=== PATIENT | female | born 1960 | race Caucasian/White ===

== ENCOUNTER 2017-09-14 12:36 | Inpatient (IN) | payer MEDICARE, OTHER ==
[~2017-09-14] VITALS: Ht 160 cm; Wt 112.1 kg
[~2017-09-14 12:36] MED LIST: AMBIEN10 MG PO; ATORVASTATIN CA40 MG PO; CALCIUM 600 +1 EAC8 PO; CELEXA20 MG PO; CLONIDINE HCL0.1 MG PO; DILTIAZEM 24HR120 MG PO; FENOFIBRATE160 MG PO; GABAPENTIN400 MG PO; LASIX40 MG PO; LEVAQUIN500 MG PO; LEVEMIR100 UNIT/1 SC; LISINOPRIL40 MG PO; METFORMIN HCL500 MG PO; OMEPRAZOLE40 MG PO; PLAVIX75 MG PO; PREDNISONE5 G1 PO; ROPINIROLE HCL1 MG PO; TRAVATAN 0.0042.5 ML OU; XARELTO10 MG PO
[2017-09-14] MEDS ORDERED: ALBUTEROL/IPRATROPIUM 3 ML NEB ONE (14:07)
[2017-09-14] MEDS ORDERED: METHYLPREDNISOLONE SOD SUCC 125 MG/2ML VIAL IV ONE (14:15)
[2017-09-14] MEDS ORDERED: PROPOFOL IV EMULSION 10MG/ML 100 ML ONE (14:36)
[2017-09-14 14:37] LABS: BASOPHILS % 0.3 % (0.0-1.0); EOSINOPHILS # (AUTO) 0.1 (0.0-0.4); EOSINOPHILS % 0.9 % (0.0-6.0); HEMATOCRIT 38.1 % (34.2-44.1); HEMOGLOBIN 11.6 g/dL (12.0-16.0); LYMPHOCYTES # (AUTO) 2.2 (1.0-3.2); LYMPHOCYTES % 18.6 % (18.0-39.1); MEAN CORPUSCULAR HEMOGLOBIN 26.8 pg (28-32); MEAN CORPUSCULAR HGB CONC 30.4 g/dL (31-35); NEUTROPHILS # (AUTO) 8.5 (2.1-6.9); NEUTROPHILS % 70.6 % (38.7-80.0); PLATELET COUNT 254 x10e3/uL (140-360); RED BLOOD COUNT 4.33 x10e6/uL (3.6-5.1); RED CELL DISTRIBUTION WIDTH 16.9 % (11.7-14.4)
[2017-09-14] MEDS ORDERED: FUROSEMIDE INJ 10 MG/ML 4 ML VIAL IV ONE (14:45)
[2017-09-14] MEDS ORDERED: SODIUM CHLORIDE 0.9% 1000ML 1,000 ML ONE (14:53)
[2017-09-14] MEDS ORDERED: NOREPINEPHRINE BITARTRATE/ NS 250 ML ONE (15:07)
[2017-09-14 15:29] LABS: BILIRUBIN,URINE NEGATIVE (NEGATIVE); KETONES,URINE NEGATIVE (NEGATIVE); LEUKOCYTE ESTERASE ,URINE NEGATIVE (NEGATIVE); NITRITE,URINE NEGATIVE (NEGATIVE); URINE UROBILINOGEN 0.2 mg/dL (0.2 - 1)
[2017-09-14 15:31] LABS: PROTEIN,URINE DIPSTICK 2+ (NEGATIVE)
[2017-09-14 15:32] LABS: INR 0.85
[2017-09-14 15:32] LABS: CLARITY,URINE SL CLOUDY (CLEAR); COLOR,URINE YELLOW (YELLOW)
[2017-09-14 15:33] LABS: PARTIAL THROMBOPLASTIN TIME 25.1 seconds (23.8-35.5)
[2017-09-14 15:36] LABS: ABG PH 7.15 (7.31-7.41)
[2017-09-14 15:37] LABS: B-TYPE NATRIURETIC PEPTIDE2 38.8 pg/mL (0-100)
[2017-09-14 15:37] LABS: ABG HCO3 41 mmol/L (23-28); ABG PCO2 120 mmHg (41-51); ABG PO2 95 mmHg (80-105)
--- NOTE | 2017-09-14 15:37 | Diagnostic Imaging Report ---
PROCEDURE: A single AP view of the chest. COMPARISON: 11/10/16 INDICATIONS: INTUBATION FINDINGS: Lines/tubes: Endotracheal tube in place with tip approximately 1.7 cm above lesli. Lungs: Limited by low lung volumes and body habitus. Central peribronchovascular thickening/cuffing. Left lower lung field hazy opacification. Pleura: There is no visible pneumothorax. Possible small left pleural effusion. Heart and mediastinum: The heart and the mediastinum are unremarkable. Bones: No acute bony abnormality. IMPRESSION: Limited as above. Status post intubation with endotracheal tip approximately 1.7 cm above lesli. Central peribronchovascular thickening/cuffing. Underlying infiltrates cannot be excluded. Left lower lung field hazy opacification, representing atelectasis and/or effusion. Dictated by: Pablo Ash M.D. on 09/14/2017 at 15:45 Electronically approved by: Pablo Ash M.D. on 09/14/2017 at 15:45
[2017-09-14 15:39] LABS: ALANINE AMINOTRANSFERASE 36 IU/L (0-55); ALBUMIN/GLOBULIN RATIO 0.8 (0.8-2.0); ALKALINE PHOSPHATASE 95 IU/L (40-150); ANION GAP 12.1 mmol/L (8-16); BLOOD UREA NITROGEN 17 mg/dL (7-26); BUN/CREATININE RATIO 18 (6-25); CARBON DIOXIDE 36 mmol/L (22-29); CHLORIDE 97 mmol/L (98-107); CREATINE KINASE 152 IU/L (29-168); CREATININE, SERUM 0.97 mg/dL (0.57-1.11); EST GLOMERULAR FILTRATION RATE 59 ML/MIN (60-); GLUCOSE 164 mg/dL (74-118); LIPASE 17 U/L (8-78); POTASSIUM 5.1 mmol/L (3.5-5.1); SODIUM 140 mmol/L (136-145)
[2017-09-14 15:47] LABS: TROPONIN I 0.013 ng/mL (0-0.300)
[2017-09-14 16:09] LABS: WBC,URINE (MAN) 0-5 /HPF (0-5)
[2017-09-14 16:10] LABS: EPITHELIAL CELLS,URINE FEW /LPF
--- NOTE | 2017-09-14 16:41 | Diagnostic Imaging Report ---
PROCEDURE: A single AP view of the chest. COMPARISON: Same day at 1516 hrs. INDICATIONS: CENTRAL LINE PLACEMENT FINDINGS: Lines/tubes: Stable endotracheal tube. New right internal jugular central line in place with tip overlying the inferior SVC. Lungs: Limited by low lung volumes and body habitus. Unchanged central peribronchovascular thickening/cuffing. Pleura: There is no pneumothorax. Small left pleural effusion. Heart and mediastinum: The heart and the mediastinum are unremarkable. Bones: No acute bony abnormality. IMPRESSION: Right internal jugular central line placement with tip overlying the inferior SVC. No evidence of pneumothorax. Pulmonary status is unchanged. Dictated by: Pablo Ash M.D. on 09/14/2017 at 16:49 Electronically approved by: Pablo Ash M.D. on 09/14/2017 at 16:49
[2017-09-14 17:19] LABS: ABG PH 7.36 (7.31-7.41)
[2017-09-14 17:20] LABS: ABG HCO3 37 mmol/L (23-28); ABG PCO2 65 mmHg (41-51); ABG PO2 107 mmHg (80-105)
[2017-09-14] MEDS ORDERED: SUCCINYLCHOLINE 200 MG/10 ML SYR ONE (17:39)
[2017-09-14] MEDS ORDERED: VECURONIUM BROMIDE FOR INJ 20 MG VIAL ONE (17:39)
[2017-09-14] MEDS ORDERED: ETOMIDATE 2 MG/ML 10 ML INJ IV ONE (17:39)
[2017-09-14] MEDS ORDERED: MIDAZOLAM HCL 2 MG/2 ML VIAL ONE (17:39)
[2017-09-14] MEDS ORDERED: WATER STERILE 10 ML VIAL ONE (17:39)
[2017-09-14] MEDS: MIDAZOLAM HCL 25 MG in SODIUM CHLORIDE 0.9% 50ML 45 ML IV PRN (18:23)
[2017-09-14] MEDS ORDERED: LEVOFLOXACIN 750MG/DEXTROSE PREMIX BAG 150ML IV SCH (19:00)
[2017-09-14] MEDS ORDERED: METHYLPREDNISOLONE SOD SUCC 125 MG/2ML VIAL ONE (19:23)
[2017-09-14] MEDS ORDERED: FUROSEMIDE INJ 10 MG/ML 2 ML VIAL ONE (19:23)
[2017-09-14] MEDS: SODIUM CHLORIDE 0.9% 1000ML 1,000 ML IV SCH (19:32)
[2017-09-14] MEDS: LEVOFLOXACIN 750MG/D5W 150ML 150 ML IV SCH (19:47)
[2017-09-14 23:35] VITALS: BP 140/100
[2017-09-15] VITALS (54 sets, daily range): BP systolic 86–159; BP diastolic 51–94
[2017-09-15] MEDS: FENTANYL CITRATE INJ 2,000 MCG in SODIUM CHLORIDE 0.9% 250ML 210 ML IV PRN ×5 (00:50→16:30)
[2017-09-15] MEDS: MIDAZOLAM HCL 25 MG in SODIUM CHLORIDE 0.9% 50ML 45 ML IV PRN ×4 (01:00→21:44)
[2017-09-15 05:59] LABS: BASOPHILS % 0.2 % (0.0-1.0); HEMATOCRIT 34.9 % (34.2-44.1); HEMOGLOBIN 10.6 g/dL (12.0-16.0); LYMPHOCYTES # (AUTO) 0.8 (1.0-3.2); LYMPHOCYTES % 7.5 % (18.0-39.1); MEAN CORPUSCULAR HEMOGLOBIN 26.4 pg (28-32); MEAN CORPUSCULAR HGB CONC 30.4 g/dL (31-35); MONOCYTES # (AUTO) 0.2 (0.2-0.8); MONOCYTES % 1.6 % (4.4-11.3); NEUTROPHILS # (AUTO) 8.9 (2.1-6.9); NEUTROPHILS % 88.9 % (38.7-80.0); PLATELET COUNT 288 x10e3/uL (140-360); RED BLOOD COUNT 4.01 x10e6/uL (3.6-5.1); RED CELL DISTRIBUTION WIDTH 16.4 % (11.7-14.4)
[2017-09-15 06:18] LABS: ANION GAP 12.3 mmol/L (8-16); CALCIUM 8.5 mg/dL (8.4-10.2); CREATININE, SERUM 0.97 mg/dL (0.57-1.11); POTASSIUM 4.3 mmol/L (3.5-5.1)
[2017-09-15] MEDS: SODIUM CHLORIDE 0.9% 1000ML 1,000 ML IV SCH (07:00)
--- NOTE | 2017-09-15 07:19 | Diagnostic Imaging Report ---
Examination: Single AP view of the chest. COMPARISON: 09/14/2017 INDICATION: Shortness of breath DISCUSSION: See impression IMPRESSION: 1. Endotracheal tube and right internal jugular central venous catheter are unchanged in position. 2. Unchanged bibasilar airspace opacities which may reflect atelectasis or aspiration. Trace left pleural effusion. 3. Stable cardiomediastinal contour with pulmonary venous congestion. Signed by: Dr. Keegan Shook M.D. on 09/15/2017 7:15 AM
[2017-09-15] MEDS ORDERED: ALBUTEROL/IPRATROPIUM 3 ML NEB ONE (10:33)
[2017-09-15] MEDS: ALBUTEROL/IPRATROPIUM 3 ML NEB NEB SCH ×4 (10:38→19:00)
--- NOTE | 2017-09-15 10:49 | History and Physical ---
She is a 57-year-old female patient who presented to the emergency room with complaint of dyspnea for 2 to 3 days. HISTORY OF PRESENT ILLNESS: The patient is a 57-year-old female patient with history of COPD with severe symptoms, morbid obesity, diastolic CHF, hypertension, diabetes mellitus, coronary artery disease and atrial fibrillation. She presented to the emergency room with worsening shortness of breath, cough, fever, dyspnea, chest pain and leg swelling for 2 to 3 days. The patient was having severe symptoms in the emergency room, requiring intubation. PAST MEDICAL HISTORY: Hypertensive heart disease, diabetes mellitus with vascular disease, CHF diastolic, COPD, coronary artery disease, hyperlipidemia. PAST SURGICAL HISTORY: Cholecystectomy, tonsillectomy, tracheostomy, and cardiac stent. SOCIAL HISTORY: Denies smoking. Denies using alcohol. FAMILY HISTORY: Diabetes mellitus and hypertension. REVIEW OF SYSTEMS: Cough, shortness of breath, wheezing, chest tightness, weakness. PHYSICAL EXAMINATION GENERAL: She is an elderly, female patient lying in bed, orally intubated. VITAL SIGNS: Temperature 99, pulse rate 90, blood pressure 115/80, respirations 18. HEENT: Normocephalic, atraumatic. Orally intubated and thick scar present. LUNGS: Bilateral diminished air entry with rhonchi present. HEART: S1 and S2 regular. ABDOMEN: Soft. Bowel sounds are present. NEUROLOGIC: Nonfocal. No neurologic deficit. On arrival ABG, the patient was acidotic with pH 7.14, pCO2 119, pO2 95. ADMISSION IMPRESSION AND DIAGNOSES 1. Acute respiratory failure. 2. Pneumonia. 3. Chronic obstructive pulmonary disease with exacerbation. 4. Diastolic congestive heart failure. 5. History of atrial fibrillation, hypertension, and diabetes mellitus. PLAN: The patient will be admitted with the above diagnoses. The patient will be treated with IV antibiotic, IV Levaquin. Pulmonary consultation was done with Dr. Brown. The patient is also being given analgesics. ICU monitoring will be done. Job#: [id number]
[2017-09-15] MEDS: FUROSEMIDE INJ 10 MG/ML 4 ML VIAL IV SCH (13:20)
[2017-09-15] MEDS: METHYLPREDNISOLONE SOD SUCC 40 MG/ML VIAL IV SCH ×2 (13:20→21:37)
--- NOTE | 2017-09-15 14:08 | Consultation ---
DATE OF CONSULTATION: PULMONARY CONSULTATION REASON FOR CONSULTATION: Shortness of breath, respiratory failure, intubation. HISTORY OF PRESENT ILLNESS: Ms. Cole is a 57-year-old female known to me from previous admission, presented to the emergency room with the complaints of shortness of breath going on for 3 days. 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 She uses CPAP and there is a question about noncompliance with CPAP as well. She has 27-oprg-oefo smoking history, still smokes. I saw her in November of 2016 and she told me that the tracheostomy tube was removed 4 years ago and since then, she has a nonhealing tracheal stoma and tracheocutaneous fistula. She denies any chest pain, nausea, or vomiting. is at the bedside. In the emergency room when she came in, she had a pH of 7.15, pCO2 of 120, pO2 of 95, and saturation of 93%. She was intubated in the emergency room. Right now, she is awake and alert and follows command. She is on mechanical ventilator. REVIEW OF SYSTEMS: Unable to elicit detailed review of systems as the patient is intubated; however, she is denying any complaints of chest pain, nausea, or vomiting. PAST MEDICAL HISTORY 1. Morbid obesity. 2. Coronary artery disease. 3. Hypertension. 4. Peripheral arterial disease. 5. Diastolic heart failure. 6. Chronic tracheostomy, which was removed 5 years ago and has a tracheocutaneous fistula. 7. History of severe sleep apnea. She had a sleep study done in December of 2012, where it was read by Dr. Melton. The patient's AHI was 84 and she was prescribed CPAP. PAST SURGICAL HISTORY: Unknown except tracheostomy. FAMILY HISTORY AND SOCIAL HISTORY: She still smokes, lives with her , 09-xzwe-ndso smoking history. PHYSICAL EXAMINATION VITALS: Temperature 98.6, pulse of 90, blood pressure 114/79, respiratory rate of 18, O2 sat 97%, and she is on 50% FiO2 and tidal volume of 550 and PEEP of 5. HEENT: Head atraumatic, normocephalic. Pupils are reactive. She has a nonhealing tracheocutaneous fistula. She is intubated and morbidly obese. CHEST: Wheezing bilaterally. HEART: S1, S2 audible. ABDOMEN: Soft, nontender, and nondistended. EXTREMITIES: Bilateral pedal edema. NEUROLOGIC: She is awake and alert. No focal neurologic deficit. Following commands. LABORATORY DATA: White count of 9000, hemoglobin 10.6, and platelets 288. Chemistry; sodium 139, potassium 4.3, chloride 97, BUN 18, and creatinine 0.97. Blood gas on admission showed pH of 7.15, pCO2 of 120. Yesterday at around 04:00 p.m. has pCO2 of 65 and pH of 7.36. INR is 0.85. CHEST X-RAY: I have reviewed her chest x-ray films and it is showing possible left lower lobe infiltrate. ASSESSMENT AND PLAN: Ms. Cole is a 57-year-old female, morbidly obese, presented with oussa-mo-ztkuzao hypercapnic respiratory failure. CURRENT PROBLEMS 1. Goqof-mo-ewgwcvn hypercapnic respiratory failure. 2. Morbid obesity. 3. Possible left lower lobe pneumonia. 4. Chronic obstructive pulmonary disease exacerbation. 5. Hypertension. 6. Chronic tracheocutaneous fistula, nonhealing. 7. Morbid obesity. 8. Smoker. PLAN 1. Continue the patient on vent support vent settings reviewed, wean as tolerated. 2. Discontinue the IV fluids. 3. Continue fentanyl. 4. IV Levaquin as ordered. 5. Will change the Lasix to IV. 6. Nebulizer treatment, low-dose steroids. 7. Iv antibiotics CC time spent 40 min Job#: [id number] SAK MTDD
[2017-09-15] MEDS: GABAPENTIN 400 MG CAP PO SCH ×2 (14:15→20:00)
[2017-09-15] MEDS: METFORMIN HCL 500 MG TAB PO SCH (14:16)
[2017-09-15] MEDS ORDERED: DEXTROSE 50% SYRINGE 50 ML IV PRN (15:15)
[2017-09-15] MEDS: INSULIN REGULAR, HUMAN 100 UNIT/1 ML 3ML VIAL SQ SCH (18:14)
[2017-09-15] MEDS: ATORVASTATIN 40 MG TAB PO SCH (19:59)
[2017-09-15] MEDS: TRAVOPROST(OPTH) 2.5 ML BTL OP SCH (20:57)
[2017-09-15] MEDS ORDERED: CLONIDINE HCL 0.1 MG TAB PO SCH (21:00)
[2017-09-15] MEDS ORDERED: NON-FORMULARY MEDICATION (Fenofibrate 160 MG) PO SCH (21:00)
[2017-09-15] MEDS: LEVOFLOXACIN 750MG/D5W 150ML 150 ML IV SCH (21:07)
[2017-09-16] VITALS (71 sets, daily range): BP systolic 100–199; BP diastolic 39–147
[2017-09-16] MEDS: MIDAZOLAM HCL 25 MG in SODIUM CHLORIDE 0.9% 50ML 45 ML IV PRN (00:07)
[2017-09-16] MEDS: ALBUTEROL/IPRATROPIUM 3 ML NEB NEB SCH ×6 (03:15→22:55)
[2017-09-16 06:09] LABS: BASOPHILS % 0.2 % (0.0-1.0); HEMATOCRIT 32.8 % (34.2-44.1); HEMOGLOBIN 10.3 g/dL (12.0-16.0); LYMPHOCYTES # (AUTO) 0.8 (1.0-3.2); LYMPHOCYTES % 6.8 % (18.0-39.1); MEAN CORPUSCULAR HEMOGLOBIN 26.8 pg (28-32); MEAN CORPUSCULAR HGB CONC 31.4 g/dL (31-35); MEAN CORPUSCULAR VOLUME 85.2 fL (81-99); MONOCYTES # (AUTO) 0.9 (0.2-0.8); MONOCYTES % 7.9 % (4.4-11.3); NEUTROPHILS # (AUTO) 9.6 (2.1-6.9); NEUTROPHILS % 84.1 % (38.7-80.0); PLATELET COUNT 287 x10e3/uL (140-360); RED BLOOD COUNT 3.85 x10e6/uL (3.6-5.1); RED CELL DISTRIBUTION WIDTH 16.3 % (11.7-14.4)
[2017-09-16] MEDS: METHYLPREDNISOLONE SOD SUCC 40 MG/ML VIAL IV SCH ×3 (06:12→23:23)
[2017-09-16] MEDS: INSULIN REGULAR, HUMAN 100 UNIT/1 ML 3ML VIAL SQ SCH ×4 (06:42→18:00)
[2017-09-16 06:49] LABS: ALANINE AMINOTRANSFERASE 27 IU/L (0-55); ALBUMIN 2.7 g/dL (3.5-5.0); ALBUMIN/GLOBULIN RATIO 0.8 (0.8-2.0); ALKALINE PHOSPHATASE 73 IU/L (40-150); BLOOD UREA NITROGEN 25 mg/dL (7-26); BUN/CREATININE RATIO 25 (6-25); CALCIUM 8.7 mg/dL (8.4-10.2); CARBON DIOXIDE 34 mmol/L (22-29); CHLORIDE 97 mmol/L (98-107); CREATININE, SERUM 1.01 mg/dL (0.57-1.11); EST GLOMERULAR FILTRATION RATE 56 ML/MIN (60-); GLUCOSE 311 mg/dL (74-118); SODIUM 138 mmol/L (136-145)
[2017-09-16] MEDS: METFORMIN HCL 500 MG TAB PO SCH ×2 (08:00→17:00)
[2017-09-16] MEDS: ROPINIROLE HCL 1 MG TAB PO SCH (09:00)
[2017-09-16] MEDS: FUROSEMIDE INJ 10 MG/ML 4 ML VIAL IV SCH (09:00)
[2017-09-16] MEDS ORDERED: FUROSEMIDE 40 MG TAB PO SCH (09:00)
[2017-09-16] MEDS ORDERED: NON-FORMULARY MEDICATION (Lisinopril 40 MG) PO SCH (09:00)
[2017-09-16] MEDS ORDERED: FUROSEMIDE INJ 10 MG/ML 4 ML VIAL IV SCH (09:00)
[2017-09-16] MEDS: LISINOPRIL 20 MG TAB PO SCH (09:00)
[2017-09-16] MEDS: DILTIAZEM HCL 180 MG CAP CD PO SCH (09:00)
[2017-09-16] MEDS: CITALOPRAM HYDROBROMIDE 20 MG TAB PO SCH (09:00)
[2017-09-16] MEDS: GABAPENTIN 400 MG CAP PO SCH ×3 (09:00→21:00)
[2017-09-16] MEDS: CLOPIDOGREL BISULFATE 75 MG TAB PO SCH (09:00)
[2017-09-16] MEDS: FENOFIBRATE 145 MG TAB PO SCH (09:00)
[2017-09-16] MEDS: RIVAROXABAN 10 MG TABLET PO SCH (09:00)
[2017-09-16] MEDS ORDERED: VECURONIUM BROMIDE FOR INJ 20 MG VIAL ONE (11:56)
[2017-09-16] MEDS ORDERED: ROCURONIUM BROMIDE 1 ML ONE ×2 (11:57→11:58)
[2017-09-16 12:08] LABS: ABG HCO3 33 mmol/L (23-28); ABG PCO2 97 mmHg (41-51); ABG PH 7.14 (7.31-7.41); ABG PO2 103 mmHg (80-105)
[2017-09-16] MEDS ORDERED: BUMETANIDE INJ 0.25MG/ML 4ML VIAL ONE (12:11)
--- NOTE | 2017-09-16 12:17 | Diagnostic Imaging Report ---
PROCEDURE: A single AP view of the chest. COMPARISON: Patients [facility], , CHEST SINGLE (PORTABLE), 09/15/2017, 5:28. INDICATIONS: POST REINTUBATION FINDINGS: Impression IMPRESSION: 1. endotracheal tube has distal tip projecting approximately 3.2 cm above the lesli. Right IJ line is stable. 2. Hyperinflated lungs. Bibasilar atelectasis. 2. Central pulmonary venous congestion. Alex Wilson M.D. Dictated by: Alex Wilson M.D. on 09/16/2017 at 12:25 Electronically approved by: Alex Wilson M.D. on 09/16/2017 at 12:25
[2017-09-16] MEDS ORDERED: INSULIN REGULAR, HUMAN 100 UNIT/1 ML 3ML VIAL ONE (12:24)
[2017-09-16] MEDS ORDERED: ADENOSINE 6 MG/2 ML VIAL IV ONE (12:25)
[2017-09-16] MEDS ORDERED: METOPROLOL TARTRATE INJ 1 MG/ML VIAL IV ONE (13:15)
[2017-09-16] MEDS: AMIODARONE 900MG 500 ML IV SCH (13:15)
--- NOTE | 2017-09-16 13:46 | Diagnostic Imaging Report ---
PROCEDURE: CT scan of the chest WITH intravenous contrast, using PE protocol. TECHNIQUE: The chest was scanned utilizing a multidetector helical scanner from the lung apex through the level of the adrenal glands after the IV administration of 55 cc of Isovue 370, with special concentration of the pulmonary arteries. Coronal and sagittal multiplanar reformations were obtained. COMPARISON: None. INDICATIONS: Pulmonary embolism FINDINGS: Limited exam, as it was acquired during expiration and due to soft tissue attenuation from patient's body habitus. Lines/tubes: Endotracheal tube has its distal tip approximately 1.5 cm above the lesli. Lungs and Airways: No filling defects in the main, right or left pulmonary arteries or their segmental level to suggest pulmonary embolism. Bilateral lower lobe posteromedial consolidations with air bronchograms, left greater than right. Patchy consolidations, with air bronchograms is also seen in the left upper lobe (series 3, image 28). Focal groundglass opacity in the anterior right upper lobe (series 3 per image 31). No pulmonary masses. Major airways are clear, without endobronchial lesions Pleura: The pleural spaces are clear. No effusion, or pneumothorax. Heart and mediastinum: Thyroid is unremarkable. Mild cardiomegaly. Atherosclerotic calcification of the coronary arteries and thoracic aorta. Lymph nodes: No mediastinal, hilar, or axillary adenopathy. Abdomen: Limited contrast-enhanced views of the upper abdomen show no abnormality within the visualized spleen. Diffuse hepatic steatosis. Right adrenal gland is unremarkable. Bones: No acute bony abnormalities. IMPRESSION: 1. no CT evidence of pulmonary embolism. 2. Findings in bilateral lower lobes, likely represent aspiration in the setting of recent arrest. Multifocal pneumonia is a consideration in the appropriate clinical setting. 3. Findings in bilateral upper lobes may also reflect aspiration or additional foci of infection. 4. Diffuse hepatic steatosis. Alex Wilson M.D. Dictated by: Alex Wilson M.D. on 09/16/2017 at 13:55 Electronically approved by: Alex Wilson M.D. on 09/16/2017 at 13:55
[2017-09-16] MEDS ORDERED: IOPAMIDOL 370 MG/ML 200 ML INFUS..BTL INJ ONE (13:53)
[2017-09-16] MEDS ORDERED: SODIUM CHLORIDE 0.9% 50ML 50 ML ONE (13:53)
[2017-09-16] MEDS ORDERED: ETOMIDATE 40 MG/ 20ML VIAL IV ONE (13:58)
[2017-09-16] MEDS ORDERED: SUCCINYLCHOLINE CHLORIDE 20 MG/ML 10ML VIAL ONE (13:58)
[2017-09-16] MEDS ORDERED: PIPER-TAZ 3.375 GM 50 ML IV SCH (14:00)
[2017-09-16] MEDS ORDERED: AMIODARONE HCL INJ 150MG/3ML ONE (14:01)
--- NOTE | 2017-09-16 15:36 | Consultation ---
DATE OF CONSULTATION: REQUESTING PHYSICIANS: Dr. Rahel Aiken and Dr. Brown. REASON FOR CONSULTATION: Tachycardia. HISTORY OF PRESENT ILLNESS: Mr. Cole is a 57-year-old lady with past medical history as listed below. She presented with complaints of worsening shortness of breath, cough and fever. She was also experiencing leg edema. Patient was intubated and placed on the vent. Subsequently, the patient was extubated. She went on to have a CAT scan of her chest. During the CAT scan, the patient became tachycardic. Heart rate went up into the 160s. She was given amiodarone and started on an amiodarone drip for suspected AFib. The patient's heart rate slowed down to the 120s. She appears to be in sinus tach on the monitor. Strips of AFib are not available. Patient had to be reintubated. She is currently on a vent. No history can be obtained from the patient. Most of the history is obtained from the chart, the nurse and the family at the bedside. REVIEW OF SYSTEMS: Not obtainable from the patient. ALLERGIES: NO KNOWN DRUG ALLERGIES. MEDICATIONS: See list. PAST MEDICAL HISTORY 1. History of hypertension. 2. History of diabetes mellitus. 3. History of CHF diastolic. 4. History of COPD. 5. History of CAD and stent placement. 6. History of hyperlipidemia. PAST SURGICAL HISTORY 1. History of tracheostomy. 2. History of tonsillectomy. 3. History of cholecystectomy. 4. History of coronary stent placement. SOCIAL HISTORY: Does not smoke or drink. FAMILY HISTORY: Noncontributory. PHYSICAL EXAMINATION GENERAL: Obese lady, intubated on a vent. VITALS: Heart rate is in the 120s. Blood pressure 124/62. HEENT: Orotracheal tube in place. GENERAL: No JVD, bruits, thyromegaly, lymphadenopathy. CARDIOVASCULAR: The 1st and 2nd heart sounds heard. No murmurs, rubs or gallops appreciated. CHEST: Decreased air entry at the bases. No adventitious sounds appreciated. ABDOMEN: Soft, nontender. EXTREMITIES: 1+ edema. LABS: WBC is 11.3, hemoglobin is 10.3, hematocrit 32.8, platelets 287. Sodium is 138, potassium 4.0, chloride 97, bicarb 34, BUN 25, creatinine 1.0. AST 17, ALT 27, alkaline phos 73. IMPRESSION 1. Respiratory failure. 2. Sinus tachycardia/supraventricular tachycardia. 3. Hypertension. 4. History of coronary artery disease and stent placement. 5. History of congestive heart failure. 6. Chronic obstructive pulmonary disease. PLAN 1. Patient appears to be in sinus tach on the monitor. 2. She was started on IV amiodarone, will continue the same for now. 3. She was also given metoprolol. Will give her metoprolol p.r.n. When she gets an NG tube, will place her on oral metoprolol. 4. Get echocardiogram to assess LV function and valvular function. 5. CT chest is negative for pulmonary embolism. 6. CT shows multifocal pneumonia, continue with antibiotics. 7. Tachycardia is probably secondary to underlying condition. 8. Check thyroid function test. 9. Further cardiac workup depending on clinical course. 10. I discussed my impression and plan of management with the family. As always, I appreciate and thank you very much for your referrals. Job#: [id number]
[2017-09-16] MEDS: AZTREONAM (AZACTAM) 0.5 GM in SODIUM CHLORIDE 0.9% 50ML 50 ML IV SCH (16:00)
[2017-09-16 17:41] LABS: ABG HCO3 38 mmol/L (23-28); ABG PCO2 47 mmHg (41-51); ABG PO2 54 mmHg (80-105)
[2017-09-16] MEDS ORDERED: METOPROLOL TARTRATE 25 MG TAB PO SCH (18:00)
[2017-09-16] MEDS: METOPROLOL TARTRATE 25 MG TAB PO SCH (18:00)
[2017-09-16] MEDS ORDERED: SODIUM CHLORIDE 0.9% 250ML 250 ML ONE (18:20)
[2017-09-16] MEDS: ATORVASTATIN 40 MG TAB PO SCH (21:00)
[2017-09-16] MEDS: CLONIDINE HCL 0.1 MG TAB PO SCH (21:00)
[2017-09-16] MEDS ORDERED: MIDAZOLAM HCL 2 MG/2 ML VIAL IV STA (21:38)
[2017-09-16] MEDS: TRAVOPROST(OPTH) 2.5 ML BTL OP SCH (23:08)
[2017-09-17] VITALS (90 sets, daily range): BP systolic 91–153; BP diastolic 47–82
[2017-09-17] MEDS: MIDAZOLAM HCL 2 MG/2 ML VIAL IV PRN ×2 (00:50→07:49)
[2017-09-17] MEDS: AZTREONAM (AZACTAM) 0.5 GM in SODIUM CHLORIDE 0.9% 50ML 50 ML IV SCH ×3 (01:16→16:00)
[2017-09-17] MEDS: FENTANYL CITRATE INJ 2,000 MCG in SODIUM CHLORIDE 0.9% 250ML 210 ML IV PRN (01:19)
[2017-09-17] MEDS: INSULIN REGULAR, HUMAN 100 UNIT/1 ML 3ML VIAL SQ SCH ×5 (01:20→23:51)
[2017-09-17] MEDS: ALBUTEROL/IPRATROPIUM 3 ML NEB NEB SCH ×6 (02:45→22:52)
[2017-09-17] MEDS: METOPROLOL TARTRATE 25 MG TAB PO SCH ×4 (05:17→17:00)
[2017-09-17] MEDS: METHYLPREDNISOLONE SOD SUCC 40 MG/ML VIAL IV SCH ×3 (06:00→21:27)
[2017-09-17 06:03] LABS: BASOPHILS % 0.1 % (0.0-1.0); HEMATOCRIT 34.8 % (34.2-44.1); HEMOGLOBIN 10.7 g/dL (12.0-16.0); LYMPHOCYTES # (AUTO) 0.8 (1.0-3.2); LYMPHOCYTES % 5.5 % (18.0-39.1); MEAN CORPUSCULAR HEMOGLOBIN 26.8 pg (28-32); MEAN CORPUSCULAR HGB CONC 30.7 g/dL (31-35); MEAN CORPUSCULAR VOLUME 87.2 fL (81-99); MONOCYTES # (AUTO) 1.4 (0.2-0.8); MONOCYTES % 9.8 % (4.4-11.3); NEUTROPHILS # (AUTO) 12.1 (2.1-6.9); NEUTROPHILS % 83.8 % (38.7-80.0); PLATELET COUNT 294 x10e3/uL (140-360); RED BLOOD COUNT 3.99 x10e6/uL (3.6-5.1); RED CELL DISTRIBUTION WIDTH 16.9 % (11.7-14.4)
[2017-09-17 06:23] LABS: ANION GAP 14.9 mmol/L (8-16); CREATININE, SERUM 1.08 mg/dL (0.57-1.11); POTASSIUM 3.9 mmol/L (3.5-5.1)
[2017-09-17] MEDS: MIDAZOLAM HCL 25 MG in SODIUM CHLORIDE 0.9% 50ML 45 ML IV PRN (07:49)
[2017-09-17] MEDS: METFORMIN HCL 500 MG TAB PO SCH ×2 (08:00→17:00)
[2017-09-17] MEDS: CITALOPRAM HYDROBROMIDE 20 MG TAB PO SCH (09:00)
[2017-09-17] MEDS: FENOFIBRATE 145 MG TAB PO SCH (09:00)
[2017-09-17] MEDS: LISINOPRIL 20 MG TAB PO SCH (09:00)
[2017-09-17] MEDS: ROPINIROLE HCL 1 MG TAB PO SCH (09:00)
[2017-09-17] MEDS: DILTIAZEM HCL 180 MG CAP CD PO SCH (09:00)
[2017-09-17] MEDS: CLOPIDOGREL BISULFATE 75 MG TAB PO SCH (09:00)
[2017-09-17] MEDS: RIVAROXABAN 10 MG TABLET PO SCH (09:00)
[2017-09-17] MEDS: GABAPENTIN 400 MG CAP PO SCH ×3 (09:00→21:27)
[2017-09-17] MEDS ORDERED: PROPOFOL IV EMULSION 10MG/ML 100 ML IV PRN (10:00)
[2017-09-17] MEDS: FUROSEMIDE INJ 10 MG/ML 4 ML VIAL IV SCH ×2 (10:03→18:42)
[2017-09-17] MEDS: VANCOMYCIN 1GM/NS 250 ML 250 ML IV SCH ×2 (12:45→22:42)
[2017-09-17] MEDS: AMIODARONE 900MG 500 ML IV SCH (12:46)
[2017-09-17] MEDS: CLONIDINE HCL 0.1 MG TAB PO SCH (21:00)
[2017-09-17] MEDS: ATORVASTATIN 40 MG TAB PO SCH (21:27)
[2017-09-17] MEDS: TRAVOPROST(OPTH) 2.5 ML BTL OP SCH (21:42)
[2017-09-18] VITALS (99 sets, daily range): BP systolic 84–156; BP diastolic 32–132
[2017-09-18] MEDS: AZTREONAM (AZACTAM) 0.5 GM in SODIUM CHLORIDE 0.9% 50ML 50 ML IV SCH ×3 (00:20→16:00)
[2017-09-18] MEDS ORDERED: SODIUM CHLORIDE 0.9% 250ML 250 ML ONE ×2 (00:23→15:30)
[2017-09-18] MEDS: FENTANYL CITRATE INJ 2,000 MCG in SODIUM CHLORIDE 0.9% 250ML 210 ML IV PRN (00:31)
[2017-09-18] MEDS: ALBUTEROL/IPRATROPIUM 3 ML NEB NEB SCH ×4 (02:49→23:45)
[2017-09-18 05:36] LABS: BASOPHILS % 0.3 % (0.0-1.0); HEMATOCRIT 33.7 % (34.2-44.1); HEMOGLOBIN 10.3 g/dL (12.0-16.0); LYMPHOCYTES # (AUTO) 0.9 (1.0-3.2); LYMPHOCYTES % 7.7 % (18.0-39.1); MEAN CORPUSCULAR HEMOGLOBIN 26.8 pg (28-32); MEAN CORPUSCULAR HGB CONC 30.6 g/dL (31-35); MEAN CORPUSCULAR VOLUME 87.5 fL (81-99); MONOCYTES % 8.7 % (4.4-11.3); NEUTROPHILS # (AUTO) 9.8 (2.1-6.9); NEUTROPHILS % 82.5 % (38.7-80.0); PLATELET COUNT 291 x10e3/uL (140-360); RED BLOOD COUNT 3.85 x10e6/uL (3.6-5.1)
[2017-09-18] MEDS: METHYLPREDNISOLONE SOD SUCC 40 MG/ML VIAL IV SCH ×3 (05:40→21:01)
[2017-09-18] MEDS: INSULIN REGULAR, HUMAN 100 UNIT/1 ML 3ML VIAL SQ SCH ×3 (05:42→18:27)
[2017-09-18 06:08] LABS: ALBUMIN 2.3 g/dL (3.5-5.0); ALBUMIN/GLOBULIN RATIO 0.6 (0.8-2.0); ANION GAP 14.9 mmol/L (8-16); CALCIUM 9.1 mg/dL (8.4-10.2); CREATININE, SERUM 1.1 mg/dL (0.57-1.11); POTASSIUM 3.9 mmol/L (3.5-5.1)
[2017-09-18] MEDS: METFORMIN HCL 500 MG TAB PO SCH ×2 (08:00→17:00)
[2017-09-18] MEDS: CLOPIDOGREL BISULFATE 75 MG TAB PO SCH (09:00)
[2017-09-18] MEDS: LISINOPRIL 20 MG TAB PO SCH (09:00)
[2017-09-18] MEDS: METOPROLOL TARTRATE 25 MG TAB PO SCH ×2 (09:00→17:00)
[2017-09-18] MEDS: RIVAROXABAN 10 MG TABLET PO SCH (09:00)
[2017-09-18] MEDS: DILTIAZEM HCL 180 MG CAP CD PO SCH (09:00)
[2017-09-18] MEDS: ROPINIROLE HCL 1 MG TAB PO SCH (09:00)
[2017-09-18] MEDS: GABAPENTIN 400 MG CAP PO SCH ×3 (09:00→20:41)
[2017-09-18] MEDS: FENOFIBRATE 145 MG TAB PO SCH (09:00)
[2017-09-18] MEDS: CITALOPRAM HYDROBROMIDE 20 MG TAB PO SCH (09:00)
[2017-09-18] MEDS: FUROSEMIDE INJ 10 MG/ML 4 ML VIAL IV SCH ×2 (09:00→17:00)
[2017-09-18] MEDS ORDERED: DEXMEDETOMIDINE HCL 200 MCG in SODIUM CHLORIDE 0.9% 50ML 48 ML IV PRN (11:00)
[2017-09-18] MEDS ORDERED: HYDROMORPHONE 2MG/ML INJ IV PRN (11:15)
[2017-09-18] MEDS ORDERED: HYDROMORPHONE 1MG/1ML INJ IV PRN (11:15)
[2017-09-18] MEDS: VANCOMYCIN 1GM/NS 250 ML 250 ML IV SCH ×2 (11:30→23:34)
--- NOTE | 2017-09-18 12:10 | Diagnostic Imaging Report ---
PROCEDURE: A single AP view of the chest. COMPARISON: Patients [facility], DX, CHEST SINGLE (PORTABLE), 09/16/2017, 11:53. Patients [facility], CT, CT CHEST W, 09/16/2017, 12:28. INDICATIONS: RESPIRATORY FAILURE, INTUBATION FINDINGS: Lines/tubes: Endotracheal tube has distal tip projecting approximately 6 cm above the lesli at the level of the thoracic inlet. Interval placement of enteric tube which is seen below the left hemidiaphragm, however, the distal tip is not well-visualized. Stable right IJ line Lungs: Hypoinflated lungs with airspace opacity in the retrocardiac region, likely representing the previously visualized aspiration or pneumonia. Linear opacities in the right lower lung, consistent with subsegmental atelectasis or scarring. Pleura: Questionable left pleural effusion. Heart and mediastinum: Enlarged cardiac silhouette. Central pulmonary venous congestion. Bones: No acute bony abnormality. IMPRESSION: 1. enlarged cardiac silhouette and central pulmonary venous congestion. 2. Hypoinflated lungs with left retrocardiac opacity, likely representing the previously seen, aspiration or pneumonia. 3. Right lower lung linear subsegmental atelectasis or scarring. 4. Interval placement of enteric tube which is seen below left hemidiaphragm. Alex Wilson M.D. Dictated by: Alex Wilson M.D. on 09/18/2017 at 12:18 Electronically approved by: Alex Wilson M.D. on 09/18/2017 at 12:18
[2017-09-18] MEDS: ATORVASTATIN 40 MG TAB PO SCH (20:41)
[2017-09-18] MEDS: TRAVOPROST(OPTH) 2.5 ML BTL OP SCH (20:41)
[2017-09-18] MEDS: MIDAZOLAM HCL 2 MG/2 ML VIAL IV PRN (20:55)
[2017-09-18] MEDS: CLONIDINE HCL 0.1 MG TAB PO SCH (21:00)
[2017-09-19] VITALS (97 sets, daily range): BP systolic 88–146; BP diastolic 50–99
[2017-09-19] MEDS: AZTREONAM (AZACTAM) 0.5 GM in SODIUM CHLORIDE 0.9% 50ML 50 ML IV SCH ×3 (00:06→16:00)
[2017-09-19] MEDS: INSULIN REGULAR, HUMAN 100 UNIT/1 ML 3ML VIAL SQ SCH ×5 (01:15→23:11)
[2017-09-19] MEDS: ALBUTEROL/IPRATROPIUM 3 ML NEB NEB SCH ×6 (01:30→20:30)
--- NOTE | 2017-09-19 05:35 | Diagnostic Imaging Report ---
EXAM: CHEST SINGLE (PORTABLE), AP 1 view DATE: 09/19/2017 5:00 AM Time stamp on exam: 0427 hours INDICATION: Intubated COMPARISON: AP view of the chest September 18, 2017 FINDINGS: LINES/TUBES: Stable position of endotracheal tube, right internal jugular vein central line and nasal/orogastric tube. LUNGS: Slight improved aeration of the lung bases with persistent bibasilar atelectasis. PLEURA: No effusions or pneumothorax. HEART AND MEDIASTINUM: Stable appearance. BONES AND SOFT TISSUES: No acute findings. IMPRESSION: Slight improved aeration of the lung bases with persistent bibasilar atelectasis. Signed by: Dr. Nicole Zamora M.D. on 09/19/2017 5:31 AM
[2017-09-19] MEDS: METHYLPREDNISOLONE SOD SUCC 40 MG/ML VIAL IV SCH ×3 (05:37→21:00)
[2017-09-19 05:56] LABS: BASOPHILS % 0.1 % (0.0-1.0); EOSINOPHILS % 0.1 % (0.0-6.0); HEMATOCRIT 35.2 % (34.2-44.1); HEMOGLOBIN 10.7 g/dL (12.0-16.0); LYMPHOCYTES # (AUTO) 0.9 (1.0-3.2); LYMPHOCYTES % 11.6 % (18.0-39.1); MEAN CORPUSCULAR HGB CONC 30.4 g/dL (31-35); MEAN CORPUSCULAR VOLUME 85.6 fL (81-99); MONOCYTES # (AUTO) 0.9 (0.2-0.8); MONOCYTES % 11.1 % (4.4-11.3); NEUTROPHILS # (AUTO) 5.9 (2.1-6.9); NEUTROPHILS % 76.5 % (38.7-80.0); PLATELET COUNT 309 x10e3/uL (140-360); RED BLOOD COUNT 4.11 x10e6/uL (3.6-5.1); RED CELL DISTRIBUTION WIDTH 16.1 % (11.7-14.4)
[2017-09-19 06:19] LABS: ANION GAP 14.9 mmol/L (8-16); POTASSIUM 3.9 mmol/L (3.5-5.1)
[2017-09-19] MEDS: METFORMIN HCL 500 MG TAB PO SCH ×2 (08:00→17:00)
[2017-09-19] MEDS: DILTIAZEM HCL 180 MG CAP CD PO SCH (09:00)
[2017-09-19] MEDS: LISINOPRIL 20 MG TAB PO SCH (09:00)
[2017-09-19] MEDS: GABAPENTIN 400 MG CAP PO SCH ×3 (09:00→20:44)
[2017-09-19] MEDS: RIVAROXABAN 10 MG TABLET PO SCH (09:00)
[2017-09-19] MEDS: FUROSEMIDE INJ 10 MG/ML 4 ML VIAL IV SCH ×2 (09:00→17:41)
[2017-09-19] MEDS: METOPROLOL TARTRATE 25 MG TAB PO SCH ×2 (09:00→17:00)
[2017-09-19] MEDS: CITALOPRAM HYDROBROMIDE 20 MG TAB PO SCH (09:00)
[2017-09-19] MEDS: ROPINIROLE HCL 1 MG TAB PO SCH (09:00)
[2017-09-19] MEDS: FENOFIBRATE 145 MG TAB PO SCH (09:00)
[2017-09-19] MEDS: CLOPIDOGREL BISULFATE 75 MG TAB PO SCH (09:00)
[2017-09-19] MEDS: VANCOMYCIN 1GM/NS 250 ML 250 ML IV SCH ×2 (11:30→23:04)
[2017-09-19 18:21] LABS: ABG HCO3 45 mmol/L (23-28); ABG PCO2 58 mmHg (41-51); ABG PO2 64 mmHg (80-105)
[2017-09-19] MEDS: CLONIDINE HCL 0.1 MG TAB PO SCH (20:44)
[2017-09-19] MEDS: ATORVASTATIN 40 MG TAB PO SCH (20:44)
[2017-09-19] MEDS: MIDAZOLAM HCL 2 MG/2 ML VIAL IV PRN (21:00)
[2017-09-19] MEDS: TRAVOPROST(OPTH) 2.5 ML BTL OP SCH (21:00)
[2017-09-19] MEDS: DEXMEDETOMIDINE HCL 200 MCG in SODIUM CHLORIDE 0.9% 50ML 48 ML IV PRN (23:19)
[2017-09-20] VITALS (89 sets, daily range): BP systolic 102–170; BP diastolic 65–118
[2017-09-20] MEDS: AZTREONAM (AZACTAM) 0.5 GM in SODIUM CHLORIDE 0.9% 50ML 50 ML IV SCH ×4 (00:40→23:18)
[2017-09-20] MEDS: ALBUTEROL/IPRATROPIUM 3 ML NEB NEB SCH ×6 (05:00→23:50)
[2017-09-20] MEDS: METHYLPREDNISOLONE SOD SUCC 40 MG/ML VIAL IV SCH ×3 (05:16→21:40)
[2017-09-20] MEDS: INSULIN REGULAR, HUMAN 100 UNIT/1 ML 3ML VIAL SQ SCH ×4 (05:20→23:46)
[2017-09-20] MEDS: DEXMEDETOMIDINE HCL 200 MCG in SODIUM CHLORIDE 0.9% 50ML 48 ML IV PRN (06:01)
[2017-09-20 06:22] LABS: ALBUMIN 2.3 g/dL (3.5-5.0); ALBUMIN/GLOBULIN RATIO 0.5 (0.8-2.0); ANION GAP 13.5 mmol/L (8-16); CALCIUM 9.8 mg/dL (8.4-10.2); CREATININE, SERUM 0.98 mg/dL (0.57-1.11); POTASSIUM 3.5 mmol/L (3.5-5.1)
[2017-09-20 06:33] LABS: BASOPHILS % 0.1 % (0.0-1.0); HEMOGLOBIN 11.5 g/dL (12.0-16.0); LYMPHOCYTES # (AUTO) 0.8 (1.0-3.2); LYMPHOCYTES % 10.7 % (18.0-39.1); MEAN CORPUSCULAR HEMOGLOBIN 26.6 pg (28-32); MEAN CORPUSCULAR HGB CONC 31.1 g/dL (31-35); MEAN CORPUSCULAR VOLUME 85.6 fL (81-99); MONOCYTES # (AUTO) 1.2 (0.2-0.8); MONOCYTES % 15.6 % (4.4-11.3); NEUTROPHILS # (AUTO) 5.7 (2.1-6.9); NEUTROPHILS % 72.8 % (38.7-80.0); PLATELET COUNT 343 x10e3/uL (140-360); RED BLOOD COUNT 4.32 x10e6/uL (3.6-5.1); RED CELL DISTRIBUTION WIDTH 15.9 % (11.7-14.4)
[2017-09-20] MEDS: METFORMIN HCL 500 MG TAB PO SCH ×2 (08:00→17:00)
[2017-09-20] MEDS: FUROSEMIDE INJ 10 MG/ML 4 ML VIAL IV SCH ×2 (08:40→17:00)
[2017-09-20] MEDS: CITALOPRAM HYDROBROMIDE 20 MG TAB PO SCH (09:00)
[2017-09-20] MEDS: GABAPENTIN 400 MG CAP PO SCH ×3 (09:00→21:00)
[2017-09-20] MEDS: METOPROLOL TARTRATE 25 MG TAB PO SCH ×2 (09:00→17:00)
[2017-09-20] MEDS: FENOFIBRATE 145 MG TAB PO SCH (09:00)
[2017-09-20] MEDS: ROPINIROLE HCL 1 MG TAB PO SCH (09:00)
[2017-09-20] MEDS: CLOPIDOGREL BISULFATE 75 MG TAB PO SCH (09:00)
[2017-09-20] MEDS: DILTIAZEM HCL 180 MG CAP CD PO SCH (09:00)
[2017-09-20] MEDS: LISINOPRIL 20 MG TAB PO SCH (09:00)
[2017-09-20] MEDS: RIVAROXABAN 10 MG TABLET PO SCH (09:00)
[2017-09-20] MEDS ORDERED: SODIUM CHLORIDE 0.9% 250ML 250 ML ONE ×3 (09:01→21:28)
--- NOTE | 2017-09-20 09:32 | Diagnostic Imaging Report ---
EXAM: CHEST SINGLE (PORTABLE) DATE: 09/20/2017 7:56 AM INDICATION: Follow-up COMPARISON: 09/19/2017 FINDINGS: Body habitus, low lung volumes, rotation, and underpenetration significantly limit evaluation. NG tube no longer distinctly seen. Evaluation for ET tube not possible. Right IJ catheter grossly stable. Heart accentuated by low lung volumes. Basilar opacities, asymmetric to the left. IMPRESSION: Exam of limited diagnostic utility as above. Signed by: Dr. John Sauer MD on 09/20/2017 9:28 AM
[2017-09-20] MEDS ORDERED: POTASSIUM CHLORIDE 20 MEQ TAB CR PO ONE (11:00)
[2017-09-20] MEDS: PANTOPRAZOLE 40 MG 10ML VIAL IV SCH (11:15)
[2017-09-20] MEDS: VANCOMYCIN 1GM/NS 250 ML 250 ML IV SCH ×2 (11:30→23:07)
[2017-09-20 13:17] LABS: ABG PH 7.43 (7.31-7.41)
[2017-09-20 13:18] LABS: ABG HCO3 50 mmol/L (23-28); ABG PCO2 75 mmHg (41-51); ABG PO2 88 mmHg (80-105)
[2017-09-20] MEDS: CLONIDINE HCL 0.1 MG TAB PO SCH (21:00)
[2017-09-20] MEDS: ATORVASTATIN 40 MG TAB PO SCH (21:00)
[2017-09-20] MEDS: TRAVOPROST(OPTH) 2.5 ML BTL OP SCH (21:40)
[2017-09-21] VITALS (75 sets, daily range): BP systolic 75–178; BP diastolic 56–170
[2017-09-21] MEDS: BUSPIRONE HCL 5 MG TAB PO PRN ×2 (03:05→17:28)
[2017-09-21] MEDS: METOPROLOL TARTRATE INJ 1 MG/ML VIAL IV PRN (03:05)
[2017-09-21] MEDS: ALBUTEROL/IPRATROPIUM 3 ML NEB NEB SCH ×6 (03:35→23:10)
[2017-09-21] MEDS: INSULIN REGULAR, HUMAN 100 UNIT/1 ML 3ML VIAL SQ SCH ×4 (05:03→23:39)
[2017-09-21] MEDS: METHYLPREDNISOLONE SOD SUCC 40 MG/ML VIAL IV SCH ×3 (05:04→20:00)
--- NOTE | 2017-09-21 06:17 | Diagnostic Imaging Report ---
EXAM: CHEST SINGLE (PORTABLE), AP 1 view DATE: 09/21/2017 4:35 AM Time stamp on exam: 0448 hours INDICATION: Shortness of breath COMPARISON: AP view the chest dated 2017 FINDINGS: LINES/TUBES: Stable right internal jugular vein central line LUNGS: Low inspiration with bibasilar atelectasis PLEURA: No effusions or pneumothorax. HEART AND MEDIASTINUM: No interval change BONES AND SOFT TISSUES: No acute findings. IMPRESSION: No interval change Signed by: Dr. Nicole Zamora M.D. on 09/21/2017 6:11 AM
[2017-09-21 06:27] LABS: BASOPHILS % 0.1 % (0.0-1.0); EOSINOPHILS % 0.3 % (0.0-6.0); HEMATOCRIT 37.8 % (34.2-44.1); HEMOGLOBIN 11.3 g/dL (12.0-16.0); LYMPHOCYTES # (AUTO) 1.3 (1.0-3.2); LYMPHOCYTES % 13.7 % (18.0-39.1); MEAN CORPUSCULAR HGB CONC 29.9 g/dL (31-35); MEAN CORPUSCULAR VOLUME 86.9 fL (81-99); MONOCYTES # (AUTO) 1.7 (0.2-0.8); MONOCYTES % 17.4 % (4.4-11.3); NEUTROPHILS # (AUTO) 6.4 (2.1-6.9); NEUTROPHILS % 67.3 % (38.7-80.0); PLATELET COUNT 383 x10e3/uL (140-360); RED BLOOD COUNT 4.35 x10e6/uL (3.6-5.1)
[2017-09-21 06:55] LABS: ANION GAP 14.6 mmol/L (8-16); BLOOD UREA NITROGEN 32 mg/dL (7-26); BUN/CREATININE RATIO 37 (6-25); CALCIUM 9.2 mg/dL (8.4-10.2); CARBON DIOXIDE 38 mmol/L (22-29); CHLORIDE 94 mmol/L (98-107); CREATININE, SERUM 0.87 mg/dL (0.57-1.11); EST GLOMERULAR FILTRATION RATE > 60 ML/MIN (60-); GLUCOSE 244 mg/dL (74-118); POTASSIUM 3.6 mmol/L (3.5-5.1); SODIUM 143 mmol/L (136-145)
[2017-09-21] MEDS: METFORMIN HCL 500 MG TAB PO SCH ×2 (08:00→17:00)
[2017-09-21 08:20] LABS: EOSINOPHILS % (MANUAL) 1 % (0-7); LYMPHOCYTES % (MANUAL) 11 % (19-48); MONOCYTES % (MANUAL) 15 % (3.4-9.0); NEUTROPHILS % (MANUAL) 71 % (40-74)
[2017-09-21 08:21] LABS: ANISOCYTOSIS SLIGHT; PLATELET ESTIMATE ADEQUATE; PLATELET MORPHOLOGY COMMENT FEW LARGE; RBC MORPHOLOGY COMMENT NORMAL
[2017-09-21] MEDS: CITALOPRAM HYDROBROMIDE 20 MG TAB PO SCH (09:00)
[2017-09-21] MEDS: LISINOPRIL 20 MG TAB PO SCH (09:00)
[2017-09-21] MEDS: RIVAROXABAN 10 MG TABLET PO SCH (09:00)
[2017-09-21] MEDS: DILTIAZEM HCL 180 MG CAP CD PO SCH (09:00)
[2017-09-21] MEDS: METOPROLOL TARTRATE 25 MG TAB PO SCH ×2 (09:00→17:00)
[2017-09-21] MEDS: FENOFIBRATE 145 MG TAB PO SCH (09:00)
[2017-09-21] MEDS: ROPINIROLE HCL 1 MG TAB PO SCH (09:00)
[2017-09-21] MEDS: CLOPIDOGREL BISULFATE 75 MG TAB PO SCH (09:00)
[2017-09-21] MEDS: GABAPENTIN 400 MG CAP PO SCH ×3 (09:00→19:05)
[2017-09-21] MEDS: PANTOPRAZOLE 40 MG 10ML VIAL IV SCH (09:16)
[2017-09-21] MEDS: AZTREONAM (AZACTAM) 0.5 GM in SODIUM CHLORIDE 0.9% 50ML 50 ML IV SCH ×2 (09:16→16:00)
[2017-09-21] MEDS: FUROSEMIDE INJ 10 MG/ML 4 ML VIAL IV SCH ×2 (09:16→18:29)
[2017-09-21] MEDS ORDERED: LACTULOSE SYRUP 20 GM/30 ML UDC PO ONE (11:30)
--- NOTE | 2017-09-21 11:31 | Operative Report ---
DATE OF PROCEDURE: This is a patient of Dr. Rahel Aiken and Dr. Thomas. Patient is in respiratory failure. History of HIV AIDS, presumed Pneumocystis pneumonia. Patient requiring intubation and mechanical ventilator support on the . Given her deterioration despite empiric antibiotics, a decision was made to proceed with bronchoscopy. MAC anesthesia was provided by Dr. Fry. The patient was bronchoscoped with a 7.5-mm endotracheal tube. Normal movement of vocal cords. Mild tracheobronchitis. Moderate amount of white secretions were noted. Lavage was performed of the right upper lobe. This was well tolerated with moderate O2 desaturation at the end of the procedure. Washings were also obtained from the left upper lobe. The patient tolerated the procedure well and remains on ventilator support. Job#: [id number]
[2017-09-21] MEDS: VANCOMYCIN 1GM/NS 250 ML 250 ML IV SCH ×2 (12:25→22:31)
[2017-09-21] MEDS: CLONIDINE HCL 0.1 MG TAB PO SCH (19:05)
[2017-09-21] MEDS: ATORVASTATIN 40 MG TAB PO SCH (19:05)
[2017-09-21] MEDS: TRAVOPROST(OPTH) 2.5 ML BTL OP SCH (20:00)
[2017-09-22] VITALS (14 sets, daily range): BP systolic 97–167; BP diastolic 65–94
[2017-09-22] MEDS: AZTREONAM (AZACTAM) 0.5 GM in SODIUM CHLORIDE 0.9% 50ML 50 ML IV SCH ×3 (00:07→16:00)
[2017-09-22] MEDS: ALBUTEROL/IPRATROPIUM 3 ML NEB NEB SCH ×6 (00:30→20:30)
[2017-09-22] MEDS: INSULIN REGULAR, HUMAN 100 UNIT/1 ML 3ML VIAL SQ SCH ×3 (05:54→19:58)
[2017-09-22 06:01] LABS: BASOPHILS % 0.3 % (0.0-1.0); HEMATOCRIT 39.6 % (34.2-44.1); HEMOGLOBIN 11.8 g/dL (12.0-16.0); LYMPHOCYTES # (AUTO) 1.5 (1.0-3.2); LYMPHOCYTES % 13.3 % (18.0-39.1); MEAN CORPUSCULAR HEMOGLOBIN 25.9 pg (28-32); MEAN CORPUSCULAR HGB CONC 29.8 g/dL (31-35); MEAN CORPUSCULAR VOLUME 86.8 fL (81-99); MONOCYTES # (AUTO) 1.7 (0.2-0.8); MONOCYTES % 15.4 % (4.4-11.3); NEUTROPHILS # (AUTO) 7.8 (2.1-6.9); NEUTROPHILS % 69.2 % (38.7-80.0); PLATELET COUNT 426 x10e3/uL (140-360); RED BLOOD COUNT 4.56 x10e6/uL (3.6-5.1); RED CELL DISTRIBUTION WIDTH 15.9 % (11.7-14.4)
[2017-09-22 06:33] LABS: ALANINE AMINOTRANSFERASE 43 IU/L (0-55); ALBUMIN 2.6 g/dL (3.5-5.0); ALBUMIN/GLOBULIN RATIO 0.7 (0.8-2.0); ALKALINE PHOSPHATASE 93 IU/L (40-150); ANION GAP 13.4 mmol/L (8-16); BLOOD UREA NITROGEN 30 mg/dL (7-26); BUN/CREATININE RATIO 33 (6-25); CALCIUM 9.3 mg/dL (8.4-10.2); CARBON DIOXIDE 38 mmol/L (22-29); CHLORIDE 95 mmol/L (98-107); CREATININE, SERUM 0.92 mg/dL (0.57-1.11); EST GLOMERULAR FILTRATION RATE > 60 ML/MIN (60-); GLUCOSE 292 mg/dL (74-118); POTASSIUM 3.4 mmol/L (3.5-5.1); SODIUM 143 mmol/L (136-145)
[2017-09-22] MEDS: GABAPENTIN 400 MG CAP PO SCH ×3 (07:08→23:29)
[2017-09-22] MEDS: DILTIAZEM HCL 180 MG CAP CD PO SCH (07:08)
[2017-09-22] MEDS: METFORMIN HCL 500 MG TAB PO SCH ×2 (07:08→17:00)
[2017-09-22] MEDS: CITALOPRAM HYDROBROMIDE 20 MG TAB PO SCH (07:09)
[2017-09-22] MEDS: CLOPIDOGREL BISULFATE 75 MG TAB PO SCH (07:09)
[2017-09-22] MEDS: METOPROLOL TARTRATE 25 MG TAB PO SCH (07:09)
[2017-09-22] MEDS: ROPINIROLE HCL 1 MG TAB PO SCH (07:09)
[2017-09-22] MEDS: LISINOPRIL 20 MG TAB PO SCH (07:09)
[2017-09-22] MEDS: RIVAROXABAN 10 MG TABLET PO SCH (07:10)
[2017-09-22] MEDS: FENOFIBRATE 145 MG TAB PO SCH (07:10)
[2017-09-22] MEDS: METHYLPREDNISOLONE SOD SUCC 40 MG/ML VIAL IV SCH ×2 (09:00→23:29)
[2017-09-22 09:34] LABS: ANISOCYTOSIS SLIGHT; BAND NEUTROPHILS % (MANUAL) 1 %; LYMPHOCYTES % (MANUAL) 12 % (19-48); MONOCYTES % (MANUAL) 8 % (3.4-9.0); NEUTROPHILS % (MANUAL) 79 % (40-74); PLATELET ESTIMATE ADEQUATE; PLATELET MORPHOLOGY COMMENT FEW LARGE; RBC MORPHOLOGY COMMENT NORMAL
[2017-09-22] MEDS ORDERED: POTASSIUM CHLORIDE 20 MEQ TAB CR PO ONE (10:30)
[2017-09-22] MEDS: VANCOMYCIN 1GM/NS 250 ML 250 ML IV SCH ×2 (11:30→23:29)
[2017-09-22] MEDS: FUROSEMIDE INJ 10 MG/ML 4 ML VIAL IV SCH ×2 (14:36→19:58)
[2017-09-22] MEDS: PANTOPRAZOLE 40 MG 10ML VIAL IV SCH (14:36)
--- NOTE | 2017-09-22 16:51 | Diagnostic Imaging Report ---
EXAM: Modified barium swallow INDICATION: Aspiration COMPARISON: None FINDINGS: This examination was conducted in conjunction with speech pathologist. Patient was given, by mouth, liquids and solids of various consistencies. Examination showed premature spillage to the vallecula with all consistencies. There was premature spillage to the piriform sinus with thin liquids, nectar thick liquids and juice portion of mixed mechanical diet. Laryngeal penetration into the laryngeal vestibule was noted with thin and nectar thick liquids and juice portion of mixed mechanical soft. Penetration occurred with honey thick liquids after fatigue. Kelvin to gross silent aspiration of thin liquids during the swallow. Mild piriform sinus and pharyngeal wall residue following swallows of all consistencies. IMPRESSION: Moderate to severe pharyngeal dysphagia characterized by consistent premature spillage over the base of the tongue, aspiration of multiple consistencies during the swallow and consistent pharyngeal residue after the swallow. Please see speech pathology report for detailed description and recommendations.> Signed by: Dr. Alex Wilson M.D. on 09/22/2017 4:48 PM
[2017-09-22] MEDS: METOPROLOL TARTRATE 50 MG TAB PO SCH (19:57)
[2017-09-22] MEDS: CLONIDINE HCL 0.1 MG TAB PO SCH (21:00)
[2017-09-22] MEDS: TRAVOPROST(OPTH) 2.5 ML BTL OP SCH (22:49)
[2017-09-22] MEDS ORDERED: SODIUM CHLORIDE 0.9% 250ML 250 ML ONE (23:25)
[2017-09-22] MEDS: ATORVASTATIN 40 MG TAB PO SCH (23:29)
[2017-09-23] MEDS: ALBUTEROL/IPRATROPIUM 3 ML NEB NEB SCH ×5 (00:20→19:40)
[2017-09-23] MEDS ORDERED: AZTREONAM 1 GM VIAL ONE ×2 (01:55→23:25)
[2017-09-23] MEDS: AZTREONAM (AZACTAM) 0.5 GM in SODIUM CHLORIDE 0.9% 50ML 50 ML IV SCH ×4 (02:09→23:51)
[2017-09-23] MEDS: INSULIN REGULAR, HUMAN 100 UNIT/1 ML 3ML VIAL SQ SCH ×5 (02:10→21:00)
[2017-09-23 04:26] VITALS: BP 123/78
[2017-09-23 07:31] LABS: ALBUMIN 2.5 g/dL (3.5-5.0); ALBUMIN/GLOBULIN RATIO 0.6 (0.8-2.0); ANION GAP 14.2 mmol/L (8-16); CALCIUM 9.7 mg/dL (8.4-10.2); CREATININE, SERUM 0.98 mg/dL (0.57-1.11); POTASSIUM 3.2 mmol/L (3.5-5.1)
[2017-09-23] MEDS: METFORMIN HCL 500 MG TAB PO SCH ×2 (08:00→16:58)
[2017-09-23] MEDS: METOPROLOL TARTRATE 50 MG TAB PO SCH ×2 (09:00→16:59)
[2017-09-23] MEDS: RIVAROXABAN 10 MG TABLET PO SCH (09:00)
[2017-09-23] MEDS: FENOFIBRATE 145 MG TAB PO SCH (09:00)
[2017-09-23] MEDS: GABAPENTIN 400 MG CAP PO SCH ×3 (09:00→20:24)
[2017-09-23] MEDS: DILTIAZEM HCL 180 MG CAP CD PO SCH (09:00)
[2017-09-23] MEDS: LISINOPRIL 20 MG TAB PO SCH (09:00)
[2017-09-23] MEDS: CLOPIDOGREL BISULFATE 75 MG TAB PO SCH (09:00)
[2017-09-23] MEDS: ROPINIROLE HCL 1 MG TAB PO SCH (09:00)
[2017-09-23] MEDS: FUROSEMIDE INJ 10 MG/ML 4 ML VIAL IV SCH ×2 (09:00→16:58)
[2017-09-23] MEDS: CITALOPRAM HYDROBROMIDE 20 MG TAB PO SCH (09:00)
[2017-09-23] MEDS: METHYLPREDNISOLONE SOD SUCC 40 MG/ML VIAL IV SCH ×2 (09:00→20:24)
[2017-09-23] MEDS: PANTOPRAZOLE 40 MG 10ML VIAL IV SCH (09:00)
[2017-09-23] MEDS ORDERED: POTASSIUM CHLORIDE 10 MEQ TABCR PO NR (10:00)
[2017-09-23] MEDS ORDERED: POTASSIUM CHLORIDE 20MEQ/15ML UDC NG PRN (11:00)
[2017-09-23] MEDS: VANCOMYCIN 1GM/NS 250 ML 250 ML IV SCH ×2 (11:56→23:13)
[2017-09-23 19:00] VITALS: BP 100/70
[2017-09-23 19:30] VITALS: BP 100/70
[2017-09-23] MEDS: ATORVASTATIN 40 MG TAB PO SCH (20:24)
[2017-09-23] MEDS: TRAVOPROST(OPTH) 2.5 ML BTL OP SCH (20:43)
[2017-09-23] MEDS: CLONIDINE HCL 0.1 MG TAB PO SCH (20:43)
[2017-09-23] MEDS ORDERED: SODIUM CHLORIDE 0.9% 50ML 50 ML ONE (23:29)
[2017-09-24] VITALS (33 sets, daily range): BP systolic 76–140; BP diastolic 32–71
[2017-09-24] MEDS: ALBUTEROL/IPRATROPIUM 3 ML NEB NEB SCH ×6 (03:30→23:50)
[2017-09-24 06:51] LABS: ALBUMIN 2.5 g/dL (3.5-5.0); ALBUMIN/GLOBULIN RATIO 0.6 (0.8-2.0); CALCIUM 9.7 mg/dL (8.4-10.2); CREATININE, SERUM 1.32 mg/dL (0.57-1.11)
[2017-09-24] MEDS: INSULIN REGULAR, HUMAN 100 UNIT/1 ML 3ML VIAL SQ SCH ×4 (07:30→20:21)
[2017-09-24] MEDS: METFORMIN HCL 500 MG TAB PO SCH ×2 (07:55→17:00)
[2017-09-24] MEDS: FUROSEMIDE INJ 10 MG/ML 4 ML VIAL IV SCH ×2 (08:30→17:00)
[2017-09-24] MEDS: PANTOPRAZOLE 40 MG 10ML VIAL IV SCH (08:30)
[2017-09-24] MEDS: METHYLPREDNISOLONE SOD SUCC 40 MG/ML VIAL IV SCH ×2 (08:30→21:48)
[2017-09-24] MEDS: DILTIAZEM HCL 180 MG CAP CD PO SCH (08:30)
[2017-09-24] MEDS: AZTREONAM (AZACTAM) 0.5 GM in SODIUM CHLORIDE 0.9% 50ML 50 ML IV SCH ×2 (08:30→16:00)
[2017-09-24] MEDS: GABAPENTIN 400 MG CAP PO SCH ×3 (09:12→21:00)
[2017-09-24] MEDS: CLOPIDOGREL BISULFATE 75 MG TAB PO SCH (09:12)
[2017-09-24] MEDS: METOPROLOL TARTRATE 50 MG TAB PO SCH ×2 (09:12→17:00)
[2017-09-24] MEDS: LISINOPRIL 20 MG TAB PO SCH (09:12)
[2017-09-24] MEDS: CITALOPRAM HYDROBROMIDE 20 MG TAB PO SCH (09:12)
[2017-09-24] MEDS: RIVAROXABAN 10 MG TABLET PO SCH (09:12)
[2017-09-24] MEDS: FENOFIBRATE 145 MG TAB PO SCH (09:12)
[2017-09-24] MEDS: ROPINIROLE HCL 1 MG TAB PO SCH (09:12)
[2017-09-24] MEDS ORDERED: VANCOMYCIN 1GM/NS 250 ML 250 ML IV SCH (12:00)
[2017-09-24 12:42] LABS: ABG HCO3 40 mmol/L (23-28); ABG PCO2 120 mmHg (41-51); ABG PH 7.13 (7.31-7.41); ABG PO2 86 mmHg (80-105)
[2017-09-24] MEDS ORDERED: MIDAZOLAM HCL 5MG/ML 2ML VIAL IV PRN (13:15)
[2017-09-24] MEDS ORDERED: FENTANYL CITRATE INJ 2,000 MCG in SODIUM CHLORIDE 0.9% 250ML 210 ML IV PRN (13:15)
--- NOTE | 2017-09-24 13:56 | Diagnostic Imaging Report ---
PROCEDURE:CHEST SINGLE (PORTABLE) TECHNIQUE:Portable AP chest INDICATION:Intubation COMPARISON:None. FINDINGS: See conclusion. CONCLUSION: 1. Endotracheal tube tip approximately 3.5 cm from the lesli. 2. Low lung volume. 3. Upper limits of normal heart size. 4. Study is significantly limited by underpenetration and patient body habitus. Dictated by: Cal Flores M.D. on 09/24/2017 at 14:04 Electronically approved by: Cal Flores M.D. on 09/24/2017 at 14:04
[2017-09-24] MEDS ORDERED: SODIUM CHLORIDE 0.9% 1000ML 1,000 ML ONE ×3 (14:37→22:37)
[2017-09-24] MEDS ORDERED: SODIUM CHLORIDE 0.9% 500ML 500 ML IV ONE (14:45)
[2017-09-24] MEDS ORDERED: SUCCINYLCHOLINE CHLORIDE 20 MG/ML 10ML VIAL ONE (17:10)
[2017-09-24] MEDS ORDERED: ETOMIDATE 2 MG/ML 10 ML INJ IV ONE (17:10)
[2017-09-24 17:42] LABS: ABG HCO3 38 mmol/L (23-28); ABG PCO2 66 mmHg (41-51); ABG PH 7.37 (7.31-7.41); ABG PO2 91 mmHg (80-105)
--- NOTE | 2017-09-24 18:31 | Consultation ---
DATE OF CONSULTATION: September 24, 2017 HOSPITAL CONSULTATION HISTORY OF PRESENT ILLNESS: I was kindly asked to see this 57-year-old woman for evaluation of tracheostomy tube replacement. The patient had undergone previous tracheostomy for treatment of obstructive sleep apnea and respiratory failure. She required reintubation due to exacerbation of her COPD and increase in her carbon dioxide levels. Her history of present illness, past medical history and past surgical history were reviewed in detail in the chart. PHYSICAL EXAMINATION GENERAL: The patient has a pinpoint tracheocutaneous fistula from her previous tracheostomy. She is intubated and on the ventilator. ASSESSMENT: Respiratory failure. PLAN: Tracheostomy. Job#: [id number] RI
[2017-09-24] MEDS ORDERED: NOREPINEPHRINE BITARTRATE/ NS 250 ML IV PRN (20:30)
[2017-09-24] MEDS: CLONIDINE HCL 0.1 MG TAB PO SCH (21:00)
[2017-09-24] MEDS: ATORVASTATIN 40 MG TAB PO SCH (21:00)
[2017-09-24] MEDS: TRAVOPROST(OPTH) 2.5 ML BTL OP SCH (21:10)
[2017-09-24] MEDS: MIDAZOLAM HCL 25 MG in SODIUM CHLORIDE 0.9% 45 ML IV PRN (21:15)
[2017-09-25] VITALS (90 sets, daily range): BP systolic 70–153; BP diastolic 42–80
[2017-09-25] MEDS ORDERED: AZTREONAM 1 GM VIAL ONE (00:28)
[2017-09-25] MEDS: INSULIN REGULAR, HUMAN 100 UNIT/1 ML 3ML VIAL SQ SCH ×4 (00:35→18:23)
[2017-09-25] MEDS: AZTREONAM (AZACTAM) 0.5 GM in SODIUM CHLORIDE 0.9% 50ML 50 ML IV SCH (00:35)
[2017-09-25] MEDS ORDERED: SODIUM CHLORIDE 0.9% 50ML 50 ML ONE (01:09)
[2017-09-25] MEDS: ALBUTEROL/IPRATROPIUM 3 ML NEB NEB SCH ×6 (02:55→23:05)
[2017-09-25] MEDS: MIDAZOLAM HCL 25 MG in SODIUM CHLORIDE 0.9% 45 ML IV PRN ×2 (05:40→20:20)
[2017-09-25 06:24] LABS: BASOPHILS % 0.3 % (0.0-1.0); HEMATOCRIT 33.2 % (34.2-44.1); HEMOGLOBIN 10.1 g/dL (12.0-16.0); LYMPHOCYTES # (AUTO) 0.7 (1.0-3.2); LYMPHOCYTES % 6.2 % (18.0-39.1); MEAN CORPUSCULAR HEMOGLOBIN 26.4 pg (28-32); MEAN CORPUSCULAR HGB CONC 30.4 g/dL (31-35); MEAN CORPUSCULAR VOLUME 86.7 fL (81-99); MONOCYTES # (AUTO) 0.6 (0.2-0.8); NEUTROPHILS # (AUTO) 10.2 (2.1-6.9); NEUTROPHILS % 85.1 % (38.7-80.0); PLATELET COUNT 383 x10e3/uL (140-360); RED BLOOD COUNT 3.83 x10e6/uL (3.6-5.1); RED CELL DISTRIBUTION WIDTH 15.9 % (11.7-14.4)
[2017-09-25 06:35] LABS: PROTHROMBIN TIME 13.7 seconds (11.9-14.5)
[2017-09-25 06:51] LABS: ALBUMIN 2.2 g/dL (3.5-5.0); ALBUMIN/GLOBULIN RATIO 0.7 (0.8-2.0); CALCIUM 9.1 mg/dL (8.4-10.2); CREATININE, SERUM 1.41 mg/dL (0.57-1.11)
--- NOTE | 2017-09-25 07:09 | Diagnostic Imaging Report ---
EXAMINATION: CHEST SINGLE (PORTABLE) INDICATION: Intubation COMPARISON: 09/21/2017 FINDINGS: TUBES and LINES: Interval placement of endotracheal tube in good position 4.5 cm above the lesli. Right IJ central line catheter stable in good position. LUNGS: Lungs are not well inflated. There are bibasilar atelectasis. There is perihilar interstitial opacities, consistent with interstitial edema. PLEURA: Small left pleural effusion is present HEART AND MEDIASTINUM: Cardiac size is mildly enlarged. There are atherosclerotic calcifications within the aorta. BONES AND SOFT TISSUES: No acute osseous lesion. Soft tissues are unremarkable. UPPER ABDOMEN: No free air under the diaphragm. IMPRESSION: Worsening edema and a small left pleural effusion. Endotracheal tube in good position. Signed by: Dr. Maulik Ricketts M.D. on 09/25/2017 7:06 AM
[2017-09-25] MEDS: METFORMIN HCL 500 MG TAB PO SCH ×2 (08:00→18:21)
[2017-09-25] MEDS: FENOFIBRATE 145 MG TAB PO SCH (09:00)
[2017-09-25] MEDS: DILTIAZEM HCL 180 MG CAP CD PO SCH (09:00)
[2017-09-25] MEDS: GABAPENTIN 400 MG CAP PO SCH ×3 (09:00→20:20)
[2017-09-25] MEDS: METOPROLOL TARTRATE 50 MG TAB PO SCH ×2 (09:00→18:38)
[2017-09-25] MEDS: ROPINIROLE HCL 1 MG TAB PO SCH (09:00)
[2017-09-25] MEDS: CITALOPRAM HYDROBROMIDE 20 MG TAB PO SCH (09:00)
[2017-09-25] MEDS: LISINOPRIL 20 MG TAB PO SCH (09:00)
[2017-09-25] MEDS ORDERED: DEXTROSE 50% SYRINGE 50 ML IV PRN (09:45)
[2017-09-25] MEDS: PANTOPRAZOLE 40 MG 10ML VIAL IV SCH (10:13)
[2017-09-25] MEDS: FUROSEMIDE INJ 10 MG/ML 4 ML VIAL IV SCH ×2 (10:13→16:46)
[2017-09-25] MEDS: METHYLPREDNISOLONE SOD SUCC 40 MG/ML VIAL IV SCH ×2 (10:14→20:20)
[2017-09-25] MEDS: CEFAZOLIN SOD 1 GM VIAL IV SCH ×2 (10:14→17:44)
[2017-09-25] MEDS ORDERED: LIDOCAINE 1% W/EPINEPHRINE 20 ML VIAL ONE (12:35)
[2017-09-25] MEDS ORDERED: CEFAZOLIN SOD 1 GM/NS 50ML 50 ML IV SCH (14:00)
--- NOTE | 2017-09-25 15:14 | Operative Report ---
DATE OF PROCEDURE: September 25, 2017 PREOPERATIVE DIAGNOSIS: Respiratory failure. POSTOPERATIVE DIAGNOSIS: Respiratory failure. TITLE OF PROCEDURE: Tracheostomy with #8 Shiley XLT distal tracheostomy tube. ANESTHESIA: General endotracheal. ESTIMATED BLOOD LOSS: Zero. COMPLICATIONS: None. OPERATIVE FINDINGS: Persistent tracheocutaneous fistula from previous tracheostomy. Otherwise, unremarkable anatomy. OPERATIVE INDICATIONS: This 57-year-old woman presents with a history of respiratory failure and obstructive sleep apnea. She has required tracheostomy in the past, now required reintubation. It is anticipated she will continue to need ventilator support and subsequent pulmonary toilet as well as definitive treatment for her severe obstructive sleep apnea. The risks, benefits and alternatives to surgical intervention were discussed in detail with the patient's family, and they gave their informed consent to have this procedure performed. NARRATIVE REPORT: After first obtaining adequate general endotracheal anesthesia through the previously placed endotracheal tube, the area of the tracheostomy was injected with 1% lidocaine with epinephrine 1:100,000. Total of 9 mL was used. The patient was then prepped and draped in the usual fashion. The tracheocutaneous fistula was identified by reflecting the subcutaneous tissues with a Luis Manuel retractor. A Mary hemostat was placed into the tracheocutaneous fistula and opened. A #15 blade was used to make a 5-mm horizontal incision on both sides of the tracheocutaneous fistula. The endotracheal tube was then identified and was partially withdrawn. A #8 Shiley XLT distal tracheostomy tube was then easily inserted through the tracheostomy site. CO2 was confirmed in the exhaled gases. The tracheostomy tube was sutured in place with 2-0 nylon. Trach ties were applied. The patient was in satisfactory condition at the termination of the procedure. Job#: [id number]
[2017-09-25] MEDS: HYDROMORPHONE 2MG/ML INJ IV PRN ×2 (16:45→20:20)
--- NOTE | 2017-09-25 18:32 | Diagnostic Imaging Report ---
PROCEDURE:X-RAY ABDOMEN - KUB COMPARISON:None. INDICATIONS:NGT PLACEMENT FINDINGS: See conclusion. CONCLUSION: 1. Enteric tube is noted below the left hemidiaphragm, with distal tip projecting in the region of the stomach body. 2. Contrast is noted in the bowel, likely from prior modified barium swallow. 3. Left basal atelectatic changes. 4. Deformity of the left eighth and ninth ribs, likely reflecting subacute fractures. Alex Wilson M.D. Dictated by: Alex Wilson M.D. on 09/25/2017 at 18:40 Electronically approved by: Alex Wilson M.D. on 09/25/2017 at 18:40
[2017-09-25] MEDS ORDERED: PHENYLEPHRINE HCL 1% 10 MG/ML VIAL ONE (18:50)
[2017-09-25] MEDS ORDERED: LIDOCAINE HCL 2% LOCAL INJ 5 ML SDV VIAL INJ ONE (18:50)
[2017-09-25] MEDS ORDERED: PROPOFOL IV EMULSION 10 MG/ML 20 ML VIAL ONE (18:50)
[2017-09-25] MEDS ORDERED: ONDANSETRON HCL INJ 2 MG/ML VIAL ONE (18:50)
[2017-09-25] MEDS ORDERED: SEVOFLURANE INHAL SOLN 250 ML PEN BTL ONE (18:50)
[2017-09-25] MEDS ORDERED: ROCURONIUM BROMIDE 10 MG/ML 5ML VIAL ONE (18:50)
[2017-09-25] MEDS ORDERED: FENTANYL CITRATE/PF 100MCG/2 ML INJ ONE (19:06)
[2017-09-25] MEDS ORDERED: MIDAZOLAM HCL 2 MG/2 ML VIAL ONE (19:06)
[2017-09-25] MEDS: ATORVASTATIN 40 MG TAB PO SCH (20:20)
[2017-09-25] MEDS: TRAVOPROST(OPTH) 2.5 ML BTL OP SCH (20:20)
[2017-09-25] MEDS: CLONIDINE HCL 0.1 MG TAB PO SCH (21:00)
[2017-09-26] VITALS (49 sets, daily range): BP systolic 90–153; BP diastolic 41–77
[2017-09-26] MEDS: INSULIN REGULAR, HUMAN 100 UNIT/1 ML 3ML VIAL SQ SCH ×4 (00:20→18:14)
[2017-09-26] MEDS: CEFAZOLIN SOD 1 GM VIAL IV SCH ×3 (01:38→18:12)
[2017-09-26] MEDS: ALBUTEROL/IPRATROPIUM 3 ML NEB NEB SCH ×6 (02:45→23:12)
[2017-09-26] MEDS: HYDROMORPHONE 2MG/ML INJ IV PRN ×3 (05:25→19:50)
[2017-09-26 05:38] LABS: BASOPHILS % 0.1 % (0.0-1.0); HEMATOCRIT 34.8 % (34.2-44.1); HEMOGLOBIN 10.6 g/dL (12.0-16.0); LYMPHOCYTES # (AUTO) 0.5 (1.0-3.2); LYMPHOCYTES % 5.2 % (18.0-39.1); MEAN CORPUSCULAR HEMOGLOBIN 26.4 pg (28-32); MEAN CORPUSCULAR HGB CONC 30.5 g/dL (31-35); MEAN CORPUSCULAR VOLUME 86.8 fL (81-99); MONOCYTES # (AUTO) 0.6 (0.2-0.8); MONOCYTES % 6.1 % (4.4-11.3); NEUTROPHILS # (AUTO) 7.9 (2.1-6.9); NEUTROPHILS % 86.5 % (38.7-80.0); PLATELET COUNT 314 x10e3/uL (140-360); RED BLOOD COUNT 4.01 x10e6/uL (3.6-5.1); RED CELL DISTRIBUTION WIDTH 15.8 % (11.7-14.4)
[2017-09-26 06:04] LABS: ALANINE AMINOTRANSFERASE 26 IU/L (0-55); ALBUMIN 2.5 g/dL (3.5-5.0); ALBUMIN/GLOBULIN RATIO 0.8 (0.8-2.0); ALKALINE PHOSPHATASE 78 IU/L (40-150); ANION GAP 14.8 mmol/L (8-16); BLOOD UREA NITROGEN 41 mg/dL (7-26); BUN/CREATININE RATIO 33 (6-25); CALCIUM 9.4 mg/dL (8.4-10.2); CARBON DIOXIDE 37 mmol/L (22-29); CHLORIDE 98 mmol/L (98-107); CREATININE, SERUM 1.24 mg/dL (0.57-1.11); EST GLOMERULAR FILTRATION RATE 44 ML/MIN (60-); GLUCOSE 379 mg/dL (74-118); POTASSIUM 3.8 mmol/L (3.5-5.1); SODIUM 146 mmol/L (136-145)
[2017-09-26] MEDS: MIDAZOLAM HCL 25 MG in SODIUM CHLORIDE 0.9% 45 ML IV PRN (06:05)
--- NOTE | 2017-09-26 06:53 | Diagnostic Imaging Report ---
EXAMINATION: CHEST SINGLE (PORTABLE) INDICATION: Intubated COMPARISON: 09/25/2017 FINDINGS: TUBES and LINES: Interval placement of NG tube in good position with now tracheostomy tube in place replacing endotracheal tube 4cm above the lesli. Right IJ central line catheter stable in good position. LUNGS: Lungs are not well inflated. There are bibasilar atelectasis. There is perihilar interstitial opacities, consistent with interstitial edema. PLEURA: Small left pleural effusion is present HEART AND MEDIASTINUM: Cardiac size is mildly enlarged. There are atherosclerotic calcifications within the aorta. BONES AND SOFT TISSUES: No acute osseous lesion. Soft tissues are unremarkable. UPPER ABDOMEN: No free air under the diaphragm. IMPRESSION: Mild interval improvement in pulmonary edema with persistent small left pleural effusion. Signed by: Dr. Maulik Ricketts M.D. on 09/26/2017 6:50 AM
[2017-09-26 08:35] LABS: BAND NEUTROPHILS % (MANUAL) 5 %; LYMPHOCYTES % (MANUAL) 2 % (19-48); METAMYELOCYTES % (MANUAL) 1 % (0-0); MONOCYTES % (MANUAL) 2 % (3.4-9.0); MYELOCYTES % (MANUAL) 1 % (0-0); NEUTROPHILS % (MANUAL) 89 % (40-74); PLATELET ESTIMATE SLIGHTLY INCREASED; PLATELET MORPHOLOGY COMMENT NORMAL; RBC MORPHOLOGY COMMENT NORMAL
[2017-09-26] MEDS: LISINOPRIL 20 MG TAB PO SCH (09:00)
[2017-09-26] MEDS: METOPROLOL TARTRATE 50 MG TAB PO SCH ×2 (09:00→16:00)
[2017-09-26] MEDS: DILTIAZEM HCL 180 MG CAP CD PO SCH (09:00)
[2017-09-26] MEDS: PANTOPRAZOLE 40 MG 10ML VIAL IV SCH (09:11)
[2017-09-26] MEDS: CITALOPRAM HYDROBROMIDE 20 MG TAB PO SCH (09:11)
[2017-09-26] MEDS: METFORMIN HCL 500 MG TAB PO SCH ×2 (09:11→16:00)
[2017-09-26] MEDS: FUROSEMIDE INJ 10 MG/ML 4 ML VIAL IV SCH ×2 (09:11→16:00)
[2017-09-26] MEDS: METHYLPREDNISOLONE SOD SUCC 40 MG/ML VIAL IV SCH ×2 (09:11→20:10)
[2017-09-26] MEDS: GABAPENTIN 400 MG CAP PO SCH ×3 (09:12→20:10)
[2017-09-26] MEDS: FENOFIBRATE 145 MG TAB PO SCH (09:12)
[2017-09-26] MEDS: ROPINIROLE HCL 1 MG TAB PO SCH (09:12)
[2017-09-26] MEDS: BUSPIRONE HCL 5 MG TAB PO PRN (09:13)
[2017-09-26] MEDS ORDERED: MAGNESIUM SULF 1GRAM/DEXTROSE 100 ML IV ONE (13:00)
[2017-09-26 13:39] LABS: ABG HCO3 45 mmol/L (23-28); ABG PCO2 66 mmHg (41-51); ABG PH 7.44 (7.31-7.41); ABG PO2 58 mmHg (80-105)
[2017-09-26] MEDS: MORPHINE SULFATE 2 MG/ML SYR IV PRN (15:15)
[2017-09-26] MEDS: TRAVOPROST(OPTH) 2.5 ML BTL OP SCH (20:10)
[2017-09-26] MEDS: ATORVASTATIN 40 MG TAB PO SCH (20:10)
[2017-09-26] MEDS: INSULIN DETEMIR 100 UNIT/ML PEN SQ SCH (20:10)
[2017-09-26] MEDS: CLONIDINE HCL 0.1 MG TAB PO SCH (20:55)
[2017-09-27] VITALS (30 sets, daily range): BP systolic 87–146; BP diastolic 53–83
[2017-09-27] MEDS: INSULIN REGULAR, HUMAN 100 UNIT/1 ML 3ML VIAL SQ SCH ×4 (00:30→17:27)
[2017-09-27] MEDS: CEFAZOLIN SOD 1 GM VIAL IV SCH ×3 (02:41→17:30)
[2017-09-27] MEDS: ALBUTEROL/IPRATROPIUM 3 ML NEB NEB SCH ×7 (03:05→22:30)
[2017-09-27] MEDS: HYDROMORPHONE 2MG/ML INJ IV PRN ×2 (04:45→20:55)
[2017-09-27 05:18] LABS: BASOPHILS % 0.1 % (0.0-1.0); HEMATOCRIT 38.2 % (34.2-44.1); HEMOGLOBIN 11.4 g/dL (12.0-16.0); LYMPHOCYTES # (AUTO) 0.9 (1.0-3.2); LYMPHOCYTES % 6.3 % (18.0-39.1); MEAN CORPUSCULAR HEMOGLOBIN 26.3 pg (28-32); MEAN CORPUSCULAR HGB CONC 29.8 g/dL (31-35); MONOCYTES # (AUTO) 0.8 (0.2-0.8); MONOCYTES % 5.6 % (4.4-11.3); NEUTROPHILS # (AUTO) 12.2 (2.1-6.9); NEUTROPHILS % 85.6 % (38.7-80.0); PLATELET COUNT 322 x10e3/uL (140-360); RED BLOOD COUNT 4.34 x10e6/uL (3.6-5.1); RED CELL DISTRIBUTION WIDTH 15.8 % (11.7-14.4)
[2017-09-27 05:22] LABS: INR 0.93; PROTHROMBIN TIME 12.9 seconds (11.9-14.5)
[2017-09-27 05:23] LABS: PARTIAL THROMBOPLASTIN TIME 21.4 seconds (23.8-35.5)
[2017-09-27 05:33] LABS: ALANINE AMINOTRANSFERASE 27 IU/L (0-55); ALBUMIN 2.6 g/dL (3.5-5.0); ALBUMIN/GLOBULIN RATIO 0.8 (0.8-2.0); ALKALINE PHOSPHATASE 96 IU/L (40-150); ANION GAP 13.7 mmol/L (8-16); BLOOD UREA NITROGEN 47 mg/dL (7-26); BUN/CREATININE RATIO 37 (6-25); CALCIUM 9.2 mg/dL (8.4-10.2); CARBON DIOXIDE 40 mmol/L (22-29); CHLORIDE 92 mmol/L (98-107); CREATININE, SERUM 1.26 mg/dL (0.57-1.11); EST GLOMERULAR FILTRATION RATE 43 ML/MIN (60-); GLUCOSE 393 mg/dL (74-118); POTASSIUM 3.7 mmol/L (3.5-5.1); SODIUM 142 mmol/L (136-145)
--- NOTE | 2017-09-27 07:36 | Diagnostic Imaging Report ---
EXAMINATION: CHEST SINGLE (PORTABLE) INDICATION: \S\Intubated \S\[id number] \S\0600 \S\Y COMPARISON: 09/26/2017 FINDINGS: AP view TUBES and LINES: Stable tracheostomy tube, nasogastric tube, and right internal jugular central line. LUNGS: Limited by low lung volumes and body habitus. Unchanged small left and possible trace right pleural effusions. PLEURA: No visible pneumothorax. HEART AND MEDIASTINUM: Enlarged cardiac mediastinal silhouette. BONES AND SOFT TISSUES: No acute osseous lesion. Soft tissues are unremarkable. UPPER ABDOMEN: No free air under the diaphragm. IMPRESSION: No change from prior exam. Unchanged small left pleural effusion. Underlying infiltrate/atelectasis cannot be excluded. Signed by: Dr. Pablo Ash MD on 09/27/2017 7:33 AM
[2017-09-27] MEDS: DILTIAZEM HCL 180 MG CAP CD PO SCH (09:00)
[2017-09-27] MEDS: PANTOPRAZOLE 40 MG 10ML VIAL IV SCH (09:12)
[2017-09-27] MEDS: FUROSEMIDE INJ 10 MG/ML 4 ML VIAL IV SCH ×2 (09:12→17:30)
[2017-09-27] MEDS: METHYLPREDNISOLONE SOD SUCC 40 MG/ML VIAL IV SCH ×2 (09:12→20:55)
[2017-09-27] MEDS: METFORMIN HCL 500 MG TAB PO SCH ×2 (09:23→17:30)
[2017-09-27] MEDS: CITALOPRAM HYDROBROMIDE 20 MG TAB PO SCH (09:23)
[2017-09-27] MEDS: GABAPENTIN 400 MG CAP PO SCH ×3 (09:24→20:50)
[2017-09-27] MEDS: METOPROLOL TARTRATE 50 MG TAB PO SCH ×2 (09:24→17:32)
[2017-09-27] MEDS: FENOFIBRATE 145 MG TAB PO SCH (09:24)
[2017-09-27] MEDS: ROPINIROLE HCL 1 MG TAB PO SCH (09:24)
[2017-09-27] MEDS: LISINOPRIL 20 MG TAB PO SCH (09:24)
[2017-09-27] MEDS: MORPHINE SULFATE 2 MG/ML SYR IV PRN ×2 (09:29→14:48)
[2017-09-27] MEDS ORDERED: OSELTAMIVIR PHOSPHATE 75 MG CAP PO SCH (12:45)
[2017-09-27] MEDS ORDERED: TAMIFLU PO SCH (13:00)
[2017-09-27] MEDS: ATORVASTATIN 40 MG TAB PO SCH (20:50)
[2017-09-27] MEDS: TRAVOPROST(OPTH) 2.5 ML BTL OP SCH (20:50)
[2017-09-27] MEDS: INSULIN DETEMIR 100 UNIT/ML PEN SQ SCH (20:55)
[2017-09-27] MEDS: CLONIDINE HCL 0.1 MG TAB PO SCH (21:00)
[2017-09-28] VITALS (30 sets, daily range): BP systolic 86–182; BP diastolic 41–88
[2017-09-28] MEDS: INSULIN REGULAR, HUMAN 100 UNIT/1 ML 3ML VIAL SQ SCH ×4 (00:30→18:03)
[2017-09-28] MEDS: CEFAZOLIN SOD 1 GM VIAL IV SCH ×3 (01:55→17:25)
[2017-09-28] MEDS: ALBUTEROL/IPRATROPIUM 3 ML NEB NEB SCH ×5 (02:55→19:51)
[2017-09-28] MEDS: HYDROMORPHONE 2MG/ML INJ IV PRN ×4 (04:05→20:20)
[2017-09-28 05:56] LABS: BASOPHILS % 0.1 % (0.0-1.0); EOSINOPHILS % 0.1 % (0.0-6.0); HEMATOCRIT 38.8 % (34.2-44.1); HEMOGLOBIN 11.6 g/dL (12.0-16.0); LYMPHOCYTES # (AUTO) 1.2 (1.0-3.2); LYMPHOCYTES % 7.2 % (18.0-39.1); MEAN CORPUSCULAR HEMOGLOBIN 26.4 pg (28-32); MEAN CORPUSCULAR HGB CONC 29.9 g/dL (31-35); MEAN CORPUSCULAR VOLUME 88.2 fL (81-99); NEUTROPHILS # (AUTO) 14.2 (2.1-6.9); NEUTROPHILS % 84.8 % (38.7-80.0); PLATELET COUNT 312 x10e3/uL (140-360); RED CELL DISTRIBUTION WIDTH 15.9 % (11.7-14.4)
[2017-09-28 06:14] LABS: ALBUMIN 2.6 g/dL (3.5-5.0); ALBUMIN/GLOBULIN RATIO 0.8 (0.8-2.0); ANION GAP 12.9 mmol/L (8-16); CALCIUM 9.2 mg/dL (8.4-10.2); CREATININE, SERUM 1.21 mg/dL (0.57-1.11); POTASSIUM 3.9 mmol/L (3.5-5.1)
[2017-09-28] MEDS: METOPROLOL TARTRATE 50 MG TAB PO SCH ×3 (09:00→17:00)
[2017-09-28] MEDS: DILTIAZEM HCL 180 MG CAP CD PO SCH ×2 (09:00→10:22)
[2017-09-28] MEDS: METHYLPREDNISOLONE SOD SUCC 40 MG/ML VIAL IV SCH ×2 (10:16→20:20)
[2017-09-28] MEDS: METFORMIN HCL 500 MG TAB PO SCH ×2 (10:16→17:24)
[2017-09-28] MEDS: PANTOPRAZOLE 40 MG 10ML VIAL IV SCH (10:16)
[2017-09-28] MEDS: CITALOPRAM HYDROBROMIDE 20 MG TAB PO SCH (10:16)
[2017-09-28] MEDS: FUROSEMIDE INJ 10 MG/ML 4 ML VIAL IV SCH ×2 (10:16→17:24)
[2017-09-28] MEDS: ROPINIROLE HCL 1 MG TAB PO SCH (10:17)
[2017-09-28] MEDS: CLOPIDOGREL BISULFATE 75 MG TAB PO SCH (10:17)
[2017-09-28] MEDS: GABAPENTIN 400 MG CAP PO SCH ×3 (10:17→20:20)
[2017-09-28] MEDS: FENOFIBRATE 145 MG TAB PO SCH (10:17)
[2017-09-28] MEDS: LISINOPRIL 20 MG TAB PO SCH (10:20)
[2017-09-28] MEDS: RIVAROXABAN 20 MG TABLET PO SCH (17:24)
[2017-09-28] MEDS: ATORVASTATIN 40 MG TAB PO SCH (20:20)
[2017-09-28] MEDS: INSULIN DETEMIR 100 UNIT/ML PEN SQ SCH (20:20)
[2017-09-28] MEDS: TRAVOPROST(OPTH) 2.5 ML BTL OP SCH (20:20)
[2017-09-28] MEDS: CLONIDINE HCL 0.1 MG TAB PO SCH (21:00)
[2017-09-29] VITALS (29 sets, daily range): BP systolic 89–174; BP diastolic 48–98
[2017-09-29] MEDS: INSULIN REGULAR, HUMAN 100 UNIT/1 ML 3ML VIAL SQ SCH ×4 (00:30→18:23)
[2017-09-29] MEDS: HYDROMORPHONE 2MG/ML INJ IV PRN ×5 (00:55→19:11)
[2017-09-29] MEDS: CEFAZOLIN SOD 1 GM VIAL IV SCH ×3 (03:10→17:28)
[2017-09-29] MEDS: ALBUTEROL/IPRATROPIUM 3 ML NEB NEB SCH ×6 (03:13→23:30)
[2017-09-29 06:10] LABS: BASOPHILS % 0.1 % (0.0-1.0); HEMATOCRIT 39.1 % (34.2-44.1); HEMOGLOBIN 11.9 g/dL (12.0-16.0); MEAN CORPUSCULAR HEMOGLOBIN 26.6 pg (28-32); MEAN CORPUSCULAR HGB CONC 30.4 g/dL (31-35); MEAN CORPUSCULAR VOLUME 87.5 fL (81-99); MONOCYTES % 5.6 % (4.4-11.3); NEUTROPHILS # (AUTO) 14.9 (2.1-6.9); PLATELET COUNT 334 x10e3/uL (140-360); RED BLOOD COUNT 4.47 x10e6/uL (3.6-5.1); RED CELL DISTRIBUTION WIDTH 15.9 % (11.7-14.4)
[2017-09-29 06:40] LABS: ALBUMIN 2.6 g/dL (3.5-5.0); ALBUMIN/GLOBULIN RATIO 0.7 (0.8-2.0); ANION GAP 15.1 mmol/L (8-16); CALCIUM 9.4 mg/dL (8.4-10.2); CREATININE, SERUM 1.04 mg/dL (0.57-1.11); POTASSIUM 4.1 mmol/L (3.5-5.1)
[2017-09-29] MEDS: DILTIAZEM HCL 180 MG CAP CD PO SCH (09:00)
[2017-09-29] MEDS: LISINOPRIL 20 MG TAB PO SCH (09:00)
[2017-09-29] MEDS: METOPROLOL TARTRATE 50 MG TAB PO SCH ×2 (09:00→17:29)
[2017-09-29] MEDS: CLOPIDOGREL BISULFATE 75 MG TAB PO SCH (09:42)
[2017-09-29] MEDS: METFORMIN HCL 500 MG TAB PO SCH ×2 (09:42→17:28)
[2017-09-29] MEDS: FENOFIBRATE 145 MG TAB PO SCH (09:42)
[2017-09-29] MEDS: CITALOPRAM HYDROBROMIDE 20 MG TAB PO SCH (09:42)
[2017-09-29] MEDS: ROPINIROLE HCL 1 MG TAB PO SCH (09:42)
[2017-09-29] MEDS: METHYLPREDNISOLONE SOD SUCC 40 MG/ML VIAL IV SCH (09:42)
[2017-09-29] MEDS: PANTOPRAZOLE 40 MG 10ML VIAL IV SCH (09:42)
[2017-09-29] MEDS: GABAPENTIN 400 MG CAP PO SCH ×3 (09:42→21:50)
[2017-09-29] MEDS: FUROSEMIDE INJ 10 MG/ML 4 ML VIAL IV SCH ×2 (09:42→17:28)
[2017-09-29] MEDS: RIVAROXABAN 20 MG TABLET PO SCH (17:28)
[2017-09-29] MEDS: CLONIDINE HCL 0.1 MG TAB PO SCH (21:00)
[2017-09-29] MEDS: ATORVASTATIN 40 MG TAB PO SCH (21:50)
[2017-09-29] MEDS: TRAVOPROST(OPTH) 2.5 ML BTL OP SCH (21:50)
[2017-09-29] MEDS: INSULIN DETEMIR 100 UNIT/ML PEN SQ SCH (21:50)
[2017-09-29] MEDS: MORPHINE SULFATE 2 MG/ML SYR IV PRN (23:15)
[2017-09-30] VITALS (30 sets, daily range): BP systolic 83–175; BP diastolic 37–101
[2017-09-30] MEDS: INSULIN REGULAR, HUMAN 100 UNIT/1 ML 3ML VIAL SQ SCH ×5 (00:30→23:56)
[2017-09-30] MEDS: ALBUTEROL/IPRATROPIUM 3 ML NEB NEB SCH ×6 (03:05→23:00)
[2017-09-30] MEDS: CEFAZOLIN SOD 1 GM VIAL IV SCH ×3 (04:05→18:18)
[2017-09-30] MEDS: MORPHINE SULFATE 2 MG/ML SYR IV PRN ×3 (05:30→13:50)
[2017-09-30 06:11] LABS: BASOPHILS % 0.2 % (0.0-1.0); EOSINOPHILS # (AUTO) 0.1 (0.0-0.4); EOSINOPHILS % 0.4 % (0.0-6.0); HEMATOCRIT 39.8 % (34.2-44.1); HEMOGLOBIN 12.1 g/dL (12.0-16.0); LYMPHOCYTES # (AUTO) 2.6 (1.0-3.2); LYMPHOCYTES % 15.7 % (18.0-39.1); MEAN CORPUSCULAR HEMOGLOBIN 26.3 pg (28-32); MEAN CORPUSCULAR HGB CONC 30.4 g/dL (31-35); MEAN CORPUSCULAR VOLUME 86.5 fL (81-99); MONOCYTES # (AUTO) 1.4 (0.2-0.8); MONOCYTES % 8.6 % (4.4-11.3); NEUTROPHILS # (AUTO) 12.1 (2.1-6.9); NEUTROPHILS % 73.9 % (38.7-80.0); PLATELET COUNT 311 x10e3/uL (140-360); RED CELL DISTRIBUTION WIDTH 16.1 % (11.7-14.4)
[2017-09-30 06:34] LABS: ALBUMIN 2.6 g/dL (3.5-5.0); ALBUMIN/GLOBULIN RATIO 0.7 (0.8-2.0); ANION GAP 14.7 mmol/L (8-16); CALCIUM 9.1 mg/dL (8.4-10.2); CREATININE, SERUM 1.09 mg/dL (0.57-1.11); POTASSIUM 3.7 mmol/L (3.5-5.1)
[2017-09-30] MEDS: DILTIAZEM HCL 180 MG CAP CD PO SCH (08:10)
[2017-09-30] MEDS: METFORMIN HCL 500 MG TAB PO SCH ×2 (08:19→16:22)
[2017-09-30] MEDS: DIGOXIN INJ 0.25 MG/ML 2 ML AMP IV SCH ×3 (08:19→18:19)
[2017-09-30] MEDS: PANTOPRAZOLE 40 MG 10ML VIAL IV SCH (08:20)
[2017-09-30] MEDS: METOPROLOL TARTRATE 50 MG TAB PO SCH ×2 (08:20→16:22)
[2017-09-30] MEDS: CLOPIDOGREL BISULFATE 75 MG TAB PO SCH (08:20)
[2017-09-30] MEDS: CITALOPRAM HYDROBROMIDE 20 MG TAB PO SCH (08:20)
[2017-09-30] MEDS: FUROSEMIDE INJ 10 MG/ML 4 ML VIAL IV SCH ×2 (08:20→16:22)
[2017-09-30] MEDS: METHYLPREDNISOLONE SOD SUCC 40 MG/ML VIAL IV SCH (08:20)
[2017-09-30] MEDS: GABAPENTIN 400 MG CAP PO SCH ×3 (08:20→21:23)
[2017-09-30] MEDS: LISINOPRIL 20 MG TAB PO SCH (08:21)
[2017-09-30] MEDS: ROPINIROLE HCL 1 MG TAB PO SCH (08:21)
[2017-09-30] MEDS: FENOFIBRATE 145 MG TAB PO SCH (08:21)
[2017-09-30] MEDS: RIVAROXABAN 20 MG TABLET PO SCH (16:22)
[2017-09-30] MEDS: CLONIDINE HCL 0.1 MG TAB PO SCH (21:00)
[2017-09-30] MEDS: ATORVASTATIN 40 MG TAB PO SCH (21:23)
[2017-09-30] MEDS: TRAVOPROST(OPTH) 2.5 ML BTL OP SCH (21:23)
[2017-09-30] MEDS: BUSPIRONE HCL 5 MG TAB PO PRN (21:24)
[2017-09-30] MEDS: INSULIN DETEMIR 100 UNIT/ML PEN SQ SCH (21:27)
[2017-10-01] VITALS (31 sets, daily range): BP systolic 93–174; BP diastolic 45–94
[2017-10-01] MEDS: CEFAZOLIN SOD 1 GM VIAL IV SCH ×3 (02:09→17:54)
[2017-10-01] MEDS: METOPROLOL TARTRATE INJ 1 MG/ML VIAL IV PRN ×2 (02:09→13:49)
[2017-10-01] MEDS: HYDROMORPHONE 2MG/ML INJ IV PRN (02:49)
[2017-10-01] MEDS: ALBUTEROL/IPRATROPIUM 3 ML NEB NEB SCH ×6 (03:00→23:35)
[2017-10-01] MEDS: INSULIN REGULAR, HUMAN 100 UNIT/1 ML 3ML VIAL SQ SCH ×3 (06:06→18:01)
[2017-10-01] MEDS: METHYLPREDNISOLONE SOD SUCC 40 MG/ML VIAL IV SCH (08:34)
[2017-10-01] MEDS: DILTIAZEM HCL 180 MG CAP CD PO SCH (08:34)
[2017-10-01] MEDS: PANTOPRAZOLE 40 MG 10ML VIAL IV SCH (08:34)
[2017-10-01] MEDS: FUROSEMIDE INJ 10 MG/ML 4 ML VIAL IV SCH ×2 (08:34→16:29)
[2017-10-01] MEDS: CITALOPRAM HYDROBROMIDE 20 MG TAB PO SCH (08:34)
[2017-10-01] MEDS: METFORMIN HCL 500 MG TAB PO SCH ×2 (08:34→16:29)
[2017-10-01] MEDS: FENOFIBRATE 145 MG TAB PO SCH (08:35)
[2017-10-01] MEDS: CLOPIDOGREL BISULFATE 75 MG TAB PO SCH (08:35)
[2017-10-01] MEDS: ROPINIROLE HCL 1 MG TAB PO SCH (08:35)
[2017-10-01] MEDS: MORPHINE SULFATE 2 MG/ML SYR IV PRN ×2 (08:35→12:07)
[2017-10-01] MEDS: METOPROLOL TARTRATE 50 MG TAB PO SCH ×2 (08:35→16:30)
[2017-10-01] MEDS: DIGOXIN 0.25 MG TAB PO ONE ×2 (08:35→08:57)
[2017-10-01] MEDS: GABAPENTIN 400 MG CAP PO SCH ×3 (08:35→21:07)
[2017-10-01] MEDS: LISINOPRIL 20 MG TAB PO SCH (08:35)
[2017-10-01] MEDS: RIVAROXABAN 20 MG TABLET PO SCH (16:30)
[2017-10-01] MEDS: MORPHINE SULFATE 4 MG/ML SYR IV PRN ×2 (17:55→21:08)
[2017-10-01] MEDS: CLONIDINE HCL 0.1 MG TAB PO SCH (21:00)
[2017-10-01] MEDS: ATORVASTATIN 40 MG TAB PO SCH (21:07)
[2017-10-01] MEDS: TRAVOPROST(OPTH) 2.5 ML BTL OP SCH (21:07)
[2017-10-01] MEDS: BUSPIRONE HCL 5 MG TAB PO PRN (21:11)
[2017-10-01] MEDS: INSULIN DETEMIR 100 UNIT/ML PEN SQ SCH (21:52)
--- NOTE | 2017-10-01 22:19 | Consultation ---
DATE OF CONSULTATION: October 01, 2017 GI CONSULT NOTE REFERRING PHYSICIAN: Dr. Yeyo Aiken. REASON FOR CONSULTATION: 1. Evaluation for PEG tube placement. 2. Oropharyngeal dysphagia with high risk of aspiration during swallowing. The patient failed multiple swallow evaluations. HISTORY OF PRESENT ILLNESS: A 57-year-old female with advanced COPD who unfortunately continues to smoke. She got admitted with respiratory distress secondary to COPD exacerbation, found to have pneumonia. She was in respiratory failure. Therefore, she got intubated, has had a protracted ICU course. She failed weaning trial and, therefore, ended up getting tracheostomy. It seems like that the patient has had a tracheostomy in the past with a history of percutaneous fistula. She also has atrial fibrillation on Xarelto. I am not sure whether she has any history of coronary stents, but the patient is on Clopidogrel as well. She is not on any aspirin. GI has been consulted for evaluation of PEG tube placement. She is currently getting enteral feeding through the NG tube. REVIEW OF SYSTEMS: A 12-point system reviewed. Symptomatology is largely limited to respiratory system. Rest as described in HPI. PAST MEDICAL HISTORY: Morbid obesity, coronary artery disease, hypertension, hyperlipidemia, congestive heart failure, peripheral arterial disease, history of chronic tracheostomy with tracheocutaneous fistula, sleep apnea, COPD and type 2 diabetes. PAST SURGICAL HISTORY: Tracheostomy in the past, otherwise unknown. FAMILY HISTORY: Negative for any GI or PROFESSOR OF ENVIRONMENTAL STUDIES malignancies. SOCIAL HISTORY: Chronic smoker, and lives with her . Seldom drinks alcohol. Never used any illicit drugs. ALLERGIES: PENICILLIN AND LATEX. HOME MEDICATIONS: Atorvastatin, calcium with vitamin D, Citalopram, clonidine, Clopidogrel, diltiazem, fenofibrate, furosemide, gabapentin, insulin, detemir, levofloxacin, lisinopril, metformin, omeprazole, prednisone, Xarelto, ropinirole and Zolpidem. PHYSICAL EXAMINATION VITAL SIGNS: Temperature 99.1, pulse 95, respirations 16, blood pressure 93/60, oxygen saturation 98% on trach collar. GENERAL: Not in any acute distress. Alert, awake, oriented x3. Oral mucosa is moist. Anicteric sclerae. Tracheostomy site clean, no discharge or bleeding. CVS: S1 and S2 irregularly irregular with a 2/6 blow murmur at the apex. LUNGS: Bilaterally occasional scattered rhonchi. ABDOMEN: Obese. There is a midline linear laparotomy scar, nondistended, nontender, no palpable mass or hernia, positive bowel sounds. EXTREMITIES: Warm, no leg edema. LABORATORY DATA: WBC has come down to 16.34 from 17.10. Hemoglobin 12.1, hematocrit 39.8, MCV 86.5, platelet count 311,000. Electrolytes checked yesterday showed a sodium of 144, potassium 3.7, chloride 91, bicarb 42, BUN 63, creatinine 1.0609, glucose 182. Liver test showed a total bilirubin 0.5, AST 42, ALT 20, alkaline phosphatase 87, total protein 6.2, albumin 2.6. On 09/27/2017 PT 12.9, INR 0.93. Influenza antigen negative. Modified barium swallow on 09/22/2017 showed moderate to severe pharyngeal dysphagia characterized by consistent premature spillage over the base of the tongue, aspiration of multiple consistencies during the swallow and consistent pharyngeal residual after the swallow. Please see speech pathology report for detailed description and recommendations. IMPRESSION: Oropharyngeal dysphagia, status post tracheostomy. High risk of aspiration during swallowing. This certainly qualifies her to have enteral feeding through gastrostomy. Currently, she is getting enteral feeding through the NG tube. PLAN: Since the patient is on anticoagulants, Xarelto, therefore, this needs to be stopped with approval of cardiology. This needs to be stopped at least 3 days prior to procedure. Clopidogrel also needs to be stopped. Obtain informed consent from the patient. In the interim, continue NG tube feeding. EGD PEG tube likely Thursday if Xarelto can be withheld, after getting approval from cardiology. I thank Dr. Aiken for allowing me to participate in the care of this patient. Job#: [id number]
[2017-10-02] VITALS (61 sets, daily range): BP systolic 69–144; BP diastolic 36–98
[2017-10-02] MEDS: INSULIN REGULAR, HUMAN 100 UNIT/1 ML 3ML VIAL SQ SCH ×4 (00:45→17:39)
[2017-10-02] MEDS: CEFAZOLIN SOD 1 GM VIAL IV SCH (02:58)
[2017-10-02] MEDS: ALBUTEROL/IPRATROPIUM 3 ML NEB NEB SCH ×6 (03:14→22:55)
[2017-10-02] MEDS: METOPROLOL TARTRATE INJ 1 MG/ML VIAL IV PRN (05:00)
[2017-10-02 05:42] LABS: BASOPHILS # (AUTO) 0.1 (0.0-0.1); BASOPHILS % 0.2 % (0.0-1.0); EOSINOPHILS % 0.1 % (0.0-6.0); HEMOGLOBIN 12.6 g/dL (12.0-16.0); LYMPHOCYTES # (AUTO) 1.7 (1.0-3.2); LYMPHOCYTES % 7.5 % (18.0-39.1); MEAN CORPUSCULAR HEMOGLOBIN 26.4 pg (28-32); MEAN CORPUSCULAR VOLUME 87.9 fL (81-99); MONOCYTES # (AUTO) 2.6 (0.2-0.8); MONOCYTES % 11.5 % (4.4-11.3); NEUTROPHILS # (AUTO) 17.8 (2.1-6.9); NEUTROPHILS % 79.7 % (38.7-80.0); PLATELET COUNT 365 x10e3/uL (140-360); RED BLOOD COUNT 4.78 x10e6/uL (3.6-5.1)
[2017-10-02 06:07] LABS: ALBUMIN 2.6 g/dL (3.5-5.0); ALBUMIN/GLOBULIN RATIO 0.7 (0.8-2.0); ANION GAP 17.4 mmol/L (8-16); CREATININE, SERUM 2.46 mg/dL (0.57-1.11); POTASSIUM 4.4 mmol/L (3.5-5.1)
[2017-10-02 07:58] LABS: LYMPHOCYTES % (MANUAL) 5 % (19-48); MONOCYTES % (MANUAL) 9 % (3.4-9.0); NEUTROPHILS % (MANUAL) 86 % (40-74); PLATELET ESTIMATE ADEQUATE; PLATELET MORPHOLOGY COMMENT NORMAL; RBC MORPHOLOGY COMMENT NORMAL
[2017-10-02] MEDS: METOPROLOL TARTRATE 50 MG TAB PO SCH ×2 (08:00→17:00)
[2017-10-02] MEDS: DILTIAZEM HCL 180 MG CAP CD PO SCH (08:00)
[2017-10-02] MEDS ORDERED: SODIUM CHLORIDE 0.9% 500ML 500 ML IV ONE (08:00)
[2017-10-02] MEDS ORDERED: DIGOXIN INJ 0.25 MG/ML 2 ML AMP IV ONE (08:00)
[2017-10-02] MEDS: LISINOPRIL 20 MG TAB PO SCH (08:02)
[2017-10-02] MEDS ORDERED: BISACODYL 10 MG SUPP PR ONE (08:45)
[2017-10-02] MEDS ORDERED: SODIUM CHLORIDE 0.9% 500ML 500 ML ONE (08:45)
[2017-10-02] MEDS ORDERED: CEFEPIME HCL 1 GM VIAL IV SCH (08:45)
[2017-10-02] MEDS: FUROSEMIDE INJ 10 MG/ML 4 ML VIAL IV SCH ×2 (09:00→17:36)
[2017-10-02] MEDS: GABAPENTIN 400 MG CAP PO SCH ×2 (09:00→15:34)
[2017-10-02] MEDS ORDERED: SODIUM CHLORIDE 0.9% 1000ML 1,500 ML IV ONE (09:15)
[2017-10-02] MEDS ORDERED: SODIUM CHLORIDE 0.9% 1000ML 500 ML IV SCH (09:30)
[2017-10-02] MEDS: METHYLPREDNISOLONE SOD SUCC 40 MG/ML VIAL IV SCH (09:53)
[2017-10-02] MEDS: PANTOPRAZOLE 40 MG 10ML VIAL IV SCH (09:54)
[2017-10-02] MEDS ORDERED: VANCOMYCIN 1GM/NS 250 ML 250 ML IV ONE (10:15)
[2017-10-02 10:33] LABS: ABG HCO3 38 mmol/L (23-28); ABG PCO2 52 mmHg (41-51); ABG PH 7.47 (7.31-7.41); ABG PO2 109 mmHg (80-105)
[2017-10-02] MEDS: NOREPINEPHRINE BITARTRATE/ NS 250 ML IV PRN (10:37)
[2017-10-02 10:38] LABS: BILIRUBIN,URINE 2+ (NEGATIVE); KETONES,URINE NEGATIVE (NEGATIVE); LEUKOCYTE ESTERASE ,URINE 2+ (NEGATIVE); NITRITE,URINE NEGATIVE (NEGATIVE); URINE UROBILINOGEN 0.2 mg/dL (0.2 - 1)
[2017-10-02 10:39] LABS: CLARITY,URINE CLOUDY (CLEAR); COLOR,URINE YELLOW (YELLOW); PROTEIN,URINE DIPSTICK 2+ (NEGATIVE)
--- NOTE | 2017-10-02 10:46 | Progress Note ---
DATE: October 02, 2017 SUBJECTIVE: Patient is very lethargic, drowsy and barely responsive this morning. It seems like the patient is becoming septic. Her blood pressure is dropping. REVIEW OF SYSTEMS: Unobtainable at this time. MEDICATIONS: Albuterol, insulin, metoprolol, insulin Detemir, buspirone, atorvastatin, morphine, gabapentin, furosemide, fenofibrate, ropinirole, Solu-Medrol, Pantoprazole, citalopram, metoprolol, clonidine, diltiazem, normal saline IV fluids, Xarelto, metronidazole, cefepime, potassium chloride. PHYSICAL EXAMINATION GENERAL: Lethargic, drowsy and obtunded. HEENT: Oral mucosa is moist. Anicteric sclerae. Tracheostomy site is clear. No discharge. CV: S1 and S2 irregularly irregular. A 2/6 flow murmur at the apex. LUNGS: Bilateral occasional scattered rales mainly at the bases. Patient with poor inspiratory efforts. ABDOMEN: Obese and soft. Midline healed linear surgical scar. Nondistended and nontender. No palpable mass or hernia. Bowel sounds hypoactive. EXTREMITIES: Cold but no edema. LABS: WBC has gone up to 22.32 from 16.34, hemoglobin 12.6, hematocrit 42, and platelet count 365,000. Sodium 142, potassium 4.4, chloride 91, bicarb 38, BUN 78, creatinine 2.46, which is up from 1.09. AST 27, ALT 13, alkaline phosphatase 101, total bilirubin 0.4. IMPRESSION 1. Oropharyngeal dysphagia with recurrent failing swallow evaluation: High risk of aspiration during swallowing. 2. Advanced chronic obstructive pulmonary disease, respiratory failure, chronic tracheostomy. 3. Acute kidney injury. 4. Sepsis: Drifting towards septic shock. 5. Atrial fibrillation, on anticoagulants: Being followed by cardiology. PLAN: Dr. Espinosa (lamination inspector) approved to hold clopidogrel, as well as Xarelto for EGD and PEG on Thursday. However, the patient is quite septic at this time, hypotensive and hemodynamically unstable. She has also developed renal failure. EGD and PEG will be considered on Thursday after medical stabilization. Will continue to observe her clinically first before attempting EGD/PEG. If the patient is medically stable by Thursday, then NG tube feeding will be withheld on Thursday night. Job#: [id number] RI
--- NOTE | 2017-10-02 11:29 | Diagnostic Imaging Report ---
PROCEDURE:X-RAY MODIFIED BARIUM SWALLOW COMPARISON:None. INDICATIONS:Not provided. DISCUSSION:Fluoroscopic examination was performed in conjunction with speech pathology, during swallowing of a variety of thin and thick liquid consistencies. CONCLUSION: Aspiration was present. Please see the report from speech pathology for complete details. Dictated by: Ralph Guerrero M.D. on 10/02/2017 at 11:38 Electronically approved by: Ralph Guerrero M.D. on 10/02/2017 at 11:38
--- NOTE | 2017-10-02 11:31 | Diagnostic Imaging Report ---
PROCEDURE:US RETROPERITONEAL ( KIDNEY ). COMPARISON:None. INDICATIONS:ARF TECHNIQUE: Melendez-scale and color sonographic images of the bilateral kidneys and bladder where obtained in transverse and longitudinal planes. FINDINGS: Examination is limited by patient body habitus and inability to follow breathing instructions (patient on ventilator). RIGHT KIDNEY: 11.6 cm, cortex 2.1 cm Cysts: 3.4 cm cyst in the right midpole Solid masses: None Stones: None Hydronephrosis: None Echogenicity: Normal LEFT KIDNEY: 12.7 cm, cortex 1.8 cm Cysts: None Solid masses: None Stones: None Hydronephrosis: None Echogenicity: Normal Bladder: The bladder is collapsed by a Hill catheter. CONCLUSION: Right renal cyst. No hydronephrosis, stones or solid renal mass. Dictated by: Mando Soriano M.D. on 10/02/2017 at 11:40 Electronically approved by: Mando Soriano M.D. on 10/02/2017 at 11:40
--- NOTE | 2017-10-02 12:28 | Diagnostic Imaging Report ---
PROCEDURE: A single AP view of the chest. COMPARISON: 09/27/2017 INDICATIONS: RESPIRATORY DISTRESS FINDINGS: Lines/tubes: Tracheostomy tube in unchanged position. Enteric tube tip is projected over the stomach. Right internal jugular central venous catheter has its tip at the cavoatrial junction. Lungs: Low lung volumes with bibasilar subsegmental atelectasis. Pleura: Small left pleural effusion. A trace right pleural effusion may be present. Heart and mediastinum: The heart and the mediastinum are unchanged. Bones: No acute bony abnormality. IMPRESSION: 1. Low lung volumes with basilar atelectasis and small left pleural effusion, unchanged. 2. Lines and tubes are stable. Dictated by: Mando Soriano M.D. on 10/02/2017 at 12:37 Electronically approved by: Mando Soriano M.D. on 10/02/2017 at 12:37
[2017-10-02] MEDS: MORPHINE SULFATE 4 MG/ML SYR IV PRN (13:41)
[2017-10-02] MEDS: METRONIDAZOLE 500MG/NS 100ML 100 ML IV SCH ×2 (14:14→21:38)
[2017-10-02 14:16] LABS: EPITHELIAL CELLS,URINE RARE /LPF; WBC,URINE (MAN) 0-5 /HPF (0-5)
[2017-10-02 14:17] LABS: YEAST,URINE MODERATE
--- NOTE | 2017-10-02 15:21 | Diagnostic Imaging Report ---
PROCEDURE: A single AP view of the chest. COMPARISON: Portable chest 10/02/2017. INDICATIONS: LINE PLACEMENT TODAY FINDINGS: Lines/tubes: Right internal jugular temporary central venous catheter with tip projecting over the expected region of the right atrium. Tracheostomy catheter with the tip projecting over the expected region of the trachea, positioned 3 cm from the lesli. Enteric feeding catheter with tip extending below the anterior margin of the examination, likely within the gastric body. Lungs: Stable opacity in the left lung base. Pleura: There is no pleural effusion or pneumothorax. Heart and mediastinum: The heart and the mediastinum are unremarkable. Bones: No acute bony abnormality. IMPRESSION: No acute radiographic abnormality. Dictated by: Ralph Guerrero M.D. on 10/02/2017 at 15:29 Electronically approved by: Ralph Guerrero M.D. on 10/02/2017 at 15:29
[2017-10-02] MEDS: FENOFIBRATE 145 MG TAB PO SCH (15:33)
[2017-10-02] MEDS: ROPINIROLE HCL 1 MG TAB PO SCH (15:33)
[2017-10-02] MEDS: CITALOPRAM HYDROBROMIDE 20 MG TAB PO SCH (15:33)
[2017-10-02] MEDS ORDERED: RIVAROXABAN 20 MG TABLET PO SCH (17:00)
[2017-10-02] MEDS ORDERED: RIVAROXABAN 15 MG TABLET PO SCH (17:00)
[2017-10-02] MEDS: ENOXAPARIN SODIUM INJ 100 MG/ML SYR SC SCH (17:37)
[2017-10-02] MEDS: SODIUM CHLORIDE 0.9% 1000ML 1,000 ML IV SCH (17:40)
--- NOTE | 2017-10-02 18:59 | Consultation ---
DATE OF CONSULTATION: October 02, 2017 REASON FOR CONSULTATION: Sepsis. Thank you, Dr. Aiken, for asking me to see this patient. HISTORY: The patient is a 57-year-old woman for sepsis. She was admitted through the emergency department with acute exacerbation of chronic obstructive pulmonary disease and acute hypoxic and hypercapnic respiratory failure. The patient presented to the emergency department on September 14, 2017 with progressive shortness of breath and cough associated with fever and bilateral lower extremity swelling. In the emergency department, she was noted to have temperature of 99 degrees Fahrenheit, pulse 90, respiratory rate 18, blood pressure 115/80 and oxygen saturation 95% on 100% FIO2 (The patient was intubated in the emergency room). Initial laboratory studies showed white blood cell count of 12,010 with 70% neutrophils; BUN 17, creatinine 0.97, blood glucose 164, troponin 0.013, negative influenza antigen test. ABGs showed pH 7.15, pCO2 of 120, pO2 of 95 and bicarb 41. Chest x-ray showed status post endotracheal intubation and left lower lung field zero opacification. The chest CT scan showed no pulmonary embolism, but there was bilateral lower lobe posteromedial consolidation. PAST MEDICAL HISTORY: Diabetes mellitus type 2 with peripheral neuropathy, hypertension, hyperlipidemia, coronary artery disease, status post stenting, diastolic congestive heart failure, obstructive sleep apnea and chronic obstructive pulmonary disease and respiratory failure. PAST SURGICAL HISTORY: Tonsillectomy, tracheostomy, cholecystectomy. ALLERGIES: PENICILLIN AND LATEX (MANIFESTATION IS UNKNOWN). MEDICATIONS: The current antibiotics are cefepime 1 gram IV piggyback q.12 h., metronidazole 500 mg IV piggyback q.8 h. She has been on vancomycin and the last dose was 1 gram IV piggyback once today. IMMUNIZATION: She received influenza and pneumococcal vaccination prior to admission. FAMILY HISTORY: Significant for diabetes mellitus and hypertension. SOCIAL HISTORY: The patient denies alcohol and tobacco use. REVIEW OF SYSTEMS: As per history of present illness. PHYSICAL EXAMINATION GENERAL: Acutely ill. VITAL SIGNS: T-max 100.7, pulse 115, respiratory rate 20, blood pressure 115/73 on pressors. Weight 239 pounds. HEENT: Atraumatic. There is no icterus or injection of conjunctivae. The nasogastric tube is in place. No ear discharge. Dry oral mucosa. Uncooperative for oropharyngeal examination. NECK: Tracheostomy is in place. No lymphadenopathy. LUNGS: Rhonchi bilaterally. HEART: Normal S1 and S2. Irregular. ABDOMEN: Soft and nontender. EXTREMITIES: There is no edema, clubbing or cyanosis. Dorsalis pedis and posterior tibial pulses palpable in both feet. SKIN: There is no acute erythema. COBOL APPLICATION DEVELOPER: Lethargic but arousable. Decreased sensation on monofilament exam of both feet and also decreased vibration sensation in both feet and ankles. LABORATORY DATA: WBC 22,320, hemoglobin 12.6, platelets 265,000, neutrophils 79.7, lymphs 7.5, mono 11.5, eosinophils 0.1, basophils 0.2. BUN 77, creatinine 2.46, blood glucose 355. Urinalysis is negative for pyuria. On September 17, 2017, sputum culture grew, methicillin sensitive Staphylococcus aureus. On October 02, 2017, blood culture showing growth in anaerobic culture. Sputum culture is pending. IMPRESSION 1. (?) septicemia. 2. (?) pneumonia. 3. Chronic obstructive pulmonary disease with acute exacerbation. 4. Acute hypoxic and hypercapnic respiratory failure. 5. Atrial fibrillation. 6. Hypothyroidism. 7. Diabetes mellitus type 2 with peripheral neuropathy, uncontrolled. PLAN: 1. Await blood culture results. 2. Reduce vancomycin tomorrow. 3. Glycemic control per endocrinology service. Job#: [id number]
[2017-10-02] MEDS: CLONIDINE HCL 0.1 MG TAB PO SCH (20:53)
[2017-10-02] MEDS: TRAVOPROST(OPTH) 2.5 ML BTL OP SCH (20:58)
[2017-10-02] MEDS: ATORVASTATIN 40 MG TAB PO SCH (20:58)
[2017-10-02] MEDS: CEFEPIME HCL 1 GM VIAL IV SCH (20:58)
[2017-10-02] MEDS: INSULIN DETEMIR 100 UNIT/ML PEN SQ SCH (21:28)
[2017-10-02] MEDS: ACETAMINOPHEN 325 MG/10 ML UDC GT PRN (23:50)
[2017-10-03] VITALS (136 sets, daily range): BP systolic 82–146; BP diastolic 50–104
[2017-10-03] MEDS: INSULIN REGULAR, HUMAN 100 UNIT/1 ML 3ML VIAL SQ SCH ×4 (01:17→17:58)
[2017-10-03] MEDS: ALBUTEROL/IPRATROPIUM 3 ML NEB NEB SCH ×6 (03:00→23:25)
[2017-10-03] MEDS: SODIUM CHLORIDE 0.9% 1000ML 1,000 ML IV SCH ×2 (05:14→17:23)
[2017-10-03] MEDS: ACETAMINOPHEN 325 MG/10 ML UDC GT PRN ×3 (05:20→21:10)
[2017-10-03] MEDS: METRONIDAZOLE 500MG/NS 100ML 100 ML IV SCH ×3 (05:37→21:35)
[2017-10-03 06:07] LABS: BASOPHILS % 0.1 % (0.0-1.0); EOSINOPHILS % 0.1 % (0.0-6.0); HEMATOCRIT 35.9 % (34.2-44.1); HEMOGLOBIN 10.8 g/dL (12.0-16.0); LYMPHOCYTES # (AUTO) 2.1 (1.0-3.2); LYMPHOCYTES % 11.1 % (18.0-39.1); MEAN CORPUSCULAR HEMOGLOBIN 26.6 pg (28-32); MEAN CORPUSCULAR HGB CONC 30.1 g/dL (31-35); MEAN CORPUSCULAR VOLUME 88.4 fL (81-99); MONOCYTES # (AUTO) 2.3 (0.2-0.8); MONOCYTES % 12.4 % (4.4-11.3); NEUTROPHILS # (AUTO) 14.2 (2.1-6.9); NEUTROPHILS % 75.3 % (38.7-80.0); PLATELET COUNT 281 x10e3/uL (140-360); RED BLOOD COUNT 4.06 x10e6/uL (3.6-5.1); RED CELL DISTRIBUTION WIDTH 16.3 % (11.7-14.4)
[2017-10-03 06:30] LABS: ALBUMIN 2.2 g/dL (3.5-5.0); ALBUMIN/GLOBULIN RATIO 0.7 (0.8-2.0); ANION GAP 11.5 mmol/L (8-16); CALCIUM 7.9 mg/dL (8.4-10.2); CREATININE, SERUM 1.21 mg/dL (0.57-1.11); POTASSIUM 3.5 mmol/L (3.5-5.1)
[2017-10-03] MEDS: NOREPINEPHRINE BITARTRATE/ NS 250 ML IV PRN (06:30)
[2017-10-03] MEDS ORDERED: ACETAMINOPHEN 325 MG TAB NG PRN (07:45)
[2017-10-03] MEDS: DILTIAZEM HCL 180 MG CAP CD PO SCH (07:58)
[2017-10-03] MEDS: ROPINIROLE HCL 1 MG TAB PO SCH (08:05)
[2017-10-03] MEDS: CITALOPRAM HYDROBROMIDE 20 MG TAB PO SCH (08:05)
[2017-10-03] MEDS: GABAPENTIN 400 MG CAP PO SCH (08:05)
[2017-10-03] MEDS: FENOFIBRATE 145 MG TAB PO SCH (08:05)
[2017-10-03] MEDS: FUROSEMIDE INJ 10 MG/ML 4 ML VIAL IV SCH (08:05)
[2017-10-03] MEDS: CEFEPIME HCL 1 GM VIAL IV SCH ×2 (08:05→21:10)
[2017-10-03] MEDS: METHYLPREDNISOLONE SOD SUCC 40 MG/ML VIAL IV SCH (08:05)
[2017-10-03] MEDS: PANTOPRAZOLE 40 MG 10ML VIAL IV SCH (08:05)
[2017-10-03] MEDS: METOPROLOL TARTRATE 50 MG TAB PO SCH ×2 (08:06→16:32)
[2017-10-03] MEDS: MORPHINE SULFATE 4 MG/ML SYR IV PRN ×4 (08:21→22:24)
[2017-10-03 08:45] LABS: BAND NEUTROPHILS % (MANUAL) 2 %; LYMPHOCYTES % (MANUAL) 7 % (19-48); MONOCYTES % (MANUAL) 10 % (3.4-9.0); NEUTROPHILS % (MANUAL) 81 % (40-74)
[2017-10-03 08:46] LABS: PLATELET ESTIMATE ADEQUATE; PLATELET MORPHOLOGY COMMENT FEW LARGE; RBC MORPHOLOGY COMMENT NORMAL
[2017-10-03] MEDS: ENOXAPARIN SODIUM INJ 100 MG/ML SYR SC SCH (17:23)
--- NOTE | 2017-10-03 18:20 | Diagnostic Imaging Report ---
EXAMINATION: CHEST SINGLE (PORTABLE) INDICATION: \S\sob \S\[id number] \S\1800 \S\Y COMPARISON: Chest radiograph from 10/02/2017 FINDINGS: AP view TUBES and LINES: Stable tracheostomy tube and nasogastric tube. The right internal jugular central line has been removed. LUNGS: Low lung volumes. Bibasilar atelectasis. Decreased bilateral interstitial edema. PLEURA: Unchanged small left and possible trace right pleural effusions. No pneumothorax. HEART AND MEDIASTINUM: Enlarged cardiac mediastinal silhouette. BONES AND SOFT TISSUES: No acute osseous lesion. Soft tissues are unremarkable. UPPER ABDOMEN: No free air under the diaphragm. IMPRESSION: Low lung volumes with persistent bibasilar atelectasis. Decreased bilateral interstitial edema. Signed by: Dr. Josey Elizabeth M.D. on 10/03/2017 6:17 PM
[2017-10-03] MEDS: CLONIDINE HCL 0.1 MG TAB PO SCH (21:00)
[2017-10-03] MEDS: INSULIN DETEMIR 100 UNIT/ML PEN SQ SCH (21:10)
[2017-10-03] MEDS: ATORVASTATIN 40 MG TAB PO SCH (21:10)
[2017-10-03] MEDS: TRAVOPROST(OPTH) 2.5 ML BTL OP SCH (21:10)
[2017-10-04] VITALS (119 sets, daily range): BP systolic 76–179; BP diastolic 27–163
[2017-10-04] MEDS: INSULIN REGULAR, HUMAN 100 UNIT/1 ML 3ML VIAL SQ SCH ×4 (00:10→16:43)
[2017-10-04] MEDS: MORPHINE SULFATE 4 MG/ML SYR IV PRN ×6 (01:46→22:29)
[2017-10-04] MEDS: ALBUTEROL/IPRATROPIUM 3 ML NEB NEB SCH ×6 (02:35→23:50)
[2017-10-04] MEDS: METRONIDAZOLE 500MG/NS 100ML 100 ML IV SCH ×3 (05:46→22:16)
[2017-10-04 07:09] LABS: ALANINE AMINOTRANSFERASE 12 IU/L (0-55); ALBUMIN 2.2 g/dL (3.5-5.0); ALBUMIN/GLOBULIN RATIO 0.8 (0.8-2.0); ALKALINE PHOSPHATASE 119 IU/L (40-150); ANION GAP 11.7 mmol/L (8-16); BLOOD UREA NITROGEN 33 mg/dL (7-26); BUN/CREATININE RATIO 37 (6-25); CALCIUM 7.7 mg/dL (8.4-10.2); CARBON DIOXIDE 34 mmol/L (22-29); CHLORIDE 101 mmol/L (98-107); EST GLOMERULAR FILTRATION RATE > 60 ML/MIN (60-); GLUCOSE 357 mg/dL (74-118); POTASSIUM 3.7 mmol/L (3.5-5.1); SODIUM 143 mmol/L (136-145)
[2017-10-04 07:28] LABS: BASOPHILS % 0.1 % (0.0-1.0); EOSINOPHILS % 0.2 % (0.0-6.0); HEMATOCRIT 33.6 % (34.2-44.1); HEMOGLOBIN 9.9 g/dL (12.0-16.0); LYMPHOCYTES # (AUTO) 1.8 (1.0-3.2); MEAN CORPUSCULAR HEMOGLOBIN 26.5 pg (28-32); MEAN CORPUSCULAR HGB CONC 29.5 g/dL (31-35); MEAN CORPUSCULAR VOLUME 90.1 fL (81-99); MONOCYTES # (AUTO) 1.4 (0.2-0.8); NEUTROPHILS # (AUTO) 9.3 (2.1-6.9); NEUTROPHILS % 73.4 % (38.7-80.0); PLATELET COUNT 229 x10e3/uL (140-360); RED BLOOD COUNT 3.73 x10e6/uL (3.6-5.1); RED CELL DISTRIBUTION WIDTH 16.2 % (11.7-14.4)
[2017-10-04] MEDS: FENOFIBRATE 145 MG TAB PO SCH (08:52)
[2017-10-04] MEDS: CEFEPIME HCL 1 GM VIAL IV SCH ×2 (08:52→22:16)
[2017-10-04] MEDS: GABAPENTIN 400 MG CAP PO SCH (08:52)
[2017-10-04] MEDS: PANTOPRAZOLE 40 MG 10ML VIAL IV SCH (08:52)
[2017-10-04] MEDS: ROPINIROLE HCL 1 MG TAB PO SCH (08:52)
[2017-10-04] MEDS: METHYLPREDNISOLONE SOD SUCC 40 MG/ML VIAL IV SCH (08:52)
[2017-10-04] MEDS: DILTIAZEM HCL 180 MG CAP CD PO SCH (08:52)
[2017-10-04] MEDS: METOPROLOL TARTRATE 50 MG TAB PO SCH ×2 (08:52→16:43)
[2017-10-04] MEDS: CITALOPRAM HYDROBROMIDE 20 MG TAB PO SCH (08:52)
--- NOTE | 2017-10-04 10:41 | Consultation ---
DATE OF CONSULTATION: October 02, 2017 RENAL CONSULTATION HISTORY OF PRESENT ILLNESS: A 57-year-old female with multiple comorbids, who has had prior history of respiratory failure, tracheostomy. Subsequently the tracheostomy was removed. She came in with respiratory distress, had to be reintubated. Has significant history of COPD, sleep apnea, chronic respiratory failure. Prior history of tobacco addiction, coronary artery disease, hypertension, history of tracheocutaneous fistula. by bedside. Currently arousable, was asleep when I walked in, shakes head no to any questions. Several services following, including infectious disease. Last cultures positive for MSSA in the sputum. Renal consulted for management of kidney failure. Baseline serum creatinine 1.09 with a gradual rise in serum creatinine to 2.46 today with a bicarb of 38, sodium 142, potassium 4.4, glucose 290. CBC shows a white count of 22.3 with a hemoglobin 12.6, platelets 365, with 79% neutrophils. Last urinalysis shows 1.025 specific gravity with 2+ protein. Otherwise microscopy negative. Last vancomycin level was almost 17; it was 15.6. Influenza test was negative. ALLERGIES: TO PENICILLIN AND LATEX. CURRENT MEDICATIONS: Patient is on Requip 1 mg daily. She is on Xarelto 50 mg daily. Pantoprazole. Metoprolol p.r.n. Methylprednisolone. Metformin, which has been stopped. Lisinopril 40 mg once a day. Gabapentin 400 mg p.o. t.i.d. On diltiazem 180 mg daily. Plavix 75 mg daily, which is on hold. Clonidine 0.1 mg p.o. nightly. Cefepime 1 gram IV q.12. Atorvastatin 40 mg p.o. nightly. She received 1-time dose of vancomycin. Also currently on norepinephrine for hypotension. SOCIAL HISTORY: Patient apparently continues to smoke, does not drink. FAMILY HISTORY: Significant for hypertension and diabetes apparently. PHYSICAL EXAMINATION: GENERAL: Obese lady lying supine, with tracheostomy. VITALS: Blood pressure 108/63, pulse rate 117 with oxygen saturation 98%, had temperature 100.2 degrees Fahrenheit axillary earlier on today. HEAD AND NECK: Cornea clear. Tracheostomy noted. LUNGS: Harsh vesicular breath sounds, supine exam, occasional rhonchi end-expiratory. No rales. HEART: S1 and S2 audible. ABDOMEN: Otherwise soft, nontender. LOWER EXTREMITY EXAMINATION: Shows no edema. IMPRESSION: Acute kidney injury, possible acute tubular necrosis, acute tubular necrosis superimposed on chronic kidney disease. Underlying sepsis. Pneumonia. Will discontinue lisinopril. Discontinue potassium tablets. I will adjust the dose of gabapentin. Obtain BNP level. Gentle IV hydration. Kidney ultrasound noted with no evidence of obstruction. She is non-oliguric. Underlying septic at this point in time. Please see orders. Thank you. Job#: [id number]
[2017-10-04] MEDS ORDERED: INSULIN REGULAR, HUMAN 3ML VL 300 UNIT in SODIUM CHLORIDE 0.45% 100 ML 300 ML IV SCH ×2 (10:46)
[2017-10-04] MEDS: INSULIN REGULAR, HUMAN 3ML VL 100 UNIT in SODIUM CHLORIDE 0.9% 100 ML IV SCH ×2 (11:00)
[2017-10-04] MEDS ORDERED: DEXTROSE 50% SYRINGE 50 ML IV PRN (11:00)
[2017-10-04] MEDS ORDERED: INSULIN REGULAR, HUMAN 3ML VL 100 UNIT in SODIUM CHLORIDE 0.9% 100 ML IV SCH ×2 (11:15)
[2017-10-04] MEDS: SODIUM CHLORIDE 0.9% 1000ML 1,000 ML IV SCH (14:47)
[2017-10-04] MEDS: ENOXAPARIN SODIUM INJ 100 MG/ML SYR SC SCH (16:47)
[2017-10-04] MEDS: VANCOMYCIN 1GM/NS 250 ML 250 ML IV SCH (17:47)
[2017-10-04] MEDS: CLONIDINE HCL 0.1 MG TAB PO SCH (21:00)
[2017-10-04] MEDS: TRAVOPROST(OPTH) 2.5 ML BTL OP SCH (22:16)
[2017-10-04] MEDS: ATORVASTATIN 40 MG TAB PO SCH (22:16)
[2017-10-04] MEDS: BUSPIRONE HCL 5 MG TAB PO PRN (22:16)
[2017-10-04] MEDS: INSULIN DETEMIR 100 UNIT/ML PEN SQ SCH (22:21)
[2017-10-05] VITALS (40 sets, daily range): BP systolic 72–156; BP diastolic 48–89
[2017-10-05] MEDS: MORPHINE SULFATE 4 MG/ML SYR IV PRN ×6 (01:25→23:10)
[2017-10-05] MEDS: ALBUTEROL/IPRATROPIUM 3 ML NEB NEB SCH ×6 (03:48→23:05)
[2017-10-05 05:00] LABS: BASOPHILS % 0.2 % (0.0-1.0); EOSINOPHILS # (AUTO) 0.1 (0.0-0.4); EOSINOPHILS % 0.5 % (0.0-6.0); HEMATOCRIT 31.8 % (34.2-44.1); HEMOGLOBIN 9.4 g/dL (12.0-16.0); LYMPHOCYTES # (AUTO) 2.1 (1.0-3.2); LYMPHOCYTES % 19.8 % (18.0-39.1); MEAN CORPUSCULAR HEMOGLOBIN 26.7 pg (28-32); MEAN CORPUSCULAR HGB CONC 29.6 g/dL (31-35); MEAN CORPUSCULAR VOLUME 90.3 fL (81-99); MONOCYTES # (AUTO) 0.9 (0.2-0.8); MONOCYTES % 8.6 % (4.4-11.3); NEUTROPHILS # (AUTO) 7.2 (2.1-6.9); NEUTROPHILS % 68.5 % (38.7-80.0); PLATELET COUNT 206 x10e3/uL (140-360); RED BLOOD COUNT 3.52 x10e6/uL (3.6-5.1); RED CELL DISTRIBUTION WIDTH 16.3 % (11.7-14.4)
[2017-10-05 05:10] LABS: INR 0.91; PROTHROMBIN TIME 12.7 seconds (11.9-14.5)
[2017-10-05 05:17] LABS: ALANINE AMINOTRANSFERASE 20 IU/L (0-55); ALBUMIN 2.1 g/dL (3.5-5.0); ALBUMIN/GLOBULIN RATIO 0.8 (0.8-2.0); ALKALINE PHOSPHATASE 96 IU/L (40-150); ANION GAP 9.9 mmol/L (8-16); BLOOD UREA NITROGEN 22 mg/dL (7-26); BUN/CREATININE RATIO 31 (6-25); CALCIUM 7.8 mg/dL (8.4-10.2); CARBON DIOXIDE 31 mmol/L (22-29); CHLORIDE 103 mmol/L (98-107); EST GLOMERULAR FILTRATION RATE > 60 ML/MIN (60-); GLUCOSE 168 mg/dL (74-118); POTASSIUM 3.9 mmol/L (3.5-5.1); SODIUM 140 mmol/L (136-145)
[2017-10-05 05:21] LABS: MAGNESIUM 1.5 MG/DL (1.3-2.1); PHOSPHORUS 2.3 MG/DL (2.3-4.7)
[2017-10-05] MEDS: INSULIN REGULAR, HUMAN 100 UNIT/1 ML 3ML VIAL SQ SCH ×2 (05:25)
[2017-10-05] MEDS: SODIUM CHLORIDE 0.9% 1000ML 1,000 ML IV SCH (06:39)
[2017-10-05] MEDS: METRONIDAZOLE 500MG/NS 100ML 100 ML IV SCH ×3 (06:43→21:57)
[2017-10-05 07:41] LABS: BAND NEUTROPHILS % (MANUAL) 1 %; LYMPHOCYTES % (MANUAL) 18 % (19-48); MONOCYTES % (MANUAL) 6 % (3.4-9.0); NEUTROPHILS % (MANUAL) 75 % (40-74)
[2017-10-05 07:43] LABS: ANISOCYTOSIS SLIGHT; PLATELET ESTIMATE ADEQUATE; PLATELET MORPHOLOGY COMMENT FEW LARGE; POIKILOCYTOSIS SLIGHT; RBC MORPHOLOGY COMMENT NORMAL
--- NOTE | 2017-10-05 08:54 | Diagnostic Imaging Report ---
PROCEDURE: A single AP view of the chest. COMPARISON: Chest x-ray dated 10/03/2017 INDICATIONS: TRACH FINDINGS: Lines/tubes: A right IJ central line has been placed with its tip overlying the right atrium. Tracheostomy tube is present and there is an NG tube also present. Lungs: Unchanged mild pulmonary edema. There is no evidence of pneumonia or pulmonary edema. Pleura: Small left pleural effusion. Heart and mediastinum: The heart and the mediastinum are unremarkable. Bones: No acute bony abnormality. IMPRESSION: Unchanged pulmonary edema. Kike Lind D.O. Dictated by: Kike Lind D.O. on 10/05/2017 at 9:02 Electronically approved by: Kike Lind D.O. on 10/05/2017 at 9:02
[2017-10-05] MEDS: METHYLPREDNISOLONE SOD SUCC 40 MG/ML VIAL IV SCH (09:57)
[2017-10-05] MEDS: METOPROLOL TARTRATE 50 MG TAB PO SCH ×2 (09:57→17:38)
[2017-10-05] MEDS: PANTOPRAZOLE 40 MG 10ML VIAL IV SCH (09:57)
[2017-10-05] MEDS: DILTIAZEM HCL 180 MG CAP CD PO SCH (09:57)
[2017-10-05] MEDS: CEFEPIME HCL 1 GM VIAL IV SCH ×2 (09:57→20:09)
[2017-10-05] MEDS: INSULIN REGULAR, HUMAN 3ML VL 100 UNIT in SODIUM CHLORIDE 0.9% 100 ML IV SCH ×2 (12:18)
[2017-10-05] MEDS ORDERED: PROPOFOL IV EMULSION 10 MG/ML 20 ML VIAL ONE (14:08)
[2017-10-05] MEDS ORDERED: LIDOCAINE HCL 2% LOCAL INJ 5 ML SDV VIAL INJ ONE (14:08)
[2017-10-05] MEDS ORDERED: SODIUM CHLORIDE 0.9% 1000ML 1,000 ML ONE (14:36)
[2017-10-05] MEDS: ENOXAPARIN SODIUM INJ 100 MG/ML SYR SC SCH (17:00)
[2017-10-05] MEDS ORDERED: MORPHINE SULFATE 2 MG/ML SYR ONE ×4 (17:05→23:13)
[2017-10-05] MEDS: ROPINIROLE HCL 1 MG TAB PO SCH (17:37)
[2017-10-05] MEDS: GABAPENTIN 400 MG CAP PO SCH (17:37)
[2017-10-05] MEDS: FENOFIBRATE 145 MG TAB PO SCH (17:37)
[2017-10-05] MEDS: CITALOPRAM HYDROBROMIDE 20 MG TAB PO SCH (17:37)
[2017-10-05] MEDS: VANCOMYCIN 1GM/NS 250 ML 250 ML IV SCH (17:38)
[2017-10-05] MEDS ORDERED: MIDAZOLAM HCL 2 MG/2 ML VIAL ONE (18:52)
[2017-10-05] MEDS: CLONIDINE HCL 0.1 MG TAB PO SCH (19:37)
[2017-10-05] MEDS: BUSPIRONE HCL 5 MG TAB PO PRN (20:09)
[2017-10-05] MEDS: ATORVASTATIN 40 MG TAB PO SCH (20:09)
[2017-10-05] MEDS: TRAVOPROST(OPTH) 2.5 ML BTL OP SCH ×2 (20:09→21:57)
[2017-10-05] MEDS: HYDROCODONE/APAP 7.5MG-325MG 1 EA TAB PEG PRN (20:10)
[2017-10-05] MEDS: INSULIN DETEMIR 100 UNIT/ML PEN SQ SCH (21:59)
[2017-10-06] VITALS (12 sets, daily range): BP systolic 107–156; BP diastolic 53–88
[2017-10-06] MEDS: ALBUTEROL/IPRATROPIUM 3 ML NEB NEB SCH ×4 (03:02→14:50)
[2017-10-06] MEDS: MORPHINE SULFATE 4 MG/ML SYR IV PRN (04:49)
[2017-10-06] MEDS ORDERED: MORPHINE SULFATE 2 MG/ML SYR ONE ×3 (04:53→15:18)
[2017-10-06 05:06] LABS: BASOPHILS % 0.3 % (0.0-1.0); EOSINOPHILS % 0.5 % (0.0-6.0); HEMATOCRIT 29.2 % (34.2-44.1); HEMOGLOBIN 8.7 g/dL (12.0-16.0); LYMPHOCYTES # (AUTO) 1.6 (1.0-3.2); LYMPHOCYTES % 20.1 % (18.0-39.1); MEAN CORPUSCULAR HEMOGLOBIN 26.9 pg (28-32); MEAN CORPUSCULAR HGB CONC 29.8 g/dL (31-35); MEAN CORPUSCULAR VOLUME 90.1 fL (81-99); MONOCYTES # (AUTO) 0.6 (0.2-0.8); MONOCYTES % 7.9 % (4.4-11.3); NEUTROPHILS # (AUTO) 5.4 (2.1-6.9); NEUTROPHILS % 68.7 % (38.7-80.0); PLATELET COUNT 193 x10e3/uL (140-360); RED BLOOD COUNT 3.24 x10e6/uL (3.6-5.1); RED CELL DISTRIBUTION WIDTH 16.4 % (11.7-14.4)
[2017-10-06 05:25] LABS: ALANINE AMINOTRANSFERASE 49 IU/L (0-55); ALBUMIN/GLOBULIN RATIO 0.8 (0.8-2.0); ALKALINE PHOSPHATASE 76 IU/L (40-150); ANION GAP 10.1 mmol/L (8-16); BLOOD UREA NITROGEN 17 mg/dL (7-26); BUN/CREATININE RATIO 25 (6-25); CALCIUM 8.2 mg/dL (8.4-10.2); CARBON DIOXIDE 32 mmol/L (22-29); CHLORIDE 106 mmol/L (98-107); CREATININE, SERUM 0.68 mg/dL (0.57-1.11); EST GLOMERULAR FILTRATION RATE > 60 ML/MIN (60-); GLUCOSE 122 mg/dL (74-118); MAGNESIUM 1.5 MG/DL (1.3-2.1); POTASSIUM 4.1 mmol/L (3.5-5.1); SODIUM 144 mmol/L (136-145)
[2017-10-06] MEDS: METRONIDAZOLE 500MG/NS 100ML 100 ML IV SCH ×2 (06:10→16:00)
[2017-10-06 07:10] LABS: EOSINOPHILS % (MANUAL) 1 % (0-7); LYMPHOCYTES % (MANUAL) 13 % (19-48); MONOCYTES % (MANUAL) 6 % (3.4-9.0); NEUTROPHILS % (MANUAL) 78 % (40-74)
[2017-10-06 07:11] LABS: HYPOCHROMASIA SLIGHT; PLATELET ESTIMATE ADEQUATE; PLATELET MORPHOLOGY COMMENT NORMAL; RBC MORPHOLOGY COMMENT NORMAL
[2017-10-06 07:12] LABS: ANISOCYTOSIS SLIGHT
[2017-10-06] MEDS: HYDROCODONE/APAP 7.5MG-325MG 1 EA TAB PEG PRN (08:42)
[2017-10-06] MEDS: PANTOPRAZOLE 40 MG 10ML VIAL IV SCH (08:43)
[2017-10-06] MEDS: CITALOPRAM HYDROBROMIDE 20 MG TAB PO SCH (08:43)
[2017-10-06] MEDS: CEFEPIME HCL 1 GM VIAL IV SCH (08:43)
[2017-10-06] MEDS: DILTIAZEM HCL 180 MG CAP CD PO SCH (08:43)
[2017-10-06] MEDS: METHYLPREDNISOLONE SOD SUCC 40 MG/ML VIAL IV SCH (08:43)
[2017-10-06] MEDS: METOPROLOL TARTRATE 50 MG TAB PO SCH ×2 (08:43→17:00)
[2017-10-06] MEDS: FENOFIBRATE 145 MG TAB PO SCH (08:44)
[2017-10-06] MEDS: GABAPENTIN 400 MG CAP PO SCH (08:44)
[2017-10-06] MEDS: ROPINIROLE HCL 1 MG TAB PO SCH (08:46)
[2017-10-06] MEDS ORDERED: FUROSEMIDE 40 MG TAB GT SCH (09:00)
--- NOTE | 2017-10-06 10:06 | Diagnostic Imaging Report ---
PROCEDURE:NON-TUNNELLED CVC CATH PLACMNT COMPARISON:None. INDICATIONS: Need for central venous access. COMPLICATIONS: None. MEDICATIONS: None. BLOOD LOSS: None. PROCEDURE: Focused evaluation demonstrated a right internal jugular temporary central venous catheter. Focused sonographic evaluation demonstrated patent and compressible right internal jugular vein. The procedure was performed at the bedside in the intensive care unit. The right neck was prepped and draped in the usual sterile fashion. 1% lidocaine was infused into the subcutaneous tissues for local anesthesia. Utilizing direct sonographic guidance, a 21 gauge needle was advanced into the right internal jugular vein. A 0.018 inch wire was advanced centrally. An access sheath was placed over the wire to secure the vascular access. The wire was upsized to a 0.035 inch wire. A single dilation was performed over the wire. A temporary triple-lumen central venous catheter was advanced over the wire. The wire was removed. The catheter lumens demonstrated proper function with aspiration and flush of sterile saline. The catheter lumens were flushed with sterile saline. The catheter was secured to the skin with 3-0 Ethilon suture. A sterile dressing was applied. The existing right internal jugular temporary central venous catheter was removed. Hemostasis was obtained with manual compression. No immediate complications. The patient tolerated the procedure well. The patient remained in the intensive care unit in stable unchanged condition. CONCLUSION: Successful placement of a right internal jugular temporary central venous catheter utilizing ultrasound guidance. Successful removal of the existing right internal jugular temporary central venous catheter. Dictated by: Ralph Guerrero M.D. on 10/06/2017 at 10:16 Electronically approved by: Ralph Guerrero M.D. on 10/06/2017 at 10:16
--- NOTE | 2017-10-06 10:11 | Diagnostic Imaging Report ---
PROCEDURE:ULTRASOUND GUIDANCE FOR VASCULAR ACCESS COMPARISON:None. INDICATIONS:Central Line Placement FINDINGS:Right internal jugular vein is noted to be patent. Ultrasound guidance was utilized for access for central venous catheter placement. CONCLUSION:Patent right internal jugular vein. Successful ultrasound guidance for temporary central venous catheter placement. Dictated by: Ralph Guerrero M.D. on 10/06/2017 at 10:21 Electronically approved by: Ralph Guerrero M.D. on 10/06/2017 at 10:21
[2017-10-06] MEDS: INSULIN REGULAR, HUMAN 100 UNIT/1 ML 3ML VIAL SQ SCH ×2 (11:44→18:00)
[2017-10-06] MEDS ORDERED: MORPHINE SULFATE 2 MG/ML SYR IV PRN ×2 (15:15)
[2017-10-06] MEDS ORDERED: MORPHINE SULFATE 4 MG/ML SYR IV PRN (15:30)
[2017-10-06] MEDS: ENOXAPARIN SODIUM INJ 100 MG/ML SYR SC SCH (17:00)
[2017-10-06] MEDS ORDERED: POTASSIUM CHLORIDE 20MEQ/15ML UDC NG ONE (17:15)
[2017-10-06] MEDS: VANCOMYCIN 1GM/NS 250 ML 250 ML IV SCH (17:30)
[2017-10-06] MEDS ORDERED: TRAVOPROST(OPTH) 2.5 ML BTL OP SCH (21:00)
[2017-10-07] MEDS ORDERED: BALSAM PERU/CASTOR OIL 60 GM OINT...G. TP SCH (09:00)
--- NOTE | 2017-10-07 14:44 | Progress Note ---
DATE: October 06, 2017 GI PROGRESS NOTE SUBJECTIVE: Patient reports no abdominal pain. She has had EGD/PEG placement yesterday. REVIEW OF SYSTEMS: GENERAL: No fever or chills. CVS: No chest pain, palpitation. RESPIRATORY: No cough or expectoration. MEDICATIONS: Reviewed, as per NOV. PHYSICAL EXAMINATION: VITAL SIGNS: Temperature 97.4, pulse 82, respiration 18, blood pressure 107/53, oxygen saturation 98% on trach collar. GENERAL: Obese body habitus. HEENT: Moist mucous membranes. NECK: Tracheostomy, site is clear. CVS: S1 and S2 regular. LUNGS: Bilaterally grossly clear with occasional scattered rhonchi. ABDOMEN: Soft, nondistended, obese, nontender. PEG site is clean. External bumper at 5 cm from the skin. No bleeding or any abnormal discharge. Bowel sounds present. EXTREMITIES: Warm with trace bilateral leg edema. LABS: WBC 7.88, hemoglobin 8.7 down from 9.4, hematocrit 29.2, MCV 90.1, platelet count 193,000. Sodium 144, potassium 4.1, chloride 106, bicarb 32, BUN 17, creatinine 0.68, glucose 122. Liver tests showed a total bilirubin 0.3, AST 74, ALT 49, alkaline phosphatase 76. IMPRESSION: 1. Advanced chronic obstructive pulmonary disease, status post respiratory failure, requiring mechanical ventilation, difficult to wean off, therefore ended up with tracheostomy. 2. Oropharyngeal dysphagia, high risk of aspiration during swallowing, failed several swallow evaluation tests. Esophagogastroduodenoscopy, percutaneous endoscopic gastrostomy yesterday. PLAN: PEG site is clean, external bumper remains at 5 cm from the skin. No bleeding. PEG can be used now for feeding. Xarelto and clopidogrel can be resumed from tomorrow. Job#: [id number]
== END 2017-10-06 21:23 | DRG 4 ==
LOC: ER 12:36 → EDBEDREQ 19:00 → ERHOLD 19:01 → ICU 23:07 → IMCU 09-22 17:25 → MED/SURG 09-24 13:30 → ICU 09-24 13:34 → MED/SURG 10-02 14:57 → ICU 10-02 15:04 → MED/SURG3 10-06 13:11
PROVIDERS: ADMIT Internal Medicine; ATTEND Internal Medicine
PROC: 02HV33Z Insertion of Infusion Device into Superior Vena Cava, Percutaneous Approach (ICD-10-PCS; 2017-09-14)
PROC: 5A1945Z Respiratory Ventilation, 24-96 Consecutive Hours (ICD-10-PCS; 2017-09-14)
PROC: 0BH17EZ Insertion of Endotracheal Airway into Trachea, Via Natural or Artificial Opening (ICD-10-PCS; 2017-09-14)
PROC: 5A1955Z Respiratory Ventilation, Greater than 96 Consecutive Hours (ICD-10-PCS; principal; 2017-09-16)
PROC: 0BH17EZ Insertion of Endotracheal Airway into Trachea, Via Natural or Artificial Opening (ICD-10-PCS; 2017-09-16)
PROC: 0B110F4 Bypass Trachea to Cutaneous with Tracheostomy Device, Open Approach (ICD-10-PCS; 2017-09-25)
PROC: 02PY33Z Removal of Infusion Device from Great Vessel, Percutaneous Approach (ICD-10-PCS; 2017-10-02)
PROC: 02HV33Z Insertion of Infusion Device into Superior Vena Cava, Percutaneous Approach (ICD-10-PCS; 2017-10-02)
PROC: B548ZZA Ultrasonography of Superior Vena Cava, Guidance (ICD-10-PCS; 2017-10-02)
PROC: 0DB68ZX Excision of Stomach, Via Natural or Artificial Opening Endoscopic, Diagnostic (ICD-10-PCS; 2017-10-05)
PROC: 0DH68UZ Insertion of Feeding Device into Stomach, Via Natural or Artificial Opening Endoscopic (ICD-10-PCS; 2017-10-05)
DX: J96.22 Acute and chronic respiratory failure with hypercapnia (principal); R65.20 Severe sepsis without septic shock; N17.0 Acute kidney failure with tubular necrosis; J69.0 Pneumonitis due to inhalation of food and vomit; A41.9 Sepsis, unspecified organism; E87.4 Mixed disorder of acid-base balance; L89.322 Pressure ulcer of left buttock, stage 2; J44.0 Chronic obstructive pulmonary disease with (acute) lower respiratory infection; J18.9 Pneumonia, unspecified organism; I47.1 Supraventricular tachycardia; I50.30 Unspecified diastolic (congestive) heart failure; Z68.42 Body mass index [BMI] 45.0-49.9, adult; J45.901 Unspecified asthma with (acute) exacerbation; J44.1 Chronic obstructive pulmonary disease with (acute) exacerbation; J95.04 Tracheo-esophageal fistula following tracheostomy; E66.2 Morbid (severe) obesity with alveolar hypoventilation; E11.42 Type 2 diabetes mellitus with diabetic polyneuropathy; J96.01 Acute respiratory failure with hypoxia; E66.01 Morbid (severe) obesity due to excess calories; I48.91 Unspecified atrial fibrillation; G47.33 Obstructive sleep apnea (adult) (pediatric); F17.210 Nicotine dependence, cigarettes, uncomplicated; I25.10 Atherosclerotic heart disease of native coronary artery without angina pectoris; Z95.5 Presence of coronary angioplasty implant and graft; E78.5 Hyperlipidemia, unspecified; R13.12 Dysphagia, oropharyngeal phase; Z79.01 Long term (current) use of anticoagulants; Z88.0 Allergy status to penicillin; Z91.040 Latex allergy status; E11.65 Type 2 diabetes mellitus with hyperglycemia; E03.9 Hypothyroidism, unspecified; E87.6 Hypokalemia
CPT/HCPCS: 31500; 36415; 36556; 36600; 43239; 71045; 71260; 74018; 74230; 74470; 76770; 76937; 80048; 80053; 80202; 81001; 82550; 82553; 82805; 82947; 82948; 83605; 83690; 83735; 83880; 84100; 84443; 84484; 85025; 85610; 85730; 86850; 86900; 87040; 87070; 87071; 87086; 87186; 87205; 87400; 88305; 88312; 92522; 93005; 93306; 94002; 94003; 94010; 94640; 94660; 96361; 96365; 96366; 96372; 97139; 99284; C1751; J0153; J0330; J0690; J0692; J1160; J1650; J1940; J2001; J2250; J2270; J2370; J2405; J2920; J2930; J3370; J3475; J7030; J7040; J7050; Q9967

== ENCOUNTER 2017-12-10 05:32 | Inpatient (IN) | payer OTHER ==
[2017-12-10] VITALS (52 sets, daily range): BP systolic 77–164; BP diastolic 45–141
[~2017-12-10] VITALS: Ht 160 cm; Wt 118.0 kg
--- OUTSIDE RECORDS SUMMARY | 2017-12-10 05:35 | XMS REPORT | Continuity of Care Document ---
Author Author [facility] Organization [facility] Address [address] [place] [address] Phone Unavailable Care Team Providers Care Special Machine Stitcher Name Role Phone JEREMIAH VASQUEZ MD PCP Insurance Providers Guarantor Amalia Cole Address [address] [place] [address] Email [email or web address] Policy Number [id number] Subscriber's Name DouglasJoseAmalia Relationship 18 Self / Same As Patient Effective Date 17 [facility] Policy Number [id number] Subscriber's Name Jose Colessie Relationship 18 Self / Same As Patient Group Number [id number] Group Name UNEMPLOYED Effective Date 16 Advance Directives Directive Response Recorded Date/Time Does the patient have an advance directive? No 09/15/17 1:08am If yes, is advance directive on file with [facility]? No 09/15/17 1:08am If not on file with [facility] will patient provide a copy? No 09/15/17 1:08am Do you have a Directive to Physician? No 09/14/17 2:30pm Do you have a Medical Power of Steam Trap Worker? No 09/14/17 2:30pm Do you have an out of hospital Do Not Resuscitate Order? No 09/14/17 2:30pm Do you have any special needs we should be aware of? No 09/14/17 2:30pm Do you have a support person here with you today? Yes 09/14/17 2:30pm Did patient receive Notice of Privacy Practices? Yes 09/14/17 2:30pm Did patient receive patient rights and responsibilities? Yes 09/14/17 2:30pm Problems Medical Problem Onset Date Status Bronchitis 11/25/2015 Acute COPD (chronic obstructive pulmonary disease) 11/25/2015 Acute Chronic wound infection of abdomen 11/25/2015 Acute Fever 11/25/2015 Acute Leukocytosis 11/25/2015 Acute Medications Current Home Medications Medication Dose Units Route Directions Days Qty Instructions Start Date Atorvastatin Calcium 40 Mg Tablet 1 Oral Daily Calcium Carb/Vit D3/Minerals (Calcium 600 + D Tablet) 1 Each Tablet 1 Oral Daily Citalopram Hydrobromide (Celexa) 20 Mg Tablet 20 Mg Oral Daily Clonidine Hcl 0.1 Mg Tablet 1 Tab Oral Bedtime 60 Tab Clopidogrel Bisulfate (Plavix) 75 Mg Tablet 75 Mg Oral Daily 30 Tab Diltiazem Hcl (Diltiazem 24HR Er) 120 Mg Cap.er.24h 1 Oral Daily Fenofibrate 160 Mg Tablet 160 Mg Oral Bedtime Furosemide (Lasix) 40 Mg Tablet 40 Mg Oral Daily Gabapentin 400 Mg Capsule 400 Mg Oral Three Times A Day 30 Cap Insulin Detemir (Levemir) 100 Unit/1 Ml Vial 30 Unit Subcutaneously Bedtime Levofloxacin (Levaquin) 500 Mg Tablet 500 Mg Oral Daily Lisinopril 40 Mg Tablet 40 Mg Oral Daily Metformin Hcl 500 Mg Tablet 500 Mg Oral Twice A Day 60 Tab Omeprazole 40 Mg Capsule.dr 1 Oral Daily Prednisone Micronized (Prednisone) 5 Gm Powder 10 Mg Oral Twice A Day 5 Days Rivaroxaban (Xarelto) 10 Mg Tablet 10 Mg Oral Daily Ropinirole Hcl 1 Mg Tablet 1 Mg Oral Daily 30 Tab Travoprost (Travatan 0.004% Eye Drop) 2.5 Ml Soln 1 Each Eye Bedtime Zolpidem Tartrate (Ambien) 10 Mg Tablet 1 Oral Bedtime Social History Social History Problem Response Recorded Date/Time Onset Date Status Hx Psychiatric Problems Yes 09/15/2017 1:08am Not Applicable Not Applicable Hx Eating Disorder Yes 09/15/2017 1:08am Not Applicable Not Applicable Hx Substance Use Disorder Yes 09/15/2017 1:08am Not Applicable Not Applicable Hx Depression Yes 11/05/2016 2:30am Not Applicable Not Applicable Hx Alcohol Use Yes 09/15/2017 1:08am Not Applicable Not Applicable Hx Substance Use Treatment No 11/05/2016 2:30am Not Applicable Not Applicable Hx Physical Abuse No 09/15/2017 1:08am Not Applicable Not Applicable Smoking Status Start Date Stop Date Current every day smoker Hospital Discharge Instructions No hospital discharge instruction information available. Plan of Care Discharge Date 10/06/17 9:23pm Disposition [facility] Prescriptions See Medication Section Functional Status Query Response Date Recorded FUNCTIONAL STATUS ` September 28, 2017 10:56am Ambulation Ability 1 person assist September 15, 2017 12:45am Toileting Ability Moderate Assistance October 06, 2017 1:36pm Allergies, Adverse Reactions, Alerts Allergen Type Severity Reaction Status Last Updated Penicillin Allergy Unknown Active 11/04/16 Latex Allergy Unknown Active 11/04/16 Immunizations No immunization information available. Vital Signs Acute Vital Signs Vital Response Date/Time Temperature (Fahrenheit) 97.4 degrees F (97.6 - 99.5) 10/06/2017 4:25pm Pulse Pulse Rate (adult) 82 bpm (60 - 90) 10/06/2017 4:25pm Respiratory Rate 18 bpm (12 - 24) 10/06/2017 4:25pm Blood Pressure 107/53 mm Hg 10/06/2017 4:25pm Height 5 ft 3 in 09/25/2017 5:00am Weight 247.05 lb 10/06/2017 4:26pm Body Mass Index 43.8 kg/m^2 10/06/2017 4:26pm Results Laboratory Results Test Name Result Units Flags Reference Collection Date/Time Result Date/ Time Comments White Blood Count 7.88 x10e3/uL 4.8-10.8 10/06/2017 4:44am 10/06/2017 5 :12am Red Blood Count 3.24 x10e6/uL L 3.6-5.1 10/06/2017 4:44am 10/06/2017 5: 12am Hemoglobin 8.7 g/dL L 12.0-16.0 10/06/2017 4:4410/06/2017 5:12am Hematocrit 29.2 % L 34.2-44.1 10/06/2017 4:44am 10/06/2017 5:12am Mean Corpuscular Volume 90.1 fL 81-99 10/06/2017 4:44am 10/06/2017 5: 12am Mean Corpuscular Hemoglobin 26.9 pg L 28-32 10/06/2017 4:44am 2017 5:12am Mean Corpuscular Hemoglobin Concent 29.8 g/dL L 31-35 10/06/2017 4:4410/06/2017 5:12am Red Cell Distribution Width 16.4 % H 11.7-14.4 10/06/2017 4:442017 5:12am Platelet Count 193 x10e3/uL 140-360 10/06/2017 4:4410/06/2017 5: 12am Neutrophils (%) (Auto) 68.7 % 38.7-80.0 10/06/2017 4:4410/06/2017 5: 12am Lymphocytes (%) (Auto) 20.1 % 18.0-39.1 10/06/2017 4:4410/06/2017 5: 12am Monocytes (%) (Auto) 7.9 % 4.4-11.3 10/06/2017 4:44am 10/06/2017 5: 12am Eosinophils (%) (Auto) 0.5 % 0.0-6.0 10/06/2017 4:4410/06/2017 5: 12am Basophils (%) (Auto) 0.3 % 0.0-1.0 10/06/2017 4:4410/06/2017 5:12am IM GRANULOCYTES % 2.5 % H 0.0-1.0 10/06/2017 4:44am 10/06/2017 5:12am Neutrophils # (Auto) 5.4 2.1-6.9 10/06/2017 4:44am 10/06/2017 5:12am Lymphocytes # (Auto) 1.6 1.0-3.2 10/06/2017 4:44am 10/06/2017 5:12am Monocytes # (Auto) 0.6 0.2-0.8 10/06/2017 4:44am 10/06/2017 5:12am Eosinophils # (Auto) 0.0 0.0-0.4 10/06/2017 4:44am 10/06/2017 5:12am Basophils # (Auto) 0.0 0.0-0.1 10/06/2017 4:44am 10/06/2017 5:12am Absolute Immature Granulocyte (auto 0.20 x10e3/uL H 0-0.1 10/06/2017 4: 44am 10/06/2017 5:12am Differential Total Cells Counted 100 10/06/2017 4:44am 10/06/2017 7 :12am Neutrophils % (Manual) 78 % H 40-74 10/06/2017 4:44am 10/06/2017 7:12am Band Neutrophils % 1 % 10/05/2017 4:15am 10/05/2017 7:43am Lymphocytes % (Manual) 13 % L 19-48 10/06/2017 4:44am 10/06/2017 7:12am Monocytes % (Manual) 6 % 3.4-9.0 10/06/2017 4:44am 10/06/2017 7:12am Eosinophils % (Manual) 1 % 0-7 10/06/2017 4:44am 10/06/2017 7:12am Metamyelocytes % 1 % H 0-0 09/26/2017 5:15am 09/26/2017 8:35am Myelocytes % 1 % H 0-0 09/26/2017 5:15am 09/26/2017 8:35am Reactive Lymphocytes 2 10/06/2017 4:44am 10/06/2017 7:12am Platelet Estimate ADEQUATE 10/06/2017 4:44am 10/06/2017 7:12am Platelet Morphology Comment NORMAL 10/06/2017 4:44am 10/06/2017 7: 12am Hypochromasia SLIGHT 10/06/2017 4:44am 10/06/2017 7:12am Poikilocytosis SLIGHT 10/05/2017 4:15am 10/05/2017 7:43am Anisocytosis SLIGHT 10/06/2017 4:44am 10/06/2017 7:12am Red Cell Morphology Comment NORMAL 10/06/2017 4:44am 10/06/2017 7: 12am Prothrombin Time 12.7 seconds 11.9-14.5 10/05/2017 4:15am 10/05/2017 5: 14am Prothromb Time International Ratio 0.91 10/05/2017 4:15am 2017 5:14am Oral Anticoagulant Therapy INR Values: 1. Low Intensity Therapy 1.5 - 2.0 2. Moderate Intensity Therapy 2.0 - 3.0 3. High Intensity Therapy(1) 2.5 - 3.5 4. High Intensity Therapy(2) 3.0 - 4.0 5. Panic Value INR > 5.0 Activated Partial Thromboplast Time 21.4 seconds L 23.8-35.5 09/27/2017 4 :45am 09/27/2017 5:47am Urine Color YELLOW YELLOW 10/02/2017 10:10/02/2017 10:39am Urine Clarity CLOUDY H CLEAR 10/02/2017 10:10/02/2017 10:39am Urine Specific Morgan 1.025 1.010-1.025 10/02/2017 10:2017 10:39am Urine pH 5 5 - 7 10/02/2017 10:10/02/2017 10:39am Urine Leukocyte Esterase 2+ H NEGATIVE 10/02/2017 10:10/02/2017 10:39am Urine Nitrite NEGATIVE NEGATIVE 10/02/2017 10:10/02/2017 10: 39am Urine Protein 2+ H NEGATIVE 10/02/2017 10:10/02/2017 10:39am Urine Glucose (UA) NEGATIVE NEGATIVE 10/02/2017 10:10/02/2017 10 :39am Urine Ketones NEGATIVE NEGATIVE 10/02/2017 10:10/02/2017 10: 39am Urine Urobilinogen 0.2 mg/dL 0.2 - 1 10/02/2017 10:10/02/2017 10: 39am Urine Bilirubin 2+ H NEGATIVE 10/02/2017 10:10/02/2017 10:39am Urine Blood 3+ H NEGATIVE 10/02/2017 10:10/02/2017 10:39am Urine WBC 0-5 /HPF 0-5 10/02/2017 10:am 10/02/2017 2:17pm Urine RBC 6-10 /HPF H 0-5 10/02/2017 10:10/02/2017 2:17pm Urine Bacteria NONE /HPF NONE 10/02/2017 10:10/02/2017 2:17pm Urine Epithelial Cells RARE /LPF NONE 10/02/2017 10:10/02/2017 2: 17pm Urine Yeast MODERATE H NONE 10/02/2017 10:10/02/2017 2:17pm Sodium Level 144 mmol/L 136-145 10/06/2017 4:44am 10/06/2017 5:30am Potassium Level 4.1 mmol/L 3.5-5.1 10/06/2017 4:44am 10/06/2017 5:30am Chloride Level 106 mmol/L 98-107 10/06/2017 4:44am 10/06/2017 5:30am Influenza Virus Types A,B Antigen NEGATIVE NEGATIVE 09/14/2017 8:09pm 09/14/2017 8:41pm Carbon Dioxide Level 32 mmol/L H 22-29 10/06/2017 4:44am 10/06/2017 5: 30am Anion Gap 10.1 mmol/L 8-16 10/06/2017 4:44am 10/06/2017 5:30am Blood Urea Nitrogen 17 mg/dL 7-10/06/2017 4:44am 10/06/2017 5:30am Creatinine 0.68 mg/dL 0.57-1.11 10/06/2017 4:44am 10/06/2017 5:30am BUN/Creatinine Ratio 25 6-25 10/06/2017 4:44am 10/06/2017 5:30am Estimat Glomerular Filtration Rate > 60 ML/MIN 60- 10/06/2017 4:44am 5:30am Ranges were taken from the National Kidney Disease Education Program and the National Kid[employer] literature. Reference ranges: 60 or greater: Normal 16-59 (for 3 consecutive months): Chronic kidney disease 15 or less: Kidney failure Glucose Level 122 mg/dL H 74-118 10/06/2017 4:44am 10/06/2017 5:30am Calcium Level 8.2 mg/dL L 8.4-10.2 10/06/2017 4:44am 10/06/2017 5:30am Bedside Glucose 214 mg/dL H 70-120 10/06/2017 6:31pm 10/06/2017 6:38pm Meter ID: [id number] Lactic Acid Level 10.2 MG/DL 4.5-19.8 09/14/2017 2:15pm 09/14/2017 2: 46pm Phosphorus Level 2.3 MG/DL 2.3-4.7 10/05/2017 4:15am 10/05/2017 5:25am Magnesium Level 1.5 MG/DL 1.3-2.1 10/06/2017 4:44am 10/06/2017 5:30am Total Bilirubin 0.3 mg/dL 0.2-1.2 10/06/2017 4:44am 10/06/2017 5:30am Aspartate Amino Transf (AST/SGOT) 74 IU/L H 5-34 10/06/2017 4:44am 10/06 5:30am Alanine Aminotransferase (ALT/SGPT) 49 IU/L 0-55 10/06/2017 4:44am 5:30am Total Protein 4.6 g/dL L 6.5-8.1 10/06/2017 4:44am 10/06/2017 5:30am Albumin 2.0 g/dL L 3.5-5.0 10/06/2017 4:44am 10/06/2017 5:30am Globulin 2.6 g/dL 2.3-3.5 10/06/2017 4:44am 10/06/2017 5:30am Albumin/Globulin Ratio 0.8 0.8-2.0 10/06/2017 4:44am 10/06/2017 5: 30am Alkaline Phosphatase 76 IU/L 40-150 10/06/2017 4:44am 10/06/2017 5: 30am B-Type Natriuretic Peptide 38.8 pg/mL 0-100 09/14/2017 2:15pm 2017 3:38pm Creatine Kinase 152 IU/L 29-168 09/14/2017 2:50pm 09/14/2017 3:40pm Creatine Kinase MB 4.10 ng/mL 0.00-5.00 09/14/2017 2:50pm 09/14/2017 3: 48pm Troponin I 0.013 ng/mL 0-0.300 09/14/2017 2:50pm 09/14/2017 3:48pm Lipase 17 U/L 8-78 09/14/2017 2:50pm 09/14/2017 3:40pm Thyroid Stimulating Hormone (TSH) 3.170 uIU/mL 0.350-4.940 09/16/2017 12 :10pm 09/16/2017 2:59pm Random Vancomycin Level 9.9 ug/mL 10/05/2017 4:15am 10/05/2017 5: 14am Vancomycin Level Trough 15.6 ug/mL *H 5.0-10.0 09/23/2017 10:40pm 2017 11:06pm Results called to FORD CONDE RN at 2305 on 09/23/17 by Reji Reis. RB OK. Arterial Blood pH 7.47 H 7.31-7.41 10/02/2017 10:14am 10/02/2017 10: 34am Arterial Blood Partial Pressure CO2 52 mmHg H 41-51 10/02/2017 10:14am 10/02/2017 10:34am Arterial Blood Partial Pressure O2 109 mmHg H 80-105 10/02/2017 10:14am 10/02/2017 10:34am Arterial Blood HCO3 38 mmol/L H 23-28 10/02/2017 10:14am 10/02/2017 10: 34am Arterial Blood Base Excess 14.0 mmol/L H -2 - 3 10/02/2017 10:14am 10/02 10:34am Arterial Blood Oxygen Saturation 98.0 % 95-98 10/02/2017 10:14am 2017 10:34am Microbiology Results Procedure Source Organism/Result Collection Date/Time Result Date/Time Result Status Sputum Culture Sputum, Induced YEAST SPECIES 09/24/2017 8:00am 10/06/2017 2 :12pm Preliminary Urine Culture Urine,Catheterized RUIZ KRUSEI 10/02/2017 10:27am 2017 7:00am Final Blood Culture Blood NO GROWTH AFTER 72 HOURS 10:50am 10/06/2017 11:38am Preliminary Procedures Procedure Status Date Provider(s) Tracheostomy Completed 09/25/17 JESSENIA HALL Esophagogastroduodenoscopy (EGD) with placement of percutaneous endoscopic gastrostomy (PEG) Completed 10/05/17 MICAH JAMIL MD EGD with biopsy Completed 10/05/17 MICAH JAMIL MD Computed tomography of chest with contrast Active 09/16/17 BEATRICE HINTON MD Ultrasound, renal Active 10/02/17 KEITH GILBERT Ultrasound guidance for vascular access Active 10/02/17 STEFFEN NAVARRO MD Encounters Encounter Location Arrival/Admit Date Discharge/Depart Date Attending Provider Discharged Inpatient [facility] 09/14/17 7:01pm 10/06/17 9:23pm JEREMIAH VASQUEZ MD
--- OUTSIDE RECORDS SUMMARY | 2017-12-10 05:36 | XMS REPORT ---
Author Author [facility] Address Unknown Phone Unavailable Care Team Providers Care Warehouse Analyst Name Role Phone JEREMIAH VASQUEZ Unavailable Unavailable Problems This patient has no known problems. Allergies, Adverse Reactions, Alerts This patient has no known allergies or adverse reactions. Medications This patient has no known medications. Results Test Description Test Time Test Comments Text Results Atomic Results Result Comments CHEST SINGLE (PORTABLE) [place] [address] Patient Name: MICHOACANO GUPTA MR #: [id number] : 1960 Age/Sex: 57/F Req #: [id number] Adm Physician: JEREMIAH VASQUEZ MD Ordered by: STEFFEN NVAARRO MD Report #: [id number] Location: ICU Room/Bed: ICU [facility] Procedure: [id number] DX/CHEST SINGLE (PORTABLE) Exam Date: 10/05/17 Exam Time: 0605 REPORT STATUS: Signed PROCEDURE: A single AP view of the chest. COMPARISON: Chest x- ray dated 10/03/2017 INDICATIONS: TRACH FINDINGS: Lines/tubes : A right IJ central line has been placed with its tip overlying the right atrium. Tracheostomy tube is present and there is an NG tube also present. Lungs: Unchanged mild pulmonary edema. There is no evidence of pneumonia or pulmonary edema. Pleura: Small left pleural effusion. Heart and mediastinum: The heart and the mediastinum are unremarkable. Bones: No acute bony abnormality. IMPRESSION: Unchanged pulmonary edema. Kike Villanueva D.O. Dictated by: Kike Villanueva D.O. on 2017 at 9:02 Electronically approved by: Kike Villanueva D.O. on 2017 at 9:02 Dictated By: KIKE VILLANUEVA DO 1 Transcribed By: LAICE on 10/05/17901 COPY TO: STEFFEN NAVARRO MD CHEST SINGLE (PORTABLE) [place] [address] Patient Name: MICHOACANO GUPTA MR #: [id number] : 1960 Age/Sex: 57/F Req #: [id number] Adm Physician: JEREMIAH VASQUEZ MD Ordered by: STEFFEN NAVARRO MD Report #: [id number] Location: ICU Room/Bed: [place] [address] Procedure: [id number] DX/CHEST SINGLE (PORTABLE) Exam Date: 10/03/17 Exam Time: 1800 REPORT STATUS: Signed EXAMINATION: CHEST SINGLE (PORTABLE) INDICATION: COMPARISON: Chest radiograph from 10/02/2017 FINDINGS: AP view TUBES and LINES: Stable tracheostomy tube and nasogastric tube. The right internal jugular central line has been removed. LUNGS: Low lung volumes. Bibasilar atelectasis. Decreased bilateral interstitial edema. PLEURA: Unchanged small left and possible trace right pleural effusions. No pneumothorax. HEART AND MEDIASTINUM: Enlarged cardiac mediastinal silhouette. BONES AND SOFT TISSUES: No acute osseous lesion. Soft tissues are unremarkable. UPPER ABDOMEN: No free air under the diaphragm. IMPRESSION: Low lung volumes with persistent bibasilar atelectasis. Decreased bilateral interstitial edema. Signed by: Dr. Josey Elizabeth M.D. on 10/03/2017 6:17 PM Dictated By: JOSEY ELIZABETH MD 16 Transcribed By: JENNY on 10/03/171816 COPY TO: STEFFEN NAVARRO MD CHEST XRAY LINE PLACEMENT [place] [address] Patient Name: MICHOACANO GUPTA MR #: [id number] : 1960 Age/Sex: 57/F Req #: [id number] Adm Physician: JEREMIAH VASQUEZ MD Ordered by: DIMITRIOS CHASE MD Report #: [id number] Location: ICU Room/Bed: [place] [address] ___ Procedure: [id number] DX/CHEST XRAY LINE PLACEMENT Exam Date : 10/02/17 Exam Time: 1450 REPORT STATUS: Signed PROCEDURE: A single AP view of the chest. COMPARISON: Portable chest 10/02/2017. INDICATIONS: LINE PLACEMENT TODAY FINDINGS: Lines/tubes: Right internal jugular temporary central venous catheter with tip projecting over the expected region of the right atrium. Tracheostomy catheter with the tip projecting over the expected region of the trachea, positioned 3 cm from the lesli. Enteric feeding catheter with tip extending below the anterior margin of the examination, likely within the gastric body. Lungs: Stable opacity in the left lung base. Pleura: There is no pleural effusion or pneumothorax. Heart and mediastinum: The heart and the mediastinum are unremarkable. Bones: No acute bony abnormality. IMPRESSION: No acute radiographic abnormality. Dictated by: Dimitrios Chase M.D. on 10/02/2017 at 15:29 Electronically approved by: Dimitrios Chase M.D. on 10/02/2017 at 15:29 Dictated By: DIMITRIOS CHASE MD 28 COPY TO: DIMITRIOS CHASE MD IR CONSULT [place] [address] Patient Name: MICHOACANO GUPTA MR #: [id number] : 1960 Age/Sex: 57/F Req #: [id number] Adm Physician: JEREMIAH VASQUEZ MD Ordered by: STEFFEN NAVARRO MD Report #: [id number] Location: ICU Room/Bed: [place] [address] Procedure: [id number] DX/IR CONSULT Exam Date: Exam Time: REPORT STATUS: Signed PROCEDURE: NON-TUNNELLED CVC CATH PLACMNT COMPARISON: None. INDICATIONS: Need for central venous access. COMPLICATIONS: None. MEDICATIONS: None. BLOOD LOSS: None. PROCEDURE : Focused evaluation demonstrated a right internal jugular temporary central venous catheter. Focused sonographic evaluation demonstrated patent and compressible right internal jugular vein. The procedure was performed at the bedside in the intensive care unit. The right neck was prepped and draped in the usual sterile fashion. 1% lidocaine was infused into the subcutaneous tissues for local anesthesia. Utilizing direct sonographic guidance, a 21 gauge needle was advanced into the right internal jugular vein. A 0.018 inch wire was advanced centrally. An access sheath was placed over the wire to secure the vascular access. The wire was upsized to a 0.035 inch wire. A single dilation was performed over the wire. A temporary triple- lumen central venous catheter was advanced over the wire. The wire was removed. The catheter lumens demonstrated proper function with aspiration and flush of sterile saline. The catheter lumens were flushed with sterile saline. The catheter was secured to the skin with 3-0 Ethilon suture. A sterile dressing was applied. The existing right internal jugular temporary central venous catheter was removed. Hemostasis was obtained with manual compression. No immediate complications. The patient tolerated the procedure well. The patient remained in the intensive care unit in stable unchanged condition. CONCLUSION: Successful placement of a right internal jugular temporary central venous catheter utilizing ultrasound guidance. Successful removal of the existing right internal jugular temporary central venous catheter. Dictated by: Dimitrios Chase M.D. on 10/06/2017 at 10:16 Electronically approved by: Dimitrios Chase M.D. on 10/06/2017 at 10:16 Dictated By: DIMITRIOS CHASE MD 1016 Transcribed By: ALICE on 10/06/17 1016 COPY TO: STEFFEN NAVARRO MD CHEST SINGLE (PORTABLE) [place] [address] Patient Name: MICHOACANO GUPTA MR #: [id number] : 1960 Age/Sex: 57/F Req #: [id number] Adm Physician: JEREMIAH VASQUEZ MD Ordered by: STEFFEN NAVARRO MD Report #: [id number] Location: ICU Room/Bed: [place] [address] Procedure: [id number] DX/CHEST SINGLE (PORTABLE) Exam Date: 10/02/17 Exam Time: 1000 REPORT STATUS: Signed PROCEDURE: A single AP view of the chest. COMPARISON: 2017 INDICATIONS: RESPIRATORY DISTRESS FINDINGS: Lines/tubes : Tracheostomy tube in unchanged position. Enteric tube tip is projected over the stomach. Right internal jugular central venous catheter has its tip at the cavoatrial junction. Lungs: Low lung volumes with bibasilar subsegmental atelectasis. Pleura: Small left pleural effusion. A trace right pleural effusion may be present. Heart and mediastinum: The heart and the mediastinum are unchanged. Bones: No acute bony abnormality. IMPRESSION: 1. Low lung volumes with basilar atelectasis and small left pleural effusion, unchanged. 2. Lines and tubes are stable. Dictated by: Robert Soriano M.D. on 10/02/2017 at 12: 37 Electronically approved by: Robert Soriano M.D. on 10/02/2017 at 12: 37 Dictated By: ROBERT SORIANO MD 1237 Transcribed By: ALICE on 10/02/17 1237 COPY TO: STEFFEN NAVARRO MD US RENAL RETROPERITONEAL COMP [place] [address] Patient Name: MICHOACANO GUPTA MR #: [id number] : 1960 Age/Sex: 57/F Req #: [id number] Adm Physician: JEREMIAH VASQUEZ MD Ordered by: VLADIMIR SEALS, KEITH SEALS Report #: [id number] Location: ICU Room/Bed: ICU [facility] Procedure: [id number] US/US RENAL RETROPERITONEAL COMP Exam Date: Exam Time: REPORT STATUS: Signed PROCEDURE: US RETROPERITONEAL ( KIDNEY ). COMPARISON: None. INDICATIONS: ARF TECHNIQUE: Melendez-scale and color sonographic images of the bilateral kidneys and bladder where obtained in transverse and longitudinal planes. FINDINGS: Examination is limited by patient body habitus and inability to follow breathing instructions (patient on ventilator). RIGHT KIDNEY: 11.6 cm, cortex 2.1 cm Cysts: 3.4 cm cyst in the right midpole Solid masses: None Stones: None Hydronephrosis: None Echogenicity: Normal LEFT KIDNEY: 12.7 cm, cortex 1.8 cm Cysts: None Solid masses: None Stones: None Hydronephrosis: None Echogenicity: Normal Bladder: The bladder is collapsed by a Hill catheter. CONCLUSION: Right renal cyst. No hydronephrosis, stones or solid renal mass. Dictated by: Robert Soriano M.D. on 10/02/2017 at 11:40 Electronically approved by: Robert Soriano M.D. on 10/02/2017 at 11:40 Dictated By: ROBERT SORIANO MD 1140 Transcribed By: ALICE on 10/02/17 1140 COPY TO: KEITH GILBERT NON-TUNNELLED CVC CATH PLACMNT [place] [address] Patient Name: MICHOACANO GUPTA MR #: [id number] : 1960 Age/Sex: 57/F Req #: [id number] Adm Physician: JEREMIAH VASQUEZ MD Ordered by: STEFFEN NAVARRO MD Report #: [id number] Location: ICU Room/Bed: [place] [address] Procedure: [id number] IR/NON-TUNNELLED CVC CATH PLACMNT Exam Date: 10/02/17 Exam Time: 1450 REPORT STATUS: Signed PROCEDURE: NON-TUNNELLED CVC CATH PLACMNT COMPARISON: None. INDICATIONS: Need for central venous access. COMPLICATIONS: None. MEDICATIONS: None. BLOOD LOSS: None. PROCEDURE: Focused evaluation demonstrated a right internal jugular temporary central venous catheter. Focused sonographic evaluation demonstrated patent and compressible right internal jugular vein. The procedure was performed at the bedside in the intensive care unit. The right neck was prepped and draped in the usual sterile fashion. 1% lidocaine was infused into the subcutaneous tissues for local anesthesia. Utilizing direct sonographic guidance, a 21 gauge needle was advanced into the right internal jugular vein. A 0.018 inch wire was advanced centrally. An access sheath was placed over the wire to secure the vascular access. The wire was upsized to a 0.035 inch wire. A single dilation was performed over the wire. A temporary triple-lumen central venous catheter was advanced over the wire. The wire was removed. The catheter lumens demonstrated proper function with aspiration and flush of sterile saline. The catheter lumens were flushed with sterile saline. The catheter was secured to the skin with 3-0 Ethilon suture. A sterile dressing was applied. The existing right internal jugular temporary central venous catheter was removed. Hemostasis was obtained with manual compression. No immediate complications. The patient tolerated the procedure well. The patient remained in the intensive care unit in stable unchanged condition. CONCLUSION: Successful placement of a right internal jugular temporary central venous catheter utilizing ultrasound guidance. Successful removal of the existing right internal jugular temporary central venous catheter. Dictated by: Dimitrios Chase M.D. on 10/06/2017 at 10:16 Electronically approved by: Dimitrios Chase M.D. on 10/06/2017 at 10:16 Dictated By: DIMITRIOS CHASE MD 1016 Transcribed By: ALICE on 10/06/17 1016 COPY TO: STEFFEN NAVARRO MD GUIDANCE FOR VASCULAR ACCES [place] [address] Patient Name: MICHOACANO GUPTA MR #: [id number] : 1960 Age/Sex: 57/F Req #: [id number] Adm Physician: JEREMIAH VASQUEZ MD Ordered by: STEFFEN NAVARRO MD Report #: [id number] Location: ICU Room/Bed: ICU 189-1 Procedure: [id number] US/US GUIDANCE FOR VASCULAR ACCES Exam Date: 10/02/17 Exam Time: 1532 REPORT STATUS: Signed PROCEDURE: ULTRASOUND GUIDANCE FOR VASCULAR ACCESS COMPARISON: None. INDICATIONS: Central Line Placement FINDINGS: Right internal jugular vein is noted to be patent. Ultrasound guidance was utilized for access for central venous catheter placement. CONCLUSION: Patent right internal jugular vein. Successful ultrasound guidance for temporary central venous catheter placement. Dictated by: Dimitrios Chase M.D. on 10/06/2017 at 10:21 Electronically approved by: Dimitrios Chase M.D. on 10/06/2017 at 10:21 Dictated By: DIMITRIOS CHASE MD 1021 Transcribed By: ALICE on 10/06/17 1021 COPY TO: STEFFNE NAVARRO MD [place] [address] Patient Name: MICHOACANO GUPTA MR #: [id number] : 1960 Age/Sex: 57/F Req #: [id number] Adm Physician: JEREMIAH VASQUEZ MD Ordered by: STEFFEN NAVARRO MD Report #: [id number] Location: ICU Room/Bed: ICU 189-1 Procedure: [id number] DX/MODIFIED BA. SWALLOW Exam Date : 10/01/17 Exam Time: 2026 REPORT STATUS: Signed PROCEDURE: X-RAY MODIFIED BARIUM SWALLOW COMPARISON: None. INDICATIONS: Not provided. DISCUSSION: Fluoroscopic examination was performed in conjunction with speech pathology, during swallowing of a variety of thin and thick liquid consistencies. CONCLUSION: Aspiration was present. Please see the report from speech pathology for complete details. Dictated by: Dimitrios Chase M.D. on 10/02/2017 at 11: 38 Electronically approved by: Dimitrios Chase M.D. on 10/02/2017 at 11:38 Dictated By: DIMITRIOS CHASE MD 113 Transcribed By: ALICE on 10/02/17 1138 COPY TO : STEFFEN NAVARRO MD CHEST SINGLE (PORTABLE) [place] [address] Patient Name: MICHOACANO GUPTA MR #: [id number] : 1960 Age/Sex: 57/F Req #: [id number] Adm Physician: JEREMIAH VASQUEZ MD Ordered by: STEFFEN NAVARRO MD Report #: [id number] Location: ICU Room/Bed: ICU [facility] Procedure: [id number] DX/CHEST SINGLE (PORTABLE) Exam Date: 09/27/17 Exam Time: 06 REPORT STATUS: Signed EXAMINATION: CHEST SINGLE (PORTABLE) INDICATION: COMPARISON: 09/26/2017 FINDINGS: AP view TUBES and LINES: Stable tracheostomy tube, nasogastric tube, and right internal jugular central line. LUNGS: Limited by low lung volumes and body habitus. Unchanged small left and possible trace right pleural effusions. PLEURA: No visible pneumothorax. HEART AND MEDIASTINUM: Enlarged cardiac mediastinal silhouette. BONES AND SOFT TISSUES: No acute osseous lesion. Soft tissues are unremarkable. UPPER ABDOMEN: No free air under the diaphragm. IMPRESSION: No change from prior exam. Unchanged small left pleural effusion. Underlying infiltrate/atelectasis cannot be excluded. Signed by: Dr. Pablo Juarez MD on 09/27/2017 7:33 AM Dictated By: PABLO JUAREZ MD 2 Transcribed By: JENNY on 09/27/17732 COPY TO: STEFFEN NAVARRO MD CHEST SINGLE (PORTABLE) [place] [address] Patient Name: MICHOACANO GUPTA MR #: [id number] : 1960 Age/Sex: 57/F Req #: [id number] Adm Physician: JEREMIAH VASQUEZ MD Ordered by: STEFFEN NAVARRO MD Report #: [id number] Location: ICU Room/Bed: ICU [facility] Procedure: [id number] DX/CHEST SINGLE (PORTABLE) Exam Date: 09/26/17 Exam Time: 0550 REPORT STATUS: Signed EXAMINATION: CHEST SINGLE (PORTABLE) INDICATION: Intubated COMPARISON: 09/25/2017 FINDINGS: TUBES and LINES: Interval placement of NG tube in good position with now tracheostomy tube in place replacing endotracheal tube 4cm above the lesli. Right IJ central line catheter stable in good position. LUNGS: Lungs are not well inflated. There are bibasilar atelectasis. There is perihilar interstitial opacities, consistent with interstitial edema. PLEURA: Small left pleural effusion is present HEART AND MEDIASTINUM: Cardiac size is mildly enlarged. There are atherosclerotic calcifications within the aorta. BONES AND SOFT TISSUES: No acute osseous lesion. Soft tissues are unremarkable. UPPER ABDOMEN: No free air under the diaphragm. IMPRESSION: Mild interval improvement in pulmonary edema with persistent small left pleural effusion. Signed by: Dr. Maulik Ricketts M.D. on 09/26/2017 6:50 AM Dictated By: MAULIK GRIFFIN MD 0650 COPY TO: STEFFEN NAVARRO MD ABDOMEN-1VIEW (KUB) [place] [address] Patient Name: MICHOACANO GUPTA MR #: [id number] : 1960 Age/Sex: 57/F Req #: [id number] Adm Physician: JEREMIAH VASQUEZ MD Ordered by: JEREMIAH VASQUEZ MD Report #: [id number] Location: ICU Room/Bed: ICU [facility] _ Procedure: [id number] DX/ABDOMEN-1VIEW (KUB) Exam Date: Exam Time: 1626 REPORT STATUS: Signed PROCEDURE: X-RAY ABDOMEN - KUB COMPARISON: None. INDICATIONS: NGT PLACEMENT FINDINGS: See conclusion. CONCLUSION: 1. Enteric tube is noted below the left hemidiaphragm, with distal tip projecting in the region of the stomach body. 2. Contrast is noted in the bowel, likely from prior modified barium swallow. 3. Left basal atelectatic changes. 4. Deformity of the left eighth and ninth ribs, likely reflecting subacute fractures. Alex Rios M.D. Dictated by: Alex Rios M.D. on 09/25/2017 at 18:40 Electronically approved by: Alex Rios M.D. on 09/25/2017 at 18:40 Dictated By: ALEX RIOS MD 39 Transcribed By: ALICE on 09/25/171839 COPY TO: JEREMIAH VASQUEZ MD CHEST SINGLE (PORTABLE) [place] [address] Patient Name: MICHOACANO GUPTA MR #: [id number] : 1960 Age/Sex: 57/F Req #: [id number] Adm Physician: JEREMIAH VASQUEZ MD Ordered by: STEFFEN NAVARRO MD Report #: [id number] Location: ICU Room/Bed: [place] [address] Procedure: [id number] DX/CHEST SINGLE (PORTABLE) Exam Date: 09/25/17 Exam Time: 0610 REPORT STATUS: Signed EXAMINATION: CHEST SINGLE (PORTABLE) INDICATION: Intubation COMPARISON: 09/21/2017 FINDINGS: TUBES and LINES: Interval placement of endotracheal tube in good position 4.5 cm above the lesli. Right IJ central line catheter stable in good position. LUNGS: Lungs are not well inflated. There are bibasilar atelectasis. There is perihilar interstitial opacities, consistent with interstitial edema. PLEURA: Small left pleural effusion is present HEART AND MEDIASTINUM: Cardiac size is mildly enlarged. There are atherosclerotic calcifications within the aorta. BONES AND SOFT TISSUES: No acute osseous lesion. Soft tissues are unremarkable. UPPER ABDOMEN: No free air under the diaphragm. IMPRESSION: Worsening edema and a small left pleural effusion. Endotracheal tube in good position. Signed by: Dr. Maulik Ricketts M.D. on 09/25/2017 7:06 AM Dictated By: MAULIK GRIFFIN MD 5 Transcribed By: JENNY on 09/25/17705 COPY TO: STEFFEN NAVARRO MD CHEST SINGLE (PORTABLE) [place] [address] Patient Name: MICHOACANO GUPTA MR #: [id number] : 1960 Age/Sex: 57/F Req #: [id number] Adm Physician: JEREMIAH VASQUEZ MD Ordered by: STEFFEN NAVARRO MD Report #: [id number] Location: ICU Room/Bed: ICU [facility] Procedure: [id number] DX/CHEST SINGLE (PORTABLE) Exam Date: 09/24/17 Exam Time: 1305 REPORT STATUS: Signed PROCEDURE: CHEST SINGLE (PORTABLE) TECHNIQUE: Portable AP chest INDICATION: Intubation COMPARISON: None. FINDINGS: See conclusion. CONCLUSION: 1. Endotracheal tube tip approximately 3.5 cm from the lesli. 2. Low lung volume. 3. Upper limits of normal heart size. 4. Study is significantly limited by underpenetration and patient body habitus. Dictated by: Uzair Flores M.D. on 09/24/2017 at 14:04 Electronically approved by: Uzair Flores M.D. on 2017 at 14:04 Dictated By: UZAIR FLORES MD 140 Transcribed By: ALICE on 1403 COPY TO: STEFFEN NVAARRO MD MODIFIED BA. SWALLOW [place] [address] Patient Name: MICHOACANO GUPTA MR #: [id number] : 1960 Age/Sex: 57/F Req #: [id number] Adm Physician: JEREMIAH VASQUEZ MD Ordered by: YAAKOV OCAMPO MD Report #: [id number] Location: ICU Room/Bed: [place] [address] ___ Procedure: [id number] DX/MODIFIED BA. SWALLOW Exam Date: Exam Time: 1000 REPORT STATUS: Signed EXAM: Modified barium swallow INDICATION: Aspiration COMPARISON: None FINDINGS: This examination was conducted in conjunction with speech pathologist. Patient was given, by mouth, liquids and solids of various consistencies. Examination showed premature spillage to the vallecula with all consistencies. There was premature spillage to the piriform sinus with thin liquids, nectar thick liquids and juice portion of mixed mechanical diet. Laryngeal penetration into the laryngeal vestibule was noted with thin and nectar thick liquids and juice portion of mixed mechanical soft. Penetration occurred with honey thick liquids after fatigue. Kelvin to gross silent aspiration of thin liquids during the swallow. Mild piriform sinus and pharyngeal wall residue following swallows of all consistencies. IMPRESSION: Moderate to severe pharyngeal dysphagia characterized by consistent premature spillage over the base of the tongue, aspiration of multiple consistencies during the swallow and consistent pharyngeal residue after the swallow. Please see speech pathology report for detailed description and recommendations.> Signed by: Dr. Alex Rios M.D. on 09/22/2017 4:48 PM Dictated By: ALEX RIOS MD Transcribed By: JENNY on 1647 COPY TO: YAAKOV OCAMPO MD CHEST SINGLE (PORTABLE) [place] [id number] [place] [address] Patient Name: MICHOACANO GUPTA MR #: [id number] : 1960 Age/Sex: 57/F Req #: [id number] Adm Physician: JEREMIAH VASQUEZ MD Ordered by: YAAKOV OCAMPO MD Report #: [id number] Location: ICU Room/Bed: [place] [address] ___ Procedure: [id number] DX/CHEST SINGLE (PORTABLE) Exam Date: 09/21/17 Exam Time: 0435 REPORT STATUS: Signed EXAM: CHEST SINGLE (PORTABLE), AP 1 view DATE: 09/21/2017 4:35 AM Time stamp on exam: 0448 hours INDICATION: Shortness of breath COMPARISON: AP view the chest dated 2017 FINDINGS: LINES/TUBES: Stable right internal jugular vein central line LUNGS: Low inspiration with bibasilar atelectasis PLEURA: No effusions or pneumothorax. HEART AND MEDIASTINUM: No interval change BONES AND SOFT TISSUES: No acute findings. IMPRESSION: No interval change Signed by: Dr. Maryam Zamora M.D. on 09/21/2017 6:11 AM Dictated By: MARYAM ZAMORA MD 0 Transcribed By: JENNY on 09/21/17610 COPY TO: YAAKOV OCAMPO MD CHEST SINGLE (PORTABLE) [place] [address] Patient Name: MICHOACANO GUPTA MR #: [id number] : 1960 Age/Sex: 57/F Req #: [id number] Adm Physician: JEREMIAH VASQUEZ MD Ordered by: STEFFEN NAVARRO MD Report #: [id number] Location: ICU Room/Bed: ICU 195 Procedure: [id number] DX/CHEST SINGLE (PORTABLE) Exam Date: Exam Time: REPORT STATUS: Signed EXAM: CHEST SINGLE (PORTABLE) DATE: 09/20/2017 7:56 AM INDICATION: Follow-up COMPARISON: 09/19/2017 FINDINGS: Body habitus, low lung volumes, rotation, and underpenetration significantly limit evaluation. NG tube no longer distinctly seen. Evaluation for ET tube not possible. Right IJ catheter grossly stable. Heart accentuated by low lung volumes. Basilar opacities, asymmetric to the left. IMPRESSION: Exam of limited diagnostic utility as above. Signed by: Dr. Alejandra Sauer MD on 09/20/2017 9 :28 AM Dictated By: ALEJANDRA SAUER MD 7 Transcribed By: JENNY on 09/20/17927 COPY TO: STEFFEN NAVARRO MD CHEST SINGLE (PORTABLE) [place] [address] Patient Name: MICHOACANO GUPTA MR #: [id number] : 1960 Age/Sex: 57/F Req #: [id number] Adm Physician: JEREMIAH VASQUEZ MD Ordered by: STEFFEN NAVARRO MD Report #: [id number] Location: ICU Room/Bed: ICU 195 Procedure: [id number] DX/CHEST SINGLE (PORTABLE) Exam Date: 09/19/17 Exam Time: 0415 REPORT STATUS: Signed EXAM: CHEST SINGLE (PORTABLE), AP 1 view DATE: 09/19/2017 5:00 AM Time stamp on exam: 0427 hours INDICATION: Intubated COMPARISON: AP view of the chest September 18, 2017 FINDINGS: LINES/TUBES: Stable position of endotracheal tube, right internal jugular vein central line and nasal/ orogastric tube. LUNGS: Slight improved aeration of the lung bases with persistent bibasilar atelectasis. PLEURA: No effusions or pneumothorax. HEART AND MEDIASTINUM: Stable appearance. BONES AND SOFT TISSUES: No acute findings. IMPRESSION: Slight improved aeration of the lung bases with persistent bibasilar atelectasis. Signed by: Dr. Maryam Zamora M.D. on 09/19/2017 5:31 AM Dictated By: MARYAM ZAMORA MD 0 Transcribed By: JENNY on 09/19/17530 COPY TO: STEFFEN NAVARRO MD CHEST SINGLE (PORTABLE) [place] [address] Patient Name: MICHOACANO GUPTA MR #: [id number] : 1960 Age/Sex: 57/F Req #: [id number] [facility] Physician: JEREMIAH VASQUEZ MD Ordered by: STEFFEN NAVARRO MD Report #: [id number] Location: ICU Room/Bed: ICU [facility] Procedure: [id number] DX/CHEST SINGLE (PORTABLE) Exam Date: 09/18/17 Exam Time: 1040 REPORT STATUS: Signed PROCEDURE: A single AP view of the chest. COMPARISON: [facility], DX, CHEST SINGLE (PORTABLE), 09/16/2017, 11:53. Patients [facility], CT, CT CHEST W, 09/16/2017, 12:28. INDICATIONS : RESPIRATORY FAILURE, INTUBATION FINDINGS: Lines/tubes: Endotracheal tube has distal tip projecting approximately 6 cm above the lesli at the level of the thoracic inlet. Interval placement of enteric tube which is seen below the left hemidiaphragm, however, the distal tip is not well-visualized. Stable right IJ line Lungs: Hypoinflated lungs with airspace opacity in the retrocardiac region, likely representing the previously visualized aspiration or pneumonia. Linear opacities in the right lower lung, consistent with subsegmental atelectasis or scarring. Pleura: Questionable left pleural effusion. Heart and mediastinum: Enlarged cardiac silhouette. Central pulmonary venous congestion. Bones: No acute bony abnormality. IMPRESSION: 1. enlarged cardiac silhouette and central pulmonary venous congestion. 2. Hypoinflated lungs with left retrocardiac opacity, likely representing the previously seen, aspiration or pneumonia. 3. Right lower lung linear subsegmental atelectasis or scarring. 4. Interval placement of enteric tube which is seen below left hemidiaphragm. Alex Rios M.D. Dictated by: Alex Rios M.D. on 09/18/2017 at 12:18 Electronically approved by: Alex Rios M.D. on 09/18/2017 at 12:18 Dictated By: ALEX RIOS MD 1218 Transcribed By: ALICE on 09/18/17 1218 COPY TO: STEFFEN NAVARRO MD CT CHEST W [place] [address] Patient Name: MICHOACANO GUPTA MR #: [id number] : 1960 Age/Sex: 57/F Req #: [id number] Adm Physician: JEREMIAH VASQUEZ MD Ordered by: BEATRICE HINTON MD Report #: [id number] Location: ICU Room/Bed: ICU [facility] ___ Procedure: [id number] CT/CT CHEST W Exam Date: 09/16/17 Exam Time: 1220 REPORT STATUS: Signed PROCEDURE: CT scan of the chest WITH intravenous contrast, using PE protocol. TECHNIQUE: The chest was scanned utilizing a multidetector helical scanner from the lung apex through the level of the adrenal glands after the IV administration of 55 cc of Isovue 370, with special concentration of the pulmonary arteries. Coronal and sagittal multiplanar reformations were obtained. COMPARISON: None. INDICATIONS: Pulmonary embolism FINDINGS: Limited exam, as it was acquired during expiration and due to soft tissue attenuation from patient's body habitus. Lines/tubes: Endotracheal tube has its distal tip approximately 1.5 cm above the lesli. Lungs and Airways: No filling defects in the main, right or left pulmonary arteries or their segmental level to suggest pulmonary embolism. Bilateral lower lobe posteromedial consolidations with air bronchograms, left greater than right. Patchy consolidations, with air bronchograms is also seen in the left upper lobe (series 3, image 28). Focal groundglass opacity in the anterior right upper lobe (series 3 per image 31). No pulmonary masses. Major airways are clear, without endobronchial lesions Pleura: The pleural spaces are clear. No effusion, or pneumothorax. Heart and mediastinum: Thyroid is unremarkable. Mild cardiomegaly. Atherosclerotic calcification of the coronary arteries and thoracic aorta. Lymph nodes: No mediastinal, hilar, or axillary adenopathy. Abdomen: Limited contrast-enhanced views of the upper abdomen show no abnormality within the visualized spleen. Diffuse hepatic steatosis. Right adrenal gland is unremarkable. Bones: No acute bony abnormalities. IMPRESSION: 1. no CT evidence of pulmonary embolism. 2. Findings in bilateral lower lobes, likely represent aspiration in the setting of recent arrest. Multifocal pneumonia is a consideration in the appropriate clinical setting. 3. Findings in bilateral upper lobes may also reflect aspiration or additional foci of infection. 4. Diffuse hepatic steatosis. Alex Rios M.D. Dictated by: Alex Rios M.D. on 09/16/2017 at 13:55 Electronically approved by: Alex Rios M.D. on 2017 at 13:55 Dictated By: ALEX RIOS MD 1355 Transcribed By: ALICE on 1355 COPY TO: BEATRICE HINTON MD CHEST SINGLE (PORTABLE) [place] [address] Patient Name: MICHOACANO GUPTA MR #: [id number] : 1960 Age/Sex: 57/F Req #: [id number] Adm Physician: JEREMIAH VASQUEZ MD Ordered by: STEFFEN NAVARRO MD Report #: [id number] Location: ICU Room/Bed: [place] [address] Procedure: [id number] DX/CHEST SINGLE (PORTABLE) Exam Date: 09/16/17 Exam Time: 1155 REPORT STATUS: Signed PROCEDURE: A single AP view of the chest. COMPARISON: [facility], DX, CHEST SINGLE (PORTABLE), 09/15/2017, 5:28. INDICATIONS: POST REINTUBATION FINDINGS: Impression IMPRESSION: 1. endotracheal tube has distal tip projecting approximately 3.2 cm above the lesli. Right IJ line is stable. 2. Hyperinflated lungs. Bibasilar atelectasis. 2. Central pulmonary venous congestion. Alex Rios M.D. Dictated by: Alex Rios M.D. on 09/16/2017 at 12:25 Electronically approved by: Alex Rios M.D. on 2017 at 12:25 Dictated By: ALEX RIOS MD 1225 Transcribed By: ALICE on 1225 COPY TO: STEFFEN NAVARRO MD CHEST SINGLE (PORTABLE) [place] [address] Patient Name: MICHOACANO GUPTA MR #: [id number] : 1960 Age/Sex: 57/F Req #: [id number] Adm Physician: JEREMIAH VASQUEZ MD Ordered by: AZEEM COYNE MD Report #: [id number] Location: ICU Room/Bed: [place] [address] Procedure: [id number] DX/CHEST SINGLE (PORTABLE) Exam Date: 09/15/17 Exam Time: 0555 REPORT STATUS: Signed Examination: Single AP view of the chest. COMPARISON: 09/14 INDICATION: Shortness of breath DISCUSSION: See impression IMPRESSION: 1. Endotracheal tube and right internal jugular central venous catheter are unchanged in position. 2. Unchanged bibasilar airspace opacities which may reflect atelectasis or aspiration. Trace left pleural effusion. 3. Stable cardiomediastinal contour with pulmonary venous congestion. Signed by: Dr. Yaakov Shook M.D. on 2017 7:15 AM Dictated By: YAAKOV SHOOK MD 4 Transcribed By: JENNY on 09/15/17714 COPY TO: AZEEM COYNE MD CHEST SINGLE (PORTABLE) [place] [address] Patient Name: MICHOACANO GUPTA MR #: [id number] : 1960 Age/Sex: 57/F Req #: [id number] Adm Physician: Ordered by: AZEEM COYNE MD Report #: [id number] Location: ER Room/Bed: Procedure: [id number] DX/CHEST SINGLE (PORTABLE) Exam Date: 09/14/17 Exam Time: 1615 REPORT STATUS: Signed PROCEDURE: A single AP view of the chest. COMPARISON: Same day at 1516 hrs. INDICATIONS: CENTRAL LINE PLACEMENT FINDINGS: Lines/tubes: Stable endotracheal tube. New right internal jugular central line in place with tip overlying the inferior SVC. Lungs: Limited by low lung volumes and body habitus. Unchanged central peribronchovascular thickening/cuffing. Pleura: There is no pneumothorax. Small left pleural effusion. Heart and mediastinum: The heart and the mediastinum are unremarkable. Bones: No acute bony abnormality. IMPRESSION: Right internal jugular central line placement with tip overlying the inferior SVC. No evidence of pneumothorax. Pulmonary status is unchanged. Dictated by: Pablo Juarez M.D. on 09/14/2017 at 16:49 Electronically approved by: Pablo Juarez M.D. on 09/14/2017 at 16:49 Dictated By: PABLO JUAREZ MD 48 Transcribed By: ALICE on 09/14/171648 COPY TO: AZEEM COYNE MD CHEST SINGLE (PORTABLE) [place] [address] Patient Name: MICHOACANO GUPTA MR #: [id number] : 1960 Age/Sex: 57/F Req #: [id number] Adm Physician: Ordered by: AZEEM COYNE MD Report #: [id number] Location: ER Room/Bed: Procedure: [id number] DX/CHEST SINGLE (PORTABLE) Exam Date: 09/14/17 Exam Time: 1505 REPORT STATUS: Signed PROCEDURE: A single AP view of the chest. COMPARISON: 11/10/16 INDICATIONS: INTUBATION FINDINGS: Lines/tubes: Endotracheal tube in place with tip approximately 1.7 cm above lesli. Lungs: Limited by low lung volumes and body habitus. Central peribronchovascular thickening/cuffing. Left lower lung field hazy opacification. Pleura: There is no visible pneumothorax. Possible small left pleural effusion. Heart and mediastinum: The heart and the mediastinum are unremarkable. Bones: No acute bony abnormality. IMPRESSION: Limited as above. Status post intubation with endotracheal tip approximately 1.7 cm above lesli. Central peribronchovascular thickening/cuffing. Underlying infiltrates cannot be excluded. Left lower lung field hazy opacification, representing atelectasis and/or effusion. Dictated by: Pablo Juarez M.D. on 2017 at 15:45 Electronically approved by: Pablo Juarez M.D. on 2017 at 15:45 Dictated By: PABLO JUAREZ MD 154 Transcribed By: ALICE on 09/14/17 1544 COPY TO: AZEEM COYNE MD
[2017-12-10] MEDS ORDERED: SODIUM CHLORIDE 0.9% 1000ML 1,000 ML IV STA (05:43)
[2017-12-10] MEDS ORDERED: PANTOPRAZOLE 40 MG 10ML VIAL IV STA (05:43)
[2017-12-10] MEDS ORDERED: ALBUTEROL SULF 0.083% NEB SOLN 3 ML NEB NEB STA (05:43)
[2017-12-10] MEDS ORDERED: IPRATROPIUM BROMIDE 0.02% 2.5 ML NEB NEB ONE (05:45)
[2017-12-10] MEDS ORDERED: SODIUM CHLORIDE 0.9% 1000ML 1,000 ML ONE (05:51)
[2017-12-10] MEDS ORDERED: ALBUTEROL SULF 0.083% NEB SOLN 3 ML NEB ONE (05:52)
[2017-12-10] MEDS ORDERED: IPRATROPIUM BROMIDE 0.02% 2.5 ML NEB ONE (05:53)
[2017-12-10 06:39] LABS: BASOPHILS % 0.3 % (0.0-1.0); EOSINOPHILS # (AUTO) 0.2 (0.0-0.4); EOSINOPHILS % 1.5 % (0.0-6.0); HEMATOCRIT 25.9 % (34.2-44.1); LYMPHOCYTES # (AUTO) 2.1 (1.0-3.2); LYMPHOCYTES % 17.2 % (18.0-39.1); MEAN CORPUSCULAR HEMOGLOBIN 24.4 pg (28-32); MEAN CORPUSCULAR HGB CONC 29.3 g/dL (31-35); MEAN CORPUSCULAR VOLUME 83.3 fL (81-99); MONOCYTES # (AUTO) 1.2 (0.2-0.8); MONOCYTES % 9.8 % (4.4-11.3); NEUTROPHILS # (AUTO) 8.7 (2.1-6.9); NEUTROPHILS % 70.6 % (38.7-80.0); PLATELET COUNT 463 x10e3/uL (140-360); RED BLOOD COUNT 3.11 x10e6/uL (3.6-5.1); RED CELL DISTRIBUTION WIDTH 17.2 % (11.7-14.4)
[2017-12-10 06:41] LABS: INR 2.8; PROTHROMBIN TIME 27.7 seconds (11.9-14.5)
[2017-12-10 06:42] LABS: PARTIAL THROMBOPLASTIN TIME 53.7 seconds (23.8-35.5)
[2017-12-10 06:50] LABS: ALANINE AMINOTRANSFERASE 14 IU/L (0-55); ALBUMIN 2.2 g/dL (3.5-5.0); ALBUMIN/GLOBULIN RATIO 0.5 (0.8-2.0); ALKALINE PHOSPHATASE 89 IU/L (40-150); ANION GAP 13.7 mmol/L (8-16); BLOOD UREA NITROGEN 33 mg/dL (7-26); BUN/CREATININE RATIO 18 (6-25); CALCIUM 9.2 mg/dL (8.4-10.2); CARBON DIOXIDE 36 mmol/L (22-29); CHLORIDE 94 mmol/L (98-107); CREATINE KINASE 20 IU/L (29-168); EST GLOMERULAR FILTRATION RATE 29 ML/MIN (60-); GLUCOSE 155 mg/dL (74-118); MAGNESIUM 1.5 MG/DL (1.3-2.1); POTASSIUM 5.7 mmol/L (3.5-5.1); SODIUM 138 mmol/L (136-145)
--- NOTE | 2017-12-10 06:56 | Diagnostic Imaging Report ---
EXAMINATION: CHEST SINGLE (PORTABLE) INDICATION: Shortness of breath COMPARISON: 10/05/2017 FINDINGS: AP view TUBES and LINES: Stable tracheostomy tube and nasogastric tube. The right internal jugular central line has been removed. LUNGS: Low lung volumes. Interstitial edema has resolved. However, there is confluent opacity in the left lower lobe compatible with atelectasis PLEURA: Unchanged small left and possible trace right pleural effusions. No pneumothorax. HEART AND MEDIASTINUM: Cardiac size is moderately enlarged. There are atherosclerotic calcifications within the aorta. BONES AND SOFT TISSUES: No acute osseous lesion. Soft tissues are unremarkable. UPPER ABDOMEN: No free air under the diaphragm. IMPRESSION: 1. Low lung volumes with persistent bibasilar atelectasis. 2. Cardiomegaly without decompensation. Signed by: Dr. Maulik Ricketts M.D. on 12/10/2017 6:52 AM
[2017-12-10 07:05] LABS: B-TYPE NATRIURETIC PEPTIDE2 27.5 pg/mL (0-100); CLARITY,URINE SL CLOUDY (CLEAR); COLOR,URINE YELLOW (YELLOW); LEUKOCYTE ESTERASE ,URINE NEGATIVE (NEGATIVE)
[2017-12-10 07:06] LABS: BILIRUBIN,URINE NEGATIVE (NEGATIVE); KETONES,URINE NEGATIVE (NEGATIVE); NITRITE,URINE NEGATIVE (NEGATIVE); PROTEIN,URINE DIPSTICK TRACE (NEGATIVE); URINE UROBILINOGEN 0.2 mg/dL (0.2 - 1)
[2017-12-10 07:07] LABS: EPITHELIAL CELLS,URINE RARE /LPF; TRANSITIONAL EPI CELLS,URINE RARE; WBC,URINE (MAN) 0-5 /HPF (0-5)
[2017-12-10 07:09] LABS: STREPTOCOCCUS GRP A ANTIGEN NEGATIVE (NEGATIVE)
[2017-12-10 07:11] LABS: HEMOGLOBIN 7.6 g/dL (12.0-16.0)
[2017-12-10 07:15] LABS: INFLUENZAE A&B ANTIGEN (RAPID) NEGATIVE (NEGATIVE)
[2017-12-10] MEDS ORDERED: MEROPENEM 1GM 100 ML IV SCH (07:15)
[2017-12-10] MEDS ORDERED: NOREPINEPHRINE INJ 4MG/4ML 8 MG in DEXTROSE 5% 250ML 250 ML IV ONE (07:15)
[2017-12-10] MEDS ORDERED: VANCOMYCIN 1GM/NS 250 ML 250 ML IV ONE (07:15)
[2017-12-10] MEDS ORDERED: SODIUM CHLORIDE 0.9% 1000ML 1,000 ML IV ONE ×2 (07:15→10:15)
[2017-12-10] MEDS ORDERED: LEVOFLOXACIN 750MG/D5W 150ML 150 ML IV ONE (07:15)
[2017-12-10] MEDS ORDERED: SODIUM BICARBONATE 8.4% INJ 50 ML SYR IV STA (07:20)
[2017-12-10] MEDS ORDERED: CALCIUM GLUCONATE 10% INJ 9.3 MEQ in SODIUM CHLORIDE 0.9% 100 ML 100 ML IV ONE (07:30)
[2017-12-10] MEDS ORDERED: CALCIUM GLUCONATE 10% INJ 0.465 MEQ/ML VIAL ONE (08:20)
[2017-12-10] MEDS ORDERED: SODIUM CHLORIDE 0.9% 50ML 50 ML ONE (08:21)
[2017-12-10] MEDS ORDERED: SODIUM CHLORIDE 0.9% 250ML 250 ML IV ONE (08:30)
[2017-12-10] MEDS: MEROPENEM 1 GM VIAL IV SCH ×2 (08:40→20:00)
[2017-12-10] MEDS ORDERED: VANCOMYCIN HCL 1GM/NS 250 ML BAG IV SCH (08:45)
[2017-12-10] MEDS: SODIUM CHLORIDE 0.9% 1000ML 1,000 ML IV SCH ×3 (08:50→16:56)
--- NOTE | 2017-12-10 08:52 | Diagnostic Imaging Report ---
PROCEDURE: A single AP view of the chest. COMPARISON: 12/10/2017 at 0556. INDICATIONS: CENTRAL LINE PLACMENT FINDINGS: Interval placement of a right internal jugular central venous catheter. The tip projects over the expected region of the low superior vena cava. Tracheostomy is unchanged. Persistent bibasilar airspace opacity left greater than right, likely atelectasis. Small left pleural effusion is suspected. No new consolidation or pulmonary edema. Stable cardiomediastinal contour. Healed left-sided rib fracture deformities. No acute osseous abnormality. IMPRESSION: Interval placement of a right internal jugular central venous catheter, the tip of which projects over the expected region of the low superior vena cava. Otherwise stable chest relative to 0556 hours. Dictated by: Keegan Shook M.D. on 12/10/2017 at 8:52 Electronically approved by: Keegan Shook M.D. on 12/10/2017 at 8:52
[2017-12-10] MEDS ORDERED: LEVOFLOXACIN 750MG/D5W 150ML 150 ML IV SCH (09:00)
[2017-12-10] MEDS ORDERED: LEVOFLOXACIN 750MG/DEXTROSE PREMIX BAG 150ML IV SCH (09:00)
[2017-12-10] MEDS ORDERED: ACETAMINOPHEN 1000 MG/100 ML IV STA (09:01)
[2017-12-10 09:13] LABS: ABG HCO3 37 mmol/L (23-28); ABG PCO2 63 mmHg (41-51); ABG PH 7.37 (7.31-7.41); ABG PO2 72 mmHg (80-105)
[2017-12-10] MEDS ORDERED: SODIUM CHLORIDE 0.9% 500ML 500 ML IV ONE (10:15)
[2017-12-10] MEDS: LEVOFLOXACIN 750MG/D5W 150ML 150 ML IV SCH (10:30)
[2017-12-10] MEDS: ALBUTEROL SULF 0.083% NEB SOLN 3 ML NEB NEB SCH ×4 (11:00→23:50)
[2017-12-10] MEDS: IPRATROPIUM BROMIDE 0.02% 2.5 ML NEB NEB SCH ×2 (11:10→18:52)
[2017-12-10] MEDS ORDERED: SODIUM CHLORIDE 0.9% 250ML 250 ML ONE (13:07)
[2017-12-10] MEDS ORDERED: NORCO 10-325 T1 EACH PO (15:53)
[2017-12-10] MEDS ORDERED: FAMOTIDINE20 MG PO (15:53)
[2017-12-10] MEDS ORDERED: CENTRUM COMPLE1 EACH PO (15:53)
[2017-12-10] MEDS ORDERED: VITAMIN B-121000 MCG PO (15:53)
[2017-12-10] MEDS ORDERED: LEVEMIR100 UNIT/1 SC (15:53)
[2017-12-10] MEDS ORDERED: BIOTIN5 M1 PO (15:53)
[2017-12-10] MEDS ORDERED: FEOSOL325 MG PO (15:53)
[2017-12-10] MEDS ORDERED: LORAZEPAM0.5 MG PO (15:53)
[2017-12-10] MEDS ORDERED: METOPROLOL TART25 MG PO (15:53)
[2017-12-10] MEDS ORDERED: COUMADIN4 MG PO (15:53)
[2017-12-10] MEDS ORDERED: SENNA LAXATIVE1 EACH PEG (15:54)
[2017-12-10] MEDS ORDERED: NOVOLOG100 UNITS1 SQ (15:58)
[2017-12-10] MEDS ORDERED: ENULOSE10 GM/15 M PEG (15:58)
[2017-12-10] MEDS ORDERED: IPRAT-ALBUT 0.5-3 ML INH (15:59)
[2017-12-10] MEDS ORDERED: NOREPINEPHRINE INJ 4MG/4ML 8 MG in DEXTROSE 5% 250ML 250 ML IV PRN (20:30)
[2017-12-10] MEDS ORDERED: LACTULOSE PEG PRN (20:45)
[2017-12-10] MEDS ORDERED: GABAPENTIN 400 MG CAP PO SCH (21:00)
[2017-12-10] MEDS: NON-FORMULARY MEDICATION (Fenofibrate 160 MG) PO SCH (21:00)
[2017-12-10] MEDS ORDERED: INSULIN DETEMIR 50 UNIT SC SCH (21:00)
--- NOTE | 2017-12-10 21:03 | Consultation ---
DATE OF CONSULTATION: December 10, 2017 The patient is known to me from [facility]. HPI: Ms. Cole is a 57-year-old female. She has a tracheostomy and patient is on trach collar during the day and ventilator during the night. She started having increasing somnolence overnight and I was called by the respiratory therapist and patient was sent to the emergency room. In the emergency room patient was difficult to arouse and lethargic and had low grade temperature. Patient was put on mechanical ventilator and currently she is awake and alert denying any complaints. Her blood gas was done on the at 8:30 showing pCO2 63 and pH of 7.37. The patient is denying any complaints of chest pain, nausea, vomiting diarrhea. REVIEW OF SYSTEMS: GENERAL: Denies any fever or chills. HEENT: Denies any head trauma. ENT denies any earache. CVS: : Denies any chest pain. RESPIRATORY: Denies any shortness of breath. GI: Denies any nausea, vomiting. The rest of the review systems are negative except as in history of present illness. PAST MEDICAL HISTORY: Hypertension, diabetes, coronary artery disease, diastolic heart failure, obstructive sleep apnea, morbid obesity, tracheostomy for severe sleep apnea, multiple admissions with hypercapnia and respiratory failure in the past. PAST SURGICAL HISTORY: Cholecystectomy, tonsillectomy and tracheostomy. FAMILY AND SOCIAL HISTORY: She has been a smoker. Currently does not smoke since she has trach. She has smoked for 40+ years. Denies any alcohol use. Family history is significant for diabetes and hypertension. PHYSICAL EXAMINATION: VITALS: Temperature 98.9, T-max 100.2. Pulse of 103. Blood pressure 139/98. Respiratory rate is 18 to 20 HEENT: Head is normocephalic, atraumatic. Pupils reactive. CHEST: Clear to auscultation bilaterally. Tracheostomy. Decreased air entry on the bases. HEART: S1 and S2 audible. ABDOMEN: Soft, nontender and nondistended. EXTREMITIES: No clubbing, cyanosis or edema. NEUROLOGIC: Awake and alert. Following commands. Responding to questions appropriately. LABORATORY DATA: White count of 12,000. Hemoglobin 7.6. Platelets 463,000. Chemistry: Sodium 138, potassium 5.7. Chloride 94, BUN 33, creatinine 1.8. Blood gas reviewed. Chest x-ray: Showing possibility of infiltrate. ASSESSMENT/PLAN: Ms. Cole is a 57-year-old female with a history of obstructive sleep apnea, diastolic heart failure, has chronic trach. The patient is off and on on trach collar and using ventilator at night and is currently at [facility]. Admitted with hypercapnic respiratory failure and somnolence. The patient has mild acute kidney injury along with hyperkalemia. Also, has anemia. CURRENT PROBLEMS: 1. Sepsis and septic shock likely due to pneumonia. 2. Acute kidney injury. 3. Morbid obesity. 4. Jxfkq-lh-eitajfy hypercapnic hypoxic respiratory failure. 5. Tracheostomy. 6. Debility and bedbound status. 7. Hyperkalemia. PLAN: 1. Continue the patient on IV normal saline at 125 mL an hour, recheck the labs. 2. Nephrology consult. 3. Wean Levophed to keep MAP more than or equal to 65. 4. Continue the patient on ventilatory support and wean in the a.m. 5. Will hold off on the antihypertensive medications and diuretics for now. 6. Patient is chronically on prednisone 5 mg. I will start the patient on IV Solu-Medrol and wean off. 7. Patient's INR is 2.8. She has history of DVT. Continue the patient on Coumadin. 8. Management of diabetes per primary team. Job#: [id number] [facility]
[2017-12-10 21:05] LABS: BASOPHILS % 0.3 % (0.0-1.0); EOSINOPHILS # (AUTO) 0.2 (0.0-0.4); EOSINOPHILS % 1.7 % (0.0-6.0); HEMATOCRIT 29.3 % (34.2-44.1); HEMOGLOBIN 9.1 g/dL (12.0-16.0); LYMPHOCYTES # (AUTO) 1.8 (1.0-3.2); LYMPHOCYTES % 15.7 % (18.0-39.1); MEAN CORPUSCULAR HEMOGLOBIN 25.6 pg (28-32); MEAN CORPUSCULAR HGB CONC 31.1 g/dL (31-35); MEAN CORPUSCULAR VOLUME 82.3 fL (81-99); MONOCYTES % 8.8 % (4.4-11.3); NEUTROPHILS # (AUTO) 8.1 (2.1-6.9); NEUTROPHILS % 72.9 % (38.7-80.0); PLATELET COUNT 365 x10e3/uL (140-360); RED BLOOD COUNT 3.56 x10e6/uL (3.6-5.1); RED CELL DISTRIBUTION WIDTH 16.4 % (11.7-14.4)
[2017-12-10 21:20] LABS: ANION GAP 11.7 mmol/L (8-16); CALCIUM 8.9 mg/dL (8.4-10.2); CREATININE, SERUM 1.03 mg/dL (0.57-1.11); POTASSIUM 4.7 mmol/L (3.5-5.1)
[2017-12-10] MEDS ORDERED: LACTULOSE SYRUP 20 GM/30 ML UDC PEG PRN (21:30)
[2017-12-10] MEDS ORDERED: LACTULOSE SYRUP 20 GM/30 ML UDC PO PRN (21:30)
[2017-12-10] MEDS: HYDROCODONE/APAP 10MG-325MG TAB PO PRN (21:41)
[2017-12-10] MEDS: GABAPENTIN 300 MG CAP PO SCH (21:52)
[2017-12-10] MEDS: METHYLPREDNISOLONE SOD SUCC 40 MG/ML VIAL IV SCH (21:52)
[2017-12-10] MEDS: INSULIN DETEMIR 100 UNIT/ML PEN SQ SCH (21:53)
[2017-12-10] MEDS: LORAZEPAM 0.5 MG TAB PO PRN (22:13)
[2017-12-11] VITALS (65 sets, daily range): BP systolic 64–183; BP diastolic 46–116
[2017-12-11] MEDS: SODIUM CHLORIDE 0.9% 1000ML 1,000 ML IV SCH ×2 (00:45→08:13)
[2017-12-11] MEDS: IPRATROPIUM BROMIDE 0.02% 2.5 ML NEB NEB SCH ×4 (02:45→20:00)
[2017-12-11] MEDS: ALBUTEROL SULF 0.083% NEB SOLN 3 ML NEB NEB SCH ×5 (02:45→20:00)
[2017-12-11] MEDS: HYDROCODONE/APAP 10MG-325MG TAB PO PRN ×3 (04:03→20:40)
[2017-12-11] MEDS: METHYLPREDNISOLONE SOD SUCC 40 MG/ML VIAL IV SCH ×3 (05:50→21:25)
[2017-12-11] MEDS: LORAZEPAM 0.5 MG TAB PO PRN ×3 (06:15→23:07)
[2017-12-11 06:43] LABS: BASOPHILS % 0.3 % (0.0-1.0); HEMATOCRIT 29.2 % (34.2-44.1); HEMOGLOBIN 8.9 g/dL (12.0-16.0); LYMPHOCYTES # (AUTO) 0.7 (1.0-3.2); LYMPHOCYTES % 6.6 % (18.0-39.1); MEAN CORPUSCULAR HEMOGLOBIN 25.4 pg (28-32); MEAN CORPUSCULAR HGB CONC 30.5 g/dL (31-35); MEAN CORPUSCULAR VOLUME 83.4 fL (81-99); MONOCYTES # (AUTO) 0.5 (0.2-0.8); MONOCYTES % 4.4 % (4.4-11.3); NEUTROPHILS # (AUTO) 9.1 (2.1-6.9); NEUTROPHILS % 87.7 % (38.7-80.0); PLATELET COUNT 376 x10e3/uL (140-360); RED CELL DISTRIBUTION WIDTH 16.6 % (11.7-14.4)
[2017-12-11 06:51] LABS: ANION GAP 12.8 mmol/L (8-16); CREATININE, SERUM 0.97 mg/dL (0.57-1.11); POTASSIUM 4.8 mmol/L (3.5-5.1)
--- NOTE | 2017-12-11 06:52 | Diagnostic Imaging Report ---
EXAMINATION: CHEST SINGLE (PORTABLE) INDICATION: Pneumonia COMPARISON: 12/10/2017 FINDINGS: AP view TUBES and LINES: Stable tracheostomy tube. New right internal jugular central line. LUNGS: Low lung volumes. The lungs are clear. PLEURA: Unchanged small left and possible trace right pleural effusions. No pneumothorax. HEART AND MEDIASTINUM: Cardiac size is moderately enlarged. There are atherosclerotic calcifications within the aorta. BONES AND SOFT TISSUES: No acute osseous lesion. Soft tissues are unremarkable. UPPER ABDOMEN: No free air under the diaphragm. IMPRESSION: 1. The lungs are clear. 2. Cardiomegaly without decompensation. Signed by: Dr. Maulik Ricketts M.D. on 12/11/2017 6:47 AM
[2017-12-11] MEDS: INSULIN DETEMIR 100 UNIT/ML PEN SQ SCH ×2 (08:04→20:17)
[2017-12-11] MEDS: VANCOMYCIN 1GM/NS 250 ML 250 ML IV SCH (08:13)
[2017-12-11] MEDS: MEROPENEM 1 GM VIAL IV SCH ×2 (08:13→20:05)
[2017-12-11] MEDS: FERROUS SULFATE 325 MG TAB PO SCH (08:14)
[2017-12-11] MEDS: GABAPENTIN 300 MG CAP PO SCH ×3 (08:14→20:05)
[2017-12-11] MEDS: CLOPIDOGREL BISULFATE 75 MG TAB PO SCH (08:14)
[2017-12-11] MEDS: MULTIVITAMINS/MINERALS TAB PO SCH (08:14)
[2017-12-11] MEDS: FAMOTIDINE 20 MG TAB PO SCH (08:14)
[2017-12-11] MEDS: ROPINIROLE HCL 1 MG TAB PO SCH (08:14)
[2017-12-11] MEDS: CITALOPRAM HYDROBROMIDE 20 MG TAB PO SCH (08:14)
[2017-12-11] MEDS: CYANOCOBALAMIN 1,000 MCG TAB PO SCH (08:15)
[2017-12-11] MEDS: NON-FORMULARY MEDICATION (Biotin 5 MG) PO SCH (08:46)
[2017-12-11] MEDS ORDERED: NON-FORMULARY MEDICATION (Multivitamin/Iron/Folic Acid (Centrum Complete Multivit Tab) 1 T PO SCH (09:00)
[2017-12-11] MEDS ORDERED: INSULIN DETEMIR U SC SCH (09:00)
[2017-12-11] MEDS ORDERED: NON-FORMULARY MEDICATION (Atorvastatin Calcium 80 MG) PO SCH (09:00)
[2017-12-11] MEDS ORDERED: SENNOSIDES 8.6 MG TAB PO PRN ×2 (09:15→09:30)
[2017-12-11] MEDS ORDERED: DEXTROSE 50% SYRINGE 50 ML IV PRN ×2 (09:15→11:45)
[2017-12-11] MEDS: LEVOFLOXACIN 750MG/D5W 150ML 150 ML IV SCH (09:50)
[2017-12-11] MEDS: PANTOPRAZOLE 40 MG 10ML VIAL IV SCH (09:51)
--- NOTE | 2017-12-11 10:37 | History and Physical ---
PRESENTING COMPLAINT: Change in mental status with fever. HISTORY OF PRESENT ILLNESS: This 57-year-old female was admitted from the ER under on-call physician. The patient was followed up by Dr. Yeyo Aiken, her PCP in the past. I was notified last night by the ICU nurse. The patient needs to be transferred under her PCP as per the patient's decision. I was covering for Dr. Yeyo Aiken. The patient tells that she was at [facility] where she was transferred from [facility] after hospitalization for pneumonia. The patient was doing well, but suddenly she had some change in mental status and was found to have fever for which she was transferred to the ER. The patient was found to have pCO2 of 63. She has had a trach tube for a long time. The patient has a history of sleep apnea and hypercapnia in the past, too. She denied any chest pain. She had mild shortness of breath but her pulse ox is stable with oxygen via trach tube. The patient had scant whitish sputum. She denied any chest pain, abdominal pain, nausea, vomiting, diarrhea, dysuria. The patient was placed on a Hill catheter from the ER. She had also had an IJ line done in the ER. She feels better now. Denies any other physical complaints now. REVIEW OF SYSTEMS CONSTITUTIONAL: Fever on presentation. No chills or rigor. ENT: No nasal congestion or visual disturbance. No earache. CARDIOVASCULAR: No chest pain. No palpitations. PULMONARY: Cough with shortness of breath on presentation, status post tracheostomy for a long time. No hemoptysis. GI: No abdominal pain, nausea, vomiting. No bloody stool or black stool. : No dysuria. No hematuria. MUSCULOSKELETAL, SKIN, LYMPHATIC: No joint pain. No joint swelling. No skin rash. No swollen glands. NEUROLOGIC: No seizure. No weakness of extremities. The patient had altered mental status at presentation likely secondary to hypercapnia. HISTORY OF PAST MEDICAL ILLNESS 1. Diabetes mellitus, type 2, with complications. 2. Hypertensive heart disease. 3. CHF, diastolic. 4. COPD. 5. Obstructive sleep apnea, status post tracheostomy. 6. Hyperlipidemia. 7. Paroxysmal atrial fibrillation. HISTORY OF PAST SURGERY 1. Tracheostomy for more than 5 years. 2. Cholecystectomy. 3. Tonsillectomy. 4. Coronary artery stenting. ALLERGIES: NO KNOWN MEDICATION ALLERGIES. SOCIAL HISTORY: The patient was living at home prior to hospitalization at [facility]. She came from [facility] to this hospital this time. She is in contact with her family. Family members are at bedside. HABITS: No smoking, drinking or substance abuse history in the recent time. FAMILY HISTORY: Positive for diabetes mellitus and hypertension. HOME MEDICATIONS: As per medication reconciliation sheet. PHYSICAL EXAMINATION VIALS: BP 169/102, pulse 111, temperature 98.9, T-max 101.4 yesterday at 7 p.m. Respirations 18 to 25. SpO2 98% on 50% oxygen via tracheostomy. GENERAL: Alert, sitting in bed without any distress. Mildly tachypneic. Verbalizing normally. HEENT: No pallor. Pupils are equally reacting. EOMI. No pallor. No icterus. Oral mucosa is moist. NECK: Tracheostomy tube in place. No JVD. No carotid bruit. HEART: S1 and S2 irregular. No murmur. LUNGS: Air entry equal on both sides. Crackles heard at both bases. No rhonchi. ABDOMEN: Soft and nontender. No palpable mass. EXTREMITIES: No edema, cyanosis, clubbing. NEUROLOGIC: Motor grossly equal on both sides. LAB DATA: CBC: WBC 12.24, came down to 10.3. Hemoglobin 7.6, now 8.9. Hematocrit 25.9. Platelets 463. MCV 83, RDW 17, neutrophils 70, lymphocytes 17. PT 27, INR 2.8, PTT 53.7. Chemistry: Sodium 138, potassium 5.7 and came down to 4.8, chloride 94, CO2 36, anion gap 8, BUN 13, creatinine 1.8 and came down to 0.97 today, glucose 155. Lactic acid 15.7. Calcium 9.2, magnesium 1.5, total bilirubin 0.2, AST 15, ALT 14, alk phos 89. CK 20, CK-MB 0.7, troponin 0.001. BNP 27. Urinalysis: Protein trace. Negative for glucose, ketones, leukocyte esterase. WBCs 0-5 and RBCs 0. MICROBIOLOGY DATA: Blood culture: No growth in 24 hours. Urine culture in progress. RADIOLOGICAL DATA: X-ray of chest, single view: Low lung volume with persistent bibasilar atelectasis. Cardiomegaly without decompensation. Repeat x-ray of the chest done this morning: Lungs are clear. Cardiomegaly without decompensation. EKG: Sinus tachycardia at a rate of 107 beats per minute. No significant ST-T changes. Small Q waves in inferior leads. ASSESSMENT AND PLAN 1. Change in mental status secondary to hypercapnia. Now, the patient is completely alert and oriented times 3. The patient has tracheostomy for a long time. She is followed up by Dr. Brown now. She used to see Dr. Melton in the past. Continue oxygen via tracheostomy. The patient had blood gas at presentation, which showed pH 7.37, pCO2 72, O2 sat [address] follow Dr. Brown's recommendation. 2. Probable sepsis. Etiology is not clear. Chest x-ray is not suggestive of pneumonia at the present time. Likely bronchitis or early pneumonia. Continue IV antibiotic as per pulmonary's recommendations. Patient had leukocytosis yesterday at presentation, which is improved today. 3. Critical anemia. Got better today. Will monitor for now. The patient was on warfarin for atrial fibrillation. Will check stool for occult blood. Also, request a GI evaluation and cardiology evaluation. 4. Diastolic congestive heart failure by history. BNP was 27 at presentation. Would monitor for now. 5. Tgano-ts-wnezpbz renal insufficiency. Creatinine improved today. Continue the patient's dose of diuretics. 6. Hyperkalemia, resolved. 7. Diabetes mellitus, type 2. Keep the patient on her regular insulin regimen along with sliding scale. 8. Deep venous thrombosis prophylaxis. The patient is on Coumadin. 9. Gastrointestinal prophylaxis. Keep the patient on PPI. 10. Discharge plan will depend on the patient's response to treatment and recommendation by the boy's adviser. Job#: [id number]
--- NOTE | 2017-12-11 11:04 | Consultation ---
DATE OF CONSULTATION: December 11, 2017 RENAL CONSULTATION HISTORY OF PRESENT ILLNESS: Amalia Cole is a 57-year-old female who is known to our nephrology service, currently in the ICU with sepsis. Currently has a tracheostomy. States she has not slept. She says she wants her Seroquel back. She has got a Hill catheter, nonoliguric. She admits to shortness of breath. Denies chest pain. Denies cough. Had throat culture, blood cultures and urine culture yesterday. ALLERGIES: SHE IS ALLERGIC TO PENICILLIN AND LATEX. CURRENT MEDICATIONS: Include: 1. Levaquin. 2. She was on Levophed drip. 3. Started on normal saline at 125 mL an hour, which I am going to stop right now. Did get normal saline boluses. 4. She is on vancomycin 1 g q.24. 5. Atrovent and albuterol nebulizers. 6. Atorvastatin. 7. Celexa 40 mg daily. 8. Plavix 75 mg daily. 9. Gabapentin 600 mg p.o. t.i.d. 10. Ferrous sulfate. 11. Famotidine. 12. Insulin. 13. Meropenem 1 g IV q.12. 14. Metoprolol 25 mg p.o. b.i.d. 15. Methylprednisolone 20 IV q.8. 16. Warfarin 4 mg p.o. daily. 17. Requip 1 mg p.o. daily. 18. Fenofibrate 160 mg daily. 19. Biotin 5 mg p.o. daily. 20. Atorvastatin 80 mg daily. 21. Lactulose p.r.n. SOCIAL HISTORY: Does not smoke or drink. Renal consulted for management of electrolyte imbalance and fluid status. Had a hemoglobin of 7.6 status post transfusion, potassium 5.7 with a creatinine 1.8. FAMILY HISTORY: Significant for type-2 diabetes. PHYSICAL EXAMINATION GENERAL: Awake, alert, lying supine. Anxious. Has a tracheostomy with trach collar. VITALS: Blood pressure is 183/110. Pulse rate 112. Afebrile. HEAD AND NECK: Corneas clear. Oral mucosa is moist. Tracheostomy noted. LUNGS: End-expiratory rhonchi bilaterally. No rales. HEART: S1, S2 audible. ABDOMEN: Otherwise, soft, nontender, nondistended. LOWER EXTREMITIES: No edema. IMPRESSION AND PLAN: Acute kidney injury with hyperkalemia. Hypertensive. Heart rate is 107. Oxygen saturation is 96%. Most recent blood pressure 154/94. Patient to get blood pressure medications today. I will not add any medication at this point in time. Hyperkalemia is to be treated. Discontinue normal saline at this point in time. Will monitor patient's kidney function and urine output with you. Acute kidney injury, multifactorial. Job#: [id number]
[2017-12-11] MEDS: INSULIN LISPRO 100 UNIT/1 ML 3ML VIAL SQ SCH ×3 (11:54→20:16)
[2017-12-11] MEDS: METOPROLOL TARTRATE 25 MG TAB PO SCH (16:15)
[2017-12-11] MEDS ORDERED: WARFARIN SOD 2 MG TAB PO SCH (17:00)
[2017-12-11] MEDS ORDERED: NON-FORMULARY MEDICATION (Warfarin Sodium (Coumadin) 4 MG) PO SCH (17:00)
[2017-12-11] MEDS: NYSTATIN 15 GM POWDER UD BTL TOP SCH (19:26)
[2017-12-11] MEDS: ATORVASTATIN 40 MG TAB PO SCH (20:05)
[2017-12-11] MEDS: NON-FORMULARY MEDICATION (Fenofibrate 160 MG) PO SCH (20:26)
[2017-12-12] VITALS (36 sets, daily range): BP systolic 106–183; BP diastolic 69–116
[2017-12-12] MEDS: LABETALOL HCL 5 MG/ML 20ML VIAL IV PRN ×2 (00:56→05:25)
--- NOTE | 2017-12-12 01:06 | Consultation ---
DATE OF CONSULTATION: December 11, 2017 GI CONSULTATION REFERRING PHYSICIAN: Mary Reddy MD REASON FOR CONSULT: Chronic anemia, unspecified. HISTORY OF PRESENTING ILLNESS: A 57-year-old morbidly obese female, who is very well known to me. She was admitted here a couple of months ago with respiratory failure secondary to COPD exacerbation. She was intubated, extubated, reintubated, but difficult to wean off; therefore, she ended up using tracheostomy. At that time, I also had put a PEG because she had failed a swallow evaluation. Subsequently, she was transferred to [place], where she stayed for a couple of weeks. In [place], she was able to swallow, eat, and therefore, PEG tube was discontinued. She was discharged home successfully. At this time, she is coming again with some weakness, generalized pain. She got admitted in the ICU. No respiratory distress. No gross GI bleeding. Able to swallow normally. Stool soft, brown. No abdominal pain. REVIEW OF SYSTEMS: A 12-point system reviewed, symptomatology limited as per HPI. PAST MEDICAL HISTORY: Type-2 diabetes, hypertension, coronary artery disease, congestive heart failure, morbid obesity, obstructive sleep apnea, multiple admissions in the past secondary to hypercapnic respiratory failure. PAST SURGICAL HISTORY: Cholecystectomy, tonsillectomy, tracheostomy, PEG placement. FAMILY HISTORY: Noncontributory. SOCIAL HISTORY: Chronic smoker. She smoked about 40 years. She denies smoking any more, ever since she has had a PEG placed. Diabetes and hypertension runs in the family. ALLERGIES: PENICILLIN AND LATEX. HOME MEDICATIONS: Extensive medication list reviewed as per NOV. INPATIENT MEDICATIONS: List reviewed. PHYSICAL EXAMINATION VITAL SIGNS: Temperature 99.1, pulse 95, respirations 16-18, blood pressure 149/81, oxygen saturation 94% on tracheostomy collar. GENERAL: Morbidly obese, not in any acute distress. HEENT: Moist mucous membranes. Anicteric sclerae. Trach collar in place, no abnormal discharge at tracheostomy. CVS: S1/S2 regular. LUNGS: Bilaterally occasional scattered rales. Distant breath sounds. ABDOMEN: Obese, huge, nondistended, nontender. No palpable mass or hernia. Positive bowel sounds. EXTREMITIES: Warm. No leg edema. LAB: WBC 10.37, hemoglobin 8.9 [baseline hemoglobin, however, is between 8-9]. Her hemoglobin was 7.6 on admission. Hematocrit 29.2, platelet count 376,000. Electrolytes normal. PT 27.7, INR 2.80. Stool occult blood heme positive. IMPRESSION: Chronic anemia with slight drop in the hemoglobin with the heme-positive stool. I would expect him to have a heme-positive stool with him being on warfarin. Will hold off on any endoscopy. If patient's hemoglobin continues to drop, then we can consider doing colonoscopy. Upper endoscopy was done within 2 months. I thank, Dr. Reddy, for allowing me to participate in the care of this patient. Job#: [id number] CQ
[2017-12-12] MEDS: ALBUTEROL SULF 0.083% NEB SOLN 3 ML NEB NEB SCH ×6 (03:50→19:20)
[2017-12-12] MEDS: NYSTATIN 15 GM POWDER UD BTL TOP SCH ×2 (05:12→19:15)
[2017-12-12] MEDS: METHYLPREDNISOLONE SOD SUCC 40 MG/ML VIAL IV SCH ×3 (05:12→22:26)
[2017-12-12] MEDS: HYDROCODONE/APAP 10MG-325MG TAB PO PRN ×3 (05:25→23:05)
[2017-12-12 05:49] LABS: BASOPHILS % 0.2 % (0.0-1.0); HEMOGLOBIN 9.5 g/dL (12.0-16.0); LYMPHOCYTES # (AUTO) 0.9 (1.0-3.2); LYMPHOCYTES % 11.6 % (18.0-39.1); MEAN CORPUSCULAR HEMOGLOBIN 25.4 pg (28-32); MEAN CORPUSCULAR HGB CONC 30.6 g/dL (31-35); MEAN CORPUSCULAR VOLUME 82.9 fL (81-99); MONOCYTES # (AUTO) 0.4 (0.2-0.8); MONOCYTES % 5.5 % (4.4-11.3); NEUTROPHILS # (AUTO) 6.4 (2.1-6.9); NEUTROPHILS % 79.7 % (38.7-80.0); PLATELET COUNT 354 x10e3/uL (140-360); RED BLOOD COUNT 3.74 x10e6/uL (3.6-5.1); RED CELL DISTRIBUTION WIDTH 16.1 % (11.7-14.4)
--- NOTE | 2017-12-12 05:58 | Consultation ---
DATE OF CONSULTATION: December 11, 2017 CARDIOLOGY CONSULTATION REQUESTING PHYSICIAN: Dr. Yeyo Aiken REASON FOR CONSULTATION: CHF and atrial fibrillation. HISTORY OF PRESENT ILLNESS: This is a 57-year-old woman with history of systolic heart failure, atrial fibrillation, coronary artery disease with prior myocardial infarction, chronic respiratory failure status post tracheostomy, COPD, diabetes mellitus, hypertension, hyperlipidemia, and history of DVT, who was admitted at [facility] after an admission at [facility] for pneumonia. The patient was sent to the ER with altered mental status. She was found to be febrile with leukocytosis, anemia, and hypercapnia. The patient was admitted to the ICU for further care and evaluation. The patient denies any chest pain, edema, orthopnea, PND, lightheadedness, or syncope. She endorses some palpitations as well as chronic shortness of breath, but states her chest pain was worse this morning. Of note, she states she has had a fever for the last day. REVIEW OF SYSTEMS: Negative except as per HPI. PAST MEDICAL HISTORY: 1. Chronic systolic heart failure. 2. Coronary artery disease status post myocardial infarction. 3. Paroxysmal atrial fibrillation. 4. Chronic respiratory failure status post tracheostomy. 5. COPD. 6. Diabetes mellitus. 7. Hypertension. 8. Hyperlipidemia. 9. History of DVT. PAST SURGICAL HISTORY: 1. Tracheostomy. 2. Exploratory laparotomy. 3. Cholecystectomy. 4. Tonsillectomy. ALLERGIES: PLEASE SEE EMR. MEDICATIONS: Please see medication list. SOCIAL HISTORY: She is a former smoker. No alcohol or drugs. FAMILY HISTORY: Noncontributory. PHYSICAL EXAMINATION: VITAL SIGNS: Temperature 98.7 degrees, pulse 105, respiratory rate 18, blood pressure 119/96, oxygen saturation 97% on mechanical ventilation. GENERAL: Awake, alert, in no acute distress. HEENT: Normocephalic, atraumatic. Status post tracheostomy. Pupils equal. No scleral icterus. NECK: Supple. No thyromegaly or cervical lymphadenopathy. No carotid bruits. LUNGS: Clear to auscultation bilaterally. No wheezes or crackles. CARDIOVASCULAR: Normal rate and regular rhythm. No murmur. Normal S1 and S2. ABDOMEN: Soft, nontender. EXTREMITIES: No edema. NEURO: Nonfocal exam. LABS: Sodium 136, potassium 4.8, chloride 98, CO2 30, BUN 16, creatinine 0.97. WBC 10.37, hemoglobin 8.9, hematocrit 29.2, platelets 376,000. INR 2.8. Stool occult blood positive. EKG, sinus tachycardia, low-voltage QRS, inferior infarct, age undetermined; cannot rule out anterior infarct, age undetermined. IMPRESSIONS: 1. Altered mental status. 2. Phryf-ti-ctdxqlz hypercapnic respiratory failure. 3. Sepsis, possibly pulmonary etiology. 4. Anemia, likely gastrointestinal blood loss given stool occult blood. 5. Reported history of chronic systolic heart failure. 6. Coronary artery disease with prior myocardial infarction. 7. Paroxysmal atrial fibrillation. 8. Acute kidney injury, improved. 9. Diabetes mellitus. 10. Hypertension. 11. Hyperlipidemia. 12. History of deep venous thrombosis. RECOMMENDATIONS: Antibiotics per primary service. Management of alimp-db-bexqoxx hypercapnic respiratory failure per pulmonary, likely altered mental status was secondary to hypercapnia. Will obtain echocardiogram to re-evaluate ejection fraction. Given acute anemia for which patient has been transfused 2 units PRBCs, recommend holding anticoagulation for now. Patient is currently in sinus rhythm. Continue current cardiac medications otherwise. Thank you for this consult. We will continue to follow. Job#: [id number]
[2017-12-12 06:00] LABS: INR 2.89; PROTHROMBIN TIME 28.4 seconds (11.9-14.5)
[2017-12-12 06:11] LABS: ALBUMIN/GLOBULIN RATIO 0.5 (0.8-2.0); ANION GAP 9.7 mmol/L (8-16); CALCIUM 9.4 mg/dL (8.4-10.2); CREATININE, SERUM 1.14 mg/dL (0.57-1.11); POTASSIUM 4.7 mmol/L (3.5-5.1)
[2017-12-12 06:33] LABS: FERRITIN 303.78 ng/mL (4.63-204.00); THYROID STIMULATING HORMONE 0.97 uIU/mL (0.350-4.940)
[2017-12-12] MEDS: IPRATROPIUM BROMIDE 0.02% 2.5 ML NEB NEB SCH ×4 (06:55→19:20)
[2017-12-12] MEDS: INSULIN LISPRO 100 UNIT/1 ML 3ML VIAL SQ SCH ×4 (07:54→20:06)
[2017-12-12] MEDS: INSULIN DETEMIR 100 UNIT/ML PEN SQ SCH ×2 (07:55→20:06)
[2017-12-12] MEDS: ROPINIROLE HCL 1 MG TAB PO SCH (08:23)
[2017-12-12] MEDS: GABAPENTIN 300 MG CAP PO SCH ×3 (08:23→20:05)
[2017-12-12] MEDS: CITALOPRAM HYDROBROMIDE 20 MG TAB PO SCH (08:23)
[2017-12-12] MEDS: FERROUS SULFATE 325 MG TAB PO SCH (08:23)
[2017-12-12] MEDS: METOPROLOL TARTRATE 25 MG TAB PO SCH ×2 (08:23→16:00)
[2017-12-12] MEDS: FAMOTIDINE 20 MG TAB PO SCH (08:23)
[2017-12-12] MEDS: CYANOCOBALAMIN 1,000 MCG TAB PO SCH (08:23)
[2017-12-12] MEDS: CLOPIDOGREL BISULFATE 75 MG TAB PO SCH (08:23)
[2017-12-12] MEDS: MULTIVITAMINS/MINERALS TAB PO SCH (08:23)
[2017-12-12] MEDS: NON-FORMULARY MEDICATION (Biotin 5 MG) PO SCH (08:24)
[2017-12-12] MEDS: MEROPENEM 1 GM VIAL IV SCH (08:24)
[2017-12-12] MEDS: VANCOMYCIN 1GM/NS 250 ML 250 ML IV SCH (08:24)
[2017-12-12] MEDS: PANTOPRAZOLE 40 MG 10ML VIAL IV SCH (08:24)
[2017-12-12] MEDS: LORAZEPAM 0.5 MG TAB PO PRN ×2 (08:37→20:07)
[2017-12-12] MEDS: LEVOFLOXACIN 750MG/D5W 150ML 150 ML IV SCH (10:16)
[2017-12-12 12:12] LABS: BAND NEUTROPHILS % (MANUAL) 2 %; LYMPHOCYTES % (MANUAL) 11 % (19-48); MONOCYTES % (MANUAL) 3 % (3.4-9.0); NEUTROPHILS % (MANUAL) 82 % (40-74)
[2017-12-12 12:13] LABS: ANISOCYTOSIS SLIG; HYPOCHROMASIA SLIGHT; PLATELET MORPHOLOGY COMMENT NORMAL; POIKILOCYTOSIS SLIG; RBC MORPHOLOGY COMMENT NORMAL
[2017-12-12 12:14] LABS: PLATELET ESTIMATE ADEQUATE
--- NOTE | 2017-12-12 13:33 | Progress Note ---
DATE: December 12, 2017 CARDIOLOGY PROGRESS NOTE SUBJECTIVE: Patient has no complaints. She denies any shortness of breath at this time, palpitations, or chest pain. CARDIOVASCULAR MEDICATIONS 1. Metoprolol 25 mg p.o. b.i.d. 2. Plavix 75 p.o. daily. 3. Labetalol 5 mg q.2h. p.r.n. for high blood pressure. 4. Atorvastatin 80 mg p.o. at bedtime. 5. Warfarin 4 mg p.o. daily. LABS: WBC 8.07, hemoglobin 9.5, hematocrit 31.8, and platelets 354. Sodium 135, potassium 4.7, BUN 22, creatinine 1.14, and glucose 273. INR 2.89. OBJECTIVE VITAL SIGNS: Temperature 98.1, pulse 92, respiratory rate 18, blood pressure 138/69, and oxygen saturation 94%, trach collar. GENERAL: Alert and oriented x3, resting comfortably in bed, does not appear to be in any acute distress. Family at the bedside. NECK: Supple. No JVD noted. LUNGS: Clear to auscultation. No wheezing or rhonchi are noted. CARDIOVASCULAR: Regular rate and rhythm. Normal S1 and S2. ABDOMEN: Rounded, soft, and nontender. EXTREMITIES: Lower extremities, no edema. IMPRESSION 1. Altered mental status. 2. Szumf-kt-lykxtgx hypercapnic respiratory failure. 3. Sepsis, probably pulmonary etiology. 1. Anemia, likely gastrointestinal loss given stool occult blood. 2. Reported history of chronic systolic heart failure. 3. Coronary artery disease with a prior myocardial infarction. 4. Paroxysmal atrial fibrillation. 5. Acute kidney injury. 6. Diabetes mellitus. 7. Hypertension. 8. Hyperlipidemia. 9. History of deep venous thrombosis. RECOMMENDATION: Continue the above-listed cardiac medications. I have titrated beta bonnie today. Management of respiratory issues per pulmonary. Altered mental status likely secondary to hypercapnia. Echocardiogram has been ordered, awaiting review. Recommendations will follow. Given acute anemia, we are holding anticoagulation for now. Patient is currently in normal rhythm. Continue current medications, otherwise. DICTATED BY: Sima Rocha NP Job#: [id number] JOANN
--- NOTE | 2017-12-12 17:04 | Consultation ---
DATE OF CONSULTATION: December 12, 2017 INFECTIOUS DISEASE CONSULTATION ATTENDING PHYSICIAN: Dr. Yeyo Aiken REASON FOR CONSULTATION: Sepsis. Thank you, Dr. Aiken, for asking me to see this patient. HISTORY: The patient is a 57-year-old woman referred for antibiotic management. She was admitted through the emergency department with sepsis. She was sent to the emergency department from a senior care on 12/10/2017 with acute change in mental status. The patient was not feeling well prior and has had diarrhea. She denies increased sputum production, shortness of breath, nausea, vomiting, abdominal pain and dysuria. In the emergency department, she was noted to have temperature 100 degrees Fahrenheit, pulse 100, respiratory rate 18, blood pressure 79/65, and oxygen saturation 99% on supplemental oxygen (FiO2 unknown). The patient was started on pressor and placed on mechanical ventilator via tracheostomy. Initial laboratory studies showed white blood cell count of 12,240, hemoglobin 7.6, neutrophils 70.6, BUN 33, creatinine 1.8, blood glucose 155, and troponin less than 0.001. Chest x-ray showed low lung volumes and persistent bibasilar atelectasis. The patient has responded to management and is currently off pressor and mechanical ventilation. PAST MEDICAL HISTORY: Diabetes mellitus type 2 with peripheral neuropathy, hypertension, hyperlipidemia, coronary artery disease status post stenting, diastolic congestive heart failure, obstructive sleep apnea, chronic obstructive pulmonary disease, and respiratory failure. PAST SURGICAL HISTORY: Tonsillectomy, tracheostomy, and cholecystectomy. ALLERGIES: PENICILLIN AND LATEX (MANIFESTATIONS UNKNOWN). MEDICATIONS: See MAR. The current antibiotics are levofloxacin 750 mg IV piggyback daily, meropenem 1 g IV piggyback q.12 h., and vancomycin 1 g IV piggyback q.24 h. IMMUNIZATION: She received influenza and pneumococcal vaccination prior to admission. FAMILY HISTORY: Significant for diabetes mellitus and hypertension. SOCIAL HISTORY: No alcohol or tobacco use. REVIEW OF SYSTEMS: As per history of present illness. The patient feels much better since admission and management. Especially she thinks blood transfusion helped. She has tolerated oral feeding and denies shortness of breath, nausea, vomiting, abdominal pain and dysuria. She had diarrhea on the 1st day, but it subsided. She has not had a bowel movement thus far today. PHYSICAL EXAMINATION GENERAL: No acute distress. VITAL SIGNS: T-max 99.1, pulse 88, respiratory rate 18, blood pressure 148/80. Weight 260 pounds. HEENT: Atraumatic. There is no icterus or injection of the conjunctivae. There is no ear or nasal discharge. Moist oral mucosa with poor dentition. No oral lesions. NECK: Supple. Tracheostomy site is clean. LUNGS: Decreased breath sounds bilaterally. HEART: Normal S1 and S2. ABDOMEN: Soft and nontender. EXTREMITIES: There is no edema, clubbing or cyanosis. The left posterior forearm peripheral IV site is with tender cord. SKIN: No acute erythema. CORPORATE DEVELOPMENT INTERN: Awake, alert and oriented to person, place and time. Nonfocal. LABORATORY: WBC 8070, hemoglobin 9.5, platelets 354,000, neutrophils 79.7, lymphocytes 11.6, monocytes 5.5, eosinophils 0, basophils 0.2. BUN 22, creatinine 1.14, blood glucose 325. AST 9, ALT 14, alk phos 87, total bilirubin 0.1. Urinalysis was negative. Tracheal aspirate culture is pending. Blood culture: No growth. Urine culture yielded mixed yan contamination. Repeat chest x-ray shows clear lungs and cardiomegaly without decompensation. IMPRESSION 1. Possible sepsis present on admission, although the source is unclear at this time. 2. Anemia, status post packed red blood cells transfusion. 3. Chronic obstructive pulmonary disease with acute exacerbation. 4. Chronic respiratory failure. 5. Diabetes mellitus, type 2, with peripheral neuropathy, uncontrolled. 6. Atrial fibrillation by history. 7. Hypothyroidism. 8. Acute kidney injury. PLAN 1. Await tracheal aspirate culture result. Check stool for C. diff if diarrhea recurs. 2. Stop meropenem. 3. Glycemic control. Job#: [id number] PIERCE WISE
[2017-12-12] MEDS: NON-FORMULARY MEDICATION (Fenofibrate 160 MG) PO SCH (19:16)
[2017-12-12] MEDS: ATORVASTATIN 40 MG TAB PO SCH (20:05)
[2017-12-13] VITALS (40 sets, daily range): BP systolic 93–177; BP diastolic 58–137
--- NOTE | 2017-12-13 00:02 | Progress Note ---
DATE: December 12, 2017 SUBJECTIVE: Patient reports no abdominal pain. Tolerating oral feeds. REVIEW OF SYSTEMS: GENERAL: No fever or chills. RESPIRATORY: No cough or expectoration, no shortness of breath. CARDIOVASCULAR: No chest pain, palpitation. MEDICATIONS: Reviewed, as per NOV. PHYSICAL EXAMINATION: VITAL SIGNS: Temperature 97.5, pulse 84, respiration trach collar 16 to 18, blood pressure 156/81, oxygen saturation 95% on 8 liters of trach collar. GENERAL: Obese body habitus, not in any acute distress. HEENT: Moist mucous membranes. Anicteric sclerae. CVS: S1 and S2 regular. LUNGS: Bilaterally clear with distant breath sounds. ABDOMEN: Truncal obesity, soft, nondistended, nontender. No mass or hernia. Positive bowel sounds. EXTREMITIES: Warm. No leg edema. LABS: WBC 8.07, hemoglobin up to 9.5 from 8.9, hematocrit 31, platelet count 354,000. Sodium 135, potassium 4.7, chloride 96, bicarb 34, BUN 22, creatinine 1.14. Serum iron 39, TIBC 273, iron saturation 14, transferrin 195, ferritin 303.78. Stool occult is heme positive. IMPRESSION: Anemia with heme-positive stool, however, iron profile is not suggestive of iron deficiency. Patient has had a colonoscopy many years ago. She has had endoscopy couple of months ago when she was here. PLAN: At this point of time, I want the patient to recover from her respiratory issues as well as pneumonia. She is currently getting intravenous antibiotic. Once patient is medically stable, then colonoscopy can be considered. This does not necessarily need to be done while patient is in the hospital. This can electively be done as an outpatient. Job#: [id number]
[2017-12-13] MEDS: ALBUTEROL SULF 0.083% NEB SOLN 3 ML NEB NEB SCH ×6 (04:00→19:30)
[2017-12-13] MEDS: LABETALOL HCL 5 MG/ML 20ML VIAL IV PRN ×2 (04:22→13:29)
[2017-12-13] MEDS: LORAZEPAM 0.5 MG TAB PO PRN ×2 (04:25→16:30)
[2017-12-13] MEDS: NYSTATIN 15 GM POWDER UD BTL TOP SCH ×2 (05:31→17:02)
[2017-12-13] MEDS: METHYLPREDNISOLONE SOD SUCC 40 MG/ML VIAL IV SCH (05:31)
[2017-12-13 05:55] LABS: BASOPHILS % 0.2 % (0.0-1.0); HEMATOCRIT 31.7 % (34.2-44.1); HEMOGLOBIN 9.9 g/dL (12.0-16.0); LYMPHOCYTES # (AUTO) 1.1 (1.0-3.2); LYMPHOCYTES % 9.8 % (18.0-39.1); MEAN CORPUSCULAR HEMOGLOBIN 25.7 pg (28-32); MEAN CORPUSCULAR HGB CONC 31.2 g/dL (31-35); MEAN CORPUSCULAR VOLUME 82.3 fL (81-99); MONOCYTES # (AUTO) 0.8 (0.2-0.8); MONOCYTES % 7.2 % (4.4-11.3); NEUTROPHILS # (AUTO) 8.9 (2.1-6.9); NEUTROPHILS % 79.9 % (38.7-80.0); PLATELET COUNT 339 x10e3/uL (140-360); RED BLOOD COUNT 3.85 x10e6/uL (3.6-5.1); RED CELL DISTRIBUTION WIDTH 16.3 % (11.7-14.4)
[2017-12-13 06:21] LABS: ANION GAP 11.6 mmol/L (8-16); CALCIUM 9.3 mg/dL (8.4-10.2); CREATININE, SERUM 1.01 mg/dL (0.57-1.11); POTASSIUM 4.6 mmol/L (3.5-5.1)
[2017-12-13] MEDS: IPRATROPIUM BROMIDE 0.02% 2.5 ML NEB NEB SCH ×4 (07:15→19:30)
[2017-12-13] MEDS: HYDROCODONE/APAP 10MG-325MG TAB PO PRN ×2 (08:07→16:32)
[2017-12-13] MEDS: INSULIN DETEMIR 100 UNIT/ML PEN SQ SCH ×2 (08:09→20:07)
[2017-12-13] MEDS: INSULIN LISPRO 100 UNIT/1 ML 3ML VIAL SQ SCH ×4 (08:09→19:57)
[2017-12-13] MEDS: VANCOMYCIN 1GM/NS 250 ML 250 ML IV SCH (08:12)
[2017-12-13] MEDS: PANTOPRAZOLE 40 MG 10ML VIAL IV SCH (08:17)
[2017-12-13] MEDS: FERROUS SULFATE 325 MG TAB PO SCH (08:17)
[2017-12-13] MEDS: CITALOPRAM HYDROBROMIDE 20 MG TAB PO SCH (08:17)
[2017-12-13] MEDS: METOPROLOL TARTRATE 25 MG TAB PO SCH ×2 (08:23→16:30)
[2017-12-13] MEDS: MULTIVITAMINS/MINERALS TAB PO SCH (08:23)
[2017-12-13] MEDS: FAMOTIDINE 20 MG TAB PO SCH (08:23)
[2017-12-13] MEDS: GABAPENTIN 300 MG CAP PO SCH ×3 (08:23→20:06)
[2017-12-13] MEDS: ROPINIROLE HCL 1 MG TAB PO SCH (08:23)
[2017-12-13] MEDS: CLOPIDOGREL BISULFATE 75 MG TAB PO SCH (08:23)
[2017-12-13] MEDS: CYANOCOBALAMIN 1,000 MCG TAB PO SCH (08:24)
[2017-12-13] MEDS: NON-FORMULARY MEDICATION (Biotin 5 MG) PO SCH (09:00)
[2017-12-13] MEDS: LEVOFLOXACIN 750MG/D5W 150ML 150 ML IV SCH (10:00)
--- NOTE | 2017-12-13 11:00 | Progress Note ---
DATE: December 13, 2017 CARDIOLOGY PROGRESS NOTE SUBJECTIVE: Ms. Cole denies any chest pain or shortness of breath. She is comfortable, sitting upright. OBJECTIVE VITAL SIGNS: Afebrile. Heart rate 83, blood pressure 154/94. CARDIOVASCULAR: Regular rhythm. Systolic murmur. LUNGS: Clear to auscultation bilaterally. LABS: Reviewed. ASSESSMENT 1. Coronary artery disease. 2. Chronic systolic heart failure. 3. Paroxysmal atrial fibrillation. RECOMMENDATIONS: The patient remains in sinus rhythm. She has had acute anemia, for which anticoagulation has been held. Echocardiogram will be ordered and reviewed. Job#: [id number] VAS
[2017-12-13 11:02] LABS: BAND NEUTROPHILS % (MANUAL) 6 %; LYMPHOCYTES % (MANUAL) 16 % (19-48); MONOCYTES % (MANUAL) 4 % (3.4-9.0); NEUTROPHILS % (MANUAL) 74 % (40-74)
[2017-12-13 11:03] LABS: PLATELET ESTIMATE ADEQUATE; PLATELET MORPHOLOGY COMMENT NORMAL; RBC MORPHOLOGY COMMENT NORMAL
[2017-12-13] MEDS ORDERED: ONDANSETRON HCL INJ 2 MG/ML VIAL IV PRN (16:30)
[2017-12-13] MEDS: NON-FORMULARY MEDICATION (Fenofibrate 160 MG) PO SCH (19:46)
[2017-12-13] MEDS: ATORVASTATIN 40 MG TAB PO SCH (20:06)
--- NOTE | 2017-12-13 22:41 | Progress Note ---
DATE: December 13, 2017 SUBJECTIVE: Patient is reporting no abdominal pain, tolerating oral feeds. REVIEW OF SYSTEMS: GENERAL: No fever or chills. CVS: No chest pain, palpitation. RESPIRATORY: No cough or expectoration. MEDICATIONS: Reviewed, as per NOV. PHYSICAL EXAMINATION: VITAL SIGNS: Temperature 98.2, pulse 89, respiration 16 to 18, blood pressure 97/77 to 117/58, oxygen saturation 90% on a trach collar. GENERAL: Obese body habitus. HEENT: Moist mucous membranes. Anicteric sclerae. NECK: Tracheostomy in place. CVS: S1 and S2 regular. LUNGS: Bilaterally grossly clear with distant breath sounds. ABDOMEN: Truncal obesity, soft, nondistended, nontender. No mass or hernia. Positive bowel sounds. EXTREMITIES: Warm. No leg edema. LABS: Hemoglobin has come up to 9.9 from 7.6 on admission post blood transfusion. PLAN: Elective outpatient colonoscopy once patient is medically stable and out of ICU. This is indicated because patient has heme-positive stool. She has not had a colonoscopy for longtime. Upper endoscopy was performed within couple of months. Job#: [id number]
[2017-12-14] VITALS (8 sets, daily range): BP systolic 103–136; BP diastolic 70–86
[2017-12-14] MEDS: ALBUTEROL SULF 0.083% NEB SOLN 3 ML NEB NEB SCH ×5 (03:30→19:25)
[2017-12-14] MEDS: NYSTATIN 15 GM POWDER UD BTL TOP SCH ×2 (06:05→16:43)
[2017-12-14 06:13] LABS: BASOPHILS % 0.1 % (0.0-1.0); LYMPHOCYTES # (AUTO) 1.1 (1.0-3.2); LYMPHOCYTES % 9.1 % (18.0-39.1); MEAN CORPUSCULAR HEMOGLOBIN 31.3 pg (28-32); MEAN CORPUSCULAR HGB CONC 33.2 g/dL (31-35); MONOCYTES # (AUTO) 0.7 (0.2-0.8); MONOCYTES % 6.1 % (4.4-11.3); NEUTROPHILS # (AUTO) 10.1 (2.1-6.9); NEUTROPHILS % 84.2 % (38.7-80.0); PLATELET COUNT 215 x10e3/uL (140-360); RED BLOOD COUNT 2.24 x10e6/uL (3.6-5.1)
[2017-12-14 06:34] LABS: ALBUMIN 3.4 g/dL (3.5-5.0); ALBUMIN/GLOBULIN RATIO 1.4 (0.8-2.0); ANION GAP 14.5 mmol/L (8-16); CALCIUM 8.8 mg/dL (8.4-10.2); CREATININE, SERUM 1.48 mg/dL (0.57-1.11); POTASSIUM 5.5 mmol/L (3.5-5.1)
[2017-12-14] MEDS: IPRATROPIUM BROMIDE 0.02% 2.5 ML NEB NEB SCH ×4 (07:08→19:25)
[2017-12-14] MEDS: INSULIN LISPRO 100 UNIT/1 ML 3ML VIAL SQ SCH ×4 (07:30→21:00)
[2017-12-14 07:58] LABS: HEMATOCRIT 21.1 % (34.2-44.1)
[2017-12-14 07:59] LABS: MEAN CORPUSCULAR VOLUME 94.2 fL (81-99); RED CELL DISTRIBUTION WIDTH 13.7 % (11.7-14.4)
[2017-12-14] MEDS: VANCOMYCIN 1GM/NS 250 ML 250 ML IV SCH (08:30)
[2017-12-14] MEDS: GABAPENTIN 300 MG CAP PO SCH ×3 (09:00→23:04)
[2017-12-14] MEDS: NON-FORMULARY MEDICATION (Biotin 5 MG) PO SCH (09:00)
[2017-12-14] MEDS ORDERED: CHOLESTYRAMINE 4 GM PACKET PO PRN (09:00)
[2017-12-14] MEDS: CITALOPRAM HYDROBROMIDE 20 MG TAB PO SCH (09:00)
[2017-12-14] MEDS: PANTOPRAZOLE 40 MG 10ML VIAL IV SCH (09:00)
[2017-12-14] MEDS: CYANOCOBALAMIN 1,000 MCG TAB PO SCH (09:00)
[2017-12-14] MEDS: FAMOTIDINE 20 MG TAB PO SCH (09:00)
[2017-12-14] MEDS: ROPINIROLE HCL 1 MG TAB PO SCH (09:00)
[2017-12-14] MEDS: METHYLPREDNISOLONE SOD SUCC 40 MG/ML VIAL IV SCH (09:00)
[2017-12-14] MEDS: CLOPIDOGREL BISULFATE 75 MG TAB PO SCH (09:00)
[2017-12-14] MEDS: MULTIVITAMINS/MINERALS TAB PO SCH (09:00)
[2017-12-14] MEDS: INSULIN DETEMIR 100 UNIT/ML PEN SQ SCH ×2 (09:00→23:05)
[2017-12-14] MEDS: METOPROLOL TARTRATE 25 MG TAB PO SCH ×2 (09:00→16:43)
[2017-12-14] MEDS: FERROUS SULFATE 325 MG TAB PO SCH (09:00)
[2017-12-14 09:17] LABS: BASOPHILS % 0.2 % (0.0-1.0); EOSINOPHILS # (AUTO) 0.1 (0.0-0.4); EOSINOPHILS % 0.7 % (0.0-6.0); HEMATOCRIT 33.9 % (34.2-44.1); MEAN CORPUSCULAR HEMOGLOBIN 25.3 pg (28-32); MEAN CORPUSCULAR HGB CONC 30.4 g/dL (31-35); MONOCYTES # (AUTO) 1.3 (0.2-0.8); MONOCYTES % 9.1 % (4.4-11.3); NEUTROPHILS # (AUTO) 10.8 (2.1-6.9)
[2017-12-14 09:40] LABS: HEMOGLOBIN 10.3 g/dL (12.0-16.0); MEAN CORPUSCULAR VOLUME 83.3 fL (81-99); PLATELET COUNT 314 x10e3/uL (140-360); RED BLOOD COUNT 4.07 x10e6/uL (3.6-5.1); RED CELL DISTRIBUTION WIDTH 17.1 % (11.7-14.4)
[2017-12-14] MEDS: LEVOFLOXACIN 750MG/D5W 150ML 150 ML IV SCH (09:43)
--- NOTE | 2017-12-14 10:36 | Progress Note ---
DATE: 12/14/17 SUBJECTIVE: The patient was successfully transferred from ICU to the regular medical floor. She has had 2 bowel movements. Stools were noted soft, light brown. No abdominal pain. Hemoglobin dropped down from 9.9 to 7; however, the repeat one came up to 10.3. REVIEW OF SYSTEMS GENERAL: No fever or chills. RESPIRATORY: No cough or expectoration. CVS: No chest pain or palpitations. MEDICATIONS: Inpatient medication list reviewed. She is on antibiotic levofloxacin as well as vancomycin getting intravenously along with her other medications. PHYSICAL EXAMINATION VITAL SIGNS: Temperature 100.4, pulse ranging from 104 to 116, respirations 19 on trach collar, blood pressure 126/70, oxygen saturation 93%. GENERAL: Morbidly obese, not in any acute distress. HEENT: Moist mucous membranes. Anicteric sclerae. NECK: Tracheostomy site is clean. CVS: S1 and S2 regular. LUNGS: Bilaterally grossly clear. ABDOMEN: Obese. Huge truncal obesity. Nondistended. Nontender. No palpable mass or hernia. Positive bowel sounds. EXTREMITIES: Warm. No leg edema. LABS: Hemoglobin 10.3, hematocrit 35.3, platelet count 314, WBC 14.41. Sodium 136, potassium 5.5, chloride 101, bicarb 25, BUN 29, creatinine 1.48 which is up from 1.01. Glucose 146. IMPRESSION: Anemia with Hemoccult-positive stool. No gross gastrointestinal bleeding. Stool for occult blood is positive. Patient does have leukocytosis, mild fever and possible underlying sepsis with unknown source. Infectious disease is following. PLAN: From a GI standpoint, we will put her on a clear liquid diet. Try to give her bowel prep tomorrow if the patient remains stable and cleared by infectious disease to undergo colonoscopy on Thursday. She may also need upper endoscopy for evaluation of Hemoccult-positive stools with anemia, although she had an upper endoscopy a few weeks ago; however, there is always a possibility of a new source in the upper GI tract that can cause Hemoccult-positive stool. The patient is on pantoprazole as well as famotidine. Therefore, I am going to discontinue famotidine. Job#: [id number] PIERCE WISE
[2017-12-14] MEDS: TOBRAMYCIN 40 MG/ML 2ML VIAL INH SCH ×2 (11:23→19:35)
[2017-12-14] MEDS: HYDROCODONE/APAP 10MG-325MG TAB PO PRN ×2 (12:00→17:25)
[2017-12-14] MEDS ORDERED: SOD POLYSTYRENE SULFONATE SUSP 15 GM/60 ML BTL PR NR (12:00)
--- NOTE | 2017-12-14 13:08 | Progress Note ---
DATE: December 14, 2017 CARDIOLOGY PROGRESS NOTE SUBJECTIVE: Patient denies chest pain or shortness of breath. OBJECTIVE VITAL SIGNS: Temperature 98.9 degrees, pulse 75, respiratory rate 19, blood pressure 135/84, oxygen saturation 95% on trach collar. GENERAL: Morbidly obese woman, no acute distress, awake and alert. LUNGS: Clear to auscultation bilaterally. No wheezes or crackles. CARDIOVASCULAR: Normal rate, regular rhythm. No murmur. Normal S1 and S2. ABDOMEN: Soft, nontender. EXTREMITIES: No edema. CARDIAC MEDICATIONS 1. Metoprolol tartrate 25 mg p.o. b.i.d. 2. Plavix 75 mg p.o. daily. 3. Atorvastatin 80 mg p.o. nightly. 4. Fenofibrate 160 mg p.o. nightly. LABS: WBC 14.41, hemoglobin 10.3, hematocrit 33.9, and platelets 314. Sodium 136, potassium 5.5, chloride 102, CO2 of 25, BUN 29, creatinine 1.48. TELEMETRY: Normal sinus rhythm. IMPRESSION 1. Altered mental status, improved. 2. Bxrja-qn-irqihud hypercapnic respiratory failure. 3. Sepsis, possibly pulmonary etiology. 4. Anemia, likely gastrointestinal blood loss given positive stool occult blood. 5. History of chronic systolic heart failure. 6. Coronary artery disease with prior myocardial infarction. 7. Paroxysmal atrial fibrillation. 8. Acute kidney injury. 9. Diabetes mellitus. 10. Hypertension. 11. Hyperlipidemia. 12. History of deep venous thrombosis. RECOMMENDATIONS: Continue current cardiac medications. Warfarin has been held due to anemia and positive stool occult blood. Further evaluation per GI. Antibiotics per primary service. Patient is currently in sinus rhythm. Continue current cardiac medications. Thank you for this consult. We will continue to follow. Job#: [id number] LESLIE
[2017-12-14] MEDS: LORAZEPAM 0.5 MG TAB PO PRN (17:25)
[2017-12-14] MEDS: NON-FORMULARY MEDICATION (Fenofibrate 160 MG) PO SCH (21:00)
[2017-12-14] MEDS: ATORVASTATIN 40 MG TAB PO SCH (23:04)
[2017-12-15] VITALS (10 sets, daily range): BP systolic 82–152; BP diastolic 54–96
[2017-12-15] MEDS: ALBUTEROL SULF 0.083% NEB SOLN 3 ML NEB NEB SCH ×7 (00:01→23:24)
[2017-12-15] MEDS: IPRATROPIUM BROMIDE 0.02% 2.5 ML NEB NEB SCH ×4 (00:01→19:00)
[2017-12-15] MEDS: HYDROCODONE/APAP 10MG-325MG TAB PO PRN ×3 (01:00→18:31)
[2017-12-15] MEDS: LORAZEPAM 0.5 MG TAB PO PRN ×3 (02:34→20:39)
[2017-12-15 06:56] LABS: BASOPHILS % 0.2 % (0.0-1.0); EOSINOPHILS # (AUTO) 0.3 (0.0-0.4); EOSINOPHILS % 2.6 % (0.0-6.0); HEMATOCRIT 33.9 % (34.2-44.1); HEMOGLOBIN 10.3 g/dL (12.0-16.0); MEAN CORPUSCULAR HEMOGLOBIN 25.2 pg (28-32); MEAN CORPUSCULAR HGB CONC 30.4 g/dL (31-35); MEAN CORPUSCULAR VOLUME 82.9 fL (81-99); MONOCYTES # (AUTO) 0.8 (0.2-0.8); MONOCYTES % 7.5 % (4.4-11.3); NEUTROPHILS # (AUTO) 7.9 (2.1-6.9); NEUTROPHILS % 70.4 % (38.7-80.0); PLATELET COUNT 310 x10e3/uL (140-360); RED BLOOD COUNT 4.09 x10e6/uL (3.6-5.1); RED CELL DISTRIBUTION WIDTH 16.8 % (11.7-14.4)
[2017-12-15] MEDS: NYSTATIN 15 GM POWDER UD BTL TOP SCH ×2 (07:04→18:31)
[2017-12-15 07:25] LABS: ALANINE AMINOTRANSFERASE 15 IU/L (0-55); ALBUMIN 1.9 g/dL (3.5-5.0); ALBUMIN/GLOBULIN RATIO 0.5 (0.8-2.0); ALKALINE PHOSPHATASE 83 IU/L (40-150); ANION GAP 9.7 mmol/L (8-16); BLOOD UREA NITROGEN 15 mg/dL (7-26); BUN/CREATININE RATIO 19 (6-25); CALCIUM 9.1 mg/dL (8.4-10.2); CARBON DIOXIDE 36 mmol/L (22-29); CHLORIDE 99 mmol/L (98-107); CREATININE, SERUM 0.78 mg/dL (0.57-1.11); EST GLOMERULAR FILTRATION RATE > 60 ML/MIN (60-); GLUCOSE 91 mg/dL (74-118); POTASSIUM 3.7 mmol/L (3.5-5.1); SODIUM 141 mmol/L (136-145)
[2017-12-15] MEDS: INSULIN LISPRO 100 UNIT/1 ML 3ML VIAL SQ SCH ×4 (07:30→20:42)
[2017-12-15] MEDS: NON-FORMULARY MEDICATION (Biotin 5 MG) PO SCH (09:00)
[2017-12-15] MEDS: PANTOPRAZOLE 40 MG 10ML VIAL IV SCH (09:14)
[2017-12-15] MEDS: CITALOPRAM HYDROBROMIDE 20 MG TAB PO SCH (09:14)
[2017-12-15] MEDS: LEVOFLOXACIN 750MG/D5W 150ML 150 ML IV SCH (09:14)
[2017-12-15] MEDS: METHYLPREDNISOLONE SOD SUCC 40 MG/ML VIAL IV SCH (09:14)
[2017-12-15] MEDS: VANCOMYCIN 1GM/NS 250 ML 250 ML IV SCH (09:14)
[2017-12-15] MEDS: MULTIVITAMINS/MINERALS TAB PO SCH (09:14)
[2017-12-15] MEDS: CLOPIDOGREL BISULFATE 75 MG TAB PO SCH (09:16)
[2017-12-15] MEDS: GABAPENTIN 300 MG CAP PO SCH ×3 (09:16→20:07)
[2017-12-15] MEDS: FERROUS SULFATE 325 MG TAB PO SCH (09:16)
[2017-12-15] MEDS: METOPROLOL TARTRATE 25 MG TAB PO SCH ×2 (09:19→18:42)
[2017-12-15] MEDS: CYANOCOBALAMIN 1,000 MCG TAB PO SCH (09:19)
[2017-12-15] MEDS: ROPINIROLE HCL 1 MG TAB PO SCH (09:20)
[2017-12-15] MEDS ORDERED: SODIUM CHLORIDE 0.9% 250ML 250 ML ONE (09:41)
[2017-12-15] MEDS: INSULIN DETEMIR 100 UNIT/ML PEN SQ SCH ×2 (10:47→21:00)
[2017-12-15] MEDS: TOBRAMYCIN 40 MG/ML 2ML VIAL INH SCH ×2 (11:00→19:00)
[2017-12-15] MEDS: VANCOMYCIN 250MG/5ML ORAL SOLN PO SCH ×3 (12:07→23:21)
--- NOTE | 2017-12-15 13:01 | Progress Note ---
DATE: December 15, 2017 CARDIOLOGY PROGRESS NOTE SUBJECTIVE: Patient denies chest pain or shortness of breath. She walked with PT in the room. OBJECTIVE VITAL SIGNS: Temperature 96.8 degrees, pulse 85, respiratory rate 20, blood pressure 124/71, oxygen saturation 94% on 10 L O2. GENERAL: Morbidly obese woman in no acute distress, awake and alert. LUNGS: Clear to auscultation bilaterally. No wheezes or crackles. CARDIOVASCULAR: Normal rate, regular rhythm. No murmur. Normal S1 and S2. ABDOMEN: Soft, nontender. EXTREMITIES: No edema. CARDIAC MEDICATIONS 1. Metoprolol tartrate 25 mg p.o. b.i.d. 2. Plavix 75 mg p.o. daily. 3. Atorvastatin 80 mg p.o. nightly. LABS: WBC 11.25, hemoglobin 10.3, hematocrit 33.9, and platelets 310. Sodium 141, potassium 3.7, chloride 99, CO2 of 36, BUN 15, creatinine 0.78. C. diff positive. TELEMETRY: Normal sinus rhythm. IMPRESSION 1. Altered mental status, improved, likely secondary to hypercapnic respiratory failure. 2. Jdbzp-jt-sjajpmg hypercapnic respiratory failure, improved. 3. Sepsis secondary to methicillin-resistant Staphylococcus aureus pneumonia. 4. Clostridium difficile. 5. Anemia, likely gastrointestinal blood loss given positive stool occult blood. 6. History of chronic systolic heart failure. 7. Coronary artery disease with prior myocardial infarction. 8. Paroxysmal atrial fibrillation. 9. Acute kidney injury, improved. 10. Diabetes mellitus. 11. Hypertension. 12. Hyperlipidemia. 13. History of deep venous thrombosis. RECOMMENDATIONS: Continue current cardiac medications. Warfarin held due to anemia and positive stool occult blood. Further evaluation per GI. Antibiotics per primary service. Thank you for this consult. We will continue to follow. Job#: [id number]
[2017-12-15] MEDS: ATORVASTATIN 40 MG TAB PO SCH (20:07)
[2017-12-15] MEDS: NON-FORMULARY MEDICATION (Fenofibrate 160 MG) PO SCH (21:00)
[2017-12-16] VITALS (9 sets, daily range): BP systolic 112–157; BP diastolic 55–97
[2017-12-16] MEDS: VANCOMYCIN 1GM/NS 250 ML 250 ML IV SCH ×2 (01:37→20:30)
[2017-12-16] MEDS: ALBUTEROL SULF 0.083% NEB SOLN 3 ML NEB NEB SCH ×5 (02:30→23:00)
[2017-12-16] MEDS: IPRATROPIUM BROMIDE 0.02% 2.5 ML NEB NEB SCH ×4 (02:30→20:18)
[2017-12-16] MEDS: LORAZEPAM 0.5 MG TAB PO PRN ×3 (04:00→21:13)
[2017-12-16] MEDS: HYDROCODONE/APAP 10MG-325MG TAB PO PRN ×5 (04:00→21:13)
[2017-12-16 06:28] LABS: ANION GAP 9.6 mmol/L (8-16); BLOOD UREA NITROGEN 11 mg/dL (7-26); BUN/CREATININE RATIO 15 (6-25); CALCIUM 8.5 mg/dL (8.4-10.2); CARBON DIOXIDE 34 mmol/L (22-29); CHLORIDE 99 mmol/L (98-107); CREATININE, SERUM 0.72 mg/dL (0.57-1.11); EST GLOMERULAR FILTRATION RATE > 60 ML/MIN (60-); GLUCOSE 124 mg/dL (74-118); POTASSIUM 3.6 mmol/L (3.5-5.1); SODIUM 139 mmol/L (136-145)
[2017-12-16] MEDS: VANCOMYCIN 250MG/5ML ORAL SOLN PO SCH ×3 (06:58→17:16)
[2017-12-16] MEDS: NYSTATIN 15 GM POWDER UD BTL TOP SCH ×2 (06:59→21:12)
[2017-12-16] MEDS: INSULIN LISPRO 100 UNIT/1 ML 3ML VIAL SQ SCH ×4 (07:30→21:00)
[2017-12-16] MEDS: FERROUS SULFATE 325 MG TAB PO SCH (08:39)
[2017-12-16] MEDS: PANTOPRAZOLE 40 MG 10ML VIAL IV SCH (08:39)
[2017-12-16] MEDS: NON-FORMULARY MEDICATION (Biotin 5 MG) PO SCH (08:39)
[2017-12-16] MEDS: CITALOPRAM HYDROBROMIDE 20 MG TAB PO SCH (08:39)
[2017-12-16] MEDS: METHYLPREDNISOLONE SOD SUCC 40 MG/ML VIAL IV SCH (08:39)
[2017-12-16] MEDS: GABAPENTIN 300 MG CAP PO SCH ×3 (08:40→20:30)
[2017-12-16] MEDS: MULTIVITAMINS/MINERALS TAB PO SCH (08:40)
[2017-12-16] MEDS: ROPINIROLE HCL 1 MG TAB PO SCH (08:40)
[2017-12-16] MEDS: CLOPIDOGREL BISULFATE 75 MG TAB PO SCH (08:40)
[2017-12-16] MEDS: METOPROLOL TARTRATE 25 MG TAB PO SCH ×2 (08:40→16:39)
[2017-12-16] MEDS: CYANOCOBALAMIN 1,000 MCG TAB PO SCH (08:41)
[2017-12-16] MEDS: INSULIN DETEMIR 100 UNIT/ML PEN SQ SCH ×2 (09:59→20:45)
[2017-12-16] MEDS: TOBRAMYCIN 40 MG/ML 2ML VIAL INH SCH (10:45)
--- NOTE | 2017-12-16 18:00 | Progress Note ---
DATE: December 16, 2017 CARDIOLOGY PROGRESS NOTE SUBJECTIVE: Patient denies chest pain or shortness of breath. OBJECTIVE VITAL SIGNS: Temperature 98.9 degrees, pulse 86, respiratory rate 20, blood pressure 112/60, oxygen saturation 94% via trach collar. GENERAL: A morbidly woman in no acute distress. Awake and alert. LUNGS: Clear to auscultation bilaterally. No wheezes or crackles. CARDIOVASCULAR: Normal rate, regular rhythm. No murmur. Normal S1 and S2. ABDOMEN: Soft, nontender. EXTREMITIES: No edema. CARDIAC MEDICATIONS 1. Metoprolol tartrate 25 mg p.o. b.i.d. 2. Plavix 75 mg p.o. daily. 3. Atorvastatin 80 mg p.o. nightly. LABS: Sodium 139, potassium 3.6, chloride 99, CO2 34, BUN 11, creatinine 0.72. TELEMETRY: Normal sinus rhythm. IMPRESSION 1. Altered mental status, improved, likely secondary to hypercapnic respiratory failure. 2. Ahshq-gm-crfvpth hypercapnic respiratory failure, improved. 3. Sepsis secondary to Methicillin-resistant Staph aureus pneumonia. 4. Clostridium difficile diarrhea. 5. Anemia, likely gastrointestinal bleed given positive stool occult blood. 6. History of chronic systolic heart failure. 7. Coronary artery disease with prior myocardial infarction. 8. Paroxysmal atrial fibrillation. 9. Acute kidney injury, improved. 10. Diabetes mellitus. 11. Hypertension. 12. Hyperlipidemia. 13. History of deep vein thrombosis. RECOMMENDATIONS: Continue current cardiac medications. Warfarin held due to anemia and positive stool occult blood. Further evaluation per GI. Antibiotics per primary service. Thank you for this consult. We will continue to follow. Job#: [id number] EV
[2017-12-16] MEDS: TOBRAMYCIN 40MG/ML 30ML MDV INH SCH (20:18)
[2017-12-16] MEDS: ATORVASTATIN 40 MG TAB PO SCH (20:30)
[2017-12-16] MEDS ORDERED: SODIUM CHLORIDE 0.9% 250ML 250 ML ONE (20:55)
[2017-12-16] MEDS: NON-FORMULARY MEDICATION (Fenofibrate 160 MG) PO SCH (21:00)
[2017-12-17] VITALS (7 sets, daily range): BP systolic 119–169; BP diastolic 67–82
[2017-12-17] MEDS: VANCOMYCIN 250MG/5ML ORAL SOLN PO SCH ×4 (00:06→17:24)
[2017-12-17] MEDS: ALBUTEROL SULF 0.083% NEB SOLN 3 ML NEB NEB SCH ×5 (02:30→19:05)
[2017-12-17] MEDS: IPRATROPIUM BROMIDE 0.02% 2.5 ML NEB NEB SCH ×4 (02:30→19:05)
[2017-12-17] MEDS: NYSTATIN 15 GM POWDER UD BTL TOP SCH ×2 (05:55→17:24)
[2017-12-17] MEDS: TOBRAMYCIN 40MG/ML 30ML MDV INH SCH ×2 (07:00→19:05)
[2017-12-17] MEDS: INSULIN LISPRO 100 UNIT/1 ML 3ML VIAL SQ SCH ×4 (07:30→21:27)
[2017-12-17] MEDS: HYDROCODONE/APAP 10MG-325MG TAB PO PRN ×3 (07:47→21:21)
[2017-12-17] MEDS: MULTIVITAMINS/MINERALS TAB PO SCH (08:33)
[2017-12-17] MEDS: PANTOPRAZOLE 40 MG 10ML VIAL IV SCH (08:33)
[2017-12-17] MEDS: INSULIN DETEMIR 100 UNIT/ML PEN SQ SCH ×2 (08:33→21:27)
[2017-12-17] MEDS: CYANOCOBALAMIN 1,000 MCG TAB PO SCH (08:33)
[2017-12-17] MEDS: ROPINIROLE HCL 1 MG TAB PO SCH (08:33)
[2017-12-17] MEDS: CLOPIDOGREL BISULFATE 75 MG TAB PO SCH (08:33)
[2017-12-17] MEDS: CITALOPRAM HYDROBROMIDE 20 MG TAB PO SCH (08:33)
[2017-12-17] MEDS: GABAPENTIN 300 MG CAP PO SCH ×3 (08:33→21:21)
[2017-12-17] MEDS: PREDNISONE 10 MG TAB PO SCH (08:33)
[2017-12-17] MEDS: METOPROLOL TARTRATE 25 MG TAB PO SCH ×2 (08:33→17:24)
[2017-12-17] MEDS: FERROUS SULFATE 325 MG TAB PO SCH (08:33)
[2017-12-17] MEDS: NON-FORMULARY MEDICATION (Biotin 5 MG) PO SCH (08:34)
[2017-12-17] MEDS: LORAZEPAM 0.5 MG TAB PO PRN ×2 (09:52→18:44)
[2017-12-17] MEDS: ALBUTEROL/IPRATROPIUM 3 ML NEB INH PRN (12:50)
[2017-12-17] MEDS: VANCOMYCIN 1GM/NS 250 ML 250 ML IV SCH (14:16)
--- NOTE | 2017-12-17 14:56 | Progress Note ---
DATE: December 17, 2017 CARDIOLOGY PROGRESS NOTE SUBJECTIVE: Patient denies chest pain or shortness of breath. She is talking with a Passy-Gray valve. OBJECTIVE VITAL SIGNS: Temperature 98.7 degrees, pulse 100, respiratory rate 20, blood pressure 119/67, oxygen saturation 100% on trach collar. GENERAL: A morbidly obese woman in no acute distress, awake and alert. LUNGS: Clear to auscultation bilaterally. No wheezes or crackles. CARDIOVASCULAR: Normal rate, regular rhythm. No murmur. Normal S1 and S2. ABDOMEN: Soft, nontender. EXTREMITIES: No edema. CARDIAC MEDICATIONS 1. Metoprolol tartrate 25 mg p.o. b.i.d. 2. Plavix 75 mg p.o. daily. 3. Atorvastatin 80 mg p.o. nightly. LABS: None today. TELEMETRY: Normal sinus rhythm. IMPRESSION 1. Altered mental status, improved, likely secondary to hypercapnic respiratory failure. 2. Ljosx-ve-jaxmpef hypercapnic respiratory failure. 3. Sepsis secondary to Methicillin-resistant Staphylococcus aureus pneumonia. 4. Clostridium difficile diarrhea. 5. Anemia, likely gastrointestinal bleed given positive stool occult blood. 6. History of chronic systolic heart failure. 7. Coronary artery disease with prior myocardial infarction. 8. Paroxysmal atrial fibrillation. 9. Acute kidney injury, improved. 10. Diabetes mellitus. 11. Hypertension. 12. Hyperlipidemia. 13. History of deep vein thrombosis. RECOMMENDATIONS: Continue current cardiac medications. Warfarin was held due to anemia and positive stool occult blood. Further evaluation per GI. Antibiotics per Infectious Disease. Thank you for this consult. We will continue to follow. Job#: [id number] EV
[2017-12-17] MEDS: NON-FORMULARY MEDICATION (Fenofibrate 160 MG) PO SCH (21:00)
[2017-12-17] MEDS: ATORVASTATIN 40 MG TAB PO SCH (21:21)
[2017-12-18] VITALS (10 sets, daily range): BP systolic 120–167; BP diastolic 62–86
[2017-12-18] MEDS: ALBUTEROL SULF 0.083% NEB SOLN 3 ML NEB NEB SCH ×6 (00:07→19:40)
[2017-12-18] MEDS: IPRATROPIUM BROMIDE 0.02% 2.5 ML NEB NEB SCH ×4 (00:07→19:40)
[2017-12-18] MEDS: VANCOMYCIN 250MG/5ML ORAL SOLN PO SCH ×4 (00:32→17:20)
[2017-12-18] MEDS: HYDROCODONE/APAP 10MG-325MG TAB PO PRN ×4 (04:01→22:19)
[2017-12-18] MEDS: NYSTATIN 15 GM POWDER UD BTL TOP SCH (05:20)
[2017-12-18 06:30] LABS: ANION GAP 10.3 mmol/L (8-16); BLOOD UREA NITROGEN 10 mg/dL (7-26); BUN/CREATININE RATIO 15 (6-25); CALCIUM 8.5 mg/dL (8.4-10.2); CARBON DIOXIDE 34 mmol/L (22-29); CHLORIDE 101 mmol/L (98-107); CREATININE, SERUM 0.65 mg/dL (0.57-1.11); EST GLOMERULAR FILTRATION RATE > 60 ML/MIN (60-); GLUCOSE 88 mg/dL (74-118); POTASSIUM 4.3 mmol/L (3.5-5.1); SODIUM 141 mmol/L (136-145)
[2017-12-18] MEDS: TOBRAMYCIN 40MG/ML 30ML MDV INH SCH ×2 (07:21→19:25)
[2017-12-18] MEDS: INSULIN LISPRO 100 UNIT/1 ML 3ML VIAL SQ SCH ×4 (07:30→22:00)
[2017-12-18] MEDS: CITALOPRAM HYDROBROMIDE 20 MG TAB PO SCH (08:20)
[2017-12-18] MEDS: CLOPIDOGREL BISULFATE 75 MG TAB PO SCH (08:20)
[2017-12-18] MEDS: VANCOMYCIN 1GM/NS 250 ML 250 ML IV SCH (08:20)
[2017-12-18] MEDS: GABAPENTIN 300 MG CAP PO SCH ×3 (08:20→21:51)
[2017-12-18] MEDS: PANTOPRAZOLE 40 MG 10ML VIAL IV SCH (08:20)
[2017-12-18] MEDS: CYANOCOBALAMIN 1,000 MCG TAB PO SCH (08:20)
[2017-12-18] MEDS: MULTIVITAMINS/MINERALS TAB PO SCH (08:20)
[2017-12-18] MEDS: PREDNISONE 10 MG TAB PO SCH (08:20)
[2017-12-18] MEDS: ROPINIROLE HCL 1 MG TAB PO SCH (08:20)
[2017-12-18] MEDS: METOPROLOL TARTRATE 25 MG TAB PO SCH ×2 (08:20→16:20)
[2017-12-18] MEDS: FERROUS SULFATE 325 MG TAB PO SCH (08:20)
[2017-12-18] MEDS: NON-FORMULARY MEDICATION (Biotin 5 MG) PO SCH (09:00)
[2017-12-18] MEDS: INSULIN DETEMIR 100 UNIT/ML PEN SQ SCH ×2 (09:00→22:00)
[2017-12-18 15:04] LABS: BASOPHILS % 0.3 % (0.0-1.0); EOSINOPHILS # (AUTO) 0.2 (0.0-0.4); HEMATOCRIT 33.5 % (34.2-44.1); HEMOGLOBIN 9.6 g/dL (12.0-16.0); LYMPHOCYTES # (AUTO) 2.9 (1.0-3.2); MEAN CORPUSCULAR HEMOGLOBIN 24.7 pg (28-32); MEAN CORPUSCULAR HGB CONC 28.7 g/dL (31-35); MEAN CORPUSCULAR VOLUME 86.1 fL (81-99); MONOCYTES # (AUTO) 1.1 (0.2-0.8); MONOCYTES % 10.9 % (4.4-11.3); NEUTROPHILS # (AUTO) 5.6 (2.1-6.9); NEUTROPHILS % 56.4 % (38.7-80.0); PLATELET COUNT 376 x10e3/uL (140-360); RED BLOOD COUNT 3.89 x10e6/uL (3.6-5.1); RED CELL DISTRIBUTION WIDTH 16.9 % (11.7-14.4)
--- NOTE | 2017-12-18 15:14 | Progress Note ---
DATE: December 18, 2017 CARDIOLOGY PROGRESS NOTE SUBJECTIVE: Patient denies chest pain or shortness of breath. She continues to have diarrhea. OBJECTIVE VITAL SIGNS: Temperature 97.1 degrees, pulse 76, respiratory rate 20, blood pressure 135/74, oxygen saturation 99% on trach collar. GENERAL: Obese woman in no acute distress, awake and alert. LUNGS: Clear to auscultation bilaterally. No wheezes or crackles. CARDIOVASCULAR: Normal rate, regular rhythm. No murmur. Normal S1 and S2. ABDOMEN: Soft, nontender. EXTREMITIES: No edema. CARDIAC MEDICATIONS 1. Metoprolol tartrate 25 mg p.o. b.i.d. 2. Plavix 75 mg p.o. daily. 3. Atorvastatin 80 mg p.o. nightly. LABS: Sodium 141, potassium 4.3, chloride 101, CO2 34, BUN 10, creatinine 0.65. TELEMETRY: Normal sinus rhythm. IMPRESSION 1. Altered mental status, improved, likely secondary to hypercapnic respiratory failure. 2. Oviwq-iv-hvrlpco hypercapnic respiratory failure, improved. 3. Sepsis secondary to methicillin-resistant Staphylococcus aureus pneumonia. 4. Clostridium difficile diarrhea. 5. Anemia, likely gastrointestinal bleed given positive stool occult blood. 6. History of chronic systolic heart failure. 7. Coronary artery disease with prior myocardial infarction. 8. Paroxysmal atrial fibrillation. 9. Acute kidney injury, improved. 10. Diabetes mellitus. 11. Hypertension. 12. Hyperlipidemia. 13. History of deep vein thrombosis. RECOMMENDATIONS: Continue current cardiac medications. Warfarin was held due to anemia and positive stool occult blood. Further evaluation per GI. Antibiotics per infectious disease. Recheck CBC. If stable, will discuss reinitiation of anticoagulation. Thank you for this consult. We will continue to follow. Job#: [id number]
[2017-12-18] MEDS: NON-FORMULARY MEDICATION (Fenofibrate 160 MG) PO SCH (21:00)
[2017-12-18] MEDS: ATORVASTATIN 40 MG TAB PO SCH (21:51)
[2017-12-19] VITALS (7 sets, daily range): BP systolic 114–172; BP diastolic 57–94
[2017-12-19] MEDS: ALBUTEROL SULF 0.083% NEB SOLN 3 ML NEB NEB SCH ×8 (00:10→23:00)
[2017-12-19] MEDS: IPRATROPIUM BROMIDE 0.02% 2.5 ML NEB NEB SCH ×6 (00:10→23:33)
[2017-12-19] MEDS: VANCOMYCIN 250MG/5ML ORAL SOLN PO SCH ×4 (00:10→17:15)
[2017-12-19] MEDS: VANCOMYCIN 1GM/NS 250 ML 250 ML IV SCH ×2 (02:50→22:00)
[2017-12-19] MEDS: HYDROCODONE/APAP 10MG-325MG TAB PO PRN ×3 (05:19→21:18)
[2017-12-19] MEDS: TOBRAMYCIN 40MG/ML 30ML MDV INH SCH ×2 (07:15→19:20)
[2017-12-19] MEDS: INSULIN LISPRO 100 UNIT/1 ML 3ML VIAL SQ SCH ×4 (07:30→22:00)
[2017-12-19 07:58] LABS: BASOPHILS % 0.4 % (0.0-1.0); EOSINOPHILS # (AUTO) 0.2 (0.0-0.4); EOSINOPHILS % 1.5 % (0.0-6.0); HEMATOCRIT 30.9 % (34.2-44.1); HEMOGLOBIN 9.2 g/dL (12.0-16.0); LYMPHOCYTES # (AUTO) 2.9 (1.0-3.2); MEAN CORPUSCULAR HEMOGLOBIN 24.9 pg (28-32); MEAN CORPUSCULAR HGB CONC 29.8 g/dL (31-35); MEAN CORPUSCULAR VOLUME 83.5 fL (81-99); MONOCYTES # (AUTO) 1.1 (0.2-0.8); MONOCYTES % 10.8 % (4.4-11.3); NEUTROPHILS # (AUTO) 5.8 (2.1-6.9); NEUTROPHILS % 56.9 % (38.7-80.0); PLATELET COUNT 378 x10e3/uL (140-360); RED CELL DISTRIBUTION WIDTH 16.6 % (11.7-14.4)
[2017-12-19 08:15] LABS: ALANINE AMINOTRANSFERASE 22 IU/L (0-55); ALBUMIN 1.9 g/dL (3.5-5.0); ALBUMIN/GLOBULIN RATIO 0.6 (0.8-2.0); ALKALINE PHOSPHATASE 94 IU/L (40-150); ANION GAP 6.7 mmol/L (8-16); BLOOD UREA NITROGEN 7 mg/dL (7-26); BUN/CREATININE RATIO 12 (6-25); CALCIUM 8.3 mg/dL (8.4-10.2); CARBON DIOXIDE 34 mmol/L (22-29); CHLORIDE 101 mmol/L (98-107); CREATININE, SERUM 0.59 mg/dL (0.57-1.11); EST GLOMERULAR FILTRATION RATE > 60 ML/MIN (60-); GLUCOSE 99 mg/dL (74-118); POTASSIUM 3.7 mmol/L (3.5-5.1); SODIUM 138 mmol/L (136-145)
[2017-12-19] MEDS: METOPROLOL TARTRATE 25 MG TAB PO SCH ×2 (08:40→17:00)
[2017-12-19] MEDS: PREDNISONE 10 MG TAB PO SCH (08:40)
[2017-12-19] MEDS: GABAPENTIN 300 MG CAP PO SCH ×3 (08:40→22:00)
[2017-12-19] MEDS: FERROUS SULFATE 325 MG TAB PO SCH (08:40)
[2017-12-19] MEDS: PANTOPRAZOLE 40 MG 10ML VIAL IV SCH (08:40)
[2017-12-19] MEDS: MULTIVITAMINS/MINERALS TAB PO SCH (08:40)
[2017-12-19] MEDS: CLOPIDOGREL BISULFATE 75 MG TAB PO SCH (08:40)
[2017-12-19] MEDS: CITALOPRAM HYDROBROMIDE 20 MG TAB PO SCH (08:40)
[2017-12-19] MEDS: INSULIN DETEMIR 100 UNIT/ML PEN SQ SCH ×2 (08:41→22:00)
[2017-12-19] MEDS: CYANOCOBALAMIN 1,000 MCG TAB PO SCH (08:41)
[2017-12-19] MEDS: ROPINIROLE HCL 1 MG TAB PO SCH (08:41)
[2017-12-19] MEDS: NON-FORMULARY MEDICATION (Biotin 5 MG) PO SCH (09:00)
[2017-12-19 09:11] LABS: ANISOCYTOSIS SLIGHT; LYMPHOCYTES % (MANUAL) 19 % (19-48); MONOCYTES % (MANUAL) 5 % (3.4-9.0); NEUTROPHILS % (MANUAL) 76 % (40-74); PLATELET ESTIMATE ADEQUATE; PLATELET MORPHOLOGY COMMENT NORMAL; RBC MORPHOLOGY COMMENT ABNORMAL
[2017-12-19] MEDS: ALBUTEROL/IPRATROPIUM 3 ML NEB INH PRN ×4 (10:42→22:45)
--- NOTE | 2017-12-19 14:55 | Progress Note ---
DATE: December 19, 2017 CARDIOLOGY PROGRESS NOTE SUBJECTIVE: Patient denies chest pain or shortness of breath. OBJECTIVE VITAL SIGNS: Temperature 97.6 degrees, pulse 79, respiratory rate 18, blood pressure 163/72, and oxygen saturation 100% on trach collar. GENERAL: Obese woman, in no acute distress, awake and alert. LUNGS: Clear to auscultation bilaterally. No wheezes or crackles. CARDIOVASCULAR: Normal rate. Regular rhythm. No murmur. Normal S1 and S2. ABDOMEN: Soft and nontender. EXTREMITIES: No edema. CARDIAC MEDICATIONS 1. Metoprolol tartrate 25 mg p.o. b.i.d. 2. Plavix 75 mg p.o. daily. 3. Atorvastatin 80 mg p.o. at bedtime. 4. Fenofibrate 160 mg p.o. daily. LABS: WBC 10.17, hemoglobin, 9.2, hematocrit 30.9, and platelets 378. Sodium 138, potassium 3.7, chloride 101, CO2 of 34, BUN 7, and creatinine 0.59. TELEMETRY: Normal sinus rhythm. IMPRESSION 1. Altered mental status, improved, likely secondary to hypercapnic respiratory failure. 2. Msmxa-db-njmngqd hypercapnic respiratory failure, improved. 3. Sepsis secondary to methicillin-resistant Staphylococcus aureus pneumonia. 4. Clostridium difficile diarrhea. 5. Anemia, likely gastrointestinal bleed given positive stool occult blood. 6. History of chronic systolic heart failure. 7. Coronary artery disease with prior myocardial infarction. 8. Paroxysmal atrial fibrillation. 9. Acute kidney injury, improved. 10. Diabetes mellitus. 11. Hypertension. 12. Hyperlipidemia. 13. History of deep vein thrombosis. RECOMMENDATIONS: Continue current cardiac medications. Warfarin was held due to anemia and positive stool occult blood. Hemoglobin and hematocrit are downtrending. Hold anticoagulation for now. Further evaluation per GI. Antibiotics per infectious disease. Thank you for this consult. We will continue to follow. Job#: [id number] VAS
[2017-12-19] MEDS: NON-FORMULARY MEDICATION (Fenofibrate 160 MG) PO SCH (21:00)
[2017-12-19] MEDS: ATORVASTATIN 40 MG TAB PO SCH (22:00)
[2017-12-20] VITALS: BP 149/65
[2017-12-20] MEDS: VANCOMYCIN 250MG/5ML ORAL SOLN PO SCH ×5 (00:20→23:47)
[2017-12-20] MEDS: ALBUTEROL SULF 0.083% NEB SOLN 3 ML NEB NEB SCH ×6 (03:00→23:00)
[2017-12-20] MEDS: ALBUTEROL/IPRATROPIUM 3 ML NEB INH PRN ×6 (03:00→22:48)
[2017-12-20] MEDS: HYDROCODONE/APAP 10MG-325MG TAB PO PRN ×4 (03:34→23:46)
[2017-12-20 04:00] VITALS: BP 155/67
[2017-12-20] MEDS: TOBRAMYCIN 40MG/ML 30ML MDV INH SCH ×2 (06:53→20:00)
[2017-12-20] MEDS: IPRATROPIUM BROMIDE 0.02% 2.5 ML NEB NEB SCH ×4 (06:53→23:25)
[2017-12-20] MEDS: INSULIN LISPRO 100 UNIT/1 ML 3ML VIAL SQ SCH ×4 (07:40→21:45)
[2017-12-20 07:41] VITALS: BP 163/76
[2017-12-20] MEDS: CYANOCOBALAMIN 1,000 MCG TAB PO SCH (08:20)
[2017-12-20] MEDS: MULTIVITAMINS/MINERALS TAB PO SCH (08:20)
[2017-12-20] MEDS: GABAPENTIN 300 MG CAP PO SCH ×3 (08:20→22:03)
[2017-12-20] MEDS: FERROUS SULFATE 325 MG TAB PO SCH (08:20)
[2017-12-20] MEDS: ROPINIROLE HCL 1 MG TAB PO SCH (08:20)
[2017-12-20] MEDS: PREDNISONE 5 MG TAB PO SCH (08:20)
[2017-12-20] MEDS: PANTOPRAZOLE 40 MG 10ML VIAL IV SCH (08:20)
[2017-12-20] MEDS: METOPROLOL TARTRATE 25 MG TAB PO SCH ×2 (08:20→17:05)
[2017-12-20] MEDS: CLOPIDOGREL BISULFATE 75 MG TAB PO SCH (08:20)
[2017-12-20] MEDS: CITALOPRAM HYDROBROMIDE 20 MG TAB PO SCH (08:20)
[2017-12-20] MEDS: INSULIN DETEMIR 100 UNIT/ML PEN SQ SCH ×2 (08:22→21:45)
[2017-12-20] MEDS: NON-FORMULARY MEDICATION (Biotin 5 MG) PO SCH (09:00)
[2017-12-20] MEDS ORDERED: LORAZEPAM INJ 2 MG/ML VIAL ONE (09:00)
[2017-12-20] MEDS ORDERED: PREDNISONE 10 MG TAB PO SCH (09:00)
[2017-12-20] MEDS ORDERED: METOPROLOL TARTRATE 25 MG TAB ONE (09:08)
[2017-12-20 09:14] LABS: ABG PCO2 65 mmHg (41-51); ABG PO2 246 mmHg (80-105)
[2017-12-20 09:15] LABS: ABG HCO3 32 mmol/L (23-28)
--- NOTE | 2017-12-20 11:17 | Diagnostic Imaging Report ---
EXAM: XR CHEST 1 VIEW DATE: 12/20/2017 10:28 AM INDICATION: COPD/sepsis COMPARISON: 12/11/2017 FINDINGS: Lines and Tubes: Tracheostomy appliance. Heart and Mediastinum: Accentuated by low lung volumes. Lungs and Pleura: Body habitus, low lung volumes, underpenetration limit evaluation. Questionable left retrocardiac opacity. Bones and Soft Tissues: No acute findings. IMPRESSION: 1. Technically limited exam. Left basilar atelectasis versus pneumonia. Signed by: Dr. John Sauer MD on 12/20/2017 11:14 AM
--- NOTE | 2017-12-20 13:45 | Progress Note ---
DATE: December 20, 2017 CARDIOLOGY PROGRESS NOTE SUBJECTIVE: Patient had rapid response called this morning due to respiratory distress. The patient was found sitting up at the side of her bed on trach collar, complaining of dyspnea. O2 sat could not be obtained. Rapid response was called. She was given Ativan and metoprolol with improvement in her symptoms. On exam she is without complaints, states she feels better. OBJECTIVE VITAL SIGNS: Temperature 97.3 degrees, pulse 88, respiratory rate 18, blood pressure 163/76, oxygen saturation 98% on 5 liters trach collar. GENERAL: A morbidly obese woman in no acute distress. Awake and alert. LUNGS: Clear to auscultation bilaterally. No wheezes or crackles. CARDIOVASCULAR: Normal rate, regular rhythm. No murmur. Normal S1 and S2. ABDOMEN: Soft, nontender. EXTREMITIES: No edema. CARDIAC MEDICATIONS 1. Metoprolol tartrate 25 mg p.o. b.i.d. 2. Plavix 75 mg p.o. daily. 3. Atorvastatin 80 mg p.o. nightly. 4. Enoxaparin 40 mg subcutaneous daily. LABS: None today. CHEST X-RAY: Technically limited exam. Left basilar atelectasis versus pneumonia. TELEMETRY: Normal sinus rhythm. IMPRESSION 1. Altered mental status, improved. Likely secondary to hypercapnic respiratory failure. 2. Gpduj-hr-zsjeeay hypercapnic respiratory failure, improved. 3. Sepsis secondary to Methicillin-resistant Staphylococcus aureus pneumonia. 4. Clostridium difficile diarrhea. 5. Anemia, likely gastrointestinal bleed given positive stool occult blood. 6. History of chronic systolic heart failure. 7. Coronary artery disease with prior myocardial infarction. 8. Paroxysmal atrial fibrillation. 9. Acute kidney injury, improved. 10. Diabetes mellitus. 11. Hypertension. 12. Hyperlipidemia. 13. History of deep vein thrombosis. RECOMMENDATIONS: Continue current cardiac medications. Warfarin had been held due to acute anemia and positive stool occult blood. However, hemoglobin and hematocrit are still downtrending. Will hold anticoagulation for now. Further evaluation per GI. Check basic metabolic panel and BNP today. Antibiotics per Infectious Disease. Thank you for this consult. We will continue to follow. Job#: [id number] SRINIVASA
[2017-12-20] MEDS: VANCOMYCIN 1GM/NS 250 ML 250 ML IV SCH (14:45)
[2017-12-20 15:25] VITALS: BP 163/76
[2017-12-20 15:55] LABS: ANION GAP 10.2 mmol/L (8-16); BLOOD UREA NITROGEN 9 mg/dL (7-26); BUN/CREATININE RATIO 13 (6-25); CALCIUM 8.4 mg/dL (8.4-10.2); CARBON DIOXIDE 33 mmol/L (22-29); CHLORIDE 99 mmol/L (98-107); CREATININE, SERUM 0.68 mg/dL (0.57-1.11); EST GLOMERULAR FILTRATION RATE > 60 ML/MIN (60-); GLUCOSE 220 mg/dL (74-118); POTASSIUM 4.2 mmol/L (3.5-5.1); SODIUM 138 mmol/L (136-145)
[2017-12-20] MEDS: ENOXAPARIN SOD INJ 40 MG/0.4 ML SYR SC SCH (16:40)
[2017-12-20] MEDS: NON-FORMULARY MEDICATION (Fenofibrate 160 MG) PO SCH (21:00)
[2017-12-20 21:12] VITALS: BP 139/71
[2017-12-20 21:50] VITALS: BP 139/71
[2017-12-20] MEDS: ATORVASTATIN 40 MG TAB PO SCH (22:03)
[2017-12-21] VITALS (7 sets, daily range): BP systolic 117–173; BP diastolic 56–79
[2017-12-21] MEDS: ALBUTEROL SULF 0.083% NEB SOLN 3 ML NEB NEB SCH ×6 (03:00→23:10)
[2017-12-21] MEDS: VANCOMYCIN 250MG/5ML ORAL SOLN PO SCH ×4 (05:58→23:22)
[2017-12-21] MEDS: HYDROCODONE/APAP 10MG-325MG TAB PO PRN ×2 (06:03→12:34)
[2017-12-21 06:36] LABS: BASOPHILS % 0.4 % (0.0-1.0); EOSINOPHILS # (AUTO) 0.2 (0.0-0.4); EOSINOPHILS % 1.6 % (0.0-6.0); HEMATOCRIT 30.6 % (34.2-44.1); LYMPHOCYTES # (AUTO) 2.7 (1.0-3.2); LYMPHOCYTES % 25.6 % (18.0-39.1); MEAN CORPUSCULAR HEMOGLOBIN 25.1 pg (28-32); MEAN CORPUSCULAR HGB CONC 29.4 g/dL (31-35); MEAN CORPUSCULAR VOLUME 85.2 fL (81-99); MONOCYTES % 9.6 % (4.4-11.3); NEUTROPHILS # (AUTO) 6.4 (2.1-6.9); NEUTROPHILS % 60.8 % (38.7-80.0); PLATELET COUNT 420 x10e3/uL (140-360); RED BLOOD COUNT 3.59 x10e6/uL (3.6-5.1); RED CELL DISTRIBUTION WIDTH 16.5 % (11.7-14.4)
[2017-12-21] MEDS: IPRATROPIUM BROMIDE 0.02% 2.5 ML NEB NEB SCH ×3 (06:55→19:09)
[2017-12-21] MEDS: TOBRAMYCIN 40MG/ML 30ML MDV INH SCH ×2 (06:56→19:09)
[2017-12-21 07:08] LABS: ALANINE AMINOTRANSFERASE 28 IU/L (0-55); ALBUMIN 1.9 g/dL (3.5-5.0); ALBUMIN/GLOBULIN RATIO 0.5 (0.8-2.0); ALKALINE PHOSPHATASE 95 IU/L (40-150); ANION GAP 9.8 mmol/L (8-16); BLOOD UREA NITROGEN 8 mg/dL (7-26); BUN/CREATININE RATIO 13 (6-25); CALCIUM 8.6 mg/dL (8.4-10.2); CARBON DIOXIDE 35 mmol/L (22-29); CHLORIDE 100 mmol/L (98-107); CREATININE, SERUM 0.63 mg/dL (0.57-1.11); EST GLOMERULAR FILTRATION RATE > 60 ML/MIN (60-); GLUCOSE 135 mg/dL (74-118); POTASSIUM 3.8 mmol/L (3.5-5.1); SODIUM 141 mmol/L (136-145)
[2017-12-21] MEDS: INSULIN LISPRO 100 UNIT/1 ML 3ML VIAL SQ SCH ×4 (07:30→20:34)
[2017-12-21] MEDS: VANCOMYCIN 1GM/NS 250 ML 250 ML IV SCH (08:00)
[2017-12-21] MEDS: FERROUS SULFATE 325 MG TAB PO SCH (08:46)
[2017-12-21] MEDS: MULTIVITAMINS/MINERALS TAB PO SCH (08:46)
[2017-12-21] MEDS: METOPROLOL TARTRATE 25 MG TAB PO SCH ×2 (08:46→17:52)
[2017-12-21] MEDS: PANTOPRAZOLE 40 MG 10ML VIAL IV SCH (08:46)
[2017-12-21] MEDS: CYANOCOBALAMIN 1,000 MCG TAB PO SCH (08:46)
[2017-12-21] MEDS: GABAPENTIN 300 MG CAP PO SCH ×3 (08:46→20:37)
[2017-12-21] MEDS: PREDNISONE 5 MG TAB PO SCH (08:46)
[2017-12-21] MEDS: CLOPIDOGREL BISULFATE 75 MG TAB PO SCH (08:46)
[2017-12-21] MEDS: CITALOPRAM HYDROBROMIDE 20 MG TAB PO SCH (08:46)
[2017-12-21] MEDS: NON-FORMULARY MEDICATION (Biotin 5 MG) PO SCH (08:47)
[2017-12-21] MEDS: ROPINIROLE HCL 1 MG TAB PO SCH (08:47)
[2017-12-21] MEDS: INSULIN DETEMIR 100 UNIT/ML PEN SQ SCH ×2 (09:05→20:34)
[2017-12-21] MEDS: LORAZEPAM 0.5 MG TAB PO PRN (10:05)
[2017-12-21] MEDS: ENOXAPARIN SOD INJ 40 MG/0.4 ML SYR SC SCH (17:52)
[2017-12-21] MEDS: NON-FORMULARY MEDICATION (Fenofibrate 160 MG) PO SCH (20:37)
[2017-12-21] MEDS: ATORVASTATIN 40 MG TAB PO SCH (20:37)
--- NOTE | 2017-12-21 23:37 | Progress Note ---
DATE: December 21, 2017 CARDIOLOGY PROGRESS NOTE SUBJECTIVE: Patient denies chest pain or shortness of breath. OBJECTIVE VITAL SIGNS: Temperature 97.7 degrees, pulse 79, respiratory rate 20, blood pressure 117/56, oxygen saturation 96% on 5 L trach collar. GENERAL: Morbidly obese woman. No acute distress. Awake and alert. LUNGS: Clear to auscultation bilaterally. No wheezes or crackles. CARDIOVASCULAR: Normal rate. Regular rhythm. No murmur. Normal S1/S2. ABDOMEN: Soft, nontender. EXTREMITIES: No edema. CARDIAC MEDICATIONS 1. Atorvastatin 80 mg p.o. nightly. 2. Enoxaparin 40 mg subcutaneous daily. 3. Metoprolol tartrate 25 mg p.o. b.i.d. 4. Plavix 75 mg p.o. daily. 5. Fenofibrate 160 mg p.o. nightly. LABS: WBC 10.45, hemoglobin 9, hematocrit 30.6, platelets 420,000. Sodium 141, potassium 3.8, chloride 100, CO2 35, BUN 8, creatinine 0.63. TELEMETRY: Normal sinus rhythm. IMPRESSIONS 1. Altered mental status, improved. Likely secondary to hypercapnic respiratory failure. 2. Fdhkw-ie-sxgektx hypercapnic respiratory failure, improved. 3. Sepsis secondary to Methicillin-resistant Staphylococcus aureus pneumonia. 4. Clostridium difficile diarrhea. 5. Anemia, likely gastrointestinal bleed given positive stool occult blood. 6. History of chronic systolic heart failure. 7. Coronary artery disease with prior myocardial infarction. 8. Paroxysmal atrial fibrillation. 9. Acute kidney injury, improved. 10. Diabetes mellitus. 11. Hypertension. 12. Hyperlipidemia. 13. History of deep vein thrombosis. RECOMMENDATIONS: Continue current cardiac medications. Warfarin was held due to acute anemia and positive stool occult blood. Hemoglobin and hematocrit continue to gradually decrease. We will not reinitiate at this time. Evaluation per GI. Antibiotics per infectious disease. The patient's BNP is elevated, likely has a component of volume overload. We will start Lasix. Thank you for this consult. We will continue to follow. Job#: [id number] CQ
[2017-12-22] VITALS (7 sets, daily range): BP systolic 118–190; BP diastolic 58–84
[2017-12-22] MEDS: LORAZEPAM 0.5 MG TAB PO PRN ×4 (01:59→23:21)
[2017-12-22] MEDS: IPRATROPIUM BROMIDE 0.02% 2.5 ML NEB NEB SCH ×4 (03:00→19:25)
[2017-12-22] MEDS: ALBUTEROL SULF 0.083% NEB SOLN 3 ML NEB NEB SCH ×6 (03:00→23:30)
[2017-12-22] MEDS: HYDROCODONE/APAP 10MG-325MG TAB PO PRN ×3 (03:56→16:54)
[2017-12-22] MEDS: VANCOMYCIN 250MG/5ML ORAL SOLN PO SCH (05:30)
[2017-12-22] MEDS: TOBRAMYCIN 40MG/ML 30ML MDV INH SCH ×2 (07:00→19:25)
[2017-12-22] MEDS: INSULIN LISPRO 100 UNIT/1 ML 3ML VIAL SQ SCH ×4 (07:30→20:54)
[2017-12-22] MEDS: PANTOPRAZOLE 40 MG 10ML VIAL IV SCH (08:43)
[2017-12-22] MEDS: PREDNISONE 5 MG TAB PO SCH (08:43)
[2017-12-22] MEDS: CLOPIDOGREL BISULFATE 75 MG TAB PO SCH (08:43)
[2017-12-22] MEDS: FUROSEMIDE INJ 10 MG/ML 4 ML VIAL IV SCH ×2 (08:43→16:51)
[2017-12-22] MEDS: GABAPENTIN 300 MG CAP PO SCH ×3 (08:43→20:56)
[2017-12-22] MEDS: CITALOPRAM HYDROBROMIDE 20 MG TAB PO SCH (08:43)
[2017-12-22] MEDS: ROPINIROLE HCL 1 MG TAB PO SCH (08:43)
[2017-12-22] MEDS: MULTIVITAMINS/MINERALS TAB PO SCH (08:43)
[2017-12-22] MEDS: FERROUS SULFATE 325 MG TAB PO SCH (08:43)
[2017-12-22] MEDS: METOPROLOL TARTRATE 25 MG TAB PO SCH ×2 (08:43→16:51)
[2017-12-22] MEDS: CYANOCOBALAMIN 1,000 MCG TAB PO SCH (08:44)
[2017-12-22] MEDS: INSULIN DETEMIR 100 UNIT/ML PEN SQ SCH ×2 (08:45→20:54)
[2017-12-22] MEDS: NON-FORMULARY MEDICATION (Biotin 5 MG) PO SCH (08:48)
--- NOTE | 2017-12-22 16:38 | Progress Note ---
DATE: December 22, 2017 CARDIOLOGY PROGRESS NOTE SUBJECTIVE: Patient denies chest pain or shortness of breath. She reports her diarrhea is almost completely resolved. OBJECTIVE VITAL SIGNS: Temperature 97.1 degrees, pulse 86, respiratory rate 20, blood pressure 127/78. Oxygen saturation 95% on trach collar. GENERAL: Morbidly obese woman in no acute distress. Awake and alert. LUNGS: Clear to auscultation bilaterally. No wheezes or crackles. CARDIOVASCULAR: Normal rate. Regular rhythm. No murmur. Normal S1, S2. ABDOMEN: Soft, nontender. EXTREMITIES: No edema. CARDIAC MEDICATIONS 1. Furosemide 40 mg IV b.i.d. 2. Metoprolol tartrate 25 mg p.o. b.i.d. 3. Plavix 75 mg p.o. daily. 4. Atorvastatin 80 mg p.o. nightly. 5. Enoxaparin 40 mg subcutaneous daily. 6. Fenofibrate 160 mg p.o. nightly. LABS: None today. TELEMETRY: Normal sinus rhythm. IMPRESSION 1. Altered mental status, improved, likely secondary to hypercapnic respiratory failure. 2. Gzgjb-mu-jabpmgx hypercapnic respiratory failure, improved. 3. Sepsis secondary to methicillin-resistant Staphylococcus aureus pneumonia. 4. Clostridium difficile diarrhea. 5. Anemia, likely gastrointestinal bleed given positive stool occult blood. 6. History of chronic systolic heart failure. 7. Coronary artery disease with prior myocardial infarction. 8. Paroxysmal atrial fibrillation. 9. Diabetes mellitus. 10. Hypertension. 11. Hyperlipidemia. 12. History of deep vein thrombosis. RECOMMENDATIONS: Continue current cardiac medications. Warfarin has been held due to acute anemia. Hemoglobin and hematocrit continue to trend down. We will not reinitiate at this time. Evaluation per GI. Antibiotics per infectious disease. Continue gentle diuretics and monitor creatinine while on IV Lasix. Thank you for this consult. We will continue to follow. Job#: [id number]
[2017-12-22] MEDS: ENOXAPARIN SOD INJ 40 MG/0.4 ML SYR SC SCH (16:52)
[2017-12-22 18:54] LABS: ANION GAP 12.9 mmol/L (8-16); BLOOD UREA NITROGEN 11 mg/dL (7-26); BUN/CREATININE RATIO 13 (6-25); CALCIUM 8.7 mg/dL (8.4-10.2); CARBON DIOXIDE 38 mmol/L (22-29); CHLORIDE 95 mmol/L (98-107); CREATININE, SERUM 0.82 mg/dL (0.57-1.11); EST GLOMERULAR FILTRATION RATE > 60 ML/MIN (60-); GLUCOSE 211 mg/dL (74-118); POTASSIUM 3.9 mmol/L (3.5-5.1); SODIUM 142 mmol/L (136-145)
[2017-12-22] MEDS: ATORVASTATIN 40 MG TAB PO SCH (20:56)
[2017-12-22] MEDS: NON-FORMULARY MEDICATION (Fenofibrate 160 MG) PO SCH (20:56)
[2017-12-23] VITALS: BP 132/60
[2017-12-23] MEDS ORDERED: HYDROCODONE/APAP 10MG-325MG TAB PO ONE (01:30)
[2017-12-23] MEDS: ALBUTEROL SULF 0.083% NEB SOLN 3 ML NEB NEB SCH ×6 (03:05→23:50)
[2017-12-23] MEDS: IPRATROPIUM BROMIDE 0.02% 2.5 ML NEB NEB SCH ×4 (03:05→19:25)
[2017-12-23 04:00] VITALS: BP 167/74
[2017-12-23] MEDS: LORAZEPAM 0.5 MG TAB PO PRN ×2 (06:26→23:51)
[2017-12-23] MEDS: TOBRAMYCIN 40MG/ML 30ML MDV INH SCH (07:11)
[2017-12-23] MEDS: INSULIN LISPRO 100 UNIT/1 ML 3ML VIAL SQ SCH ×4 (07:30→22:15)
[2017-12-23 08:00] VITALS: BP 153/70
[2017-12-23] MEDS: INSULIN DETEMIR 100 UNIT/ML PEN SQ SCH ×2 (09:00→22:15)
[2017-12-23] MEDS: NON-FORMULARY MEDICATION (Biotin 5 MG) PO SCH (09:00)
[2017-12-23] MEDS: FUROSEMIDE INJ 10 MG/ML 4 ML VIAL IV SCH ×2 (09:28→17:00)
[2017-12-23] MEDS: GABAPENTIN 300 MG CAP PO SCH ×3 (09:28→22:15)
[2017-12-23] MEDS: MULTIVITAMINS/MINERALS TAB PO SCH (09:28)
[2017-12-23] MEDS: CITALOPRAM HYDROBROMIDE 20 MG TAB PO SCH (09:28)
[2017-12-23] MEDS: FERROUS SULFATE 325 MG TAB PO SCH (09:28)
[2017-12-23] MEDS: CLOPIDOGREL BISULFATE 75 MG TAB PO SCH (09:28)
[2017-12-23] MEDS: METOPROLOL TARTRATE 25 MG TAB PO SCH ×2 (09:28→17:24)
[2017-12-23] MEDS: ROPINIROLE HCL 1 MG TAB PO SCH (09:29)
[2017-12-23] MEDS: CYANOCOBALAMIN 1,000 MCG TAB PO SCH (09:29)
[2017-12-23] MEDS: PANTOPRAZOLE SOD 40 MG TABEC PO SCH (09:29)
[2017-12-23] MEDS ORDERED: HYDROCODONE/APAP 10MG-325MG TAB PO PRN (09:45)
[2017-12-23 12:00] VITALS: BP 142/84
[2017-12-23] MEDS: VANCOMYCIN 250MG/5ML ORAL SOLN PO SCH ×2 (12:00→17:24)
[2017-12-23] MEDS: HYDROCODONE/APAP 10MG-325MG TAB PO PRN ×3 (15:46→23:52)
[2017-12-23 16:00] VITALS: BP 84/65
[2017-12-23] MEDS: ENOXAPARIN SOD INJ 40 MG/0.4 ML SYR SC SCH (17:24)
[2017-12-23] MEDS ORDERED: FUROSEMIDE 40 MG TAB PO SCH (18:00)
[2017-12-23 20:00] VITALS: BP 128/60
[2017-12-23] MEDS: NON-FORMULARY MEDICATION (Fenofibrate 160 MG) PO SCH (21:00)
--- NOTE | 2017-12-23 22:05 | Progress Note ---
DATE: December 23, 2017 CARDIOLOGY PROGRESS NOTE SUBJECTIVE: The patient denies chest pain or shortness of breath. OBJECTIVE VITAL SIGNS: Temperature 97.7 degrees, pulse 73, respiratory rate 20, blood pressure 142/84, oxygen saturation 96%. GENERAL: Morbidly obese woman in no acute distress. Awake and alert. LUNGS: Clear to auscultation bilaterally. No wheezes or crackles. CARDIOVASCULAR: Normal rate. Regular rhythm. No murmur. Normal S1, S2. ABDOMEN: Soft, nontender. EXTREMITIES: No edema. CARDIAC MEDICATIONS 1. Furosemide 40 mg IV b.i.d. 2. Metoprolol tartrate 25 mg p.o. b.i.d. 3. Plavix 75 mg p.o. daily. 4. Atorvastatin 80 mg p.o. nightly. 5. Fenofibrate 160 mg p.o. nightly. LABS: None today. TELEMETRY: Normal sinus rhythm. IMPRESSION 1. Altered mental status, improved, likely secondary to hypercapnic respiratory failure. 2. Ococn-nu-gnisyrh hypercapnic respiratory failure, improved. 3. Sepsis secondary to methicillin-resistant Staphylococcus aureus pneumonia. 4. Clostridium difficile diarrhea. 5. Anemia, likely gastrointestinal bleed given positive stool occult blood. 6. History of chronic systolic heart failure. 7. Coronary artery disease with prior myocardial infarction. 8. Paroxysmal atrial fibrillation. 9. Diabetes mellitus. 10. Hypertension. 11. Hyperlipidemia. 12. History of deep vein thrombosis. RECOMMENDATIONS: Continue current cardiac medications. Warfarin was held due to acute anemia with continued decrease in hemoglobin and hematocrit. We will not reinitiate at this time. Evaluation per GI. Antibiotics per infectious disease. Will check basic metabolic panel today given IV diuretics. Monitor and replete electrolytes. Thank you for this consult. We will continue to follow. Job#: [id number]
[2017-12-23] MEDS: ATORVASTATIN 40 MG TAB PO SCH (22:15)
[2017-12-23 22:54] LABS: ANION GAP 9.8 mmol/L (8-16); BLOOD UREA NITROGEN 11 mg/dL (7-26); BUN/CREATININE RATIO 15 (6-25); CALCIUM 8.8 mg/dL (8.4-10.2); CHLORIDE 93 mmol/L (98-107); CREATININE, SERUM 0.73 mg/dL (0.57-1.11); EST GLOMERULAR FILTRATION RATE > 60 ML/MIN (60-); GLUCOSE 192 mg/dL (74-118); POTASSIUM 3.8 mmol/L (3.5-5.1); SODIUM 141 mmol/L (136-145)
[2017-12-23 22:58] LABS: CARBON DIOXIDE 42 mmol/L (22-29)
[2017-12-24] MEDS: IPRATROPIUM BROMIDE 0.02% 2.5 ML NEB NEB SCH ×4 (03:50→19:30)
[2017-12-24] MEDS: ALBUTEROL SULF 0.083% NEB SOLN 3 ML NEB NEB SCH ×6 (03:50→23:35)
[2017-12-24] MEDS: VANCOMYCIN 250MG/5ML ORAL SOLN PO SCH ×4 (05:42→17:52)
[2017-12-24 05:56] VITALS: BP 153/69
[2017-12-24] MEDS: INSULIN LISPRO 100 UNIT/1 ML 3ML VIAL SQ SCH ×3 (07:30→16:30)
[2017-12-24 07:53] VITALS: BP 144/73
[2017-12-24] MEDS: FERROUS SULFATE 325 MG TAB PO SCH (08:48)
[2017-12-24] MEDS: CITALOPRAM HYDROBROMIDE 20 MG TAB PO SCH (08:48)
[2017-12-24] MEDS: NON-FORMULARY MEDICATION (Biotin 5 MG) PO SCH (08:48)
[2017-12-24] MEDS: CLOPIDOGREL BISULFATE 75 MG TAB PO SCH (08:49)
[2017-12-24] MEDS: MULTIVITAMINS/MINERALS TAB PO SCH (08:49)
[2017-12-24] MEDS: GABAPENTIN 300 MG CAP PO SCH ×3 (08:49→20:54)
[2017-12-24] MEDS: METOPROLOL TARTRATE 25 MG TAB PO SCH ×2 (08:49→17:51)
[2017-12-24] MEDS: PANTOPRAZOLE SOD 40 MG TABEC PO SCH (08:49)
[2017-12-24] MEDS: ROPINIROLE HCL 1 MG TAB PO SCH (08:49)
[2017-12-24] MEDS: CYANOCOBALAMIN 1,000 MCG TAB PO SCH (08:49)
[2017-12-24] MEDS: INSULIN DETEMIR 100 UNIT/ML PEN SQ SCH ×2 (08:51→20:54)
[2017-12-24] MEDS: LORAZEPAM 0.5 MG TAB PO PRN ×2 (08:51→20:54)
[2017-12-24 09:53] VITALS: BP 153/70
[2017-12-24] MEDS ORDERED: ONDANSETRON HCL 4 MG ORAL DISINTEGRATING TAB PO PRN (10:30)
[2017-12-24 12:00] VITALS: BP 175/86
--- NOTE | 2017-12-24 12:56 | Progress Note ---
DATE: December 24, 2017 CARDIOLOGY PROGRESS NOTE SUBJECTIVE: Patient denies chest pain or shortness of breath. OBJECTIVE VITAL SIGNS: Temperature 98.1 degrees, pulse 89, respiratory rate 20, blood pressure 144/73. Oxygen saturation 97% on trach collar. GENERAL: Morbidly obese woman. No acute distress. Awake and alert. LUNGS: Clear to auscultation bilaterally. No wheezes or crackles. CARDIOVASCULAR: Normal rate, regular rhythm. No murmur. Normal S1, S2. ABDOMEN: Soft, nontender. EXTREMITIES: No edema. CARDIAC MEDICATIONS 1. Metoprolol tartrate 25 mg p.o. b.i.d. 2. Plavix 75 mg p.o. daily. 3. Atorvastatin 80 mg p.o. nightly. 4. Lovenox 40 mg subcu daily. 5. Fenofibrate 160 mg p.o. nightly. LABS: Sodium 141, potassium 3.8, chloride 93, CO2 42, BUN 11, creatinine 0.73. TELEMETRY: Normal sinus rhythm. IMPRESSION 1. Altered mental status improved likely secondary to hypercapnic respiratory failure. 2. Zsuhr-gn-clqfawh hypercapnic respiratory failure, improved. 3. Sepsis secondary to Methicillin-resistant Staphylococcus aureus pneumonia. 4. Clostridium difficile diarrhea. 5. Anemia likely gastrointestinal bleed given positive stool occult blood. 6. History of chronic systolic heart failure. 7. Coronary artery disease status post prior myocardial infarction. 8. Paroxysmal atrial fibrillation. 9. Diabetes mellitus. 10. Hypertension. 11. Hyperlipidemia. 12. History of deep vein thrombosis. RECOMMENDATIONS: Continue current cardiac medications. Warfarin is held due to acute anemia with continued decrease in hemoglobin and hematocrit during admission. We will not resume anticoagulation at this time. Evaluation per GI. Antibodies per infectious disease. Watch volume status closely. She may need oral diuretics to stay even. Thank you for this consult. We will continue to follow. Job#: [id number] SMILEY
[2017-12-24] MEDS: HYDROCODONE/APAP 10MG-325MG TAB PO PRN (13:28)
[2017-12-24 16:00] VITALS: BP 145/95
[2017-12-24] MEDS: ENOXAPARIN SOD INJ 40 MG/0.4 ML SYR SC SCH (17:52)
[2017-12-24 20:00] VITALS: BP 120/75
[2017-12-24] MEDS: ATORVASTATIN 40 MG TAB PO SCH (20:54)
[2017-12-24] MEDS: NON-FORMULARY MEDICATION (Fenofibrate 160 MG) PO SCH (21:00)
[2017-12-25] VITALS: BP 157/82
[2017-12-25] MEDS: INSULIN LISPRO 100 UNIT/1 ML 3ML VIAL SQ SCH ×2 (00:03→08:48)
[2017-12-25] MEDS: HYDROCODONE/APAP 10MG-325MG TAB PO PRN ×2 (00:09→09:40)
[2017-12-25] MEDS: ALBUTEROL SULF 0.083% NEB SOLN 3 ML NEB NEB SCH ×3 (03:05→10:38)
[2017-12-25] MEDS: IPRATROPIUM BROMIDE 0.02% 2.5 ML NEB NEB SCH ×3 (03:05→10:39)
[2017-12-25 04:00] VITALS: BP 146/76
[2017-12-25] MEDS: VANCOMYCIN 250MG/5ML ORAL SOLN PO SCH ×2 (05:44)
[2017-12-25] MEDS: LORAZEPAM 0.5 MG TAB PO PRN (05:48)
[2017-12-25 06:41] LABS: BASOPHILS % 0.4 % (0.0-1.0); EOSINOPHILS # (AUTO) 0.1 (0.0-0.4); EOSINOPHILS % 1.6 % (0.0-6.0); HEMATOCRIT 29.6 % (34.2-44.1); HEMOGLOBIN 8.9 g/dL (12.0-16.0); LYMPHOCYTES # (AUTO) 2.3 (1.0-3.2); LYMPHOCYTES % 28.4 % (18.0-39.1); MEAN CORPUSCULAR HEMOGLOBIN 25.4 pg (28-32); MEAN CORPUSCULAR HGB CONC 30.1 g/dL (31-35); MEAN CORPUSCULAR VOLUME 84.6 fL (81-99); MONOCYTES # (AUTO) 0.7 (0.2-0.8); MONOCYTES % 8.3 % (4.4-11.3); NEUTROPHILS % 60.4 % (38.7-80.0); PLATELET COUNT 354 x10e3/uL (140-360); RED CELL DISTRIBUTION WIDTH 17.3 % (11.7-14.4)
[2017-12-25 06:52] LABS: INR 1.05; PROTHROMBIN TIME 12.9 seconds (11.9-14.5)
[2017-12-25 07:17] LABS: ALANINE AMINOTRANSFERASE 16 IU/L (0-55); ALBUMIN 2.1 g/dL (3.5-5.0); ALBUMIN/GLOBULIN RATIO 0.6 (0.8-2.0); ALKALINE PHOSPHATASE 86 IU/L (40-150); ANION GAP 12.2 mmol/L (8-16); BLOOD UREA NITROGEN 9 mg/dL (7-26); BUN/CREATININE RATIO 13 (6-25); CARBON DIOXIDE 38 mmol/L (22-29); CHLORIDE 94 mmol/L (98-107); CREATININE, SERUM 0.69 mg/dL (0.57-1.11); EST GLOMERULAR FILTRATION RATE > 60 ML/MIN (60-); GLUCOSE 145 mg/dL (74-118); POTASSIUM 4.2 mmol/L (3.5-5.1); SODIUM 140 mmol/L (136-145)
[2017-12-25 08:09] VITALS: BP 141/65
[2017-12-25 08:48] VITALS: BP 141/65
[2017-12-25] MEDS: PANTOPRAZOLE SOD 40 MG TABEC PO SCH (08:48)
[2017-12-25] MEDS: CYANOCOBALAMIN 1,000 MCG TAB PO SCH (08:48)
[2017-12-25] MEDS: MULTIVITAMINS/MINERALS TAB PO SCH (08:48)
[2017-12-25] MEDS: CITALOPRAM HYDROBROMIDE 20 MG TAB PO SCH (08:48)
[2017-12-25] MEDS: FERROUS SULFATE 325 MG TAB PO SCH (08:48)
[2017-12-25] MEDS: INSULIN DETEMIR 100 UNIT/ML PEN SQ SCH (08:48)
[2017-12-25] MEDS: METOPROLOL TARTRATE 25 MG TAB PO SCH (08:48)
[2017-12-25] MEDS: CLOPIDOGREL BISULFATE 75 MG TAB PO SCH (08:48)
[2017-12-25] MEDS: ROPINIROLE HCL 1 MG TAB PO SCH (08:48)
[2017-12-25] MEDS: GABAPENTIN 300 MG CAP PO SCH (09:00)
[2017-12-25] MEDS: NON-FORMULARY MEDICATION (Biotin 5 MG) PO SCH (09:00)
[2017-12-25] MEDS ORDERED: ACETAZOLAMIDE250 MG PO (10:01)
[2017-12-25] MEDS ORDERED: VANCOMYCIN HCL500 MG PO (10:05)
--- NOTE | 2017-12-25 10:08 | Discharge Summary ---
She is a 57-year-old female patient of mine presented with the complaint of shortness of breath. The patient was admitted with change in mental status secondary to hypercapnia. The patient was at [facility]. The patient was transferred from [facility] for pneumonia. ADMITTING IMPRESSION/DIAGNOSES 1. Acute respiratory failure with hypercapnia. 2. Probable sepsis. 3. Pneumonia. 4. Critical anemia. 5. Diastolic congestive heart failure. 6. Ibclz-sf-hbkxgti renal failure. 7. Diabetes mellitus. HOSPITAL COURSE SUMMARY: The patient was admitted with the above diagnoses. Pulmonary and renal service was consulted. The patient was started on oxygen, antibiotics, steroids, and tracheostomy. Oxygen was given. The patient was treated with meropenem and Solu-Medrol. ID consult was also called in. During the hospital course, the patient had complications. The patient developed C. diff colitis. The patient was successfully weaned off the ventilator. The patient was found to have gram-negative pseudomonas. For that, neb treatment was given. The patient was given vancomycin. The patient's Coumadin was on hold because of severe anemia. Hemoglobin had dropped down to 7. The patient had received blood transfusion. The patient was given physical therapy and occupational therapy. Upon stabilization, outpatient services were rearranged. Upon stabilization, the patient will be discharged home on p.o. vancomycin. The patient had also GI consult done by Dr. Valdez. JEREMIAH VASQUEZ MD Job#: [id number] MA
[2017-12-25 11:38] VITALS: BP 121/70
--- NOTE | 2017-12-25 15:01 | Discharge Summary ---
ADDENDUM DISCHARGE DIAGNOSES 1. Cittm-cb-zfynvbl respiratory failure, requiring mechanical ventilation. 2. Complicated institutional fdc acquired pneumonia with pseudomonas and methicillin-resistant Staphylococcus aureus. 3. Sepsis with methicillin-resistant Staphylococcus aureus. 4. Clostridium difficile. 5. Anemia probably with gastrointestinal bleed secondary to anticoagulation, Coumadin. 6. Chronic systolic heart failure. 7. Coronary artery disease. 8. Patient had hypercapnic respiratory failure. 9. Acute mental status change. JEREMIAH VASQUEZ MD Job#: [id number] VAS
== END 2017-12-25 11:24 | disposition home or self-care (01) | DRG 871 ==
LOC: ER 05:32 → ERHOLD 09:55 → ICU 11:37 → IMCU 12-14 00:59 → MED/SURG2 12-16 11:26
PROVIDERS: ADMIT Internal Medicine; ATTEND Internal Medicine
PROC: 30233N1 Transfusion of Nonautologous Red Blood Cells into Peripheral Vein, Percutaneous Approach (ICD-10-PCS; principal; 2017-12-10)
DX: A41.9 Sepsis, unspecified organism (principal); J96.22 Acute and chronic respiratory failure with hypercapnia; J96.21 Acute and chronic respiratory failure with hypoxia; J15.212 Pneumonia due to Methicillin resistant Staphylococcus aureus; N17.9 Acute kidney failure, unspecified; I13.0 Hypertensive heart and chronic kidney disease with heart failure and stage 1 through stage 4 chronic kidney disease, or unspecified chronic kidney disease; I50.42 Chronic combined systolic (congestive) and diastolic (congestive) heart failure; J44.0 Chronic obstructive pulmonary disease with (acute) lower respiratory infection; Z68.42 Body mass index [BMI] 45.0-49.9, adult; E66.2 Morbid (severe) obesity with alveolar hypoventilation; A04.72 Enterocolitis due to Clostridium difficile, not specified as recurrent; Z93.0 Tracheostomy status; I48.0 Paroxysmal atrial fibrillation; D64.9 Anemia, unspecified; N18.9 Chronic kidney disease, unspecified; E11.22 Type 2 diabetes mellitus with diabetic chronic kidney disease; Z95.5 Presence of coronary angioplasty implant and graft; E87.5 Hyperkalemia; Z79.4 Long term (current) use of insulin; E11.42 Type 2 diabetes mellitus with diabetic polyneuropathy; E78.5 Hyperlipidemia, unspecified; I25.10 Atherosclerotic heart disease of native coronary artery without angina pectoris; E03.9 Hypothyroidism, unspecified; I25.2 Old myocardial infarction; Z86.718 Personal history of other venous thrombosis and embolism; Z79.02 Long term (current) use of antithrombotics/antiplatelets; Z79.01 Long term (current) use of anticoagulants; R53.81 Other malaise; Z74.01 Bed confinement status; R19.5 Other fecal abnormalities; Z86.711 Personal history of pulmonary embolism
CPT/HCPCS: 31720; 36415; 36600; 51700; 71045; 80048; 80053; 80202; 81001; 82270; 82550; 82553; 82607; 82728; 82805; 82948; 83036; 83518; 83540; 83605; 83735; 83880; 84443; 84466; 84484; 85025; 85610; 85730; 86850; 86900; 86920; 87040; 87070; 87086; 87186; 87205; 87400; 87493; 93005; 94002; 94640; 96372; 97139; 99285; J0610; J1650; J1940; J2060; J2185; J2405; J2920; J3260; J3370; J7030; J7050; J7512; J7799; P9016

== ENCOUNTER 2018-11-18 19:48 | Inpatient (IN) | payer MEDICARE, OTHER ==
[~2018-11-18] VITALS: Ht 160 cm; Wt 114.9 kg
[~2018-11-18 19:48] MED LIST changes: +ACETAZOLAMIDE250 MG PO; +BIOTIN5 M1 PO; +CENTRUM COMPLE1 EACH PO; +COUMADIN4 MG PO; +ENULOSE10 GM/15 M PEG; +FAMOTIDINE20 MG PO; +FEOSOL325 MG PO; +IPRAT-ALBUT 0.5-3 ML INH; +LORAZEPAM0.5 MG PO; +METOPROLOL TART25 MG PO; +NORCO 10-325 T1 EACH PO; +NOVOLOG100 UNITS1 SQ; +SENNA LAXATIVE1 EACH PEG; +VANCOMYCIN HCL500 MG PO; +VITAMIN B-121000 MCG PO
[2018-11-18] MEDS ORDERED: ALBUTEROL/IPRATROPIUM 3 ML NEB NEB ONE (20:00)
--- NOTE | 2018-11-18 20:03 | NUR ---
CROW PLACED ONTO PT AND TO SUCTION
[2018-11-18 20:24] LABS: BASOPHILS % 0.3 % (0.0-1.0); EOSINOPHILS # (AUTO) 0.2 (0.0-0.4); EOSINOPHILS % 2.4 % (0.0-6.0); HEMATOCRIT 32.8 % (34.2-44.1); HEMOGLOBIN 9.3 g/dL (12.0-16.0); LYMPHOCYTES # (AUTO) 1.6 (1.0-3.2); MEAN CORPUSCULAR HGB CONC 28.4 g/dL (31-35); MEAN CORPUSCULAR VOLUME 88.2 fL (81-99); MONOCYTES # (AUTO) 0.5 (0.2-0.8); MONOCYTES % 8.3 % (4.4-11.3); NEUTROPHILS # (AUTO) 3.9 (2.1-6.9); PLATELET COUNT 282 x10e3/uL (140-360); RED BLOOD COUNT 3.72 x10e6/uL (3.6-5.1); RED CELL DISTRIBUTION WIDTH 15.5 % (11.7-14.4)
--- NOTE | 2018-11-18 20:38 | Diagnostic Imaging Report ---
EXAMINATION: CHEST SINGLE (PORTABLE) INDICATION: Shortness of breath. COMPARISON: Chest x-ray 12/20/2017. FINDINGS: AP view TUBES and LINES: Partially visualized tracheostomy tube. LUNGS: Lungs are not well inflated. There are bibasilar atelectasis. There is perihilar interstitial opacities, consistent with interstitial edema. PLEURA: No pleural effusion or pneumothorax. HEART AND MEDIASTINUM: Cardiac size is moderately enlarged. BONES AND SOFT TISSUES: No acute osseous lesion. Soft tissues are unremarkable. UPPER ABDOMEN: No free air under the diaphragm. IMPRESSION: Hypoinflated lungs. Increased opacities in bilateral lungs, likely interstitial edema. Signed by: Dr. Atif Camacho M.D. on 11/18/2018 8:35 PM
[2018-11-18 20:40] LABS: ALANINE AMINOTRANSFERASE 21 IU/L (0-55); ALBUMIN 2.8 g/dL (3.5-5.0); ALBUMIN/GLOBULIN RATIO 0.6 (0.8-2.0); ALKALINE PHOSPHATASE 84 IU/L (40-150); ANION GAP 11.8 mmol/L (8-16); BLOOD UREA NITROGEN 15 mg/dL (7-26); BUN/CREATININE RATIO 18 (6-25); CALCIUM 9.1 mg/dL (8.4-10.2); CHLORIDE 90 mmol/L (98-107); CREATINE KINASE 31 IU/L (29-168); CREATININE, SERUM 0.84 mg/dL (0.57-1.11); EST GLOMERULAR FILTRATION RATE > 60 ML/MIN (60-); GLUCOSE 258 mg/dL (74-118); POTASSIUM 4.8 mmol/L (3.5-5.1); SODIUM 141 mmol/L (136-145)
[2018-11-18 20:46] LABS: BILIRUBIN,URINE NEGATIVE (NEGATIVE); CLARITY,URINE SL CLOUDY (CLEAR); COLOR,URINE YELLOW (YELLOW); KETONES,URINE NEGATIVE (NEGATIVE); LEUKOCYTE ESTERASE ,URINE NEGATIVE (NEGATIVE); NITRITE,URINE NEGATIVE (NEGATIVE); PROTEIN,URINE DIPSTICK 1+ (NEGATIVE); URINE UROBILINOGEN 0.2 mg/dL (0.2 - 1)
[2018-11-18 20:50] LABS: CARBON DIOXIDE 44 mmol/L (22-29)
[2018-11-18 21:03] LABS: EPITHELIAL CELLS,URINE FEW /LPF
--- NOTE | 2018-11-18 21:59 | NUR ---
[facility] called for transport
[2018-11-18] MEDS ORDERED: IPRATROPIUM BROMIDE 0.02% 2.5 ML NEB NEB ONE (23:45)
[2018-11-18] MEDS ORDERED: ALBUTEROL SULF 0.083% NEB SOLN 3 ML NEB NEB STA (23:45)
--- NOTE | 2018-11-18 23:48 | NUR ---
EMS CAME FOR PT, STATES 02 SATS DROPPED AFTER NOTICING O2 TUBING KINKED, PT BROUGHT BACK TO ROOM 9 FOR BREATHING TX
[2018-11-19] VITALS (43 sets, daily range): BP systolic 92–202; BP diastolic 45–114
[2018-11-19] MEDS ORDERED: METHYLPREDNISOLONE SOD SUCC 125 MG/2ML VIAL IV ONE
[2018-11-19] MEDS ORDERED: CLONAZEPAM0.5 MG PO (00:36)
[2018-11-19] MEDS ORDERED: XARELTO20 MG PO (00:37)
[2018-11-19] MEDS ORDERED: ACYCLOVIR800 MG PO (00:37)
[2018-11-19] MEDS ORDERED: PLAVIX75 MG PO (00:38)
[2018-11-19] MEDS ORDERED: PANTOPRAZOLE SO40 MG PO (00:38)
[2018-11-19] MEDS ORDERED: CARVEDILOL3.125 MG PO (00:39)
[2018-11-19] MEDS ORDERED: NEURONTIN300 MG PO (00:39)
[2018-11-19] MEDS ORDERED: FENOFIBRATE145 MG PO (00:40)
[2018-11-19] MEDS ORDERED: CLONAZEPAM 0.5 MG TAB PO PRN (01:15)
[2018-11-19] MEDS ORDERED: FUROSEMIDE INJ 10 MG/ML 4 ML VIAL IV ONE (01:15)
[2018-11-19] MEDS ORDERED: AZITHROMYCIN 500MG/NS 250 ML 250 ML IV SCH (01:15)
[2018-11-19] MEDS ORDERED: CARVEDILOL 3.125 MG TAB PO SCH ×2 (01:15→09:00)
[2018-11-19] MEDS ORDERED: DEXTROSE 50% SYRINGE 50 ML IV PRN ×3 (01:15→09:30)
[2018-11-19] MEDS ORDERED: ASPIRIN 81 MG CHEW TAB PO ONE (01:15)
[2018-11-19] MEDS ORDERED: SODIUM CHLORIDE FLUSH 10 ML SYR INJ PRN ×2 (01:15→08:15)
--- NOTE | 2018-11-19 01:17 | NUR ---
PTS SATS 88% ON 50%TRACH COLLAR, PT AWKAKE ALERT AND ORIENTED, DR PABLO NOTIFIED. ORDERS REC'D TO PLACE PT ON VENT, RT NOTIFIED
[2018-11-19] MEDS ORDERED: AZITHROMYCIN 500MG/NS 250 ML 250 ML ONE (01:28)
--- NOTE | 2018-11-19 01:38 | NUR ---
PT PLACED ONTO VENT AC 16/VT 450/FIO2 60%/ PEEP 5, PTS SATS 97%
--- NOTE | 2018-11-19 01:57 | NUR ---
Pts status changed to admission to ICU; departed unit at 0157 for admit to rm 196, report given to Boy RN; pt departed unit with assigned RN and RT with no s/s distress noted
[2018-11-19 02:53] LABS: ABG PH 7.36 (7.31-7.41)
[2018-11-19 02:54] LABS: ABG HCO3 46 mmol/L (23-28); ABG PCO2 80 mmHg (41-51); ABG PO2 69 mmHg (80-105)
[2018-11-19] MEDS: ALBUTEROL/IPRATROPIUM 3 ML NEB NEB SCH ×8 (03:00→22:50)
[2018-11-19] MEDS ORDERED: ACYCLOVIR 200 MG CAP PO SCH ×2 (05:00→21:00)
[2018-11-19 05:40] LABS: CREATINE KINASE MB 1.5 ng/mL (0-5.0)
[2018-11-19] MEDS ORDERED: METHYLPREDNISOLONE SOD SUCC 40 MG/ML VIAL 1ML ONE (05:52)
[2018-11-19] MEDS ORDERED: ACYCLOVIR 200 MG CAP ONE (05:52)
[2018-11-19] MEDS ORDERED: METHYLPREDNISOLONE SOD SUCC 40 MG/ML VIAL 1ML IV SCH (06:00)
[2018-11-19] MEDS ORDERED: INSULIN REGULAR, HUMAN 100 UNIT/1 ML 3ML VIAL SQ SCH (07:30)
[2018-11-19] MEDS: CLONAZEPAM 0.5 MG TAB PO PRN ×2 (08:32→22:03)
[2018-11-19] MEDS ORDERED: RIVAROXABAN 20 MG TABLET PO SCH (09:00)
[2018-11-19] MEDS ORDERED: FENOFIBRATE 145 MG TAB PO SCH ×2 (09:00)
[2018-11-19] MEDS ORDERED: PANTOPRAZOLE SOD 40 MG TABEC PO SCH (09:00)
[2018-11-19] MEDS: ACYCLOVIR 200 MG CAP PO SCH ×5 (09:00→21:45)
[2018-11-19] MEDS ORDERED: GABAPENTIN 300 MG CAP PO SCH (09:00)
[2018-11-19] MEDS: GABAPENTIN 300 MG CAP PO SCH ×3 (09:00→21:45)
[2018-11-19] MEDS ORDERED: CLOPIDOGREL BISULFATE 75 MG TAB PO SCH (09:00)
[2018-11-19] MEDS ORDERED: DOCUSATE SODIUM 100 MG CAP PO PRN (09:30)
[2018-11-19] MEDS ORDERED: ONDANSETRON HCL INJ 2MG/ML 2ML 2 MG/ML VIAL IV PRN (09:30)
[2018-11-19] MEDS ORDERED: ACETAMINOPHEN 325 MG TAB PO PRN (09:30)
--- NOTE | 2018-11-19 09:56 | NUR ---
notified dr. escalante's and dr. booth's offices of new [facility] consults
[2018-11-19] MEDS ORDERED: ALBUTEROL/IPRATROPIUM 3 ML NEB NEB SCH (11:00)
[2018-11-19] MEDS ORDERED: INSULIN LISPRO 100 UNIT/1 ML 3ML VIAL SQ SCH (11:30)
--- NOTE | 2018-11-19 12:00 | Diagnostic Imaging Report ---
EXAM: CHEST SINGLE (PORTABLE) DATE: 11/19/2018 10:48 AM INDICATION: COPD COMPARISON: Chest x-ray, 11/18/2018 FINDINGS: Lines and tubes: Stable appearance of tracheostomy tube. Stable moderate enlargement of the cardiac silhouette. Central pulmonary vascular prominence again noted. No focal pulmonary opacity, pleural effusion or pneumothorax. There is the appearance of lucency at the right lung base, likely the result of adjacent density due to atelectasis in the lower lobe. Upper abdomen unremarkable. No acute bony abnormality. IMPRESSION: 1. Lucency at the right lung base, likely due to adjacent lower lobe atelectasis. Consider follow-up chest to assure this resolves and does not represent a small pneumothorax. 2. Cardiomegaly with stable central pulmonary vascular congestion. Signed by: Dr. Wander Anderson M.D. on 11/19/2018 11:57 AM
[2018-11-19] MEDS: METHYLPREDNISOLONE SOD SUCC 40 MG/ML VIAL 1ML IV SCH ×2 (12:31→17:32)
[2018-11-19] MEDS: INSULIN REGULAR, HUMAN 100 UNIT/1 ML 3ML VIAL SQ SCH ×3 (12:44→21:45)
[2018-11-19 14:16] LABS: CREATINE KINASE MB 1.2 ng/mL (0-5.0)
[2018-11-19] MEDS: RIVAROXABAN 20 MG TABLET PO SCH (15:08)
[2018-11-19] MEDS: FENOFIBRATE 145 MG TAB PO SCH (15:08)
[2018-11-19] MEDS: PANTOPRAZOLE SOD 40 MG TABEC PO SCH (15:11)
[2018-11-19] MEDS: CLOPIDOGREL BISULFATE 75 MG TAB PO SCH (15:11)
[2018-11-19] MEDS: CARVEDILOL 3.125 MG TAB PO SCH ×2 (15:13→21:45)
--- NOTE | 2018-11-19 15:55 | History and Physical ---
PRESENTING COMPLAINT: Severe shortness of breath for one day. HISTORY OF PRESENT ILLNESS: A 58-year-old female was admitted from ER. The patient was brought to ER from home by EMS for severe shortness of breath. The patient has a tracheostomy. She has history of COPD and obstructive sleep apnea. The patient told that she was using oxygen through the tracheostomy tube at home, but her shortness of breath did not improve. She called EMS, they brought her to the hospital. The patient told that she had mild nonproductive cough, did not have any fever or hemoptysis. She had mild chest wall pain due to shortness of breath. Denied any palpitation, perspiration, nausea, or vomiting. The patient told that she had shortness of breath, got worsened for last 3 days, but last night, it was unbearable. At that time, she called the EMS. The patient follows up with her Pulmonology, Dr. Brown as an outpatient as per her statement. She also follows up with her Cardiology, Dr. Warner as per the patient's statement. The patient was found having CO2 level high at the ER on ABG. She was admitted in ICU. Pulmonology consult was requested, Dr. Brown from ER. The patient also complains of pain in her back with skin eruption suggestive of shingles for about a week. The patient was acyclovir p.o. as outpatient as per her statement. She was seen by her PCP, Dr. Yeyo Aiken at office as per the patient's statement. REVIEW OF SYSTEMS: CONSTITUTIONAL: No fevers, chills, or rigors. ENT: No nasal congestion. No sore throat. No earache. CARDIOVASCULAR: Chest wall pain due to shortness of breath. No palpitation. PULMONARY: Dry cough with shortness of breath as per HPI. No hemoptysis. GASTROINTESTINAL: No abdominal pain, nausea, or vomiting. There is no bloody stool or black stool. GENITOURINARY: No dysuria. No hematuria. MUSCULOSKELETAL: . The patient has multiple joint pain. No joint swelling. No swollen glands. The patient has skin eruption on upper back area along the thoracic dermatomal distribution as per HPI. NEUROLOGIC: No loss of consciousness, seizures, or headache. PAST MEDICAL HISTORY: Diabetes mellitus type 2, hypertension, hyperlipidemia, peripheral neuropathy, CAD status post stenting, diastolic CHF, obstructive sleep apnea, COPD, respiratory failure, cervical cancer status post hysterectomy in the past, chronic anemia, C difficile infection in 2018 as per electronic medical record, paroxysmal atrial fibrillation, and history of DVT in 2018. PAST SURGICAL HISTORY: Hysterectomy, tonsillectomy, tracheostomy, and cholecystectomy. ALLERGIES: TO PENICILLIN AND LATEX, EXACT REACTION NOT KNOWN. HOME MEDICATIONS: As per med reconciliation sheet. SOCIAL HISTORY: The patient lives at home with her . She is not working now. HABITS: Denies smoking, drinking, or substance abuse history. FAMILY HISTORY: Positive for diabetes and hypertension. IMMUNIZATION: The patient received a flu shot this season as per her statement. PHYSICAL EXAMINATION: VITAL SIGNS: On presentation; blood pressure 122/73, pulse 113, temperature 98, respirations 26, and SpO2 of 89% at room air with 100% oxygen by tracheostomy. GENERAL: Alert, lying in bed without any acute distress now. The patient's tracheostomy is connected to the ventilator now on 100% oxygen. Complains of pain in her back and right shoulder. HEENT: Pupils equally reacting. No pallor. No icterus. Oral mucosa moist. NECK: No JVD. No carotid bruit. Trach collar in place. No palpable lymph node. No thyromegaly. HEART: S1 and S2. Regular. No murmur. LUNGS: Air entry equal on both sides. Few fine crackles present over both bases. No rhonchi. ABDOMEN: Soft, nontender. No palpable mass. Bowel sounds active in all quadrants. EXTREMITIES: No edema, cyanosis, or clubbing. NEUROLOGICAL: Motor grossly equal on both sides. IMAGING DATA: EKG; sinus tachycardia at the rate of 110 beats per minute on presentation, no significant ST-T changes, intervals within normal limit. Chest x-ray, single view; lungs are not well inflated, bibasilar atelectasis, perihilar interstitial opacities consistent with interstitial edema, no pleural effusion, no hemothorax, cardiac size moderately enlarged. LABORATORY DATA: CBC; WBC 6.28, hemoglobin 9.3, hematocrit 32.8, platelets 282, MCV 88, and RDW 15.5. Chemistry panel; sodium 141, potassium 4.8, chloride 90, CO2 of 44, anion gap 7, BUN 15, creatinine 0.84, glucose 258, calcium 9.1. Total bilirubin 0.3, AST 14, ALT 21, alk phos 84. CK 31, CK-MB 1.7. Troponin I 0.010 and 0.015. BNP 64. Total protein 7.2, albumin 2.8, and globulin 4.4. Arterial blood gas; pH 7.36, pCO2 of 80, pO2 of 69, bicarb 46, O2 sat 91% on room air. Urinalysis; protein 1+, glucose 2+, ketone negative, wbc 0, and rbc 0. PT/INR pending. MICROBIOLOGICAL DATA: Blood culture in progress. ASSESSMENT AND PLAN: 1. Shortness of breath with hypoxia and hypercapnia due to chronic obstructive pulmonary disease exacerbation, probable early pneumonia with some infiltrates over bases. The patient is afebrile, does not have any leukocytosis. We would continue the patient on azithromycin as started from ER. Pulmonary consult is requested with Dr. Brown. We will also check sputum for culture. Continue Solu-Medrol IV along with nebulizer treatment. 2. Impending respiratory failure due to hypoxia and hypercapnia. We will monitor. Continue the patient on telemetry. 3. Obstructive sleep apnea. The patient is status post tracheostomy. We would follow Pulmonary's recommendation. She is also on home oxygen as per her statement. 4. Diastolic congestive heart failure by history. BNP is normal. We would request Cardiology, Dr. Warner for followup evaluation with echocardiogram. Chest x-ray is suggestive of interstitial edema, though her BNP is normal. We would give her dose of furosemide. 5. Diabetes mellitus type 2. Continue regular medication along with sliding scale insulin. 6. Hypertension. Continue regular medication. 7. History of deep vein thrombosis and paroxysmal atrial fibrillation in the past. We would continue the patient on Xarelto as she was on at home. 8. Advanced directive. The patient is full code. Discharge plan would depend upon the patient's hospital course. MD KRISTEN Brand/HAROON /[id number]
--- NOTE | 2018-11-19 16:33 | NUR ---
WOUND CARE CONSULTATION - INITIAL EVALUATION Patient admitted from Home to ER for COPD exacerbation. HX: COPD, HTN, NE, A-Fib, High Cholesterol, Sleep Apnea, GERD, Obesity, IBS, Cervical Ca, Dysphagia, Trach, DVT. WC Consulted for Rash to Back/ evaluation of scab to gluteal area. PATIENT VISIT: - Patient in bed, restless, wanting to reposition in bed. - Patient turned on her own to the Left Side. - Noted Rash to Mid Upper back from Mid Spine to Right Flank toward Breast Fold. Crusted, Clustered Linear Lesions congruent with Shingles. - Patient on oral Acyclovir and will resolve on its own. - Right Gluteal - Presents with scab. Non-Pressure related and superficial. Appears to be resolving. - No pressure ulcers identified - Juan Carlos Score 16 - Alternating Pressure Air Mattress - Moderate PUP Active. Will Follow up as needed. No additional interventions required at this time. Thank you for consulting with Wound Care. Addendum: 11/19/18 at 1642 by Tad Bennett RN Amended: Links added.
[2018-11-19] MEDS ORDERED: LABETALOL HCL 5 MG/ML 20ML VIAL IV PRN (17:15)
[2018-11-19] MEDS ORDERED: LABETALOL HCL 20 MG/4 ML SYRINGE IV PRN (17:30)
[2018-11-19] MEDS: LISINOPRIL 20 MG TAB PO SCH ×2 (17:32→21:45)
[2018-11-19] MEDS: FUROSEMIDE INJ 10 MG/ML 2 ML VIAL IV SCH (17:32)
[2018-11-19 17:45] LABS: ABG PCO2 78 mmHg (41-51); ABG PH 7.38 (7.31-7.41)
[2018-11-19 17:46] LABS: ABG HCO3 47 mmol/L (23-28); ABG PO2 116 mmHg (80-105)
--- NOTE | 2018-11-19 18:06 | Consultation ---
DATE OF CONSULTATION: 11/19/2018 This is a covering for Dr. Max Bray. [place], [place]. I want to thank you for this kind consult of Ms. Cole, who presented as a 58-year-old female with chronic respiratory failure. The patient reported to the emergency department with shortness of breath for a couple of times. She has a chronic trach and oxygen at home. Apparently, she was diagnosed with shingles prior to admission to the hospital. The patient was seen in the emergency department and was believed to be stable to be discharged with oral Zithromax and prescription was provided of Zithromax 500 p.o. daily for four days and was about to be sent home when the patient desatted on ambulance and therefore patient was taken off the ambulance, now she is admitted to [facility], in the ICU, Room 196, alert and oriented, trach and vent. PAST MEDICAL HISTORY: Including chronic respiratory failure, super obesity, shingles, chronic pain, atrial fibrillation, [place], COPD, sleep apnea, GERD, irritable bowel syndrome, cervical cancer, dysphagia, DVT, hypertension, diabetes mellitus type 2. ALLERGIES: THE PATIENT IS ALLERGIC TO PENICILLIN AND LATEX. MEDICATIONS: Medication list has been reviewed. As far as Infectious Disease point of view, patient is on acyclovir and Zithromax. LABORATORY STUDIES: Sodium 141, potassium 4.8, creatinine 0.84. White blood cells 6.28, hemoglobin 9.3, platelets 282. Blood culture pending. Chest x-ray was done suggesting hypoinflated lungs, increased opacities in bilateral lungs, likely interstitial pneumonia. REVIEW OF SYSTEMS: Complained of pain in general. PHYSICAL EXAMINATION: GENERAL: Alert, oriented, in bed, able to move around and allow me to examine her back with the shingles, seems alert, oriented. VITAL SIGNS: Temperature 98.6, pulse 95, respirations 17, blood pressure 121/74. CV: S1 and S2. CHEST: Equal expansion. Decreased breath sounds. No acute distress. ABDOMEN: Obese, soft, nontender. Bowel sounds positive in four quadrants. HEENT: Moist. No pallor. No JVD. Trach and vent. ASSESSMENT AND PLAN: This is a pleasant 58-year-old lady with chronic respiratory failure, chronic trach and vent and oxygen dependent. The patient has oxygen at home with respiratory distress with shingles. Shingles were evaluated. There were few blisters and pustules noted intact, but mostly broken and dried up. The patient is currently on acyclovir. We will continue with acyclovir for a total of five days and monitor the patient throughout the hospitalization. The patient is on Zithromax for possibility of pneumonia, however, chest x-ray suggests interstitial edema. Clinically, no acute distress. The patient is without fever and white blood cells are within normal limits. I want to thank you for this kind consult. This case was also discussed with Dr. Thomas in detail and also with the nurse. Dictated by Marcel Salas PA-C (Al) Gokul Thomas MD /MODL /[id number]
--- NOTE | 2018-11-19 18:16 | Consultation ---
DATE OF CONSULTATION: Pulmonary Consultation REASON FOR THE CONSULT: Ventilator management, shortness of breath. HISTORY OF PRESENT ILLNESS: Ms. Cole is a 58-year-old female. She presented to the emergency room with worsening shortness of breath. She has a chronic tracheostomy and the patient is very well known to me from previous admission at [facility] and [facility]. She was in the emergency room with difficulty breathing. She was given a nebulizer treatment. The patient was going out, however, she became hypoxic in the ambulance while going out and was readmitted and put on mechanical ventilator because she was having trouble breathing. She is denying any complaints of chest pain, fevers, or chills at home. Her chest x-ray is showing increased fluid, congestion, and possibly left lower lobe infiltrate. REVIEW OF SYSTEMS: GENERAL: Denies any fever or chills. HEAD: Denies any head trauma. ENT: Denies any earache. CVS: Denies any chest pain. RESPIRATORY: Shortness of breath. GI: Denies any nausea, vomiting. The rest of the review of systems is negative except as in HPI. PAST MEDICAL HISTORY: Chronic tracheostomy, history of obstructive sleep apnea, morbid obesity, hypertension, hyperlipidemia, diabetes, acute on chronic respiratory failure, ex-smoker, smoked a year, quit smoking one year ago. History of DVT in the past and atrial fibrillation. The patient is on anticoagulation. FAMILY AND SOCIAL HISTORY: She lives with her she has at home. She has a chronic tracheostomy, Shiley 6. PHYSICAL EXAMINATION: VITAL SIGNS: Temperature 98.6, pulse of 95, blood pressure 121/74, respiratory rate of 18, O2 saturation is 100% on mechanical ventilator. She is on FiO2 of 60%, rate of 14, and tidal volume of 415. HEENT: Head is atraumatic, normocephalic. NECK: Supple. She has a tracheostomy, Shiley 6. Decreased air entry on the left side compared to the right side. HEART: S1, S2 audible. ABDOMEN: Soft, nontender. EXTREMITIES: No pedal edema. SKIN: Healing shingles. LABORATORY DATA: Sodium 141, potassium 4.8, chloride 90, BUN 15, creatinine 0.8. White count of 6.2, hemoglobin 9.3, platelets 288. Blood gas showed pH of 7.36, pCO2 of 80, PO2 of 69, O2 saturation is 91%. Chest x-ray, I have reviewed the images, it is showing possibility of atelectasis and congestion with edema. Possibility of pneumonia, however, very unlikely. ASSESSMENT: Ms. Cole is a 58-year-old female with acute on chronic respiratory failure, chronic tracheostomy, history of sleep apnea, came in with worsening shortness of breath. Appears to be congested on the chest x-ray. CURRENT PROBLEMS: 1. Acute on chronic hypoxic, hypercapnic respiratory failure. 2. Chronic tracheostomy. 3. Obesity. 4. History of DVT and atrial fibrillation. 5. History of shingles, now resolving, still has it. 6. Possible COPD. The patient has a long-standing smoking history. PLAN: 1. Reduce the Solu-Medrol. Agree with IV Lasix. Ventilator support reviewed. We will wean from the ventilator gradually. Repeated chest x-ray, decreased air entry on the left side, possibly could be due to increased fluid. 2. Continue the patient on nebulizer treatments. Agree with Klonopin for anxiety. Antibiotics per Infectious Disease recommendation. MD LUIS FERNANDO King/HAROON /[id number]
[2018-11-19] MEDS ORDERED: ALBUTEROL/IPRATROPIUM 3 ML NEB ONE ×2 (19:19→22:46)
--- NOTE | 2018-11-19 20:07 | Consultation ---
DATE OF CONSULTATION: 11/19/2018 Cardiology Consultation REASON FOR CONSULTATION: CHF. HISTORY OF PRESENT ILLNESS: This is a 58-year-old woman with history of systolic heart failure, atrial fibrillation, coronary artery disease, prior myocardial infarction, chronic respiratory failure status post tracheostomy, COPD, diabetes mellitus, hypertension, hyperlipidemia, and history of DVT, who was admitted with complaints of shortness of breath. The patient has had worsening shortness of breath for two days and presented to the ER for further evaluation. Cardiology is consulted to evaluate for possible congestive heart failure. Due to hypoxia, the patient was placed on the ventilator via her tracheostomy in the ER and she was admitted to the ICU. The patient was extremely somnolent at time of exam, she would respond to verbal stimuli, but would quickly fall back asleep. She denied any chest pain, palpitations, or lightheadedness, but did endorse that she came to the hospital due to dyspnea. REVIEW OF SYSTEMS: Limited secondary to the patient's somnolence. PAST MEDICAL HISTORY: 1. History of chronic systolic heart failure. 2. Coronary artery disease, status post myocardial infarction. 3. Paroxysmal atrial fibrillation. 4. Chronic respiratory failure status post tracheostomy. 5. COPD. 6. Diabetes mellitus. 7. Hypertension. 8. Hyperlipidemia. 9. History of DVT. PAST SURGICAL HISTORY: 1. Tracheostomy. 2. Exploratory laparotomy. 3. Cholecystectomy. 4. Tonsillectomy. ALLERGIES: PLEASE SEE EMR. MEDICATIONS: Please see medication list. SOCIAL HISTORY: Former smoker. No alcohol or drugs. FAMILY HISTORY: Noncontributory to current illness. PHYSICAL EXAMINATION: VITAL SIGNS: Temperature 98.8 degrees, pulse 108, respiratory rate 22, blood pressure 159/101, oxygen saturation 100% on mechanical ventilation. GENERAL: Obese woman, well developed, well nourished, in no acute distress. Somnolent. HEENT: Normocephalic, atraumatic. NECK: Supple. No thyromegaly or cervical lymphadenopathy. No carotid bruits. Tracheostomy is present. LUNGS: Clear to auscultation bilaterally. No wheezes or crackles. CARDIOVASCULAR: Normal rate, regular rhythm. No murmur. Normal S1, S2. Soft, nontender. EXTREMITIES: No edema. NEUROLOGIC: Nonfocal exam. LABORATORY DATA: WBC 6.28, hemoglobin 9.3, hematocrit 32.8, platelets 282. Sodium 141, potassium 4.8, chloride 90, CO2 of 44, BUN 15, creatinine 0.84. Troponin 0.015. BNP 64. DIAGNOSTIC DATA: Chest x-ray; lucency at the right lung base likely due to adjacent lower lobe atelectasis, consider followup chest to assure this resolves and does not represent a small pneumothorax, cardiomegaly stable with central pulmonary vascular congestion. EKG; sinus tachycardia, cannot rule out anterior infarct age undetermined, possible anterolateral infarct age undetermined. IMPRESSION: 1. Acute on chronic respiratory failure. 2. Altered mental status. 3. History of chronic systolic heart failure with last LVEF 45% to 50% as of September 2017 with moderate concentric left ventricular hypertrophy. 4. Coronary artery disease, status post myocardial infarction. 5. Paroxysmal atrial fibrillation. 6. Diabetes mellitus. 7. Hypertension. 8. Hyperlipidemia. 9. Chronic obstructive pulmonary disease. 10. History of deep venous thrombosis. RECOMMENDATIONS: Resume home cardiac medications. Keep the patient on Xarelto for CVA prophylaxis given her paroxysmal atrial fibrillation. We will repeat echocardiogram to re-evaluate EF. Check ABG to evaluate the patient's somnolence. Monitor the patient closely on telemetry. Antibiotics per primary service. Thank you for this consult. We will continue to follow. Gita Montanez MD ABS/MODL /[id number]
[2018-11-20] VITALS (31 sets, daily range): BP systolic 104–168; BP diastolic 50–92
[2018-11-20] MEDS: METHYLPREDNISOLONE SOD SUCC 40 MG/ML VIAL 1ML IV SCH ×4 (00:38→17:08)
[2018-11-20] MEDS ORDERED: AZITHROMYCIN 500MG/NS 250 ML 250 ML IV SCH (01:00)
[2018-11-20] MEDS ORDERED: ALBUTEROL/IPRATROPIUM 3 ML NEB ONE (01:42)
[2018-11-20] MEDS: ALBUTEROL/IPRATROPIUM 3 ML NEB NEB SCH ×6 (02:05→22:36)
[2018-11-20] MEDS: ACYCLOVIR 200 MG CAP PO SCH ×5 (05:00→21:22)
[2018-11-20 05:31] LABS: HEMATOCRIT 29.2 % (34.2-44.1); HEMOGLOBIN 8.8 g/dL (12.0-16.0); LYMPHOCYTES # (AUTO) 0.8 (1.0-3.2); LYMPHOCYTES % 15.6 % (18.0-39.1); MEAN CORPUSCULAR HEMOGLOBIN 25.4 pg (28-32); MEAN CORPUSCULAR HGB CONC 30.1 g/dL (31-35); MEAN CORPUSCULAR VOLUME 84.1 fL (81-99); MONOCYTES # (AUTO) 0.4 (0.2-0.8); MONOCYTES % 7.2 % (4.4-11.3); NEUTROPHILS # (AUTO) 3.7 (2.1-6.9); NEUTROPHILS % 76.2 % (38.7-80.0); PLATELET COUNT 305 x10e3/uL (140-360); RED BLOOD COUNT 3.47 x10e6/uL (3.6-5.1); RED CELL DISTRIBUTION WIDTH 15.6 % (11.7-14.4)
[2018-11-20 05:40] LABS: INR 1.12; PROTHROMBIN TIME 14.9 seconds (11.9-14.5)
[2018-11-20 05:57] LABS: ALBUMIN 2.6 g/dL (3.5-5.0); ALBUMIN/GLOBULIN RATIO 0.6 (0.8-2.0); ANION GAP 11.7 mmol/L (8-16); CALCIUM 9.2 mg/dL (8.4-10.2); CHOL/HDL RATIO 6.8 (3.0-3.6); CREATININE, SERUM 1.02 mg/dL (0.57-1.11); POTASSIUM 3.7 mmol/L (3.5-5.1)
[2018-11-20 06:16] LABS: FERRITIN 77.85 ng/mL (4.63-204.00); THYROID STIMULATING HORMONE 0.256 uIU/mL (0.350-4.940)
[2018-11-20 08:09] LABS: ANISOCYTOSIS SLIGHT; LYMPHOCYTES % (MANUAL) 14 % (19-48); MONOCYTES % (MANUAL) 5 % (3.4-9.0); NEUTROPHILS % (MANUAL) 81 % (40-74); PLATELET ESTIMATE ADEQUATE; PLATELET MORPHOLOGY COMMENT NORMAL; RBC MORPHOLOGY COMMENT ABNORMAL
[2018-11-20] MEDS: INSULIN REGULAR, HUMAN 100 UNIT/1 ML 3ML VIAL SQ SCH ×4 (08:30→21:22)
[2018-11-20] MEDS: PANTOPRAZOLE SOD 40 MG TABEC PO SCH ×2 (08:50→17:08)
[2018-11-20] MEDS: FUROSEMIDE INJ 10 MG/ML 2 ML VIAL IV SCH ×2 (08:50→17:08)
[2018-11-20] MEDS: CARVEDILOL 3.125 MG TAB PO SCH ×2 (08:51→21:22)
[2018-11-20] MEDS: CLOPIDOGREL BISULFATE 75 MG TAB PO SCH (08:51)
--- NOTE | 2018-11-20 08:51 | Diagnostic Imaging Report ---
EXAMINATION: CHEST SINGLE (PORTABLE) INDICATION: ^sob ^[id number] ^[id number] COMPARISON: 11/19/2018 FINDINGS: AP view TUBES and LINES: Tracheostomy tube in place. LUNGS: Limited by low lung volumes, rotation, and body habitus pulmonary vascular congestion and mild to moderate interstitial edema. PLEURA: No significant pleural effusion or pneumothorax. HEART AND MEDIASTINUM: The cardiomediastinal silhouette is enlarged. BONES AND SOFT TISSUES: No acute osseous lesion. Soft tissues are unremarkable. UPPER ABDOMEN: No free air under the diaphragm. IMPRESSION: Very limited study as above. Pulmonary vascular congestion and mild to moderate interstitial edema. Signed by: Dr. Pablo Ash MD on 11/20/2018 8:48 AM
[2018-11-20] MEDS: HYDROCODONE/APAP 5MG-325MG TAB PO PRN ×3 (08:52→22:05)
[2018-11-20] MEDS: RIVAROXABAN 20 MG TABLET PO SCH (08:52)
[2018-11-20] MEDS: LISINOPRIL 20 MG TAB PO SCH ×2 (08:52→17:08)
[2018-11-20] MEDS: FENOFIBRATE 145 MG TAB PO SCH (08:52)
[2018-11-20] MEDS: CLONAZEPAM 0.5 MG TAB PO PRN ×2 (08:52→21:22)
[2018-11-20] MEDS: GABAPENTIN 300 MG CAP PO SCH ×3 (08:54→21:22)
--- NOTE | 2018-11-20 13:55 | Progress Note ---
DATE: Cardiology Progress Note SUBJECTIVE: Ms. Cole states she is feeling a little bit better this morning. She is alert and oriented, and asking to be transitioned to a trach collar. OBJECTIVE: VITAL SIGNS: Temperature not recorded, pulse 98, respiratory rate 19, blood pressure 153/89, and oxygen saturation 100% on mechanical ventilation. GENERAL: Alert and oriented x3. Resting comfortably in bed. Does not appear to be in any acute distress at this time. NECK: Supple. No JVD noted. LUNGS: Diminished breath sounds in anterior lower lobes, otherwise clear to auscultation. No wheezing, rhonchi, or crackles. CARDIOVASCULAR: Normal rate and rhythm. Normal S1, S2. No murmurs or gallops noted. EXTREMITIES: Lower extremity trace edema bilaterally. 2+ pedal pulses. CARDIAC MEDICATIONS: Lisinopril 20 mg p.o. b.i.d., Plavix 75 p.o. daily, TriCor 145 p.o. daily, Lasix 20 mg IV b.i.d., Coreg 6.25 mg p.o. q.12 hours, and Xarelto 20 mg p.o. daily. LABORATORY DATA: WBC 4.88, hemoglobin 8.8, hematocrit 29.2, and platelets 305. Sodium 141, potassium 3.7, BUN 26, creatinine 1.02, and glucose 292. Triglycerides 282, total cholesterol 251, LDL 158, and HDL 37. IMAGING: From this morning with pulmonary vascular congestion and [id number] interstitial edema. IMPRESSION: 1. Acute on chronic respiratory failure. 2. Altered mental status; however, alert and oriented today. 3. History of systolic heart failure, last left ventricular ejection fraction 45% of September 2017. Repeat echo has been ordered. 4. Coronary artery disease, status post myocardial infarction. 5. Paroxysmal atrial fibrillation. 6. Diabetes mellitus. 7. Hypertension. 8. Hyperlipidemia. 9. Chronic obstructive pulmonary disease. 10. History of deep vein thrombosis. RECOMMENDATIONS: Resume all home medications. Continue anticoagulation with Xarelto. Continue diuresis. Antimicrobial therapy per primary team. Pulmonary care and toileting per sterile preparation technician. Add statins to the above-listed cardiac medication. We will continue to follow this patient very closely. Dictated by Sima Rocha NP MD MYRA Reese/AMBERL /[id number]
[2018-11-20] MEDS ORDERED: METFORMIN HCL500 MG PO (14:29)
[2018-11-20] MEDS ORDERED: HUMALOG100 UNIT/1 SC (14:29)
[2018-11-20] MEDS ORDERED: LEVEMIR100 UNIT/1 SC (14:29)
[2018-11-20] MEDS ORDERED: HUMALOG100 UNIT/3 SC (14:29)
[2018-11-20] MEDS: AZITHROMYCIN 500MG/NS 250 ML 250 ML IV SCH (16:52)
[2018-11-20] MEDS ORDERED: INSULIN GLARGINE 100 UNITS/ML VIAL SQ SCH (17:00)
[2018-11-20] MEDS: BUSPIRONE HCL 5 MG TAB PO SCH (17:10)
[2018-11-20] MEDS: INSULIN LISPRO 100 UNIT/1 ML 3ML VIAL SQ SCH (17:29)
[2018-11-20] MEDS: INSULIN GLARGINE 100 UNITS/ML VIAL SQ SCH (17:30)
[2018-11-20] MEDS ORDERED: ATORVASTATIN 20 MG TAB PO SCH (21:00)
[2018-11-20] MEDS: ATORVASTATIN 20 MG TAB PO SCH (21:22)
[2018-11-21] VITALS (22 sets, daily range): BP systolic 94–187; BP diastolic 63–98
[2018-11-21] MEDS: ALBUTEROL/IPRATROPIUM 3 ML NEB NEB SCH ×6 (02:41→23:10)
[2018-11-21] MEDS: ACYCLOVIR 200 MG CAP PO SCH ×5 (04:50→21:00)
[2018-11-21] MEDS: HYDROCODONE/APAP 5MG-325MG TAB PO PRN ×3 (04:50→22:13)
[2018-11-21 04:57] LABS: HEMATOCRIT 29.9 % (34.2-44.1); HEMOGLOBIN 8.8 g/dL (12.0-16.0); LYMPHOCYTES # (AUTO) 1.3 (1.0-3.2); LYMPHOCYTES % 24.6 % (18.0-39.1); MEAN CORPUSCULAR HGB CONC 29.4 g/dL (31-35); MEAN CORPUSCULAR VOLUME 84.9 fL (81-99); MONOCYTES # (AUTO) 0.7 (0.2-0.8); MONOCYTES % 12.8 % (4.4-11.3); NEUTROPHILS # (AUTO) 3.2 (2.1-6.9); NEUTROPHILS % 61.8 % (38.7-80.0); PLATELET COUNT 285 x10e3/uL (140-360); RED BLOOD COUNT 3.52 x10e6/uL (3.6-5.1); RED CELL DISTRIBUTION WIDTH 15.9 % (11.7-14.4)
[2018-11-21 05:24] LABS: ANION GAP 10.4 mmol/L (8-16); CALCIUM 8.5 mg/dL (8.4-10.2); CREATININE, SERUM 1.09 mg/dL (0.57-1.11); POTASSIUM 3.4 mmol/L (3.5-5.1)
[2018-11-21] MEDS: INSULIN LISPRO 100 UNIT/1 ML 3ML VIAL SQ SCH ×6 (07:55→21:00)
[2018-11-21] MEDS: INSULIN REGULAR, HUMAN 100 UNIT/1 ML 3ML VIAL SQ SCH (07:55)
[2018-11-21] MEDS: AZITHROMYCIN 500MG/NS 250 ML 250 ML IV SCH (08:43)
[2018-11-21] MEDS: BUSPIRONE HCL 5 MG TAB PO SCH ×2 (08:43→17:34)
[2018-11-21] MEDS: PANTOPRAZOLE SOD 40 MG TABEC PO SCH ×2 (08:43→17:34)
[2018-11-21] MEDS: CITALOPRAM HYDROBROMIDE 20 MG TAB PO SCH (08:43)
[2018-11-21] MEDS: METHYLPREDNISOLONE SOD SUCC 40 MG/ML VIAL 1ML IV SCH ×2 (08:43→17:34)
[2018-11-21] MEDS: FUROSEMIDE INJ 10 MG/ML 2 ML VIAL IV SCH (08:43)
[2018-11-21] MEDS: LISINOPRIL 20 MG TAB PO SCH ×2 (08:44→17:36)
[2018-11-21] MEDS: CARVEDILOL 3.125 MG TAB PO SCH ×2 (08:44→21:00)
[2018-11-21] MEDS: IRON-VITAMIN-MINERAL CAPSULE PO SCH (08:44)
[2018-11-21] MEDS: RIVAROXABAN 20 MG TABLET PO SCH (08:44)
[2018-11-21] MEDS: GABAPENTIN 300 MG CAP PO SCH ×3 (08:44→21:00)
[2018-11-21] MEDS: FENOFIBRATE 145 MG TAB PO SCH (08:44)
[2018-11-21] MEDS: CLOPIDOGREL BISULFATE 75 MG TAB PO SCH (08:44)
--- NOTE | 2018-11-21 10:37 | NUR ---
dr. booth rounded today, states patient no longer needs isolation. order d/c'd in [facility]
[2018-11-21] MEDS ORDERED: ACETAZOLAMIDE SODIUM 500 MG/VIAL IV ONE (13:00)
[2018-11-21] MEDS: INSULIN GLARGINE 100 UNITS/ML VIAL SQ SCH ×2 (13:03→17:38)
[2018-11-21] MEDS: POTASSIUM CHLORIDE 20 MEQ TAB CR PO SCH (13:13)
[2018-11-21] MEDS ORDERED: POTASSIUM CHLORIDE 10MEQ EA PO ONE (14:00)
--- NOTE | 2018-11-21 15:16 | Progress Note ---
DATE: 11/21/2018 Cardiology Progress Note SUBJECTIVE: The patient is without any new complaints this morning. She does endorse some shortness of breath, but states that she feels better. Denies any chest pain. OBJECTIVE: VITAL SIGNS: Temperature 98.4, pulse 84, respiratory rate 20, blood pressure 100/65, oxygen saturation 99% on trach collar. GENERAL: Alert and oriented x3, resting comfortably in bed, does not appear to be in any acute distress. LUNGS: Diminished breath sounds in anterior lower lobes, otherwise clear to auscultation. No wheezing. No rhonchi or crackles. CARDIOVASCULAR: Regular rate and rhythm. Normal S1, S2. No murmurs. No gallops noted. LOWER EXTREMITY: Trace edema bilaterally. 2+ pedal pulses. CARDIOVASCULAR MEDICATIONS: Lisinopril 20 mg p.o. b.i.d., Xarelto 20 mg p.o. daily, Plavix 75 p.o. daily, Coreg 6.25 p.o. b.i.d., atorvastatin 40 mg p.o. at bedtime, furosemide 20 mg IV daily. LABORATORY DATA: WBC 5.16, hemoglobin 8.8, hematocrit 29.9, platelets 285. Sodium 142, potassium 3.4, BUN 30, creatinine 1.09, glucose 230, calcium 8.5. IMPRESSION: 1. Acute on chronic respiratory failure. 2. History of systolic heart failure with last left ventricular ejection fraction 45% in September. 3. Coronary artery disease, status post myocardial infarction. 4. Paroxysmal atrial fibrillation. 5. Diabetes mellitus. 6. Hypertension. 7. Hyperlipidemia. 8. Chronic obstructive pulmonary disease. 9. History of deep venous thrombosis. RECOMMENDATION: Continue the above-listed cardiac medication. Continue anticoagulation with Xarelto and diuretics. Antimicrobial therapy per primary team. Pulmonary care and toileting per senior pharmacy technician. We will continue to monitor this patient closely. She remains stable from a cardiac standpoint. Dictated by Sima Rocha NP MD ELOISA ReeseV/HAROON /[id number]
--- NOTE | 2018-11-21 16:00 | NUR ---
received pt lying in hospital bed transferred from ICU. denies SOB and pain at this time. trach in place with trach collar @60%. oriented to room and use of call light, call light placed within reach. pt instructed to call for assistance. pt noted with shingle blisters through out back on right side extending over right flank and abdomen, some blisters appear crusted over and other blisters appear wet with shiny red granulation and scant drainage noted. pt to be placed in airborne and contact isolation.
--- NOTE | 2018-11-21 19:25 | NUR ---
Patient received sitting up in bed. AAO x 4. Patient had no c/o pain. Trach collar in place at 60 %. Fall precautions implemented. Patient instructed to call for assistance when needed. Call light within reach.
[2018-11-21] MEDS: ATORVASTATIN 20 MG TAB PO SCH (21:00)
[2018-11-21] MEDS: CLONAZEPAM 0.5 MG TAB PO PRN (21:00)
[2018-11-22] VITALS (7 sets, daily range): BP systolic 103–131; BP diastolic 51–92
[2018-11-22] MEDS: ALBUTEROL/IPRATROPIUM 3 ML NEB NEB SCH ×6 (03:55→23:45)
[2018-11-22 04:39] LABS: BASOPHILS % 0.2 % (0.0-1.0); EOSINOPHILS % 0.3 % (0.0-6.0); HEMATOCRIT 31.3 % (34.2-44.1); HEMOGLOBIN 9.1 g/dL (12.0-16.0); LYMPHOCYTES % 34.6 % (18.0-39.1); MEAN CORPUSCULAR HEMOGLOBIN 25.3 pg (28-32); MEAN CORPUSCULAR HGB CONC 29.1 g/dL (31-35); MEAN CORPUSCULAR VOLUME 87.2 fL (81-99); MONOCYTES # (AUTO) 0.8 (0.2-0.8); MONOCYTES % 13.6 % (4.4-11.3); NEUTROPHILS # (AUTO) 2.9 (2.1-6.9); NEUTROPHILS % 50.1 % (38.7-80.0); PLATELET COUNT 315 x10e3/uL (140-360); RED BLOOD COUNT 3.59 x10e6/uL (3.6-5.1); RED CELL DISTRIBUTION WIDTH 15.9 % (11.7-14.4)
[2018-11-22 05:00] LABS: ALBUMIN 2.4 g/dL (3.5-5.0); ALBUMIN/GLOBULIN RATIO 0.6 (0.8-2.0); ANION GAP 7.8 mmol/L (8-16); CALCIUM 8.3 mg/dL (8.4-10.2); CREATININE, SERUM 1.1 mg/dL (0.57-1.11); POTASSIUM 3.8 mmol/L (3.5-5.1)
[2018-11-22] MEDS: ACYCLOVIR 200 MG CAP PO SCH ×5 (05:08→20:29)
--- NOTE | 2018-11-22 06:36 | NUR ---
Dr. Ramos Brown paged regarding critical lab value of carbon dioxide (43). Awaiting call back.
--- NOTE | 2018-11-22 06:38 | NUR ---
Dr. Rahel Aiken paged regarding critical lab value of CO2 (43). Awaiting call back.
--- NOTE | 2018-11-22 07:00 | NUR ---
SHIFT REPORT RECEIVED FROM NIGHT RN WHILE ROUNDING AT BEDSIDE. PT DENIES NEEDS AT THIS TIME.
[2018-11-22] MEDS: INSULIN LISPRO 100 UNIT/1 ML 3ML VIAL SQ SCH ×7 (09:00→20:27)
[2018-11-22] MEDS ORDERED: FUROSEMIDE INJ 10 MG/ML 2 ML VIAL IV SCH (09:00)
[2018-11-22] MEDS: PANTOPRAZOLE SOD 40 MG TABEC PO SCH ×2 (09:01→17:05)
[2018-11-22] MEDS: IRON-VITAMIN-MINERAL CAPSULE PO SCH (09:04)
[2018-11-22] MEDS: CARVEDILOL 3.125 MG TAB PO SCH ×2 (09:04→20:29)
[2018-11-22] MEDS: METHYLPREDNISOLONE SOD SUCC 40 MG/ML VIAL 1ML IV SCH (09:04)
[2018-11-22] MEDS: BUSPIRONE HCL 5 MG TAB PO SCH ×2 (09:04→17:05)
[2018-11-22] MEDS: POTASSIUM CHLORIDE 20 MEQ TAB CR PO SCH (09:07)
[2018-11-22] MEDS: LISINOPRIL 20 MG TAB PO SCH ×2 (09:08→17:06)
[2018-11-22] MEDS: CLOPIDOGREL BISULFATE 75 MG TAB PO SCH (09:08)
[2018-11-22] MEDS: FENOFIBRATE 145 MG TAB PO SCH (09:08)
[2018-11-22] MEDS: RIVAROXABAN 20 MG TABLET PO SCH (09:08)
[2018-11-22] MEDS: GABAPENTIN 300 MG CAP PO SCH ×3 (09:08→20:29)
[2018-11-22] MEDS: CITALOPRAM HYDROBROMIDE 20 MG TAB PO SCH (09:28)
--- NOTE | 2018-11-22 10:51 | NUR ---
EDUCATED ABOUT IMM, SIGNED, FILED IN CHART, WITH COPY LEFT WITH FAMILY AT BEDSIDE.
[2018-11-22] MEDS: INSULIN GLARGINE 100 UNITS/ML VIAL SQ SCH ×2 (12:24→17:14)
[2018-11-22] MEDS: ACETAZOLAMIDE SODIUM 500 MG/VIAL IV ONE ×2 (17:05→17:45)
--- NOTE | 2018-11-22 18:42 | Progress Note ---
DATE: 11/22/2018 Cardiology Progress Note SUBJECTIVE: The patient denies chest pain or shortness of breath. OBJECTIVE: VITAL SIGNS: Temperature 97.9 degrees, pulse 84, respiratory rate 18, blood pressure 115/51, oxygen saturation 100% on trach collar. GENERAL: Obese woman, in no acute distress, awake and alert. LUNGS: Clear to auscultation bilaterally. No wheezes or crackles. Tracheostomy is present. CARDIOVASCULAR: Normal rate, regular rhythm. No murmur. Normal S1, S2. ABDOMEN: Soft, nontender. EXTREMITIES: Trace edema. CARDIAC MEDICATIONS: Lisinopril 10 mg p.o. b.i.d., Xarelto 20 mg p.o. daily, fenofibrate 145 mg p.o. daily, Plavix 75 mg p.o. daily, carvedilol 6.25 mg p.o. q.12 hours, furosemide 20 mg IV daily, and atorvastatin 40 mg p.o. at bedtime. LABORATORY DATA: WBC 5.83, hemoglobin 9.1, hematocrit 31.3, platelets 315. Sodium 142, potassium 3.8, chloride 95, CO2 of 43, BUN 30, creatinine 1.1. TELEMETRY: Normal sinus rhythm. IMPRESSION: 1. Acute on chronic respiratory failure. 2. History of systolic heart failure with last LVEF of 45% in September. 3. Coronary artery disease, status post myocardial infarction. 4. Paroxysmal atrial fibrillation. 5. Diabetes mellitus. 6. Hypertension. 7. Hyperlipidemia. 8. Chronic obstructive pulmonary disease. 9. History of deep venous thrombosis. RECOMMENDATIONS: Change Lasix to p.o. Continue current cardiac medications otherwise. Continue Xarelto for CVA prophylaxis. Monitor the patient on telemetry. Antibiotics per primary service. The patient is stable from a cardiac standpoint. Thank you for this consult. We will continue to follow. Gita Montanez MD ABS/MODL /[id number]
[2018-11-22] MEDS: ATORVASTATIN 20 MG TAB PO SCH (20:29)
[2018-11-22] MEDS: CLONAZEPAM 0.5 MG TAB PO PRN (21:08)
[2018-11-22] MEDS: HYDROCODONE/APAP 5MG-325MG TAB PO PRN (21:14)
[2018-11-23] VITALS: BP 90/42
[2018-11-23] MEDS: ALBUTEROL/IPRATROPIUM 3 ML NEB NEB SCH ×3 (03:00→11:35)
[2018-11-23 04:00] VITALS: BP 102/49
[2018-11-23] MEDS: ACYCLOVIR 200 MG CAP PO SCH ×2 (04:35→08:35)
[2018-11-23] MEDS: HYDROCODONE/APAP 5MG-325MG TAB PO PRN (04:35)
[2018-11-23 04:57] LABS: ALBUMIN 2.5 g/dL (3.5-5.0); ALBUMIN/GLOBULIN RATIO 0.7 (0.8-2.0); ANION GAP 9.4 mmol/L (8-16); CREATININE, SERUM 1.1 mg/dL (0.57-1.11); POTASSIUM 4.4 mmol/L (3.5-5.1)
--- NOTE | 2018-11-23 07:00 | NUR ---
SHIFT REPORT RECEIVED FROM NIGHT RN WHILE ROUNDING AT BEDSIDE. PT DENIES NEEDS AT THIS TIME.
[2018-11-23] MEDS: INSULIN LISPRO 100 UNIT/1 ML 3ML VIAL SQ SCH ×4 (07:30→12:00)
[2018-11-23 08:00] VITALS: BP 100/48
[2018-11-23] MEDS: PANTOPRAZOLE SOD 40 MG TABEC PO SCH (08:29)
[2018-11-23] MEDS: BUSPIRONE HCL 5 MG TAB PO SCH (08:30)
[2018-11-23] MEDS: IRON-VITAMIN-MINERAL CAPSULE PO SCH (08:31)
[2018-11-23] MEDS: GABAPENTIN 300 MG CAP PO SCH (08:32)
[2018-11-23] MEDS: CLOPIDOGREL BISULFATE 75 MG TAB PO SCH (08:33)
[2018-11-23] MEDS: FENOFIBRATE 145 MG TAB PO SCH (08:34)
[2018-11-23] MEDS: RIVAROXABAN 20 MG TABLET PO SCH (08:35)
[2018-11-23 09:00] VITALS: BP 100/48
[2018-11-23] MEDS: LISINOPRIL 20 MG TAB PO SCH (09:00)
[2018-11-23] MEDS: CARVEDILOL 3.125 MG TAB PO SCH (09:00)
[2018-11-23] MEDS ORDERED: METHYLPREDNISOLONE SOD SUCC 40 MG/ML VIAL 1ML IV SCH (09:00)
[2018-11-23] MEDS ORDERED: FUROSEMIDE 20 MG TAB PO SCH (09:00)
[2018-11-23] MEDS: CITALOPRAM HYDROBROMIDE 20 MG TAB PO SCH (09:09)
[2018-11-23] MEDS: POTASSIUM CHLORIDE 20 MEQ TAB CR PO SCH (09:09)
--- NOTE | 2018-11-23 10:50 | NUR ---
CLEARED BY DR. SOLOMON FOR DISCHARGE.
--- NOTE | 2018-11-23 11:14 | NUR ---
ZAYRA FROM STANDPOINT OF DR. NAVARRO FOR PT TO DISCHARGE HOME.
[2018-11-23] MEDS ORDERED: PREDNISONE10 MG PO (11:23)
[2018-11-23] MEDS ORDERED: PREDNISONE5 MG (11:24)
--- NOTE | 2018-11-23 11:30 | NUR ---
PT'S IV DC'D WITH TIP INTACT, BLEEDING STOPPED AND DRESSING PLACED.
[2018-11-23] MEDS: INSULIN GLARGINE 100 UNITS/ML VIAL SQ SCH (12:20)
--- NOTE | 2018-11-23 17:33 | Progress Note ---
DATE: 11/23/2018 Cardiology Progress Note SUBJECTIVE: The patient denies chest pain or shortness of breath. OBJECTIVE: VITAL SIGNS: Temperature 97.4 degrees, pulse 81, respiratory rate 18, blood pressure 100/48, oxygen saturation 94% on trach collar. GENERAL: Obese woman, in no acute distress, awake and alert. LUNGS: Clear to auscultation bilaterally. No wheezes or crackles. Tracheostomy is present. CARDIOVASCULAR: Normal rate, regular rhythm. No murmur. Normal S1, S2. ABDOMEN: Soft, nontender. EXTREMITIES: Trace edema. CARDIAC MEDICATIONS: Rivaroxaban 20 mg p.o. daily, fenofibrate 145 mg p.o. daily, Plavix 75 mg p.o. daily, furosemide 20 mg p.o. daily, atorvastatin 40 mg p.o. at bedtime, furosemide 20 mg IV daily, lisinopril 20 mg p.o. b.i.d., carvedilol 6.25 mg p.o. q.12 hours. LABORATORY DATA: Sodium 141, potassium 4.4, chloride 97, CO2 39, BUN 30, creatinine 1.1. TELEMETRY: Normal sinus rhythm. IMPRESSION: 1. Acute on chronic respiratory failure. 2. History of systolic heart failure with last left ventricular ejection fraction of 45% in September. 3. Coronary artery disease, status post prior myocardial infarction. 4. Paroxysmal atrial fibrillation. 5. Diabetes mellitus. 6. Hypertension. 7. Hyperlipidemia. 8. Chronic obstructive pulmonary disease. 9. History of deep vein thrombosis. RECOMMENDATIONS: Continue current cardiac medications. Monitor creatinine. Continue Xarelto for CVA prophylaxis. Maintain patient on telemetry while she is admitted. Antibiotics per primary service. The patient may follow up in the office in two weeks. Thank you for this consult. We will continue to follow. Gita Montanez MD ABS/MODL /[id number]
--- NOTE | 2018-11-24 05:10 | Discharge Summary ---
HISTORY: She is a 58-year-old female patient, presented to the emergency room with the respiratory failure, with severe shortness of breath. ADMITTING IMPRESSION AND DIAGNOSES: Shortness of breath and hypoxemia and hypercapnia with [id number] respiratory failure with hypercapnia and severe COPD with exacerbation, pneumonia, herpes zoster, obstructive sleep apnea, diastolic congestive heart failure with atrial fibrillation, type 2 diabetes mellitus with neuropathy, hypertensive heart disease, morbid obesity, tracheostomy. HOSPITAL COURSE/SUMMARY: The patient was admitted with the above diagnoses. The patient was started on IV Solu-Medrol, IV Lasix. Diamox was given and antibiotics were given. The patient was on a ventilator in the intensive care unit and ventilator management was done by the Pulmonary. The patient was given IV antibiotics, Zithromax. Acyclovir was given. ID consultation with Dr. Thomas, who has seen the patient. The patient was successfully extubated and moved to the floor. The patient was on a contact isolation. The patient was given physical therapy and occupational therapy and now upon stabilization, the patient will be discharged home on acyclovir and prednisone. The patient was advised to have a quick followup as outpatient. MD SUNI Deleon/AMBERL /[id number]
== END 2018-11-23 13:11 | disposition home or self-care (01) | DRG 208 ==
LOC: ER 19:48 → ERHOLD 23:50 → UNDOADMOB 11-19 01:17 → ERHOLD 11-19 01:17 → UNDOADMIN 11-19 01:53 → ICU 11-19 02:05 → MED/SURG2 11-21 17:30
PROVIDERS: ADMIT Internal Medicine; ATTEND Internal Medicine
PROC: 5A1945Z Respiratory Ventilation, 24-96 Consecutive Hours (ICD-10-PCS; principal; 2018-11-18)
DX: J96.21 Acute and chronic respiratory failure with hypoxia (principal); J18.9 Pneumonia, unspecified organism; Z68.41 Body mass index [BMI] 40.0-44.9, adult; J44.1 Chronic obstructive pulmonary disease with (acute) exacerbation; J44.0 Chronic obstructive pulmonary disease with (acute) lower respiratory infection; I50.32 Chronic diastolic (congestive) heart failure; E87.3 Alkalosis; I48.0 Paroxysmal atrial fibrillation; J96.22 Acute and chronic respiratory failure with hypercapnia; B02.9 Zoster without complications; G47.33 Obstructive sleep apnea (adult) (pediatric); I11.0 Hypertensive heart disease with heart failure; Z79.01 Long term (current) use of anticoagulants; E11.40 Type 2 diabetes mellitus with diabetic neuropathy, unspecified; E66.01 Morbid (severe) obesity due to excess calories; Z93.0 Tracheostomy status; I25.10 Atherosclerotic heart disease of native coronary artery without angina pectoris; I25.2 Old myocardial infarction; E78.5 Hyperlipidemia, unspecified; Z86.718 Personal history of other venous thrombosis and embolism; E86.0 Dehydration
CPT/HCPCS: 36415; 36600; 71045; 80048; 80053; 80061; 81001; 82550; 82553; 82728; 82805; 82947; 82948; 83036; 83540; 83735; 83880; 84443; 84466; 84484; 85025; 85045; 85610; 87040; 87070; 87186; 87205; 93005; 94002; 94003; 94640; 96372; 96374; 97139; 99284; J0456; J1815; J1940; J2920